=== PATIENT | female | born 2000 | race Caucasian/White ===

== ENCOUNTER → 2022-08-30 | Outpatient (CLI) | payer OTHER, SELFPAY ==
[2022-08-30 16:55] LABS: Amphetamine Urine VISTA NEGATIVE (<1000 ng/mL); Barbiturate Urine VISTA NEGATIVE (< 200 ng/mL); Benzodiazepine Urine VISTA NEGATIVE (< 200 ng/mL); Cocaine Urine VISTA NEGATIVE (< 300 ng/mL); Ecstacy Urine VISTA NEGATIVE (< 500 ng/mL); Methadone Urine VISTA NEGATIVE (< 300 ng/mL); PCP Urine VISTA NEGATIVE (< 25 ng/mL); THC Urine VISTA NEGATIVE (< 50 ng/mL); Vista UDS pH Range 5
[2022-09-02 09:08] LABS: Chlamydia By Nucleic Acid AMP Negative (Negative)
[2022-09-02 15:29] LABS: Gonococcus By Nucleic Acid AMP Negative (Negative)
[2022-09-06 15:06] LABS: HPV Reflexed? NOT INDICATED
== END | disposition home or self-care (01) ==
LOC: LABSPEC 15:45
PROVIDERS: PCP Family Medicine; Referring Provider Obstetrics & Gynecology; Visit Provider Obstetrics & Gynecology
DX: Z34.00 Encounter for supervision of normal first pregnancy, unspecified trimester (principal); Z12.4 Encounter for screening for malignant neoplasm of cervix
CPT/HCPCS: 80307; 87086; 87491; 87591; 88175; G0145

== ENCOUNTER → 2022-09-28 | Outpatient (CLI) | payer OTHER, SELFPAY ==
[2022-09-28 14:12] LABS: Absolute Lymphocyte Count 2.51 X10^3/uL (0.83-4.51); Absolute Neutrophil Count 9.6 X10^3/uL (2.0-7.7); Basophil# 0.04 X10^3/uL; Basophil% 0.3 % (0-1); Eosinophil# 0.14 X10^3/uL; Eosinophils% 1.1 % (0-5); Hematocrit 41.4 % (37-47); Hemoglobin 13.7 g/dL (12.0-15.0); Lymphocyte # 2.51 X10^3/ul (0.83-4.51); Mean Corp Hgb Conc 33.1 g/dL (32-36); Mean Corpuscular Hgb 29.5 pg (27.0-32.0); Mean Platelet Vol. 9.4 fl (6.2-12.0); Monocyte% 6.8 % (0-10); NRBC Flagged by Analyzer 0 % (0-5); Neutrophil # 9.59 X10^3/uL (2.7-7.7); Neutrophil % 72.4 % (47-70); Platelet Count 265 K/mm3 (150-450); RBC Distribution Width CV 12.4 % (11.6-14.6); RBC Distribution Width SD 40.1 fl (35.1-43.9); Red Blood Count 4.65 M/mm3 (4.2-5.4); White Blood Count 13.2 K/mm3 (4.4-11.0)
[2022-09-28 15:20] LABS: HIV - WCH Non-Reactive (Nonreactive); Hepatitis B Surface Antigen Non-Reactive (Nonreactive); Hepatitis C Antibody Non-Reactive (Nonreactive); Rubella IgG Reactive (Nonreactive); Syphilis Antibodies Non-reactive
== END | disposition home or self-care (01) ==
LOC: PAVLAB 13:52
PROVIDERS: PCP Family Medicine; Referring Provider Obstetrics & Gynecology; Visit Provider Obstetrics & Gynecology
DX: Z34.00 Encounter for supervision of normal first pregnancy, unspecified trimester (principal)
CPT/HCPCS: 36415; 85025; 86703; 86762; 86780; 86803; 86850; 86900; 86901; 87340

== ENCOUNTER → 2023-01-12 | Outpatient (CLI) | payer OTHER, SELFPAY ==
[2023-01-12 10:59] LABS: Absolute Lymphocyte Count 1.58 X10^3/uL (0.83-4.51); Absolute Neutrophil Count 6.8 X10^3/uL (2.0-7.7); Basophil# 0.03 X10^3/uL; Basophil% 0.3 % (0-1); Eosinophil# 0.07 X10^3/uL; Eosinophils% 0.8 % (0-5); Hematocrit 38.6 % (37-47); Hemoglobin 12.8 g/dL (12.0-15.0); Lymphocyte # 1.58 X10^3/ul (0.83-4.51); Lymphocyte % 17.3 % (19-41); Mean Corp Hgb Conc 33.2 g/dL (32-36); Mean Corpuscular Hgb 30.4 pg (27.0-32.0); Mean Corpuscular Volume 91.7 fL (81-99); Mean Platelet Vol. 9.3 fl (6.2-12.0); Monocyte# 0.56 X10^3/uL; Monocyte% 6.1 % (0-10); NRBC Flagged by Analyzer 0 % (0-5); Neutrophil # 6.79 X10^3/uL (2.7-7.7); Neutrophil % 74.6 % (47-70); Platelet Count 217 K/mm3 (150-450); RBC Distribution Width CV 12.8 % (11.6-14.6); RBC Distribution Width SD 42.4 fl (35.1-43.9); Red Blood Count 4.21 M/mm3 (4.2-5.4); White Blood Count 9.1 K/mm3 (4.4-11.0)
[2023-01-12 11:11] LABS: Glucose Challenge Gest 1H 50g 163 mg/dL (70-140)
[2023-01-12 11:50] LABS: HIV - WCH Non-Reactive (Nonreactive); Syphilis Antibodies Non-reactive
== END | disposition home or self-care (01) ==
LOC: PAVLAB 10:24
PROVIDERS: PCP Family Medicine; Referring Provider Obstetrics & Gynecology; Visit Provider Obstetrics & Gynecology
DX: Z34.02 Encounter for supervision of normal first pregnancy, second trimester (principal)
CPT/HCPCS: 36415; 82950; 85025; 86703; 86780

== ENCOUNTER → 2023-01-17 | Outpatient (CLI) | payer OTHER, SELFPAY ==
[2023-01-17 07:52] LABS: Glucose GTT-Gestation. Fasting 77 mg/dL (<105)
[2023-01-17 08:35] LABS: Glucose GTT-Gestational 1 Hr 201 mg/dL (<190)
[2023-01-17 09:08] LABS: Glucose GTT-Gestational 2 Hr 189 mg/dL (<165)
[2023-01-17 11:45] LABS: Glucose GTT-Gestational 3 Hr 82 L (<145)
== END | disposition home or self-care (01) ==
LOC: LAB 06:49
PROVIDERS: PCP Family Medicine; Referring Provider Obstetrics & Gynecology; Visit Provider Obstetrics & Gynecology
DX: O99.810 Abnormal glucose complicating pregnancy (principal); Z3A.00 Weeks of gestation of pregnancy not specified
CPT/HCPCS: 36415; 82951; 82952

== ENCOUNTER 2023-01-19 08:19 | Outpatient (RCR) | payer OTHER, SELFPAY | END 2023-01-20 23:59 | LOC: DC 08:19 | PROVIDERS: PCP Family Medicine; Referring Provider Advanced Practice Midwife; Visit Provider Advanced Practice Midwife | DX: O24.419 Gestational diabetes mellitus in pregnancy, unspecified control (principal); Z3A.00 Weeks of gestation of pregnancy not specified | CPT/HCPCS: 97802 ==

== ENCOUNTER 2023-02-02 09:30 | Outpatient (RCR) | payer OTHER, SELFPAY | END 2023-02-19 23:59 | LOC: DC 09:30 | PROVIDERS: PCP Family Medicine; Referring Provider Advanced Practice Midwife; Visit Provider Advanced Practice Midwife | DX: O24.419 Gestational diabetes mellitus in pregnancy, unspecified control (principal); Z3A.00 Weeks of gestation of pregnancy not specified | CPT/HCPCS: 97803 ==

== ENCOUNTER → 2023-03-15 | Outpatient (CLI) | payer OTHER, SELFPAY ==
--- NOTE | 2023-03-15 08:48 | US_ITS ---
HISTORY: gestational diabetes. LMP 07/03/2022. TECHNIQUE: Transabdominal pelvic ultrasound was performed. 69 images. COMPARISON: None. FINDINGS: INTRAUTERINE GESTATION(s): Single. PRESENTATION: Cephalic. HEART MOTION: 144 bpm. PLACENTA: Anterior, grade 2. No placenta previa. CERVIX: 3.9 cm in length and closed. AMNIOTIC FLUID INDEX (RENATA): 15.3 cm. Largest fluid pocket 4.9 cm. BIOPHYSICAL PROFILE (BPP): Not assessed. biometry- BIPARIETAL DIAMETER: 9 cm, corresponding to 36 weeks 4 days. HEAD CIRCUMFERENCE: 33.1 cm, corresponding to 37 weeks 5 days. ABDOMINAL CIRCUMFERENCE: 37.1 cm, corresponding to 41 weeks 0 days. FEMUR LENGTH: 6.9 cm, corresponding to 35 weeks 3 days. ESTIMATED GESTATIONAL AGE: 37 weeks 3 days. ESTIMATED DUE DATE (LAISHA): 04/02/2023. ESTIMATED WEIGHT: 3680 g, corresponding to 97th percentile ANATOMY: Not assessed. US/OB Limited With Biometrics IMPRESSION: Single living intrauterine with an estimated gestational age of 37 weeks 3 days. Electronically Signed: Demi Siu MD at 10:31 EDT ,
== END | disposition home or self-care (01) ==
PROVIDERS: PCP Family Medicine; Referring Provider Obstetrics & Gynecology; Visit Provider Obstetrics & Gynecology
DX: Z34.00 Encounter for supervision of normal first pregnancy, unspecified trimester (principal)
CPT/HCPCS: 76816; 87081

== ENCOUNTER → 2023-03-28 | Outpatient (CLI) | payer OTHER, SELFPAY ==
--- NOTE | 2023-03-28 10:35 | US_ITS ---
STUDY: SECOND AND THIRD TRIMESTER OBSTETRICAL ULTRASOUND REASON FOR EXAM: Female, 23 years old growth -- gestational dm -- patient just scanned 03/15 - per office repeat today, Did not wait for correct timing interval of 4 weeks LMP: July 03, 2022. TECHNIQUE: Transabdominal TECHNICAL QUALITY: Adequate. PRIOR ULTRASOUND: Comparison is made with prior study dated March 15, 2023. FINDINGS: There is a single intrauterine fetus. The fetus is in a cephalic presentation. There is demonstrated cardiac activity with a heart rate of 153 bpm. There is a normal amniotic fluid volume. The largest amniotic fluid pocket measures 5.6 cm. The amniotic fluid index (RENATA) is 15.4 cm. The placenta is anterior in location and is not low lying. There are Grade 2 placental changes. The cervix measures 3.7 sign in length. The adnexal regions are not visualized. BIOMETRY: BPD: 9.43 cm: 38 weeks, 3 days HC: 33.42 cm: 38 weeks, 1 days AC: 39.59 cm: Measurement is off the chart FL: 7.08 cm: 36 weeks, 2 days CI: 84% FL/BPD: 75% FL/HC: FL/AC: 18% HC/AC: 0.84 age by current US: 38 weeks, 1 days. LAISHA by current US: April 10, 2023. Estimated weight: 4348 grams, +/- 652 grams, 99 %. age by prior US: 39 weeks, 2 days. LAISHA by prior US: April 02, 2023. Age by LMP: 38 weeks, 2 days. LAISHA by LMP: April 09, 2023. US/OB Limited With Biometrics IMPRESSION: Single live intrauterine gestation with a mean gestational age of 39 weeks and 2 days. The measurements obtained today fall within normal expected range. Electronically Signed: Raul Sauceda MD at 13:37 EDT ,
== END | disposition home or self-care (01) ==
LOC: US 10:35
PROVIDERS: PCP Family Medicine; Referring Provider Obstetrics & Gynecology; Visit Provider Obstetrics & Gynecology
DX: Z34.90 Encounter for supervision of normal pregnancy, unspecified, unspecified trimester (principal)
CPT/HCPCS: 76816

== ENCOUNTER 2023-03-31 10:45 | Outpatient (CLI) | payer OTHER, SELFPAY ==
[2023-03-31 11:06] VITALS: TEMP 37.1
[2023-03-31 11:08] VITALS: BMI 33.3
[2023-03-31 11:16] VITALS: PULSE 101; PULSE 143; O2SAT 83; O2SAT 97
[2023-03-31 11:23] VITALS: BP 122/78; PULSE 94
[2023-03-31 11:37] VITALS: BP 115/72; PULSE 92
[2023-03-31 11:39] LABS: Hematocrit 41.6 % (37-47); Hemoglobin 14.1 g/dL (12.0-15.0); Mean Corp Hgb Conc 33.9 g/dL (32-36); Mean Corpuscular Hgb 30.5 pg (27.0-32.0); Mean Platelet Vol. 9.9 fl (6.2-12.0); Platelet Count 201 K/mm3 (150-450); RBC Distribution Width CV 12.5 % (11.6-14.6); RBC Distribution Width SD 40.7 fl (35.1-43.9); Red Blood Count 4.62 M/mm3 (4.2-5.4); White Blood Count 8.5 K/mm3 (4.4-11.0)
[2023-03-31 11:53] VITALS: BP 113/65; PULSE 86
[2023-03-31 12:02] LABS: AST(SGOT) 22 U/L (15-37); Alanine Aminotransfer ALT/SGPT 27 U/L (13-56); Creatinine, Serum 0.62 mg/dL (0.55-1.02); EST Glomerular Filtration Rate 125 mL/min (>60); Est Glom Filt Rate - Afr Amer 151 mL/min (>60); Estimated Creatinine Clearance 124.82 ml/min; Uric Acid 4.6 mg/dL (2.6-6.0)
[2023-03-31 12:07] VITALS: BP 107/62; PULSE 82
[2023-03-31 12:07] LABS: Protein, Urine (Random) 16.5 mg/dL (<11.9); Protein:Creat Ratio 279 mg/g CRE (0-200)
[2023-03-31 12:09] LABS: ALB/GLOB Ratio 0.7 RATIO (0.9-2.4); AST(SGOT) 23 U/L (15-37); Alanine Aminotransfer ALT/SGPT 25 U/L (13-56); Albumin, Serum 2.7 g/dL (3.2-5.0); Alkaline Phosphatase 198 U/L (45-117); Anion Gap 7 (5-15); BUN 9 mg/dL (7-18); BUN/Creat Ratio 14.6 RATIO (10-20); Calcium,Total 9.5 mg/dL (8.5-10.1); Chloride 107 mmol/L (98-107); Creatinine, Serum 0.62 mg/dL (0.55-1.02); EST Glomerular Filtration Rate 126 mL/min (>60); Est Glom Filt Rate - Afr Amer 152 mL/min (>60); Estimated Creatinine Clearance 124.82 ml/min; Glucose 89 mg/dL (74-106); Protein, Total 6.7 g/dL (6.4-8.2); Sodium Level 137 mmol/L (136-145)
--- NOTE | 2023-03-31 12:10 | OB.TRI.NOTE ---
HPI - General HPI Narrative CHRIS WALLACE, is a 23 F who presents with elevated BPs in the office. no lof, vaginal bleeding, or dec fm. no headaches. 99th% baby, planning a primary section.? sending to L&D now prot/cr sent stat Maternal Data Information LAISHA Calculator Estimated Delivery Date Method Current WG Current Estimate 04/09/23 LMP (Certain) 38w 5d PFSH PFSH Medical History Influenza A Home Medications vitamin#30 30 mg iron-10 mg iron-folic acid 1 mg-omg3 capsule 1 cap PO DAILY 08/30/22 [History Last Taken 03/30/23 22:00] blood sugar diagnostic (Blood Glucose Test strips) #50 ea 01/17/23 [Rx Last Taken Unknown] blood-glucose meter #1 ea 01/17/23 [Rx Last Taken Unknown] lancets #100 ea 01/17/23 [Rx Last Taken Unknown] Allergy/AdvReac Type Severity Reaction Status Date / Time No Known Allergies Allergy Verified 03/31/23 10:07 Social History adopted: No household members: spouse housing: house current occupational status: employed 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 current occupational exposures/hazards: No pets and animals: Yes pets and animals: dog(s) history of recent travel: Yes (Cruise 08/19/22 [facility]) out of state: Yes out of country: Yes sexually active: Yes Smoking Status: Never smoker alcohol intake: former details: ocassional prior to substance use type: does not use well-balanced diet: daily or most days caffeine: Yes Type: coffee Number of servings: 1 eating out: rarely or never during the past year weight has: remained stable what type of physical activity do you participate in: none david/alevism: Catholic seatbelt use: always do you feel safe at home: Yes 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 History 1 Elective abortions Hx Para 0 Spontaneous abortions Hx # Term Pregnancies Ectopic pregnancies Hx # Pregnancies Multiple births # of living children Visit Details Expected Delivery Route/Plan Labor Preferences- CB/BF classes: Discussed labor support person: Andreas labor intervention preferences: epidural if needed pain management options preferred: Discussed cut cord/dad catch: cord : yes PP control planned: discussed discussed possible routes of delivery and associated risks: [] special requests: [] Plans Covid status: declined Flu vaccine: discussed Tdap vaccine: Given Rhogam: na LARC form signed: yes Problem list reviewed and updated with the most current plan of care details and appropriate orders placed. Relevant counseling for the gestational age provided. Continue routine care and follow up unless otherwise noted in visit notes/problem list details OB Flowsheet Initial Weight: Not Recorded Date <del>?</del> EGA Weight BP Urine Prot <del>?</del> Glucose FHR FuHt Pres Dilation <del>?</del> Effaced St Visit Note 08/30/22 <del>?</del> 8w 2d 175 lb 112/82 <del>?</del> 168 <del>?</del> JV- CRL consistent with LMP. declines genetic testing. 09/28/22 <del>?</del> 12w 3d 179 lb 4 oz 131/82 Negative <del>?</del> Negative 157 <del>?</del> JV- no complaints today. CRL consistent with GS still and pt doing overall well. she will go for labs today. 10/25/22 <del>?</del> 16w 2d 180 lb 127/80 Negative <del>?</del> Negative 150 <del>?</del> SM- no vb cramping. 11/21/22 <del>?</del> 20w 1d 182 lb 127/84 Negative <del>?</del> Negative 165 <del>?</del> SM- its a BOY! no vb cramping 12/19/22 <del>?</del> 24w 1d 188 lb 8 oz 116/76 Negative <del>?</del> Negative 150 24 <del>?</del> SM- no vb lof good fm no regular ctx 01/12/23 <del>?</del> 27w 4d 194 lb 6 oz 136/87 Negative <del>?</del> Negative 155 28 <del>?</del> KW no vb/lof/ctx. good FM. failed 1 hour GTT, 3 hour info given. 01/24/23 <del>?</del> 29w 2d 193 lb 8 oz 128/78 Negative <del>?</del> Negative 155 29 <del>?</del> KW-+FM. No LOF/VB/Ctx. BS reviewed-stable. Tdap given. 02/08/23 <del>?</del> 31w 3d 193 lb 124/79 Negative <del>?</del> Negative 141 32 <del>?</del> JV- larc signed today. no lof, vaginal bleeding, or dec fm. JV- larc signed today. no lof, vaginal bleeding, or dec fm. Fasting levels 70's- 80's, 2 hr pp under 120 02/23/23 <del>?</del> 33w 4d 194 lb 2 oz 125/76 Negative <del>?</del> Negative 143 33 <del>?</del> JV-no lof, vaginal bleeding or dec fm. normal glucose levels 03/09/23 <del>?</del> 35w 4d 195 lb 6 oz 128/78 Negative <del>?</del> Negative 145 37 Cephalic <del>?</del> SM- no vb lof good fm no regular ctx SM- no vb lof good fm no regular ctx ordered growth us BS controlled 03/15/23 <del>?</del> 36w 3d 197 lb 2 oz 122/83 Negative <del>?</del> Negative 150 37.5 Cephalic 1 <del>?</del> 0 -4 JV- growth scan shows baby is over 8 pounds already and 97th%. plan for 39 week delivery. and consider repeat scan prior to induction if baby still high. if over 4500 grams at 39 weeks consider primary section. (today is at 3700 and estimated to be 4400 grams by 39 weeks) 03/21/23 <del>?</del> 37w 2d 196 lb 4 oz 124/82 Negative <del>?</del> Negative 157 38 Cephalic 1 <del>?</del> -4 MH-No VB, LOF or reg CTX. Good FM. Growth US ordered. 03/31/23 <del>?</del> 38w 5d 200 lb 134/85 Trace <del>?</del> Negative 150 43 <del>?</del> JV-rpt bp is 146/93. no lof, vaginal bleeding, or dec fm. no headaches. 99th% baby, planning a primary section. JV-rpt bp is 146/93. no lof, vaginal bleeding, or dec fm. no headaches. 99th% baby, planning a primary section. sending to L&D now prot/cr sent stat 03/31/23 <del>?</del> 38w 5d 200 lb 9.93 oz 122/78 115/72 113/65 107/62 <del>?</del> <del>?</del> NST FHR Rate Baby A Baseline: 155 Variability:: Moderate Accelerations:: 15 x 15 Decelerations:: None NST Reactive:: Yes FHR Category:: Category I Uterine Activity:: irregular ctx Assessment & Plan (1) LGA (large for gestational age) fetus: COMMENT: rpt growth US at 38 wk, del at 39 wk, primary csection scheduled for 04/05 @ 7:10 (2) Gestational diabetes: COMMENT: 99% on 03/28. 4500grams by 39weeks. P C/S scheduled for 04/05 at 7am. BS well controlled with diet 36 week growth us ordered - LGA on growth scan at 36 weeks (97th%) - 8lbs at 36 weeks. deliver 39 weeks - consider growth scan repeat at 39 weeks. estimated to be 4400 grams at 39 weeks and may be candidate for primary section. (3) Supervision of normal first : COMMENT: PRR , LAISHA 04/09/23 boy [facility] (4) : QUALIFIERS: Weeks of gestation: 38 weeks Qualified Code(s): Z3A.38 - 38 weeks gestation of COMMENT: Neg GBS. discussed genetic, ntd, and carrier testing and declines. nl anatomy (5) Elevated BP without diagnosis of hypertension: COMMENT: P:C 279. repeat BP in WP 107-122/62-78. PLAN: Plan Patient presents for triage evaluation secondary to elevated BP in office. P:C 279 with stabilized BP during triage. FHT: Moderate variability reactive no decelerations category I tracing [place]: irregular Contractions Assessment and plan: Reactive NST, reassuring maternal and status patient discharged to home to follow-up in office. See problem list details for additional plan information. Charges/Coding Procedures Urinary/Genital [id number]: [id number] non-stress test Interp
== END 2023-03-31 12:28 | disposition home or self-care (01) ==
LOC: WPOUT 11:03 → LABSPEC 11:03 → WPOUT 11:03 → WP 11:04
PROVIDERS: Obstetrics & Gynecology; PCP Family Medicine; Referring Provider Registered Nurse; Visit Provider Registered Nurse
DX: O36.63X0 Maternal care for excessive fetal growth, third trimester, not applicable or unspecified (principal); O24.410 Gestational diabetes mellitus in pregnancy, diet controlled; O99.891 Other specified diseases and conditions complicating pregnancy; R03.0 Elevated blood-pressure reading, without diagnosis of hypertension; Z3A.38 38 weeks gestation of pregnancy
CPT/HCPCS: 36415; 59025; 59050; 80053; 82565; 82570; 84156; 84450; 84460; 84550; 85027

== ENCOUNTER 2023-04-05 04:55 | Inpatient (IN) | payer OTHER, SELFPAY ==
[2023-04-05] VITALS (17 sets, daily range): BP systolic 105–142; BP diastolic 53–82; PULSE 75–103; RESP 15–18; TEMP 35.6–37.2; O2SAT 96–99; BMI 33.3
[2023-04-05] MEDS: Lactated Ringers 1,000 ML 999 ML IV (05:35)
[2023-04-05 05:47] LABS: Absolute Lymphocyte Count 1.89 X10^3/uL (0.83-4.51); Absolute Neutrophil Count 5.9 X10^3/uL (2.0-7.7); Basophil# 0.04 X10^3/uL; Basophil% 0.4 % (0-1); Eosinophil# 0.14 X10^3/uL; Eosinophils% 1.6 % (0-5); Hematocrit 40.7 % (37-47); Hemoglobin 13.7 g/dL (12.0-15.0); Lymphocyte # 1.89 X10^3/ul (0.83-4.51); Lymphocyte % 21.1 % (19-41); Mean Corp Hgb Conc 33.7 g/dL (32-36); Mean Corpuscular Hgb 30.6 pg (27.0-32.0); Mean Corpuscular Volume 90.8 fL (81-99); Monocyte# 0.96 X10^3/uL; Monocyte% 10.7 % (0-10); NRBC Flagged by Analyzer 0 % (0-5); Neutrophil # 5.87 X10^3/uL (2.7-7.7); Neutrophil % 65.5 % (47-70); Platelet Count 209 K/mm3 (150-450); RBC Distribution Width CV 12.1 % (11.6-14.6); RBC Distribution Width SD 39.9 fl (35.1-43.9); Red Blood Count 4.48 M/mm3 (4.2-5.4)
[2023-04-05] MEDS: Acetaminophen 500 MG Tablet 1000 MG PO ×4 (06:03→23:14)
[2023-04-05 06:23] LABS: Bedside Glucose 88 mg/dL (74-106)
[2023-04-05] MEDS: Lactated Ringers 1,000 ML 150 ML IV (06:36)
[2023-04-05] MEDS: Sodium Citrate/Citric Acid 30 ML UDC PO (07:06)
[2023-04-05] MEDS: Cefazolin 2 GM in 0.9% Normal Saline 100 ML IV (07:10)
--- NOTE | 2023-04-05 07:24 | HP.PCM.OB_ITS ---
HPI - General General Date of Admission: 04/05/23 HPI Narrative CHRIS WALLACE, is a 23 y/o @ 39 weeks 3 days with LGA (>4500 grams) and gestation diabetes who presents to L&D for a primary cesarea section Maternal Data Information LAISHA Calculator Estimated Delivery Date Method Current WG Current Estimate 04/09/23 LMP (Certain) 39w 3d PFSH PFS Medical History (Updated 04/05/23 @ 05:43 by Aggie Parada) Gestational diabetes Influenza A macrosomia Home Medications vitamin#30 30 mg iron-10 mg iron-folic acid 1 mg-omg3 capsule 1 cap PO DAILY 08/30/22 [History Last Taken 03/30/23 22:00] blood sugar diagnostic (Blood Glucose Test strips) #50 ea 01/17/23 [Rx Last Taken Unknown] blood-glucose meter #1 ea 01/17/23 [Rx Last Taken Unknown] lancets #100 ea 01/17/23 [Rx Last Taken Unknown] Allergy/AdvReac Type Severity Reaction Status Date / Time No Known Allergies Allergy Verified 04/05/23 05:54 Surgical History (Updated 04/05/23 @ 05:43 by Aggie Parada) S/P foot surgery, left [place] teeth removed Social History adopted: No household members: spouse housing: house current occupational status: employed 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 current occupational exposures/hazards: No pets and animals: Yes pets and animals: dog(s) history of recent travel: Yes (Cruise 08/19/22 [facility]) out of state: Yes out of country: Yes sexually active: Yes Smoking Status: Never smoker alcohol intake: former details: ocassional prior to substance use type: does not use well-balanced diet: daily or most days caffeine: Yes Type: coffee Number of servings: 1 eating out: rarely or never during the past year weight has: remained stable what type of physical activity do you participate in: none david/hindu: Latter Day seatbelt use: always do you feel safe at home: Yes 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 1 Elective abortions Hx Para 0 Spontaneous abortions Hx # Term Pregnancies Ectopic pregnancies Hx # Pregnancies Multiple births # of living children Visit Details Expected Delivery Route/Plan Labor Preferences- CB/BF classes: Discussed labor support person: Andreas labor intervention preferences: epidural if needed pain management options preferred: Discussed cut cord/dad catch: cord : yes PP control planned: discussed discussed possible routes of delivery and associated risks: [] special requests: [] Plans Covid status: declined Flu vaccine: discussed Tdap vaccine: Given Rhogam: na LARC form signed: yes Problem list reviewed and updated with the most current plan of care details and appropriate orders placed. Relevant counseling for the gestational age provided. Continue routine care and follow up unless otherwise noted in visit notes/problem list details OB Flowsheet Initial Weight: Not Recorded Date -?-?-?-?-?-?-?-?-?-?-?-?- EGA Weight BP Urine Prot -?-?-?-?-?-?-?-?-?-?-?-?- Glucose FHR FuHt Pres Dilation -?-?-?-?-?-?-?-?-?-?-?-?- Effaced St Visit Note 08/30/22 -?-?-?-?-?-?-?-?-?-?-?-?- 8w 2d 175 lb 112/82 -?-?-?-?-?-?-?-?-?-?-?-?- 168 -?-?-?-?-?-?-?-?-?-?-?-?- JV- CRL consiste nt with LMP. declines genetic testing. 09/28/22 -?-?-?-?-?-?-?-?-?-?-?-?- 12w 3d 179 lb 4 oz 131/82 Nega tive -?-?-?-?-?-?-?-?-?-?-?-?- Negative 157 -?-?-?-?-?-?-?-?-?-?-?-?- JV- no complaint s today. CRL consistent with GS still and pt doing overall well. she will go for labs today. 10/25/22 -?-?-?-?-?-?-?-?-?-?-?-?- 16w 2d 180 lb 127/80 Negative -?-?-?-?-?-?-?-?-?-?-?-?- Negative 150 -?-?-?-?-?-?-?-?-?-?-?-?- SM- no vb crampi ng. 11/21/22 -?-?-?-?-?-?-?-?-?-?-?-?- 20w 1d 182 lb 127/84 Negative -?-?-?-?-?-?-?-?-?-?-?-?- Negative 165 -?-?-?-?-?-?-?-?-?-?-?-?- SM- its a BOY! n o vb cramping 12/19/22 -?-?-?-?-?-?-?-?-?-?-?-?- 24w 1d 188 lb 8 oz 116/76 Nega tive -?-?-?-?-?-?-?-?-?-?-?-?- Negative 150 24 -?-?-?-?-?-?-?-?-?-?-?-?- SM- no vb lof go od fm no regular ctx 01/12/23 -?-?-?-?-?-?-?-?-?-?-?-?- 27w 4d 194 lb 6 oz 136/87 Nega tive -?-?-?-?-?-?-?-?-?-?-?-?- Negative 155 28 -?-?-?-?-?-?-?-?-?-?-?-?- KW no vb/lof/ctx . good FM. failed 1 hour GTT, 3 hour info given. 01/24/23 -?-?-?-?-?-?-?-?-?-?-?-?- 29w 2d 193 lb 8 oz 128/78 Nega tive -?-?-?-?-?-?-?-?-?-?-?-?- Negative 155 29 -?-?-?-?-?-?-?-?-?-?-?-?- KW-+FM. No LOF/V B/Ctx. BS reviewed-stable. Tdap given. 02/08/23 -?-?-?-?-?-?-?-?-?-?-?-?- 31w 3d 193 lb 124/79 Negative -?-?-?-?-?-?-?-?-?-?-?-?- Negative 141 32 -?-?-?-?-?-?-?-?-?-?-?-?- JV- larc signed today. no lof, vaginal bleeding, or dec fm. JV- larc signed today. no lo f, vaginal bleeding, or dec fm. Fasting levels 70's- 80's, 2 hr pp under 120 02/23/23 -?-?-?-?-?-?-?-?-?-?-?-?- 33w 4d 194 lb 2 oz 125/76 Nega tive -?-?-?-?-?-?-?-?-?-?-?-?- Negative 143 33 -?-?-?-?-?-?-?-?-?-?-?-?- JV-no lof, vagin al bleeding or dec fm. normal glucose levels 03/09/23 -?-?-?-?-?-?-?-?-?-?-?-?- 35w 4d 195 lb 6 oz 128/78 Nega tive -?-?-?-?-?-?-?-?-?-?-?-?- Negative 145 37 Cephalic -?-?-?-?-?-?-?-?-?-?-?-?- SM- no vb lof go od fm no regular ctx SM- no vb lof good fm no reg ular ctx ordered growth us BS controlled 03/15/23 -?-?-?-?-?-?-?-?-?-?-?-?- 36w 3d 197 lb 2 oz 122/83 Nega tive -?-?-?-?-?-?-?-?-?-?-?-?- Negative 150 37.5 Cephalic 1 -?-?-?-?-?-?-?-?-?-?-?-?- 0 -4 JV- growth scan shows baby is over 8 pounds already and 97th%. plan for 39 week delivery. and consider repeat scan prior to induction if baby still high. if over 4500 grams at 39 weeks consider primary section. (today is at 3700 and estimated to be 4400 grams by 39 weeks) 03/21/23 -?-?-?-?-?-?-?-?-?-?-?-?- 37w 2d 196 lb 4 oz 124/82 Nega tive -?-?-?-?-?-?-?-?-?-?-?-?- Negative 157 38 Cephalic 1 -?-?-?-?-?-?-?-?-?-?-?-?- -4 MH-No VB , LOF or reg CTX. Good FM. Growth US ordered. 03/31/23 -?-?-?-?-?-?-?-?-?-?-?-?- 38w 5d 200 lb 134/85 Trace -?-?-?-?-?-?-?-?-?-?-?-?- Negative 150 43 -?-?-?-?-?-?-?-?-?-?-?-?- JV-rpt bp is 146 /93. no lof, vaginal bleeding, or dec fm. no headaches. 99th% baby, planning a primary section. JV-rpt bp is 146/93. no lof, vaginal bleeding, or dec fm. no headaches. 99th% baby, planning a primary section. sending to L&D now prot/cr sent stat ROS Constitutional Constitutional: Denies change in weight, fatigue, fever(s), headache(s), poor appetite or weakness Eyes Eyes: Denies blurry vision, change in vision, seeing flashes or spots in vision ENT HEENT: Denies dizziness, headache(s), loss taste/smell or sore throat Cardiovascular Cardiovascular: Denies chest pain, dizziness, dyspnea, irregular heart rhythm, leg edema, palpitations, rapid heart rate or vomiting Respiratory/Chest Respiratory/Chest: Denies chest tightness, cough, dyspnea or breast pain Gastrointestinal Gastrointestinal: Denies abdominal pain, anorexia, constipation, cramping, diarrhea, hemorrhoids, vomiting or weight changes Genitourinary Genitourinary: Denies dysuria, flank pain, genital lesions, genital pain, urinary frequency or urinary urgency Musculoskeletal Musculoskeletal: Denies back pain, difficulty walking, joint pain, limited range of motion, muscle cramps or numbness Integumentary Integumentary: Denies lesions or unusual bruising Neurologic Neurologic: Denies abnormal movements, abnormal speech, dizziness, numbness, seizure-like activity or syncope Psychiatric Psychiatric: Denies anxiety, behavioral changes, change in appetite, change in libido, cognitive impairment, confusion, depression, difficulty concentrating, hallucinations or suicidal thoughts Endocrine Endocrinology: Denies excessive sweating, polydipsia or polyuria Hematologic/Lymphatic Hematologic/Lymphatic: Denies easy bleeding, easy bruising or lymphadenopathy Allergic/Immunologic Allergic/Immunologic: Denies itchy eyes, lip swelling, seasonal rhinorrhea, rhinitis, throat swelling, tongue swelling, eczemia, wheezing or asthma Vital Signs Vital Signs Vital Signs: 04/05/23 05:29 04/05/23 05:29 04/05/23 05:29 Temperature Temperature Source Pulse Rate 93 Respiratory Rate Blood Pressure 129/82 H Blood Pressure Mean BP Systolic 129 BP Diastolic 82 Blood Pressure Source Blood Pressure Position Blood Pressure Location Pulse Ox 96 Oxygen Delivery Method 04/05/23 05:30 04/05/23 05:30 04/05/23 05:30 Temperature 99.0 F 99.0 F Temperature Source Temporal Temporal Pulse Rate 93 Respiratory Rate 18 Blood Pressure 129/82 H Blood Pressure Mean 97 BP Systolic BP Diastolic Blood Pressure Source Monitor Blood Pressure Position Sitting Blood Pressure Location Left Arm Pulse Ox 96 Oxygen Delivery Method Room Air Weight Weight: 200 lb 9.6 oz Body Mass Index (BMI) 33.3 Physical Exam Const alert, oriented x3, no apparent distress and healthy appearing General Appearance: cooperative; Negative for anxious HEENT normocephalic Face and Sinus: normal facial exam Eyes EOMs intact bilaterally and no scleral icterus General Eye: normal appearance of both eyes Neck full ROM and supple Lymph Lymphatic: no lymphadenopathy noted Chest Chest: abnormal inspection of the chest Resp normal respiratory effort Effort and Inspection: able to speak in complete sentences Cardio regular rate GI soft to palpation and non-tender Inspection: gravid Palpation: soft; Negative for tender Back/Spine no CVA tenderness Extremity normal to inspection, full ROM and no clubbing, cyanosis or edema General Extremity: Negative for calf tenderness or edema Skin Lesions: no lesions Rashes: no rashes Psych mental status grossly normal Labs Labs Labs: Blood Type O POSITIVE Antibody Screen NEGATIVE Hct 40.7 % (37-47) Hgb 13.7 g/dL (12.0-15.0) Pap Smear Negative Obstetrics US Syphilis Total Ab Non-reactive Rubella IgG Antibody Reactive (Nonreactive) Hep Bs Antigen Non-Reactive (Nonreactive) Chlamydia DNA (ERICK) Negative (Negative) Neisseria gonorrhoeae DNA (ERICK) Negative (Negative) HIV 1&2 Antibody Non-Reactive (Nonreactive) Glucose 1 Hr 50 gm 163 mg/dL (70-140) H Assessment & Plan (1) : QUALIFIERS: Weeks of gestation: 38 weeks Qualified Code(s): Z3A.38 - 38 weeks gestation of COMMENT: Neg GBS. discussed genetic, ntd, and carrier testing and declines. nl anatomy (2) Supervision of normal first : COMMENT: PRR , LAISHA 04/09/23 boy [facility] (3) Gestational diabetes: COMMENT: 99% on 03/28. 4500grams by 39weeks. P C/S scheduled for 04/05 at 7am. BS well controlled with diet 36 week growth us ordered - LGA on growth scan at 36 weeks (97th%) - 8lbs at 36 weeks. deliver 39 weeks - consider growth scan repeat at 39 weeks. estimated to be 4400 grams at 39 weeks and may be candidate for primary section. (4) LGA (large for gestational age) fetus: COMMENT: rpt growth US at 38 wk, del at 39 wk, primary csection scheduled for 04/05 @ 7:10 (5) Elevated BP without diagnosis of hypertension: COMMENT: P:C 279. repeat BP in WP 107-122/62-78. PLAN: Plan After discussing the patient's diagnosis and treatment plan options, patient wishes to proceed with surgical management. I have discussed with the patient the risks, benefits, and alternatives of the procedure which include but are not limited to risks of anesthesia, bleeding, infection, possible damage to bowel, bladder, or surrounding vasculature which could lead to additional surgery to evaluate any complications. Patient agrees to procedure and wishes to proceed. ACOG/uptodate references given for additional information regarding procedure. plan for primary ERAS section
--- NOTE | 2023-04-05 07:45 | NURSING ---
late entry charting in connect system due pt care and unit acuity
--- NOTE | 2023-04-05 08:16 | OP.PCM_ITS ---
Assessment & Plan (1) : QUALIFIERS: Weeks of gestation: 38 weeks Qualified Code(s): Z3A.38 - 38 weeks gestation of COMMENT: Neg GBS. discussed genetic, ntd, and carrier testing and declines. nl anatomy (2) Supervision of normal first : COMMENT: PRR , LAISHA 04/09/23 boy [facility] (3) Gestational diabetes: COMMENT: 99% on 03/28. 4500grams by 39weeks. P C/S scheduled for 04/05 at 7am. BS well controlled with diet 36 week growth us ordered - LGA on growth scan at 36 weeks (97th%) - 8lbs at 36 weeks. deliver 39 weeks - consider growth scan repeat at 39 weeks. estimated to be 4400 grams at 39 weeks and may be candidate for primary section. (4) LGA (large for gestational age) fetus: COMMENT: rpt growth US at 38 wk, del at 39 wk, primary csection scheduled for 04/05 @ 7:10 (5) Elevated BP without diagnosis of hypertension: COMMENT: P:C 279. repeat BP in WP 107-122/62-78. Maternal Data Information LAISHA Calculator Estimated Delivery Date Method Current WG Current Estimate 04/09/23 LMP (Certain) 39w 3d Final LAISHA: 04/09/23 Final LAISHA Source: LMP Gestational age: 39 weeks 3 days Details Operative Information Date of Procedure: 04/05/23 Pre-Operative Diagnosis: 23 y/o @ 39 weeks 3 days Post-Operative Diagnosis: 23 y/o @ 39 weeks 3 days Classification: Scheduled Procedure Type: low transverse material lister #1: Dalton Abrams Type of Anesthesia: Spinal Antibiotic Given: Ancef 2 grams IV x1 Drain: Sheppard to straight drain Estimated Blood Loss: 700cc Findings Description of Procedure: Spinal anesthesia was placed without difficulty. Sheppard catheter was placed. The patient was placed in the dorsal supine position with leftward tilt. Patient was prepped and draped in the normal sterile fashion. Pfannenstiel skin incision was made with the scalpel and carried through to the underlying layer of fascia with the scalpel. Fascia was nicked in the midline and the incision extended laterally. The rectus bellies were dissected off superiorly and inferiorly with out complication both sharply and bluntly. The peritoneum was entered digitally. The incision was stretched and a low transverse uterine incision was made with the scalpel. The infant's head was delivered atraumatically followed by the anterior and posterior shoulders without complication the rest of the infant delivered. The cord was clamped and cut and the was handed off to awaiting nurse. The placenta was delivered spontaneously immediately following and was noted to be intact and have a three- vessel cord. The uterus was exteriorized cleared of all clots and debris, and the incision was closed in a double layer closure using #1 Vicryl #1 Monocryl. The ovaries and fallopian tubes were noted to be within normal limits. The uterus was returned to the maternal abdomen and gutters were cleared of all clots and debris. The peritoneum was closed with 3-0 Monocryl in a running fashion. Fascia was closed with 0 PDS in a running fashion. Subcutaneous tissue was copiously irrigated and the skin was closed with 3-0 Monocryl in a subcuticular fashion. Mepilex dressing was applied without complication. Patient was taken to recovery in stable condition. It was discussed with the patient that based on the clinical information obtained during this encounter, combined with her history, at this time I would recommend for future deliveries if further pregnancies are desired. Presentation: Positive for Vertex Amniotic Fluid Description: Clear Cord Vessel Description: 3 Vessels Cord Entanglement: Around neck x 1, loose Nuchal Cord Compression: Without compression Infant A Gender: Male (1 minute): 8 (5 minute): 9 Delayed Cord Clamping: Yes Complications Risks of Surgery Discussed w/Patient: Bleeding, Anesthesia Risks, Infection and Injury to surrounding structure(s) including bowel and bladder Multi Select Codes Urinary/Genital Urinary/Genital CPT Codes: [address] [facility]
[2023-04-05 08:19] LABS: Syphilis Antibodies Non-reactive
[2023-04-05] MEDS: Oxytocin 15 Units/NS 250ml 15 UNITS/250 ML IV.SOLN 83 UNITS IV (08:25)
[2023-04-05] MEDS: Ketorolac 30 MG/ML Syringe IV ×3 (09:21→20:59)
[2023-04-05] MEDS: 0.9% Saline Lock 10 ML Syringe IV ×3 (09:21→20:59)
[2023-04-05 10:12] LABS: Bedside Glucose 70 mg/dL (74-106)
[2023-04-05] MEDS: Lactated Ringers 1,000 ML 100 ML IV (11:30)
[2023-04-05] MEDS: Prenatal Vits Tablet 1 TABLET PO (12:06)
[2023-04-06] MEDS: Ketorolac 30 MG/ML Syringe IV (03:00)
[2023-04-06] MEDS: 0.9% Saline Lock 10 ML Syringe IV (03:01)
[2023-04-06 03:10] VITALS: BP 123/66; PULSE 88; RESP 18; TEMP 36.1; O2SAT 97
[2023-04-06] MEDS: Acetaminophen 500 MG Tablet 1000 MG PO ×3 (05:50→18:17)
[2023-04-06 06:19] LABS: Hematocrit 33.3 % (37-47); Mean Corpuscular Hgb 30.6 pg (27.0-32.0); Mean Corpuscular Volume 92.8 fL (81-99); Mean Platelet Vol. 9.8 fl (6.2-12.0); Platelet Count 151 K/mm3 (150-450); RBC Distribution Width CV 12.4 % (11.6-14.6); RBC Distribution Width SD 42.1 fl (35.1-43.9); Red Blood Count 3.59 M/mm3 (4.2-5.4); White Blood Count 8.9 K/mm3 (4.4-11.0)
[2023-04-06 06:29] LABS: Bedside Glucose 73 mg/dL (74-106)
--- NOTE | 2023-04-06 08:24 | PCM.PN.OB ---
Subjective Subjective Patient is laying in bed comfortably without complaints. She states that she slept on an off during the night. Lochia is mild and pain is minimal. She does not feel comfortable being discharged today Objective Data Objective Data Vital Signs: Vital Signs Temp Pulse Resp BP Pulse Ox O2 Del Method 97.0 F L 88 18 123/66 H 97 Room Air 04/06/23 03:10 04/06/23 03:10 04/06/23 03:10 04/06/23 03:10 04/06/23 03:10 04/06/23 03:10 Oxygen Delivery Method Room Air Weight: 200 lb 9.6 oz Body Mass Index (BMI) 33.3 Intake & Output: Intake and Output for Last 24 Hours 04/04/23 04/05/23 04/06/23 23:59 23:59 23:59 Intake Total 2845 / 2845 Output Total 1690 / 1690 Balance 1155 / 1155 Lab / Micro Data Result Diagrams: 04/06/23 06:07 Labs: Laboratory Results - last 24 hr 04/05/23 09:41: POC Glucose 70 L 04/06/23 05:54: POC Glucose 73 L 04/06/23 06:07: WBC 8.9, RBC 3.59 L, Hgb 11.0 L, Hct 33.3 L, MCV 92.8, MCH 30.6, MCHC 33.0, RDW Std Deviation 42.1, RDW Coeff of [place] 12.4, Plt Count 151, MPV 9.8 ROS Constitutional Constitutional: Reports systems reviewed and no addt'l complaints, except as documented Cardiovascular Cardiovascular: Denies chest pain, dizziness, dyspnea or irregular heart rhythm Respiratory/Chest Respiratory/Chest: Denies cough, pain on inspiration or shortness of breath at rest Gastrointestinal Gastrointestinal: Denies abdominal pain, nausea or vomiting Genitourinary Genitourinary: Denies burning urination Musculoskeletal Musculoskeletal: Denies muscle cramps, muscle spasms or muscle weakness Neurologic Neurologic: Denies confusion, dizziness, headache(s) or lack of coordination Psychiatric Psychiatric: Denies anxiety, behavioral changes or depression Physical Exam HEENT normocephalic Resp normal respiratory effort and normal air movement GI soft to palpation, non-tender and non-distended Rectal Exam: other Other Details: Incision is clean, dry, and intact no CVA tenderness Extremity normal to inspection General Extremity: edema bilateral (trace ) Assessment & Plan (1) Status post section: PLAN: s/p LTCS PPD # 1 1. routine post care 2. breast feeding- support given 3. rh positive 4. rubella immune 5. plan for dc to home tomorrow
[2023-04-06] MEDS: Ibuprofen 600 MG Tablet PO ×3 (08:53→20:52)
[2023-04-06 09:24] VITALS: BP 132/72; PULSE 87; RESP 16; TEMP 36.4; O2SAT 98
[2023-04-06] MEDS: Prenatal Vits Tablet 1 TABLET PO (12:06)
[2023-04-06 14:09] VITALS: BP 118/61; PULSE 97; RESP 16; TEMP 36.7; O2SAT 99
--- NOTE | 2023-04-06 15:10 | NURSING ---
silver mepilex dressing removed after pt showered due to water getting under dressing.
[2023-04-06] MEDS: Senna/Docusate Sodium 1 Tablet PO (15:28)
[2023-04-06 21:43] VITALS: BP 123/64; PULSE 88; RESP 16; TEMP 36.4
[2023-04-07] MEDS: Acetaminophen 500 MG Tablet 1000 MG PO ×3 (00:16→12:19)
[2023-04-07 02:14] VITALS: BP 128/72; PULSE 105; RESP 16; TEMP 36.1; O2SAT 98
[2023-04-07] MEDS: Ibuprofen 600 MG Tablet PO ×2 (03:36→09:48)
[2023-04-07 07:31] VITALS: BP 120/76; PULSE 84; RESP 18; TEMP 36.7; O2SAT 98
--- NOTE | 2023-04-07 07:40 | PCM.DC.SUM ---
Providers Date of Admission: 04/05/23 Primary Care Physician: Dr. Lidia Espinal MD Reason For Visit: C SECTION Diagnosis Discharge Diagnosis (1) Status post section: Status: Acute Code(s): Z98.891 - History of uterine scar from previous surgery Plan: s/p LTCS PPD # 1 1. routine post care 2. breast feeding- support given 3. rh positive 4. rubella immune 5. plan for dc to home tomorrow Medications at Discharge Home Medications vitamin#30 30 mg iron-10 mg iron-folic acid 1 mg-omg3 capsule 1 cap PO DAILY 08/30/22 blood sugar diagnostic (Blood Glucose Test strips) #50 ea 01/17/23 blood-glucose meter #1 ea 01/17/23 lancets #100 ea 01/17/23 Hospital Course Operations None and section Summary of Care Provided Minutes Spent on Discharge: 30 Hospital Course: The patient was admitted for a primary scheduled section on 04/05/23 for suspected weight of 9-10 pounds. There were no complications. On day #1 she was tolerating pain well and ambulating, on day #2 she was ready for discharge. Physical Exam HEENT normocephalic Resp normal respiratory effort and normal air movement GI soft to palpation, non-tender and non-distended Rectal Exam: other Other Details: Incision is clean, dry, and intact no CVA tenderness Extremity normal to inspection General Extremity: edema bilateral (trace ) Weight / BMI Weight Weight: 200 lb 9.6 oz Body Mass Index (BMI) 33.3 ABG / Lab / Microbiology Data Result Diagrams: 04/06/23 06:07 D/C Instructions Discharge Diet: No restrictions May resume sexual activity in: 4-6 weeks Weight Bearing Status: Full weight bearing Call your doctor if your incision/area has: Continuous Slow Oozing, Sudden Increased Bleeding, Increased Pain/ Swelling, Increased Redness and Foul Smelling Discharge Call your doctor if you observe: Fever of 101 or Higher and Using more than 1 pad per hour Suture Line Care: Avoid Pulling/Pushing and Avoid Pinching/Bending Cleanse incision/area with: Soap & Water and Keep Dressing Clean & Dry Please Follow Up With: Emma Booth, When: Call [phone] to make an appointment for an incision check in 1-2 weeks. Meaningful Use Info Meaningful Use Diagnoses (Choose all that apply): None applicable Discharge Plan Admission Admit Date/Time: 04/05/23 04:55 Attending Provider: Emma Booth Primary Care Provider: Lidia Espinal Discharge Orders/Prescriptions Prescriptions: No Action PNV #[id number] acid-omega3 30 mg iron-10 mg iron-1 mg capsule 1 cap PO DAILY (DME) blood-glucose meter Misc See Rx Instructions .MEDSUPPLY Qty: 1 0RF Rx Instructions: As directed- Test fasting and 2 hours after meals (DME) lancets Misc See Rx Instructions .MEDSUPPLY Qty: 100 12RF Rx Instructions: As directed Fasting and 2 HR after meals (DME) Blood Glucose Test Strip See Rx Instructions .Route Qty: 50 12RF Rx Instructions: As directed Fasting & 2 HR after meals Referrals / Follow Up: Lidia Espinal MD [Primary Care Provider] - Disposition Disposition (needs filled in before D/C Order can be placed): Home, Self Care
--- NOTE | 2023-04-07 07:42 | DCINST_ITS ---
Discharge Instructions Diet Discharge Diet: No restrictions Activity Discharge Activity: May Not Drive (for 2 weeks or while taking narcotic pain medications.), May Shower and May Take a Tub Bath (in 7 days.) May resume sexual activity in: 4-6 weeks Weight Bearing Status: Full weight bearing Lifting Restrictions: 20 pounds Dressing / Incision Call your doctor if your incision/area has: Continuous Slow Oozing, Sudden Increased Bleeding, Increased Pain/ Swelling, Increased Redness and Foul Smelling Discharge Call your doctor if you observe: Fever of 101 or Higher and Using more than 1 pad per hour Suture Line Care: Avoid Pulling/Pushing and Avoid Pinching/Bending Cleanse incision/area with: Soap & Water and Keep Dressing Clean & Dry Follow Up Care Please Follow Up With: Emma Booth DO When: Call [phone] to make an appointment for an incision check in 1-2 weeks. Test Results: Test results from this visit will be discussed in further detail at your follow- up appointment, if applicable. Discharge Plan Admission Admit Date/Time: 04/05/23 04:55 Primary Reason for Your Visit: Attending Provider: Emma Booth Primary Care Provider: Lidia Espinal Discharge Orders/Prescriptions Prescriptions: New ibuprofen 800 mg tablet 800 mg PO Q8H PRN (Reason: pain) Qty: 30 0RF Continued PNV #[id number] acid-omega3 30 mg iron-10 mg iron-1 mg capsule 1 cap PO DAILY No Action (DME) blood-glucose meter Misc See Rx Instructions .MEDSUPPLY Qty: 1 0RF Rx Instructions: As directed- Test fasting and 2 hours after meals (DME) lancets Misc See Rx Instructions .MEDSUPPLY Qty: 100 12RF Rx Instructions: As directed Fasting and 2 HR after meals (DME) Blood Glucose Test Strip See Rx Instructions .Route Qty: 50 12RF Rx Instructions: As directed Fasting & 2 HR after meals Referrals / Follow Up: Lidia Espinal MD [Primary Care Provider] - Disposition Disposition (needs filled in before D/C Order can be placed): Home, Self Care
[2023-04-07] MEDS: Senna/Docusate Sodium 1 Tablet PO (09:49)
[2023-04-07 11:00] VITALS: BP 115/75; PULSE 91; RESP 18; TEMP 36.6; O2SAT 97
[2023-04-07] MEDS: Prenatal Vits Tablet 1 TABLET PO (12:18)
[2023-04-07 12:22] VITALS: BP 115/75; PULSE 100; RESP 18; TEMP 36.6; O2SAT 97
== END 2023-04-07 12:40 | disposition home or self-care (01) | DRG 788 ==
PROVIDERS: Admitting Provider Obstetrics & Gynecology; PCP Family Medicine; Visit Provider Obstetrics & Gynecology
PROC: 10D00Z1 Extraction of Products of Conception, Low, Open Approach (ICD-10-PCS; CPT 59514; principal; 2023-04-05 06:55)
DX: O24.420 Gestational diabetes mellitus in childbirth, diet controlled (principal); O26.893 Other specified pregnancy related conditions, third trimester; R03.0 Elevated blood-pressure reading, without diagnosis of hypertension; O36.63X0 Maternal care for excessive fetal growth, third trimester, not applicable or unspecified; O69.81X0 Labor and delivery complicated by cord around neck, without compression, not applicable or unspecified; Z3A.39 39 weeks gestation of pregnancy; Z37.0 Single live birth; Z28.310 Unvaccinated for COVID-19; Z28.21 Immunization not carried out because of patient refusal
CPT/HCPCS: 59050; 82962; 85025; 85027; 86780; 86850; 86900; 86901; 99221; J7120; A4216; G0378; J2405

== ENCOUNTER → 2024-07-15 | Outpatient (CLI) | payer OTHER, SELFPAY ==
[2024-07-15 09:48] LABS: Absolute Lymphocyte Count 2.13 X10^3/uL (0.83-4.51); Absolute Neutrophil Count 6.7 X10^3/uL (2.0-7.7); Basophil# 0.08 X10^3/uL; Basophil% 0.8 % (0-1); Eosinophil# 0.14 X10^3/uL; Eosinophils% 1.4 % (0-5); Hematocrit 40.7 % (37-47); Hemoglobin 13.7 g/dL (12.0-15.0); Lymphocyte # 2.13 X10^3/ul (0.83-4.51); Lymphocyte % 21.9 % (19-41); Mean Corp Hgb Conc 33.7 g/dL (32-36); Mean Corpuscular Hgb 29.5 pg (27.0-32.0); Mean Corpuscular Volume 87.5 fL (81-99); Mean Platelet Vol. 9.5 fl (6.2-12.0); Monocyte# 0.62 X10^3/uL; Monocyte% 6.4 % (0-10); NRBC Flagged by Analyzer 0 % (0-5); Neutrophil # 6.72 X10^3/uL (2.7-7.7); Platelet Count 310 K/mm3 (150-450); RBC Distribution Width CV 12.7 % (11.6-14.6); Red Blood Count 4.65 M/mm3 (4.2-5.4); White Blood Count 9.7 K/mm3 (4.4-11.0)
[2024-07-15 10:50] LABS: HIV - WCH Non-Reactive (Nonreactive); Hepatitis B Surface Antigen Non-Reactive (Nonreactive); Hepatitis C Antibody Non-Reactive (Nonreactive); Rubella IgG Equiv (Nonreactive); Syphilis Antibodies Non-reactive
[2024-07-15 13:07] LABS: Protein, Urine (Random) 9.8 mg/dL (<11.9); Protein:Creat Ratio 73 mg/g CRE (0-200)
[2024-07-17 06:09] LABS: Chlamydia By Nucleic Acid AMP Negative (Negative); Gonococcus By Nucleic Acid AMP Negative (Negative)
== END | disposition home or self-care (01) ==
PROVIDERS: PCP Family Medicine; Referring Provider Obstetrics & Gynecology; Visit Provider Obstetrics & Gynecology
DX: O09.90 Supervision of high risk pregnancy, unspecified, unspecified trimester (principal); O99.210 Obesity complicating pregnancy, unspecified trimester; O09.299 Supervision of pregnancy with other poor reproductive or obstetric history, unspecified trimester; Z86.32 Personal history of gestational diabetes; Z3A.00 Weeks of gestation of pregnancy not specified
CPT/HCPCS: 36415; 82570; 83036; 84156; 85025; 86703; 86762; 86780; 86803; 86850; 86900; 86901; 87086; 87088; 87340; 87491; 87591

== ENCOUNTER → 2024-12-05 | Outpatient (CLI) | payer OTHER, MEDICAID, SELFPAY ==
[2024-12-05 10:29] LABS: Absolute Lymphocyte Count 1.29 X10^3/uL (0.83-4.51); Absolute Neutrophil Count 7.9 X10^3/uL (2.0-7.7); Basophil# 0.04 X10^3/uL; Basophil% 0.4 % (0-1); Eosinophil# 0.14 X10^3/uL; Eosinophils% 1.4 % (0-5); Hematocrit 39.5 % (37-47); Hemoglobin 13.2 g/dL (12.0-15.0); Lymphocyte # 1.29 X10^3/ul (0.83-4.51); Lymphocyte % 12.6 % (19-41); Mean Corp Hgb Conc 33.4 g/dL (32-36); Mean Corpuscular Hgb 30.4 pg (27.0-32.0); Mean Platelet Vol. 9.9 fl (6.2-12.0); Monocyte# 0.73 X10^3/uL; Monocyte% 7.2 % (0-10); NRBC Flagged by Analyzer 0 % (0-5); Neutrophil % 77.4 % (47-70); Platelet Count 207 K/mm3 (150-450); RBC Distribution Width CV 12.9 % (11.6-14.6); RBC Distribution Width SD 42.3 fl (35.1-43.9); Red Blood Count 4.34 M/mm3 (4.2-5.4); White Blood Count 10.2 K/mm3 (4.4-11.0)
[2024-12-05 11:41] LABS: Glucose Challenge Gest 1H 50g 122 mg/dL (70-140)
[2024-12-05 14:01] LABS: Syphilis Antibodies Non-reactive
[2024-12-10 14:41] LABS: HIV - WCH Non-Reactive (Nonreactive)
== END | disposition home or self-care (01) ==
PROVIDERS: PCP Family Medicine; Referring Provider Obstetrics & Gynecology; Visit Provider Obstetrics & Gynecology
DX: O09.90 Supervision of high risk pregnancy, unspecified, unspecified trimester (principal); Z13.1 Encounter for screening for diabetes mellitus; Z3A.00 Weeks of gestation of pregnancy not specified
CPT/HCPCS: 36415; 82950; 85025; 86703; 86780

== ENCOUNTER 2024-12-26 20:10 | Outpatient (CLI) | payer OTHER, MEDICAID, SELFPAY ==
[2024-12-26 20:23] VITALS: BMI 35.3
[2024-12-26 20:44] VITALS: PULSE 110; O2SAT 96
[2024-12-26 20:45] VITALS: BP 130/79; PULSE 109
[2024-12-26 21:00] LABS: Color, Urine Yellow (Yellow); Glucose, Dipstick Normal (Normal); Ketone-Dipstick Negative (Negative); Leukocyte Esterase-Dipstick Negative /ul (Negative); Nitrite-Dipstick Negative (Negative); Occult Blood-Urine 25 /ul (Negative); Protein-Dipstick 15 mg/dl (Negative); Urine Bilirubin Dipstick Negative (Negative); Urine Clarity Clear (Clear); Urine Urobilinogen Normal (Normal)
--- NOTE | 2024-12-26 21:12 | OB.TRI.PN_ITS ---
Progress Notes Date of Service: 12/26/24 Progress Note: Patient presents for triage evaluation secondary to uti symptoms, some cramping FHT: 140 - 145 Moderate variability reactive no decelerations category I tracing [place]: no Contractions Assessment and plan: uti 31 weeks Reactive NST, reassuring maternal and status patient discharged to home to follow-up as scheduled. See problem list details for additional plan information. Laboratory Studies: Laboratory Tests 12/26/24 Range/Units 20:45 Urine Color Yellow (Yellow) Urine Clarity Clear (Clear) Urine pH 6.0 (5.0 - 8.0) Ur Specific [place] 1.010 (1.002-1.030) Urine Protein 15 H (Negative) mg/dl Urine Glucose (UA) Normal (Normal) mg/dl Urine Ketones Negative (Negative) mg/dl Urine Occult Blood 25 H (Negative) /ul Urine Nitrite Negative (Negative) Urine Bilirubin Negative (Negative) mg/dL Urine Urobilinogen Normal (Normal) mg/dl Ur Leukocyte Esterase Negative (Negative) /ul Charges/Coding Procedures Urinary/Genital [id number]: [id number] non-stress test Interp
[2024-12-26] MEDS: FOSFOMYCIN TROMETHAMINE 3 GM PACKET PO (21:35)
== END 2024-12-26 21:50 | disposition home or self-care (01) ==
LOC: WPOUT 20:19 → WP 20:20
PROVIDERS: PCP Family Medicine; Referring Provider Obstetrics & Gynecology; Visit Provider Obstetrics & Gynecology
DX: O23.43 Unspecified infection of urinary tract in pregnancy, third trimester (principal); Z3A.31 31 weeks gestation of pregnancy; O99.891 Other specified diseases and conditions complicating pregnancy; R25.2 Cramp and spasm
CPT/HCPCS: 59025; 59050; 81002; 87086; 99221; G0378

== ENCOUNTER → 2025-01-27 | Outpatient (CLI) | payer OTHER, MEDICAID, SELFPAY ==
--- NOTE | 2025-01-27 12:13 | US_ITS ---
PROCEDURE: OB LIMITED WITH BIOMETRICS 01/27/2025 REASON FOR EXAM: OBESITY IN , LARGE FOR GESTATIONAL AGE. Reportedly at 35 weeks and 6 days by previously established dates. TECHNIQUE: High resolution transabdominal obstetric ultrasound performed using a 2D transducer. Standard views obtained, including biometry and Doppler studies. COMPARISON: None FINDINGS: A single intrauterine gestational sac is identified. Cardiac activity: Present, regular, 139-144 beats per minute. position: Cephalic. Amniotic Fluid Index: 11.7 (normal 5-25), deepest vertical pocket 3.6 (normal 2-8). Placenta: Anterior. biometry: Biparietal diameter: 8.8 cm, corresponding to 35 weeks and 3 days. Head circumference: 31.9 cm, corresponding to 36 weeks and 0 days. Occipitofrontal diameter: 11.1 cm, corresponding to 36 weeks and 1 day. Abdominal circumference: 33.9 cm, corresponding to 37 weeks and 6 days. Femur length: 6.3 cm, corresponding to 34 weeks and 4 days. Composite gestational age: 37 weeks 0 days Estimated Weight (EFW): 3,016 grams +/- 452 grams, 74th percentile. Estimated delivery date (LAISHA): 02/17/2025 based on today's measurements. Maternal anatomy: Cervix: Nonvisualized due to the gravid uterus. . Right ovary: Nonvisualized due to the gravid uterus. Left ovary: Nonvisualized due to the gravid uterus. Other: No significant visualized pelvic free fluid. US/OB Limited With Biometrics IMPRESSION: 1. Single live intrauterine fetus at 37 weeks and 0 days by today's measurement s. Correlate with clinical factors including previously established dates. 2. Estimated weight 3,016 grams +/- 452 grams, 74th percentile based on p rovided previously established dates of 35 weeks and 6 days. biometry as above. 3. Note that detailed anatomic survey was not performed. 4. Additional description as above. Reading Location: [id number]
== END | disposition home or self-care (01) ==
LOC: OPUS 12:08
PROVIDERS: PCP Family Medicine; Referring Provider Obstetrics & Gynecology; Visit Provider Obstetrics & Gynecology
DX: O99.211 Obesity complicating pregnancy, first trimester (principal); O36.60X0 Maternal care for excessive fetal growth, unspecified trimester, not applicable or unspecified; Z3A.00 Weeks of gestation of pregnancy not specified
CPT/HCPCS: 76816

== ENCOUNTER → 2025-01-28 | Outpatient (CLI) | payer OTHER, MEDICAID, SELFPAY | END | disposition home or self-care (01) | LOC: LABSPEC 11:18 | PROVIDERS: PCP Family Medicine; Referring Provider Obstetrics & Gynecology; Visit Provider Obstetrics & Gynecology | DX: O09.90 Supervision of high risk pregnancy, unspecified, unspecified trimester (principal); Z3A.00 Weeks of gestation of pregnancy not specified | CPT/HCPCS: 87077; 87081 ==

== ENCOUNTER → 2025-01-30 | Outpatient (CLI) | payer OTHER, MEDICAID, SELFPAY ==
[2025-01-30 13:02] LABS: Glucose Challenge Gest 1H 50g 113 mg/dL (70-140)
== END | disposition home or self-care (01) ==
LOC: LAB 09:54 → BWCLAB 10:06
PROVIDERS: Nurse Practitioner Women's Health; PCP Family Medicine; Referring Provider Obstetrics & Gynecology; Visit Provider Obstetrics & Gynecology
DX: Z13.1 Encounter for screening for diabetes mellitus (principal)
CPT/HCPCS: 36415; 82950

== ENCOUNTER 2025-02-25 04:27 | Inpatient (IN) | payer OTHER, MEDICAID, SELFPAY ==
[2025-02-25] VITALS (22 sets, daily range): BP systolic 103–134; BP diastolic 30–76; PULSE 81–128; RESP 16–18; TEMP 35.3–36.7; O2SAT 93–100; BMI 40.4
[2025-02-25] MEDS: Lactated Ringers 1,000 ML 999 ML IV (05:10)
[2025-02-25 05:24] LABS: Absolute Lymphocyte Count 1.79 X10^3/uL (0.83-4.51); Absolute Neutrophil Count 6.6 X10^3/uL (2.0-7.7); Basophil# 0.05 X10^3/uL; Basophil% 0.5 % (0-1); Hematocrit 39.9 % (37-47); Hemoglobin 13.7 g/dL (12.0-15.0); Lymphocyte # 1.79 X10^3/ul (0.83-4.51); Lymphocyte % 18.7 % (19-41); Mean Corp Hgb Conc 34.3 g/dL (32-36); Mean Corpuscular Hgb 30.4 pg (27.0-32.0); Mean Corpuscular Volume 88.5 fL (81-99); Mean Platelet Vol. 9.9 fl (6.2-12.0); Monocyte# 0.92 X10^3/uL; Monocyte% 9.6 % (0-10); NRBC Flagged by Analyzer 0 % (0-5); Neutrophil # 6.63 X10^3/uL (2.7-7.7); Neutrophil % 69.6 % (47-70); Platelet Count 170 K/mm3 (150-450); RBC Distribution Width CV 12.7 % (11.6-14.6); RBC Distribution Width SD 40.8 fl (35.1-43.9); Red Blood Count 4.51 M/mm3 (4.2-5.4); White Blood Count 9.6 K/mm3 (4.4-11.0)
[2025-02-25 05:50] LABS: Syphilis Antibodies Nonreactive (Nonreactive)
[2025-02-25] MEDS: Lactated Ringers 1,000 ML 150 ML IV (06:10)
[2025-02-25] MEDS: Acetaminophen 500 MG Tablet 1000 MG PO ×3 (06:41→18:20)
[2025-02-25] MEDS: Sodium Citrate/Citric Acid 30 ML UDC PO (06:56)
--- NOTE | 2025-02-25 07:10 | HP.PCM.OB_ITS ---
HPI - General General Date of Admission: 02/25/25 HPI Narrative CHRIS WALLACE, is a 24 y/o @ 40 weeks 0 days who presents to L&D for a repeat section. Maternal Data Information LAISHA Calculator Estimated Delivery Date Method Current WG Current Estimate 02/25/25 LMP (Certain) 40w 0d Other Estimates 02/27/25 Ultrasound #1 39w 5d PFSH PFSH Medical History macrosomia Gestational diabetes LGA (large for gestational age) fetus Influenza A Home Medications ?Medication ?Instructions ?Recorded ?Last Taken ?Type multivit-min no.71-iron fum 28 1 cap PO DAILY pregnanc y 07/11/24 02/24/25 21:00 History mg-folate no.1 1 mg-dha 300 mg capsule ([facility]-[place]) Allergy/AdvReac Type Severity Reaction Status Date / Time No Known Allergies Allergy Verified 02/25/25 04:48 Family History Grandfather Cancer, Onset Age: 55 Paternal pancreatic Grandfather Cancer, Onset Age: 60 Maternal lung Surgical History Previous section S/P foot surgery, left [place] teeth removed Social History adopted: No household members: spouse and children housing: house number of children: 1 current occupational status: employed 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 current occupational exposures/hazards: No pets and animals: Yes (3) pets and animals: dog(s) history of recent travel: Yes ([place]) out of state: Yes out of country: Yes sexually active: Yes Smoking Status: Never smoker alcohol intake: current alcohol intake frequency: holidays/special occasions only details: not while substance use type: does not use well-balanced diet: daily or most days caffeine: Yes Type: coffee Number of servings: 1 eating out: rarely or never during the past year weight has: increased > 10 lbs what type of physical activity do you participate in: none david/uatsdin: Tenriism seatbelt use: always do you feel safe at home: Yes 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 Date Name GA/Weeks Outcome Route Bth Weight Infant Gen Labor Lgth Anesthesia Del Locatn Provider FOB 04/05/23 Cristian 39 live - full term 8lbs 2oz Male spinal [facility] Dr. Booth Atkins Delivery Date: 04/05/23 Last Updated by: Vera Boles MD Gestational diabetes, LGA, elevated BP without diagnosis of hypertension. 3 cm schedule csection for suspected LGA Visit Details Expected Delivery Route/Plan TOLAC patient counseled regarding risks/benefits of trial of labor versus repeat . ACOG/uptodate education given to patient. [] % likelihood of success per calculator TOLAC consent form signed: [] Labor Preferences- CB/BF classes: no labor support person: Andreas labor intervention preferences: [] pain management options preferred: [] cut cord/dad catch: [] : yes PP control planned: [] discussed possible routes of delivery and associated risks: [] special requests: [] Plans Covid status: [] Flu vaccine: given Tdap vaccine: given Rhogam:na LARC form signed: yes movement and labor precautions reviewed. Problem list reviewed and updated with the most current plan of care details and appropriate orders placed. Relevant counseling for the gestational age provided. Continue routine care and follow up unless otherwise noted in visit notes/problem list details OB Flowsheet Initial Weight: Not Recorded Date -?-?-?-?-?-?-?-?-?-?-?-?- EGA Weight BP Urine Prot -?-?-?-?-?-?-?-?-?-?-?-?- Glucose FHR FuHt Pres Dilation -?-?-?-?-?-?-?-?-?-?-?-?- Effaced St Visit Note 07/15/24 -?-?-?-?-?-?-?-?-?-?-?-?- 7w 6d 198 lb 135/75 -?-?-?-?-?-?-?-?-?-?-?-?- 155 -?-?-?-?-?-?-?-?-?-?-?-?- SM- CRL 1.3cm co ns with LMP 08/15/24 -?-?-?-?-?-?-?-?-?-?-?-?- 12w 2d 198 lb 2 oz 132/84 Nega tive -?-?-?-?-?-?-?-?-?-?-?-?- Negative 157 -?-?-?-?-?-?-?-?-?-?-?-?- MH-Br US confirm s FHT. No nausea, no VB. Reviewed PN labs 09/12/24 -?-?-?-?-?-?-?-?-?-?-?-?- 16w 2d 199 lb 123/82 Negative -?-?-?-?-?-?-?-?-?-?-?-?- Negative 155 -?-?-?-?-?-?-?-?-?-?-?-?- KW- no vb/crampi ng. declines AFP. has anatomy scan 10/0310/09/24 -?-?-?-?-?-?-?-?-?-?-?-?- 20w 1d 202 lb 114/66 Trace -?-?-?-?-?-?-?-?-?-?-?-?- Negative 155 -?-?-?-?-?-?-?-?-?-?-?-?- SM- no vb lof go od fm no reulgar ctx 11/08/24 -?-?-?-?-?-?-?-?-?-?-?-?- 24w 3d 208 lb 131/81 Negative -?-?-?--?-?-?-?-?-?-?-?-?- Negative 157 -?-?-?-?-?-?-?-?-?-?-?-?- JV- patient has carpal tunnel syndrome again. wrist braces and ice recommended. plan tdap and 28 week labs next visit. 12/05/24 -?-?-?-?-?-?-?-?-?-?-?-?- 28w 2d 208 lb 4 oz 114/82 Nega tive -?-?-?-?-?-?-?-?-?-?-?-?- Negative 161 -?-?-?-?-?-?-?--?-?-?-?-?- MH-No VB, LOF. G ood FM. 28 wk labs pending. Larc. Tdap 12/19/24 -?-?-?-?-?-?-?-?-?-?-?-?- 30w 2d 213 lb 6 oz 136/82 Nega tive -?-?-?-?-?-?-?--?-?-?-?-?- Negative 160 33 -?-?-?-?-?-?-?-?-?-?-?-?- JV- no lof, vagi nal bleeding or dec fm. overall feeling well. 01/03/25 -?-?-?-?-?-?-?-?-?-?-?-?- 32w 3d 215 lb 6 oz 133/85 Nega tive -?-?-?-?-?-?-?-?-?-?-?-?- Negative 145 33 -?-?-?-?-?-?-?-?-?-?-?-?- Sm- no vb lof go od fm no reuglar ctx 01/17/25 -?-?-?-?-?-?-?-?-?-?-?-?- 34w 3d 215 lb 8 oz 120/80 Nega tive -?-?-?-?-?-?-?-?-?-?-?-?- Negative 136 38.5 -?-?-?-?-?-?-?-?-?-?--?-?- JV- consent given today. growth scan ordered. no complaints 01/28/25 -?-?-?-?-?-?-?-?-?-?-?-?- 36w 0d 219 lb 8 oz 132/84 Nega tive -?-?-?-?-?-?-?-?-?-?-?-?- Negative 140 38 -?-?-?-?-?-?-?-?-?-?-?-?- Sm-no vb lof goo d fm n oreuglar ctx 02/06/25 -?-?-?-?-?-?-?-?-?-?-?-?- 37w 2d 221 lb 2 oz 132/84 Nega tive -?-?-?-?-?-?-?-?-?-?-?-?- Negative 145 42 Cephalic 0 -?-?-?-?-?-?-?-?-?-?-?-?- -4 JV- no l of, vaginal bleeding, or dec fm. cx closed. will schedule cs for 40 weeks if no labor. 02/11/25 -?-?-?-?-?-?-?-?-?-?-?-?- 38w 0d 220 lb 4 oz 116/85 Nega tive -?-?-?-?-?-?-?-?-?-?-?-?- Negative 140 40 0.5 -?-?-?-?-?-?-?-?-?-?-?-?- SM- no vb lof go od fm no reuglar ctx having occasional spots in viison but no headaches normal blood pressures, reviewed precuations. patients states she has had intemrittently in the past when she wasnt 02/20/25 -?-?-?-?-?-?-?-?-?-?-?-?- 39w 2d 221 lb 118/86 Trace -?-?-?-?-?--?-?-?-?-?-?-?- Negative 140 -?-?-?-?-?-?-?-?-?-?-?-?- SM- no vb lof go od fm no reuglr ctx ROS Constitutional Constitutional: Denies change in weight, fatigue, fever(s), headache(s), poor appetite or weakness Eyes Eyes: Denies blurry vision, change in vision, seeing flashes or spots in vision ENT HEENT: Denies dizziness, headache(s), loss taste/smell or sore throat Cardiovascular Cardiovascular: Denies chest pain, dizziness, dyspnea, irregular heart rhythm, leg edema, palpitations, rapid heart rate or vomiting Respiratory/Chest Respiratory/Chest: Denies chest tightness, cough, dyspnea or breast pain Gastrointestinal Gastrointestinal: Denies abdominal pain, anorexia, constipation, cramping, diarrhea, hemorrhoids, vomiting or weight changes Genitourinary Genitourinary: Denies dysuria, flank pain, genital lesions, genital pain, urinary frequency or urinary urgency Musculoskeletal Musculoskeletal: Denies back pain, difficulty walking, joint pain, limited range of motion, muscle cramps or numbness Integumentary Integumentary: Denies lesions or unusual bruising Neurologic Neurologic: Denies abnormal movements, abnormal speech, dizziness, numbness, seizure-like activity or syncope Psychiatric Psychiatric: Denies anxiety, behavioral changes, change in appetite, change in libido, cognitive impairment, confusion, depression, difficulty concentrating, hallucinations or suicidal thoughts Endocrine Endocrinology: Denies excessive sweating, polydipsia or polyuria Hematologic/Lymphatic Hematologic/Lymphatic: Denies easy bleeding, easy bruising or lymphadenopathy Allergic/Immunologic Allergic/Immunologic: Denies itchy eyes, lip swelling, seasonal rhinorrhea, rhinitis, throat swelling, tongue swelling, eczemia, wheezing or asthma Vital Signs Vital Signs Vital Signs: 02/25/25 04:56 02/25/25 04:56 02/25/25 04:56 Temperature Temperature Source Oral Pulse Rate 88 Respiratory Rate Blood Pressure 128/74 H Blood Pressure Mean BP Systolic 128 BP Diastolic 74 Blood Pressure Source Blood Pressure Position Blood Pressure Location Pulse Ox Oxygen Delivery Method 02/25/25 04:56 02/25/25 04:56 02/25/25 04:56 Temperature 98.1 F Temperature Source Pulse Rate Respiratory Rate 16 Blood Pressure Blood Pressure Mean BP Systolic BP Diastolic Blood Pressure Source Blood Pressure Position Blood Pressure Location Pulse Ox 98 Oxygen Delivery Method 02/25/25 05:00 Temperature 98.1 F Temperature Source Oral Pulse Rate 97 Respiratory Rate 16 Blood Pressure 128/74 H Blood Pressure Mean 92 BP Systolic BP Diastolic Blood Pressure Source Monitor Blood Pressure Position Semi-Fowlers Blood Pressure Location Right Arm Pulse Ox 98 Oxygen Delivery Method Room Air Weight Weight: 221 lb 2 oz Body Mass Index (BMI) 40.4 Physical Exam Const alert, oriented x3, no apparent distress and healthy appearing General Appearance: cooperative; Negative for anxious HEENT normocephalic Face and Sinus: normal facial exam Eyes EOMs intact bilaterally and no scleral icterus General Eye: normal appearance of both eyes Neck full ROM and supple Lymph Lymphatic: no lymphadenopathy noted Chest Chest: abnormal inspection of the chest Resp normal respiratory effort Effort and Inspection: able to speak in complete sentences Cardio regular rate GI soft to palpation and non-tender Inspection: gravid Palpation: soft; Negative for tender external exam normal Back/Spine no CVA tenderness Extremity normal to inspection, full ROM and no clubbing, cyanosis or edema General Extremity: Negative for calf tenderness or edema Skin Lesions: no lesions Rashes: no rashes Psych mental status grossly normal Labs Labs Labs: Blood Type O POSITIVE Antibody Screen NEGATIVE Hct 39.9 % (37-47) Hgb 13.7 g/dL (12.0-15.0) Pap Smear Negative Obstetrics Ultrasound Syphilis Total Ab Nonreactive (Nonreactive) Rubella IgG Antibody Equiv (Nonreactive) Hep Bs Antigen Non-Reactive (Nonreactive) Hepatitis C Antibody Non-Reactive (Nonreactive) Chlamydia DNA (ERICK) Negative (Negative) N.gonorrhoeae DNA (ERICK) Negative (Negative) HIV 1&2 Antibody Non-Reactive (Nonreactive) Glucose 1 Hr 50 gm 113 mg/dL (70-140) Gest Glucose Tolerance MG/DL Assessment & Plan (1) GBS (group B Streptococcus carrier), +RV culture, currently : COMMENT: PVN in labor (2) Large for gestational age fetus affecting management of mother: COMMENT: AC 96%ile, will repeat GCT now/normal (3) Desires (vaginal after ) trial: COMMENT: primary csection for suspected LGA, didn't labor. (4) Obesity affecting : QUALIFIERS: Trimester: first trimester Obesity type affecting : unspecified obesity Qualified Code(s): O99.211 - Obesity complicating , first trimester COMMENT: HgbA1c, BMI 32. encouraged healthy weight gain. (5) Supervision of high risk , antepartum: COMMENT: PRR , LAISHA 02/25/25, boy BROOKE Foster, [facility] (6) : QUALIFIERS: Weeks of gestation: 39 weeks Qualified Code(s): Z3A.39 - 39 weeks gestation of COMMENT: normal anatomy, declined NIPT & carrier testing (7) History of gestational diabetes mellitus (GDM) in prior , currently : (8) Previous section: COMMENT: desires . RLTCS scheduled for 02/25 with JV @ 7:15 PLAN: Plan After discussing the patient's diagnosis and treatment plan options, patient wishes to proceed with surgical management. I have discussed with the patient the risks, benefits, and alternatives of the procedure which include but are not limited to risks of anesthesia, bleeding, infection, possible damage to bowel, bladder, or surrounding vasculature which could lead to additional surgery to evaluate any complications. Patient agrees to procedure and wishes to proceed. plan for repeat section today.
--- NOTE | 2025-02-25 07:15 | DCINST_ITS ---
Discharge Instructions Diet Discharge Diet: No restrictions DC O2, CPAP, BIPAP needs Home O2 Discharge instructions: No Dressing / Incision Discharge Activity: May Not Drive (for 2 weeks or while taking narcotic pain medications.), May Shower and May Take a Tub Bath (in 7 days.) May resume sexual activity in: 4-6 weeks Weight Bearing Status: Full weight bearing Lifting Restrictions: 20 pounds Dressing / Incision Call your doctor if your incision/area has: Continuous Slow Oozing, Sudden Increased Bleeding, Increased Pain/ Swelling, Increased Redness and Foul Smelling Discharge Call your doctor if you observe: Fever of 101 or Higher and Using more than 1 pad per hour Suture Line Care: Avoid Pulling/Pushing and Avoid Pinching/Bending Cleanse incision/area with: Soap & Water and Keep Dressing Clean & Dry Follow Up Care Please Follow Up With: Emma Booth DO When: Call [phone] to make an appointment for an incision check in 1-2 weeks. Test Results: Test results from this visit will be discussed in further detail at your follow- up appointment, if applicable. Discharge Plan Admission Admit Date/Time: 02/25/25 04:27 Primary Reason for Your Visit: section Attending Provider: Emma Booth Primary Care Provider: Lidia Espinal Discharge Orders/Prescriptions Prescriptions: New ibuprofen 800 mg tablet 800 mg PO Q8H PRN (Reason: pain) Qty: 30 0RF oxycodone-acetaminophen [Percocet] 5-325 mg tablet 1 tab PO Q4H PRN (Reason: pain) 7 Days Qty: 20 0RF No Action P[facility]-[place] 28-1-300 mg capsule 1 cap PO DAILY Referrals / Follow Up: Lidia Espinal MD [Primary Care Provider] - Disposition Disposition (needs filled in before D/C Order can be placed): Home, Self Care
--- NOTE | 2025-02-25 08:32 | EX.PCM.OBRPT ---
Assessment & Plan (1) GBS (group B Streptococcus carrier), +RV culture, currently : COMMENT: PVN in labor (2) Large for gestational age fetus affecting management of mother: COMMENT: AC 96%ile, will repeat GCT now/normal (3) Desires (vaginal after ) trial: COMMENT: primary csection for suspected LGA, didn't labor. (4) Obesity affecting : QUALIFIERS: Obesity type affecting : unspecified obesity Trimester: first trimester Qualified Code(s): O99.211 - Obesity complicating , first trimester COMMENT: HgbA1c, BMI 32. encouraged healthy weight gain. (5) Supervision of high risk , antepartum: COMMENT: PRR , LAISHA 02/25/25, boy PC Cristian, [facility] (6) : QUALIFIERS: Weeks of gestation: 39 weeks Qualified Code(s): Z3A.39 - 39 weeks gestation of COMMENT: normal anatomy, declined NIPT & carrier testing (7) History of gestational diabetes mellitus (GDM) in prior , currently : (8) Previous section: COMMENT: desires . RLTCS scheduled for 02/25 with JV @ 7:15 Maternal Data Information LAISHA Calculator Estimated Delivery Date Method Current WG Current Estimate 02/25/25 LMP (Certain) 40w 2d Other Estimates 02/27/25 Ultrasound #1 40w 0d Final LAISHA: 02/25/25 Final LAISHA Source: LMP Gestational age: 40 weeks Operative Report (OB) Details Procedure Type: low transverse Date of Procedure: 02/25/25 Procedure Start Time: 07:37 Procedure Stop Time: 08:20 Time of Delivery: 07:44 Pre-Operative Diagnosis: Repeat Elective Post-Operative Diagnosis: Same as Pre-operative diagnosis Classification: Scheduled Type of Anesthesia: Spinal Antibiotic Given: Ancef 2 grams IV x1 Drain: Sheppard to straight drain Estimated Blood Loss: 500cc Findings Description of surgery: The patient is a 24 y/o @ 40 weeks presented for repeat . Spinal anesthesia was placed without difficulty. Sheppard catheter was placed. The patient was placed in the dorsal supine position with leftward tilt. Patient was prepped and draped in the normal sterile fashion. Pfannenstiel skin incision was made with the scalpel and carried through to the underlying layer of fascia with the scalpel. Fascia was nicked in the midline and the incision extended laterally. The rectus bellies were dissected off superiorly and inferiorly with out complication both sharply and bluntly. The peritoneum was entered digitally. The incision was stretched and a low transverse uterine incision was made with the scalpel. The infant's head was delivered atraumatically followed by the anterior and posterior shoulders without complication the rest of the delivered. The cord was clamped and cut and the infant was handed off to awaiting nurse. The placenta was delivered spontaneously immediately following and was noted to be intact and have a three-vessel cord. The uterus was exteriorized cleared of all clots and debris, and the incision was closed in a double layer closure using #1Vicryl and #1 Monocryl. The ovaries and fallopian tubes were noted to be within normal limits. The uterus was returned to the maternal abdomen and gutters were cleared of all clots and debris. The peritoneum was closed with 3-0 Monocryl in a running fashion. Fascia was closed with 0 PDS in a running fashion. Subcutaneous tissue was copiously irrigated and the skin was closed with 3-0 Monocryl in a subcuticular fashion. Mepilex dressing was applied without complication. Patient was taken to recovery in stable condition. It was discussed with the patient that based on the clinical information obtained during this encounter, combined with her history, at this time I would recommend repeat sections for future deliveries if further pregnancies are desired. Surgical findings: viable male radha Presentation: Vertex Amniotic Membrane Rupture Type: Artificial Amniotic Fluid Description: Clear Placental Delivery Description: Manual Removal Placenta Disposition: [facility] Specimen collected: No Cord Vessel Description: 3 Vessels Cord Entanglement: None Infant A gender: Male (1 minute): 9 (5 minute): 9 Delayed Cord Clamping: Yes Client Services Director flooring machine feeder: Yes Salesperson [employer]: Dalton Abrams Tasks completed by first responder: Closing and Retracting Additional electrical assistant?: No Complications Complications: No Admit VTE Documentation VTE Present on Admission: No VTE Mechan Device Prophylaxis: SCD's VTE Pharm Prophylaxis Ordered: Yes Multi Select Codes Urinary/Genital Urinary/Genital CPT Codes: 04839 Delivery [facility]
[2025-02-25] MEDS: Cefazolin 2 GM in 0.9% Normal Saline (100mL Bag) 100 ML IV (08:35)
[2025-02-25] MEDS: Oxytocin 15 Units/NS 250ml 15 UNITS/250 ML IV.SOLN 83 UNITS IV (08:35)
[2025-02-25] MEDS: Ketorolac 30 MG/ML Syringe IV ×3 (09:21→20:42)
--- NOTE | 2025-02-25 11:41 | NURSING ---
1140- pt hot from room being warmed for baby and has cooled off has fan on her. declines feeling at all cold.
--- NOTE | 2025-02-25 11:47 | NURSING ---
1030-abd dressing changed to 10 inch silver d/t first one pulling up at groin areas.
[2025-02-25] MEDS: 0.9% Saline Lock 10 ML Syringe IV ×3 (11:55→20:42)
[2025-02-25] MEDS: Enoxaparin 40 MG/0.4 ML Syringe SC (20:42)
[2025-02-26] VITALS (7 sets, daily range): BP systolic 114–129; BP diastolic 65–76; PULSE 89–107; RESP 16; TEMP 36.4–36.6; O2SAT 96–99
[2025-02-26] MEDS: Acetaminophen 500 MG Tablet 1000 MG PO ×3 (00:51→13:12)
[2025-02-26] MEDS: Ketorolac 30 MG/ML Syringe IV (03:40)
[2025-02-26 06:06] LABS: Hemoglobin 10.9 g/dL (12.0-15.0); Mean Corp Hgb Conc 34.1 g/dL (32-36); Mean Corpuscular Hgb 30.9 pg (27.0-32.0); Mean Corpuscular Volume 90.7 fL (81-99); Mean Platelet Vol. 9.4 fl (6.2-12.0); Platelet Count 145 K/mm3 (150-450); RBC Distribution Width SD 42.7 fl (35.1-43.9); Red Blood Count 3.53 M/mm3 (4.2-5.4); White Blood Count 11.5 K/mm3 (4.4-11.0)
--- NOTE | 2025-02-26 08:16 | PCM.PN.OB ---
Subjective Subjective Patient doing well without complaints. Tolerating PO. Ambulating and voiding without difficulty. feeding well. Denies chest pain, shortness of breath, calf pain/swelling, fevers, chills, lightheadedness. Objective Data Objective Data Vital Signs: Vital Signs Temp Pulse Resp BP Pulse Ox O2 Del Method 98 F 92 16 129/76 H 99 Room Air 02/26/25 01:00 02/26/25 01:00 02/26/25 05:55 02/26/25 01:00 02/26/25 05:55 02/26/25 05:55 Oxygen Delivery Method Room Air Weight: 221 lb 2 oz Body Mass Index (BMI) 40.4 Intake & Output: Intake and Output for Last 24 Hours 02/24/25 02/25/25 02/26/25 23:59 23:59 23:59 Intake Total 1993 Output Total 1190 / 1190 Balance 804 / 804 Lab / Micro Data 02/26/25 06:00 Labs: Laboratory Results - last 24 hr 02/26/25 06:00: WBC 11.5 H, RBC 3.53 L, Hgb 10.9 L, Hct 32.0 L, MCV 90.7, MCH 30.9, MCHC 34.1, RDW Std Deviation 42.7, RDW Coeff of [place] 13.0, Plt Count 145 L, MPV 9.4 ROS Constitutional Constitutional: Reports systems reviewed and no addt'l complaints, except as documented Cardiovascular Cardiovascular: Reports systems reviewed and no addt'l complaints, except as documented Respiratory/Chest Respiratory/Chest: Reports systems reviewed and no addt'l complaints, except as documented Gastrointestinal Gastrointestinal: Reports systems reviewed and no addt'l complaints, except as documented Physical Exam Const alert, oriented x3 and no apparent distress HEENT Head and Scalp: atraumatic Resp normal respiratory effort GI soft to palpation and non-tender Inspection: incision intact, healing well and drainage (none) Bimanual Exam - Vag & Uterus: uterus non-tender Uterus Palpation: uterus fundus firm (below Umbilicus) Assessment & Plan (1) Status post section: PLAN: Plan s/p LTCS PPD # 1 1. routine post care 2. breast feeding- support given 3. rh positive 4. rubella immune
[2025-02-26] MEDS: Ibuprofen 600 MG Tablet PO (10:01)
[2025-02-26] MEDS: Senna/Docusate Sodium 1 Tablet PO (10:01)
[2025-02-26] MEDS: MEASLES,MUMPS,RUBELLA VACC/PF 0.5 ML SC (10:11)
== END 2025-02-26 14:20 | disposition home or self-care (01) | DRG 788 ==
PROVIDERS: Admitting Provider Obstetrics & Gynecology; PCP Family Medicine; Referring Provider Obstetrics & Gynecology; Visit Provider Obstetrics & Gynecology
PROC: 10D00Z1 Extraction of Products of Conception, Low, Open Approach (ICD-10-PCS; CPT 59514; principal; 2025-02-25 07:00)
DX: O98.82 Other maternal infectious and parasitic diseases complicating childbirth (principal); O99.214 Obesity complicating childbirth; B95.1 Streptococcus, group B, as the cause of diseases classified elsewhere; O34.211 Maternal care for low transverse scar from previous cesarean delivery; Z37.0 Single live birth; Z3A.40 40 weeks gestation of pregnancy; Z86.32 Personal history of gestational diabetes
CPT/HCPCS: 59025; 59050; 85025; 85027; 86780; 86850; 86900; 86901; 99221; A4216; G0378; J2405

== ENCOUNTER → 2025-04-10 | Outpatient (CLI) | payer OTHER, MEDICAID, SELFPAY ==
--- OUTSIDE RECORDS SUMMARY | 2025-04-10 18:03 | XMS RPT_ITS | CCD ---
Author Organization [facility] Care Team Providers Care Dental Specialist Name Role Phone France Canales Unavailable Unavailable Estelle Canalesanda Kaylin Unavailable Unavailable France Canales Unavailable Unavailable Lidia Gonzalez Unavailable Unavailable Unavailable Dr. Lidia Gonzalez Primary Care Provider Dr. Lidia Gonzalez Referring Provider [phone] Dr. Emma Booth Attending Provider [phone] Dr. iLdia Gonzalez Primary Care Provider Dr. Lidia Gonzalez Referring Provider Dr. Emma Booth Attending Provider [phone] Dr. Vera Boles Attending Provider [phone] JEFFREY Moulton Attending Provider [phone] Dr. Lidia Gonzalez Primary Care Provider Dr. Lidia Gonzalez Referring Provider Dr. Vera Boles Attending Provider [phone] Dr. Emma Booth Attending Provider [phone] Ryder ESCAMILLA, FRANCINE-Niles Luu Attending Provider [phone] Dr. Emma Booth Other Provider JEFFREY Terrell Attending Provider JEFFREY Terrell Referring Provider JEFFREY Terrell Other Provider Dr. Emma Booth Admit Provider LIDIA GONZALEZ Primary Care Unavailable RYDER, RADHA S Referring Unavailable ASHLEY HENDERSON Attending Unavailable Teddy EDWARDS, Dr. Lidia Graham Primary Care Provider Teddy EDWARDS, Dr. Lidia Graham Referring Provider Susanna Moulton CNM Attending Provider Ramana EDWARDS, Dr. Gamez Attending Provider [phone] Shruthi Torres DO, Dr. Carter Attending Provider Shruthi Torres DO, Dr. Carter Referring Provider Ryder HEMATOLOGY SPECIALIST-CRadha Attending Provider Ramana EDWARDS, Dr. Gamez Other Provider [phone] Teddy EDWARDS, Dr. Lidia Graham Primary Care Provider Teddy EDWARDS, Dr. Lidia Graham Referring Provider Dr. Vera Boles MD Attending Provider Shruthi Torres DO, Dr. Carter Attending Provider Shruthi Torres DO, Dr. Carter Referring Provider Ryder ESCAMILLA-CRadha Attending Provider Ramana EDWARDS, Dr. Gamez Referring Provider [phone] Dr. Vera Boles MD Other Provider [phone] Teddy EDWARDS, Dr. Lidia Graham Primary Care Provider Teddy EDWARDS, Dr. Lidia Graham Referring Provider [phone] Vera Boles MD Attending Provider Dr. Emma Booth DO Admit Provider [phone] Dr. Emma Booth DO Other Provider [phone] Dr. Lidia Gonzalez MD Primary Care Provider Dr. Emma Booth DO Attending Provider Teddy EDWARDS, Dr. Lidia Graham Referring Provider [phone] Susanna Moulton CNM Attending Provider Lidia Gonzalez Referring Unavailable Lidia Gonzalez Primary Care Unavailable Susanna Moulton Attending Unavailable Lidia Gonzalez Referring Unavailable Lidia Gonzalez Primary Care Unavailable Vera Boles Attending Unavailable Lidia Gonzalez Primary Care Unavailable Lidia Gonzalez Referring Unavailable Shruthi Torres, Emma Attending Unavailabl e Lidia Gonzalez Referring Unavailable Vande Melissa, Emma Attending Unavailabl e Lidia Gonzalez Primary Care Unavailable Shruthi Torres, Emma Attending Unavailabl e Vande Vellala, Emma Referring Unavailabl e Lidia Gonzalez Primary Care Unavailable Lidia Gonzalez Primary Care Unavailable Vera Boles Referring Unavailable Vera Boles Attending Unavailable Vandelysia Torres, Emma Attending Unavailabl e Vande Vellala, Emma Referring Unavailabl e Lidia Gonzalez Primary Care Unavailable Ldiia Gonzalez Primary Care Unavailable Shruthi Torres, Emma Admitting Unavailabl e Vande Velde, Emma Referring Unavailabl e Vande Vellala, Emma Attending Unavailabl e Lidia Gonzalez Primary Care Unavailable Vera Boles Attending Unavailable Vera Boles Referring Unavailable Lidia Gonzalez Referring Unavailable Ryder HEMATOLOGY SPECIALIST, Radha Attending Unavailable Lidia Gonzalez Primary Care Unavailable Lidia Gonzalez Referring Unavailable Lue Melissa, Emma Attending Unavailabl e Lidia Gonzalez Primary Care Unavailable Vera Boles Attending Unavailable Vera Boles Consulting Unavailable Lidia Gonzalez Primary Care Unavailable Lidia Gonzalez Primary Care Unavailable Emma Booth Attending Unavailabl e Vande VeldeEmma Consulting Unavailabl e Vande Velde, Emma Admitting Unavailabl e Vande Vellala, Emma Referring Unavailabl e Vera Boles Attending Unavailable Lidia Gonzalez Referring Unavailable Emma Booth Attending Unavailabl e Lidia Gonzalez Primary Care Unavailable Lidia Gonzalez Primary Care Unavailable Lidia Gonzalez Referring Unavailable Vera Boles Attending Unavailable Lidia Gonzalez Primary Care Unavailable Lidia Gonzalez Referring Unavailable Mignon Costello Attending Unavailable Lidia Gonzalez Referring Unavailable Lidia Gonzalez Primary Care Unavailable Vera Boles Attending Unavailable Lidia Gonzalez Referring Unavailable Lidia Gonzalez Primary Care Unavailable Ryder HEMATOLOGY SPECIALIST, Radha Attending Unavailable Lidia Gonzalez Primary Care Unavailable Lidia Gonzalez Referring Unavailable Vera Boles Attending Unavailable Lidia Gonzalez Primary Care Unavailable Ramana, Vera Attending Unavailable Vera Boles Referring Unavailable Lidia Gonzalez Primary Care Unavailable Marcanthony, Vera Referring Unavailable LeliaonyVera Attending Unavailable Lidia Gonzalez Primary Care Unavailable Lidia Gonzalez Referring Unavailable LeliaonyVera Attending Unavailable Lidia Gonzalez Referring Unavailable Lidia Gonzalez Primary Care Unavailable Vera Boles Attending Unavailable Lidia Gonzalez Primary Care Unavailable Lidia Gonzalez Referring Unavailable Susanna Moulton Attending Unavailable Teddy EDWARDS, Dr. Lidia Graham Primary Care Provider Dr. Lidia Gonzalez MD Referring Provider Dr. Emma Booth DO Attending Provider Dr. Emma Booth DO Referring Provider Allergies Allergy Classification Reported Allergen(s) Allergy Type Date of Onset Reaction(s) Facility Unclassified (6 sources) Dairy Allergy to substance (finding) [facility] and Work Phone: Medications Current Medications Medication Drug Class(es) Dates Sig (Normalized) Sig (Original) Blood-Glucose Meter (5 sources) Start: 01-17-2023 Blood-Glucose Meter Active 0 .MEDSUPPLY 1 January 17, 2023 12:00am As directed- Test fasting and 2 hours after meals cholecalciferol 0.05 mg oral capsule (1 source) Vitamin D Start: 04-10-2025 take 1 capsule by mouth once daily Cholecalciferol (Vitamin D3) 50 mcg (2,000 unit) capsule Active 50 ug PO daily April 10, 2025 12:00am Mv-Mins 55-Whpj-Cucyt No.1-Dha (Pnv-[place]) 28-1-300 mg capsule (7 sources) Start: 07-11-2024 Mv-Mins 27-Uqim-Uaxun No.1-Dha (Pnv-[place]) 28-1-300 mg capsule Active 1 NMA PO DAILY July 11, 2024 12:00am Start: 07-11-2024 Mv-Mins 71-Iro n-Folic No.1-Dha (Pnv-[place]) 28-1-300 mg capsule Active 1 NMA PO DAILY July 10, 2024 11:00pm ondansetron 4 mg disintegrating oral tablet (6 sources) Serotonin-3 Receptor Antagonist Start: 08-30-2022 take 4 mg by mouth every eight hours Ondansetron Active 4 MG PO Q8H August 30, 2022 1:00am Pnv #00-Fvhc-Jdqhv Acid-Omega3 (7 sources) Start: 08-30-2022 take 1 capsule by mouth once daily Pnv #46-Urbw-Bufxf Acid-Omega3 Active 1 CAP PO DAILY August 30, 2022 1:00am Start: 08-30-2022 Pnv #30-Iron-F olic Acid-Omega3 Active CAP PO August 30, 2022 1:00am Start: 08-30-2022 Pnv #30-Iron-F olic Acid-Omega3 Active CAP PO August 30, 2022 12:00am Completed/Discontinued Medications Medication Drug Class(es) Dates Sig (Normalized) Sig (Original) acetaminophen 325 mg / oxyCODONE hydrochloride 5 mg oral tablet (3 sources) Opioid Agonist Start: 02-25-2025 End: 04-10-2025 Oxycodone-Acetamino phen (Percocet) 5-325 mg tablet Discontinued 1 {tbl} PO Q4H as needed for pain 11 05February 25, 2025 April 10, 2025 3:28pm Blood-Glucose Meter misc (7 sources) Start: 01-17-2023 End: 04-18-2023 Blood-Glucose Meter misc Discontinued 0 .MEDSUPPLY January 17, 2023 12:00am April 18, 2023 3:20pm As directed- Test fasting and 2 hours after meals Start: 01-17-2023 End: 04-18-2023 Blood-Glucose Meter misc Dis continued 0 .MEDSUPPLY January 16, 2023 11:00pm April 18, 2023 2:20pm As directed- Test fasting and 2 hours after meals etonogestrel 68 mg drug implant (1 source) Progestin Nexplanon 68 MG Subcutaneous Implant Quantity: 0 Refills: 0 Ordered: 24-Feb-2021 DO Active famotidine 40 mg oral tablet (4 sources) Histamine-2 Receptor Antagonist Start: 03-16-20 take 1 tablet by mouth at bedtime Famotidine 40 MG Oral Tablet TAKE 1 TABLET AT BEDTIME. Quantity: 90 Refills: 3 Ordered: 15-Apr-2021 Lidia Gonzalez MD Start : 16-Mar-2021 Active ibuprofen 800 mg oral tablet (11 sources) Nonsteroidal Anti-inflammatory Drug Start: 02-26-20 End: 04-10-20 take 1 tablet by mouth every eight hours as needed for pain Ibuprofen 800 mg tablet Discontinued 800 mg PO Q8H as needed for pain February 25, 2025 12:00am April 10, 2025 3:28pm Start: 04-07-2023 End: 05-18-2023 take 1 tablet by mouth every eight hours as needed for pain Ibuprofen 800 mg tablet Discontinued 800 mg PO Q8H as needed for pain April 07, 2023 12:00am May 18, 2023 9:57am 1 ml medroxyPROGESTERone acetate 150 mg/ml injection (3 sources) Progestin Start: 09-24-2021 Depo-Provera 1 50 MG/ML Intramuscular Suspension 0 SUSP IM Quantity: 0 Refills: 0 Ordered: 24-Sep-2021 DO Start : 24-Sep-2021 Complete Start: 07-02-2021 Depo-Provera 1 50 MG/ML Intramuscular Suspension 0 SUSP IM Quantity: 0 Refills: 0 Ordered: 02-Jul-2021 DO Start : 02-Jul-2021 Complete Start: 04-07-2021 Depo-Provera 1 50 MG/ML Intramuscular Suspension Prefilled Syringe 0 SUMANTH IM Quantity: 0 Refills: 0 Ordered: 07-Apr-2021 DO Start : 07-Apr-2021 Complete methocarbamol 500 mg oral tablet (2 sources) Muscle Relaxant Start: 02-14-2022 take 1 tablet by mouth three times daily as needed for pain Methocarbamol 500 MG Oral Tablet TAKE 1 TABLET 3 TIMES DAILY as needed for pain, May cause sedation, do not drive or operate machinery. Quantity: 12 Refills: 0 Ordered: 14-Feb-2022 Lidia Gonzalez MD Start : 14-Feb-2022 Active methylPREDNISolone 4 MG Oral Tablet Therapy Pack (2 sources) Start: 02-14-2022 methylPREDNISolone 4 MG Oral Tablet Therapy Pack Take as directed per package. Quantity: 1 Refills: 0 Ordered: 14-Feb-2022 Lidia Gonzalez MD Start : 14-Feb-2022 Active Nystatin 100,000 unit/gram powder (2 sources) Start: 03-12-2025 End: 04-10-2025 Nystatin 100,000 unit/gram powder Discontinued 1 NMA TOPICAL daily March 12, 2025 12:00am April 10, 2025 3:28pm Start: 03-12-2025 Nystatin 100,0 00 unit/gram powder Active 1 NMA TOPICAL daily March 12, 2025 12:00am Pnv #33-Yknt-Dbxqs Acid-Omeg a3 30 mg iron-10 mg iron-1 mg capsule (7 sources) Start: 08-30-2022 End: 05-22-2024 Pnv #25-Kmou-Eoooy Acid-Omeg a3 30 mg iron-10 mg iron-1 mg capsule Discontinued 1 NMA PO DAILY August 30, 2022 1:00am May 22, 2024 8:52am Start: 08-30-2022 End: 05-22-2024 Pnv #63-Ruoy-Qtsdu Acid-Omeg a3 30 mg iron-10 mg iron-1 mg capsule Discontinued 1 NMA PO DAILY August 30, 2022 12:00am May 22, 2024 7:52am Problems Active Problems Problem Classification Problem Date Documented Date Episodic/Chronic Contraceptive and procreative management (5 sources) Subcutaneous contraceptive implant present; Translations: [Surveillance of implantable subdermal contraceptive] Episodic Diabetes or abnormal glucose tolerance complicating ; childbirth; or the puerperium (20 sources) Abnormal glucose level; Translations: [Abnormal glucose complicating ] Onset: 02-06-2025 01-17-2023 Episodic Comment on above: failed 3hr GTT 99% on 03/28. 4500gram s by 39weeks. P C/S scheduled for 04/05 at 7am. BS well controlled with diet 36 week growth us ordered- LGA on growth scan at 36 weeks (97th%) - 8lbs at 36 weeks. deliver 39 weeks - consider growth scan repeat at 39 weeks. estimated to be 4400 grams at 39 weeks and may be candidate for primary section. Esophageal disorders (6 sources) Gastroesophageal reflux disease; Translations: [Esophageal reflux] Chronic Headache; including migraine (2 sources) Frequent headache; Translations: [Headache] Episodic Immunizations and screening for infectious disease (15 sources) Patient encounter status; Translations: [Screening examination for venereal disease] Onset: 10-09-2024 04-10-2025 Episodic Influenza (13 sources) Influenza due to Influenza A virus; Translations: [Influenza due to other identified influenza virus with other respiratory manifestations] 10-25-2022 Episodic Comment on above: 10/06 positive going to start Tamiflu Mycoses (5 sources) Candidiasis of skin; Translations: [Candidiasis of skin and nail] Onset: 03-12-2025 03-12-2025 Episodic Nausea and vomiting (2 sources) Nausea; Translations: [Nausea alone] Episodic Other circulatory disease (16 sources) Elevated blood-pressure reading without diagnosis of hypertension; Translations: [Elevated blood-pressure reading, without diagnosis of hypertension] 03-31-2023 Episodic Comment on above: P:C 279. repeat BP i n WP 107-122/62-78. end of last pregnanc y. 81 mg ASA at 14 weeks. baseline labs ordered. Other complications of ; puerperium affecting management of mother (7 sources) Large for gestation age fetus 04-11-2023 Episodic Comment on above: rpt growth US at 38 wk, del at 39 wk, primary csection scheduled for 04/05 @ 7:10 Other complications of (20 sources) Maternal obesity complicating , childbirth and the puerperium, antepartum; Translations: [Obesity complicating , unspecified trimester] 08-15-2024 Chronic Comment on above: HgbA1c, BMI 32. enco uraged healthy weight gain. Other complications of (2 sources) Obesity complicating , first trimester; Translations: [Obesity complicating , first trimester] Onset: 02-06-2025 Chronic Other complications of (1 source) Obesity complicating , unspecified trimester; Translations: [Obesity complicating , unspecified trimester] Onset: 07-15-2024 Chronic Other complications of (20 sources) High risk ; Translations: [Supervision of high risk , unspecified, unspecified trimester] 10-09-2024 Episodic Comment on above: PRR , LAISHA 02/25/25 , boy PC Cristian, [place] Other complications of (20 sources) History of gestational diabetes mellitus; Translations: [Supervision of with other poor reproductive or obstetric history, unspecified trimester] 07-11-2024 Episodic Other complications of (20 sources) Excessive growth affecting management of mother; Translations: [Maternal care for excessive growth, unspecified trimester, not applicable or unspecified] 01-30-2025 Episodic Comment on above: AC 96%ile, will repe at GCT now/normal Other complications of (17 sources) Group B Streptococcus carrier; Translations: [Streptococcus B carrier state complicating ] 01-31-2025 Episodic Comment on above: PVN in labor Other complications of (2 sources) Streptococcus B carrier state complicating ; Translations: [Streptococcus B carrier state complicating ] Onset: 02-06-2025 Episodic Other complications of (2 sources) Maternal care for excessive growth, unspecified trimester, not applicable or unspecified; Translations: [Maternal care for excessive growth, unspecified trimester, not applicable or unspecified] Onset: 02-06-2025 Episodic Other complications of (2 sources) Supervision of high risk , unspecified, unspecified trimester; Translations: [Supervision of high risk , unspecified, unspecified trimester] Onset: 02-06-2025 Episodic Other complications of (2 sources) Supervision of with other poor reproductive or obstetric history, unspecified trimester; Translations: [Supervision of with other poor reproductive or obstetric history, unspecified trimester] Onset: 02-06-2025 Episodic Other lower respiratory disease (2 sources) Rib pain; Translations: [Chest pain, unspecified] Episodic Other nervous system disorders (6 sources) H/O: migraine; Translations: [Personal history of other disorders of nervous system and sense organs] Episodic Other nutritional; endocrine; and metabolic disorders (4 sources) Cholesterol level - finding; Translations: [Lipoprotein deficiencies] Chronic Other and delivery including normal (20 sources) Normal ; Translations: [Encounter for supervision of normal first , unspecified trimester] Onset: 03-20-2025 Episodic Comment on above: normal anatomy, decl ined NIPT & carrier testing Other screening for suspected conditions (not mental disorders or infectious disease) (4 sources) Cancer cervix screening status; Translations: [Screening for malignant neoplasms of cervix] Onset: 02-03-2025 Episodic Previous (20 sources) Maternal request for obstetric intervention; Translations: [Maternal care for unspecified type scar from previous delivery] Onset: 02-06-2025 07-15-2024 Episodic Comment on above: primary csection for suspected LGA, didn't labor. Residual codes; unclassified (6 sources) Past history of procedure; Translations: [Other postprocedural status] Episodic Comment on above: 02/24/2021-[facility] -2018 per patient; Residual codes; unclassified (3 sources) History of uterine scar from previous surgery; Translations: [Other postprocedural status] Onset: 02-06-2025 04-07-2023 Episodic Residual codes; unclassified (1 source) 39 weeks gestation of ; Translations: [39 weeks gestation of ] Onset: 03-20-2025 Episodic Residual codes; unclassified (1 source) 37 weeks gestation of ; Translations: [37 weeks gestation of ] Onset: 02-06-2025 Episodic Residual codes; unclassified (1 source) 36 weeks gestation of ; Translations: [36 weeks gestation of ] Onset: 01-28-2025 Episodic Residual codes; unclassified (1 source) 32 weeks gestation of ; Translations: [32 weeks gestation of ] Onset: 01-03-2025 Episodic Unclassified (7 sources) Large for gestation age fetus; Translations: [Large for gestational age fetus] 03-21-2023 Unclassified (1 source) Other specified diseases and conditions complicating ; Translations: [Other specified diseases and conditions complicating ] Onset: 01-08-2025 Past or Other Problems Problem Classification Problem Date Documented Da te Episodic/Chronic Other circulatory disease (3 sources) Elevated blood-pressure reading, without diagnosis of hypertension; Translations: [Elevated blood pressure reading without diagnosis of hypertension] Onset: 09-12-2024 03-31-2023 Episodic Residual codes; unclassified (1 source) 30 weeks gestation of ; Translations: [30 weeks gestation of ] Onset: 12-19-2024 Episodic Residual codes; unclassified (1 source) 24 weeks gestation of ; Translations: [24 weeks gestation of ] Onset: 11-08-2024 Episodic Residual codes; unclassified (1 source) 16 weeks gestation of ; Translations: [16 weeks gestation of ] Onset: 09-12-2024 Episodic Unclassified (6 sources) Finding of menstrual bleeding; Translations: [Menstruation] Comment on above: 12; Results Test Name Value Interpretation Reference Range Facility Sales Promotion Manager Office Visit Reporton 03-12-2025 Sales Promotion Manager Office Visit Report [facility] [address], [address] [place] [address] OFFICE VISIT Date of Service: 03/12/25 MR#: [id number] Acct: [id number] Name: ESTEPHANIA WALLACE Rep #: [id number] : 2000 Provider: JEFFREY Cat ams Age/Sex: 24/F Location[place] [facility] [place]: Signed Intake Vital Signs 02/06/25 09:51 02/25/25 04:25 03/12/25 15:33 Height 5 ft 5 in 5 ft 2 in 5 ft 2 in Weight: 204 lb 6 oz BMI 37.3 BP 118/77 Intake Visit Reasons: 2 wk RLTCS Chief Complaint: 2wk RLTCS Commanding [employer] Required: No Is patient in pain?: No Allergies No Known Allergies Allergy (Verified 03/12/25 15:31) Medications ???Medication ???Instructions ???Recorded ???Confirmed ???Type multivit-min no.71-iron fum 28 1 cap PO DAILY 07/11/24 03/12/25 History mg-folate no.1 1 mg-dha 300 mg capsule ([facility]V-[place]) ibuprofen 800 mg tablet 800 mg PO Q8H PRN pain #30 tabs 03/12/25 Rx oxycodone-acetaminophen 5 mg-325 1 tab PO Q4H PRN pain 7 days #20 0 02/25/25 03/12/25 Rx mg tablet (Percocet) tabs nystatin 100,000 unit/gram topical 1 applic topical QDAY #30 grams 03/12/25 03/12/25 Rx powder : Yes PFSH Medical History macrosomia Gestational diabetes LGA (large for gestational age) fetus Influenza A Surgical History Previous section S/P foot surgery, left [place] teeth removed Family History Grandfather Cancer, Onset Age: 55 Paternal pancreatic Grandfather Cancer, Onset Age: 60 Maternal lung Social History adopted: No household members: spouse and children housing: house number of children: 1 current occupational status: employed 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 current occupational exposures/hazards: No pets and animals: Yes (3) pets and animals: dog(s) history of recent travel: Yes (u[place] June) out of state: Yes out of country: Yes sexually active: Yes Smoking Status: Never smoker alcohol intake: current alcohol intake frequency: holidays/special occasions only details: not while substance use type: does not use well-balanced diet: daily or most days caffeine: Yes Type: coffee Number of servings: 1 eating out: rarely or never during the past year weight has: increased > 10 lbs what type of physical activity do you participate in: none david/confucianist: Yazidi seatbelt use: always do you feel safe at home: Yes additional social history: Andreas 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 Date Name GA/Weeks Outcome Route Bth Weight Gen Labor Lgth Anesthesia Del Locatn Provider FOB 04/05/23 Cristian 39 live - full term 8lbs 2oz Male spinal [facility] Dr. Booth Andreas 02/25/25 Radha 40 live - full term 9lb Male spinal [facility] EMILY [place] Delivery Date: 04/05/23 Last Updated by: Vera Boles MD Gestational diabetes, LGA, elevated BP without diagnosis of hypertension. 3 cm schedule csection for suspected LGA Delivery Date: 02/25/25 Last Updated by: Rosita Romero RN repeat cs Depression Screen PHQ-2/9 PHQ-2 Over the last 2 weeks, how often have you been bothered by any of the following problems? 1. Little interest or pleasure in doing things: not at all 2. Feeling down, depressed, or hopeless: not at all Total score: 0 Post HPI 2 wk RLTCS: Details: ESTEPHANIA WALLACE is a 24 year old who presents for her 2 week incision post visit. red area on left area of c/s incision-likely yeast. Infant Feeding: Both ROS Const All systems reviewed are unremarkable except as noted in H Reports system reviewed and no additional complaints, except as documented Card Reports system reviewed and no additional complaints, except as documented GI Reports system reviewed and no additional complaints, except as documented Neuro Yes system reviewed and no additional complaints, except as documented Psych Reports system reviewed and no additional complaints, except as documented, Denies anhedonia, Denies depression, Denies homicidal ideation and Denies suicidal ideation Exam Const General: cooperative, healthy appearing and comfortable Nutritional Appearance: average body habitus Orientation: alert, awake and oriented x3 Neck Neck: normal visual inspection and full ROM Resp Effort Inspection: normal respiratory effort, able to speak in c (more content not included)... Normal [facility] Automated blood erythrocyte countOrdered By: Emma Torres on 02-26-2025 RBC (Bld) [#/Vol] 3.53 10*6/uL Low 4.2-5.4 [facility] Comment on above: Order Comment: Comme nts: Day #1Reason for Laboratory Test Performed By: #### M 100.3400 #### [facility] [address] [place], [address] Automated blood hematocrit ( percentage)Ordered By: Emma Torres on 02-26-2025 Hematocrit (Bld) [Volume fraction] 32.0 % Low 37-47 [facility] Comment on above: Order Comment: Comme nts: Day #1Reason for Laboratory Test Performed By: #### M 100.3400 #### [facility] [address] [place], [address] CBC-Complete Blood Cnt No Di ffon 02-26-2025 RDW SD 42.7 fl Normal 35.1-43.9 [facility] Comment on above: Order Comment: Comme nts: Day #1Reason for Laboratory Test Performed By: #### M [id number] #### [facility] [address] [place], [place], [id number] Erythrocyte distribution wid th ratioOrdered By: Emma Torres on 02-26-2025 Erythrocyte distribution width (RBC) [Ratio] 13.0 % 11.6-14.6 [facility] Comment on above: Order Comment: Comme nts: Day #1Reason for Laboratory Test Performed By: #### M 100.3400 #### [facility] [address] [place], [place], [id number] Erythrocyte distribution wid th standard deviationOrdered By: Emma Torres on 02-26-2025 Erythrocyte distribution width (RBC) [Ratio] 42.7 fl 35.1-43.9 [facility] Hemoglobin measurementOrdere d By: Emma Torres on 02-26-2025 Hemoglobin (Bld) [Mass/Vol] 10.9 g/dL Low 12.0-15.0 [facility] Comment on above: Order Comment: Comme nts: Day #1Reason for Laboratory Test Performed By: #### M 100.3400 #### [facility] [address] [place], [place], [id number] MCV (mean corpuscular volume ) determinationOrdered By: Emma Torres on 02-26-2025 MCV (RBC) [Entitic vol] 90.7 fL 81-99 [facility] Comment on above: Order Comment: Comme nts: Day #1Reason for Laboratory Test Performed By: #### M 100.3400 #### [facility] [address] [place], [place], [id number] Mean corpuscular hemoglobin (MCH) determinationOrdered By: Emma Torres on 02-26-2025 MCH (RBC) [Entitic mass] 30.9 pg 27.0-32.0 [facility] Comment on above: Order Comment: Comme nts: Day #1Reason for Laboratory Test Performed By: #### M 100.3400 #### [facility] [address] [place], [address] Mean corpuscular hemoglobin concentration (MCHC) determinationOrdered By: Emma Torres on 02-26-2025 MCHC (RBC) [Mass/Vol] 34.1 g/dL 32-36 [facility] Comment on above: Order Comment: Comme nts: Day #1Reason for Laboratory Test Performed By: #### M 100.3400 #### [facility] [address] [place], [address] Mean platelet volume determi nationOrdered By: Emma Torres on 02-26-2025 Platelet mean volume (Bld) [Entitic vol] 9.4 fL 6.2-12.0 [facility] Comment on above: Order Comment: Comme nts: Day #1Reason for Laboratory Test Performed By: #### M 100.3400 #### [facility] [address] [place], [address] Platelet countOrdered By: Livan Torres on 02-26-2025 Platelets (Bld) [#/Vol] 145 10*3/uL Low 150-450 [facility] Comment on above: Order Comment: Comme nts: Day #1Reason for Laboratory Test Performed By: #### M 100.3400 #### [facility] [address] [place], [address] White blood cell (WBC) count Ordered By: Emma Torres on 02-26-2025 WBC (Bld) [#/Vol] 11.5 10*3/uL High 4.4-11.0 [facility] Comment on above: Order Comment: Comme nts: Day #1Reason for Laboratory Test Performed By: #### M 100.3400 #### [facility] [address] [place], [address] Absolute lymphocyte countOrd ered By: Emma Torres on 02-25-2025 Lymphocytes Auto (Unsp spec) [#/Vol] 1.79 10*3/uL 0.83-4.51 [facility] Absolute neutrophil countOrd ered By: Emma Torres on 02-25-2025 Neutrophils (Bld) [#/Vol] 6.6 10*3/uL 2.0-7.7 [facility] Automated lymphocyte count a s percentage of total leukocytesOrdered By: Emma Torres on 02-25-2025 Lymphocytes/100 WBC Auto (Unsp spec) 18.7 % Low 19-41 [facility] Basophil percentageOrdered B y: Emma Torres on 02-25-2025 Basophils/100 WBC (Bld) 0.5 % 0-1 [facility] CBC W/Diff, Automatedon Absolute Lymph 1.79 X10 3/uL Normal 0.83-4.51 [facility] Comment on above: Performed By: #### M 100.3400 #### [facility] [address] [facility] [address] [facility] [address] [place], [address] Absolute Neut 6.6 X10 3/uL Normal 2.0-7.7 [facility] Comment on above: Performed By: #### M 100.3400 #### [facility] [address] [facility] [place], [address] Basophils/100 WBC (Bld) 0.5 % Normal 0-1 [facility] Comment on above: Performed By: #### M 100.3400 #### [facility] [address] [place], [address] Eosinophils/100 WBC (Bld) 1.0 % Normal 0-5 [facility] Comment on above: Performed By: #### M 100.3400 #### [facility] [address] [place], [address] Erythrocyte distribution width (RBC) [Ratio] 12.7 % Normal 11.6-14.6 [facility] Comment on above: Performed By: #### M 100.3400 #### [facility] [address] [place], [address] Hematocrit (Bld) [Volume fraction] 39.9 % Normal 37-47 [facility] Comment on above: Performed By: #### M 100.3400 #### [facility] [address] [place], [address] Hemoglobin (Bld) [Mass/Vol] 13.7 g/dL Normal 12.0-15.0 [facility] Comment on above: Performed By: #### M 100.3400 #### [facility] [address] [place], [address] IG% 0.600 Normal 0.0-0.9 [facility] Comment on above: Result Comment: IG% - Immature Granulocytes (promyelocytes, myelocytes and metamyelocytes) > 1% indicates that a LEFT SHIFT is Present. Performed By: #### M 100.3400 #### [facility] [address] [place], [address] Lymphocytes/100 WBC (Bld) 18.7 % Low 19-41 [facility] Comment on above: Performed By: #### M 100.3400 #### [facility] [address] [place], [address] MCH (RBC) [Entitic mass] 30.4 pg Normal 27.0-32.0 [facility] Comment on above: Performed By: #### M 100.3400 #### [facility] [address] [place], [address] MCHC (RBC) [Mass/Vol] 34.3 g/dL Normal 32-36 [facility] Comment on above: Performed By: #### M 100.3400 #### [facility] [address] [place], [address] MCV (RBC) [Entitic vol] 88.5 fL Normal 81-99 [facility] Comment on above: Performed By: #### M 100.3400 #### [facility] [address] [place], [address] Monocytes/100 WBC (Bld) 9.6 % Normal 0-10 [facility] Comment on above: Performed By: #### M 100.3400 #### [facility] [address] [place], [address] Neutrophils/100 WBC (Bld) 69.6 % Normal 47-70 [facility] Comment on above: Performed By: #### M 100.3400 #### [facility] [address] [place], [address] Nucleated RBC (Bld) [#/Vol] 0 10*3/uL Normal 0-5 [facility] Comment on above: Performed By: #### M 100.3400 #### [facility] [address] [place], [address] Platelet mean volume (Bld) [Entitic vol] 9.9 fL Normal 6.2-12.0 [facility] Comment on above: Performed By: #### M 100.3400 #### [facility] [address] [place], [address] Platelets (Bld) [#/Vol] 170 10*3/uL Normal 150-450 [facility] Comment on above: Performed By: #### M 100.3400 #### [facility] [address] [place], [address] RBC (Bld) [#/Vol] 4.51 10*6/uL Normal 4.2-5.4 [facility] Comment on above: Performed By: #### M 100.3400 #### [facility] [address] [place], [address] RDW SD 40.8 fl Normal 35.1-43.9 [facility] Comment on above: Performed By: #### M 100.3400 #### [facility] [address] [place], [place], [address] WBC (Bld) [#/Vol] 9.6 10*3/uL Normal 4.4-11.0 [place] [facility] Comment on above: Performed By: #### M 100.3400 #### [facility] [address] [place], [address] Discharge Instructionon Discharge Instruction [facility] Medical Records Department [address] [place] [address] Instructions for Home/Discharge Instructions 02/25/25 0715 MR#: [id number] Acct: [id number] Name: ESTEPHANIA WALLACE Rep #: [id number] : 2000 24 From: Emma Booth DO PCP: Dr. Lidia Gonzalez MD Status:ADM IN Discharge Instructions Diet Discharge Diet: No restrictions DC O2, CPAP, BIPAP needs Home O2 Discharge instructions: No Dressing / Incision Discharge Activity: May Not Drive (for 2 weeks or while taking narcotic pain medications.), May Shower and May Take a Tub Bath (in 7 days.) May resume sexual activity in: 4-6 weeks Weight Bearing Status: Full weight bearing Lifting Restrictions: 20 pounds Dressing / Incision Call your doctor if your incision/area has: Continuous Slow Oozing, Sudden Increased Bleeding, Increased Pain/ Swelling, Increased Redness and Foul Smelling Discharge Call your doctor if you observe: Fever of 101 or Higher and Using more than 1 pad per hour Suture Line Care: Avoid Pulling/Pushing and Avoid Pinching/Bending Cleanse incision/area with: Soap Water and Keep Dressing Clean Dry Follow Up Care Please Follow Up With: Emma Booth DO When: Call [phone] to make an appointment for an incision check in 1-2 weeks. Test Results: Test results from this visit will be discussed in further detail at your follow-up appointment, if applicable. Discharge Plan Admission Admit Date/Time: 02/25/25 04:27 Primary Reason for Your Visit: section Attending Provider: Emma Booth Primary Care Provider: Lidia Gonzalez Discharge Orders/Prescriptions Prescriptions: New ibuprofen 800 mg tablet 800 mg PO Q8H PRN (Reason: pain) Qty: 30 0RF oxycodone-acetaminophen [Percocet] 5-325 mg tablet 1 tab PO Q4H PRN (Reason: pain) 7 Days Qty: 20 0RF No Action PNV-[place] 28-1-300 mg capsule 1 cap PO DAILY Referrals / Follow Up: Lidia Gonzalez MD [Primary Care Provider] - Disposition Disposition (needs filled in before D/C Order can be placed): Home, Self Care 02/25/25 0722 Emma Booth DO CC: Dr. Lidia Gonzalez MD Signed Normal [facility] Eosinophil percentageOrdered By: Emma Torres on 02-25-2025 Eosinophils/100 WBC (Bld) 1.0 % 0-5 [facility] H AND P Exam - OB/GYNon 05- H&P Exam - GLOVE EXAMINER [facility] Medical Records Department [address] [place] [address] H P Exam - GLOVE EXAMINER 02/25/25 0710 MR#: [id number] Acct: [id number] Name: ESTEPHANIA WALLACE OLAYINKA Rep #: [id number] : 2000 24 From: Emma Booth DO PCP: Dr. Lidia Gonzalez MD Status:ADM IN Location: [id number] HPI - General General Date of Admission: 02/25/25 HPI Narrative ESTEPHANIA WALLACE, is a 24 y/o @ 40 weeks 0 days who presents to [facility] for a repeat section. Maternal Data Information LAISHA Calculator Estimated Delivery Date Method Current WG Current Estimate 02/25/25 LMP (Certain) 40w 0d Other Estimates 02/27/25 Ultrasound #1 39w 5d PFSH PFSH Medical History macrosomia Gestational diabetes LGA (large for gestational age) fetus Influenza A Home Medications ???Medication ???Instructions ???Recorded ???Last Taken ???Type multivit-min no.71-iron fum 28 1 cap PO DAILY 07/11/24 02/24/25 21:00 History mg-folate no.1 1 mg-dha 300 mg capsule (PNV-[place]) Allergy/AdvReac Type Severity Reaction Status Date / Time No Known Allergies Allergy Verified 02/25/25 04:48 Family History Grandfather Cancer, Onset Age: 55 Paternal pancreatic Grandfather Cancer, Onset Age: 60 Maternal lung Surgical History Previous section S/P foot surgery, left Lashmeet teeth removed Social History adopted: No household members: spouse and children housing: house number of children: 1 current occupational status: employed 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 current occupational exposures/hazards: No pets and animals: Yes (3) pets and animals: dog(s) history of recent travel: Yes ([place]) out of state: Yes out of country: Yes sexually active: Yes Smoking Status: Never smoker alcohol intake: current alcohol intake frequency: holidays/special occasions only details: not while substance use type: does not use well-balanced diet: daily or most days caffeine: Yes Type: coffee Number of servings: 1 eating out: rarely or never during the past year weight has: increased > 10 lbs what type of physical activity do you participate in: none david/confucianist: Yazidi seatbelt use: always do you feel safe at home: Yes additional social history: Andreas 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 Date Name GA/Weeks Outcome Route Bth Weight Gen Labor Lgth Anesthesia Del Locatn Provider FOB 04/05/23 Cristian 39 live - full term 8lbs 2oz Male spinal [facility] Dr. Booth Andreas Delivery Date: 04/05/23 Last Updated by: Vera Boles MD Gestational diabetes, LGA, elevated BP without diagnosis of hypertension. 3 cm schedule csection for suspected LGA Visit Details Expected Delivery Route/Plan TOLAC patient counseled regarding risks/benefits of trial of labor versus repeat . ACOG/uptodate education given to patient. [] % likelihood of success per calculator TOLAC consent form signed: [] Labor Preferences- CB/BF classes: no labor support person: Andreas labor intervention preferences: [] pain management options preferred: [] cut cord/dad catch: [] : yes PP control planned: [] discussed possible routes of delivery and associated risks: [] special requests: [] Plans Covid status: [] Flu vaccine: given Tdap vaccine: given Rhogam:na LARC form signed: yes movement and labor precautions reviewed. Problem list reviewed and updated with the most current plan of care details and appropriate orders placed. Relevant counseling for the gestational age provided. Continue routine care and follow up unless otherwise noted in visit notes/problem list details OB Flowsheet Initial Weight: Not Recorded Date -???-???-???-???-???-???- ???-???-???-???-???-???- EGA Weight BP Urine Prot -???-???-???-???-???-???- ???-???-???-???-???-???- Glucose FHR FuHt Pres Dilation -???-???-???-???-???-???- ???-???-???-???-???-???- Effaced St Visit Note 07/15/24 -???-???-???-???-???-???- ???-???-???-???-???-???- 7w 6d 198 lb 135/75 -???-???-???-???-???-???- ???-???-???-???-???-???- 155 -???-???-???-???-???-???- ???-???-???-???-???-???- SM- CRL 1.3c m cons with LMP 08/15/24 -???-???-???-???-???-???- ???-???-???-???-???-???- 12w 2d 198 lb 2 oz 132/84 Negative -???-???-???-???- (more content not included)... Normal [facility] Immature granulocytes/100 WB C Auto (Bld)Ordered By: Emma Torres on 02-25-2025 Immature granulocytes/100 WBC (Bld) 0.600 % 0.0-0.9 [facility] Comment on above: IG% - Immature Granu locytes (promyelocytes, myelocytes and metamyelocytes) > 1% indicates that a LEFT SHIFT is Present. Monocyte percentageOrdered B y: Emma Torres on 02-25-2025 Monocytes/100 WBC (Bld) 9.6 % 0-10 [facility] Neutrophil percentageOrdered By: Emma Torres on 02-25-2025 Neutrophils/100 WBC (Bld) 69.6 % 47-70 [facility] Nucleated red blood cell per centageOrdered By: Emma Torres on 02-25-2025 Nucleated RBC/100 WBC (Bld) [Ratio] 0 % 0-5 [facility] Operative Reporton 5 Operative Report [facility] Medical Records Department [address] [place] [address] Operative Report 02/25/25 0832 MR#: [id number] Acct: [id number] Name: ESTEPHANIA WALLACE OLAYINKA Rep #: [id number] : 2000 24 From: Emma Booth DO PCP: Dr. Lidia Gonzalez MD Status:DIS IN Location: WP [id number] Assessment Plan (1) GBS (group B Streptococcus carrier), +RV culture, currently : COMMENT: PVN in labor (2) Large for gestational age fetus affecting management of mother: COMMENT: AC 96%ile, will repeat GCT now/normal (3) Desires (vaginal after ) trial: COMMENT: primary csection for suspected LGA, didn't labor. (4) Obesity affecting : QUALIFIERS: Obesity type affecting : unspecified obesity Trimester: first trimester Qualified Code(s): O99.211 - Obesity complicating , first trimester COMMENT: HgbA1c, BMI 32. encouraged healthy weight gain. (5) Supervision of high risk , antepartum: COMMENT: PRR , LAISHA 02/25/25, boy PC Cristian, [facility] (6) : QUALIFIERS: Weeks of gestation: 39 weeks Qualified Code(s): Z3A.39 - 39 weeks gestation of COMMENT: normal anatomy, declined NIPT carrier testing (7) History of gestational diabetes mellitus (GDM) in prior , currently : (8) Previous section: COMMENT: desires . RLTCS scheduled for 02/25 with JV @ 7:15 Maternal Data Information LAISHA Calculator Estimated Delivery Date Method Current WG Current Estimate 02/25/25 LMP (Certain) 40w 2d Other Estimates 02/27/25 Ultrasound #1 40w 0d Final LAISHA: 02/25/25 Final LAISHA Source: LMP Gestational age: 40 weeks Operative Report (OB) Details Procedure Type: low transverse Date of Procedure: 02/25/25 Procedure Start Time: 07:37 Procedure Stop Time: 08:20 Time of Delivery: 07:44 Pre-Operative Diagnosis: Repeat Elective Post-Operative Diagnosis: Same as Pre-operative diagnosis Classification: Scheduled Type of Anesthesia: Spinal Antibiotic Given: Ancef 2 grams IV x1 Drain: Sheppard to straight drain Estimated Blood Loss: 500cc Findings Description of surgery: The patient is a 24 y/o @ 40 weeks presented for repeat . Spinal anesthesia was placed without difficulty. Sheppard catheter was placed. The patient was placed in the dorsal supine position with leftward tilt. Patient was prepped and draped in the normal sterile fashion. Pfannenstiel skin incision was made with the scalpel and carried through to the underlying layer of fascia with the scalpel. Fascia was nicked in the midline and the incision extended laterally. The rectus bellies were dissected off superiorly and inferiorly with out complication both sharply and bluntly. The peritoneum was entered digitally. The incision was stretched and a low transverse uterine incision was made with the scalpel. The 's head was delivered atraumatically followed by the anterior and posterior shoulders without complication the rest of the delivered. The cord was clamped and cut and the was handed off to awaiting nurse. The placenta was delivered spontaneously immediately following and was noted to be intact and have a three-vessel cord. The uterus was exteriorized cleared of all clots and debris, and the incision was closed in a double layer closure using #1Vicryl and #1 Monocryl. The ovaries and fallopian tubes were noted to be within normal limits. The uterus was returned to the maternal abdomen and gutters were cleared of all clots and debris. The peritoneum was closed with 3-0 Monocryl in a running fashion. Fascia was closed with 0 PDS in a running fashion. Subcutaneous tissue was copiously irrigated and the skin was closed with 3-0 Monocryl in a subcuticular fashion. Mepilex dressing was applied without complication. Patient was taken to recovery in stable condition. It was discussed with the patient that based on the clinical information obtained during this encounter, combined with her history, at this time I would recommend repeat sections for future deliveries if further pregnancies are desired. Surgical findings: viable male infant radha Presentation: Vertex Amniotic Membrane Rupture Type: Artificial Amniotic Fluid Description: Clear Placental Delivery Description: Manual Removal Placenta Disposition: [facility] Specimen collected: No Cord Vessel Description: 3 Vessels Cord Entanglement: None A gender: Male (1 minute): 9 (5 minute): 9 Delayed Cord Clamping: Yes Relay Record Clerk drafter civil (cad): Yes Fiber Technician: Dalton Abrams Tasks completed by sampler first: Closing and Retracting Additional speech language assistant?: No Complications Complications: No Admit VTE Documentation VTE Present on Admission: No VTE Mechan Device Prophylaxis: SC (more content not included)... Normal [facility] Syphilis Antibodieson 2024 Syphilis Abs Non-Reactive Normal Nonreactive [facility] Comment on above: Performed By: #### L 509.8002 #### [facility] [place], [address] Type AND Screenon 02-25-2025 ABO and Rh group Nom (Bld) Blood group O Rh(D) positive Normal [facility] Comment on above: Order Comment: SC-SE CTION Performed By: #### M 100.3407 #### [facility] [address] [place], [address] Laboratory - Chemistry and C hemistry - challengeOrdered By: Vera Boles on 02-20-2025 Glucose Ql (U) Negative [facility] - UrinalysisOrder ed By: Vera Boles on 02-20-2025 Protein Ql (U) Trace [facility] Sales Promotion Manager Office Visit Reporton 02-20-2025 Sales Promotion Manager Office Visit Report [facility] [address], [address] [place] [address] OFFICE VISIT Date of Service: 02/20/25 MR#: [id number] Acct: [id number] Name: ESTEPHANIA WALLACE Rep #: [id number] : 2000 Provider: Dr. Vera neely MD Age/Sex: 24/F Location[place] [facility] [place] Status: Signed Intake Vital Signs 10/09/24 08:33 02/11/25 09:16 02/20/25 13:12 02/20/25 13:14 Height 5 ft 5 in 5 ft 5 in 5 ft 5 in 5 ft 5 in Weight: 221 lb BMI 36.8 BP 118/86 H Intake Visit Reasons: 39 wk ob Commanding [employer] Required: No Is patient in pain?: No Allergies No Known Allergies Allergy (Verified 02/20/25 13:13) Medications ???Medication ???Instructions ???Recorded ???Confirmed ???Type multivit-min no.71-iron fum 28 1 cap PO DAILY 07/11/24 02/20/25 H istory mg-folate no.1 1 mg-dha 300 mg capsule (PNV-[place]) Last Menstrual Period: 05/21/24 Zika: Zika virus screening: Negative : No PFSH PFSH Medical History macrosomia Gestational diabetes LGA (large for gestational age) fetus Influenza A Surgical History Previous section S/P foot surgery, left Lashmeet teeth removed Family History Grandfather Cancer, Onset Age: 55 Paternal pancreatic Grandfather Cancer, Onset Age: 60 Maternal lung Social History adopted: No household members: spouse and children housing: house number of children: 1 current occupational status: employed 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 current occupational exposures/hazards: No pets and animals: Yes (3) pets and animals: dog(s) history of recent travel: Yes ([place]) out of state: Yes out of country: Yes sexually active: Yes Smoking Status: Never smoker alcohol intake: current alcohol intake frequency: holidays/special occasions only details: not while substance use type: does not use well-balanced diet: daily or most days caffeine: Yes Type: coffee Number of servings: 1 eating out: rarely or never during the past year weight has: increased > 10 lbs what type of physical activity do you participate in: none david/confucianist: Yazidi seatbelt use: always do you feel safe at home: Yes 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 Date Name GA/Weeks Outcome Route Bth Weight Gen Labor Lgth Anesthesia Del Locatn Provider FOB 04/05/23 Cristian 39 live - full term 8lbs 2oz Male spinal [facility] Dr. Booth Andreas Delivery Date: 04/05/23 Last Updated by: Vera Boles MD Gestational diabetes, LGA, elevated BP without diagnosis of hypertension. 3 cm schedule csection for suspected LGA HPI 39 wk ob Details: ESTEPHANIA WALLACE is a 24 year old who presents for routine OB visit. OB Visit LAISHA Calculator Estimated Delivery Date Method Current WG Current Estimate 02/25/25 LMP (Certain) 39w 2d Other Estimates 02/27/25 Ultrasound #1 39w 0d Expected Delivery Route/Plan TOLAC patient counseled regarding risks/benefits of trial of labor versus repeat . ACOG/uptodate education given to patient. [] % likelihood of success per calculator TOLAC consent form signed: [] Labor Preferences- CB/BF classes: no labor support person: Andreas labor intervention preferences: [] pain management options preferred: [] cut cord/dad catch: [] : yes PP control planned: [] discussed possible routes of delivery and associated risks: [] special requests: [] Specific Issue/Plans Covid status: [] Flu vaccine: given Tdap vaccine: given Rhogam:na LARC form signed: yes movement and labor precautions reviewed. Problem list reviewed and updated with the most current plan of care details and appropriate orders placed. Relevant counseling for the gestational age provided. Continue routine care and follow up unless otherwise noted in visit notes/problem list details Initial Weight: Not Recorded Date -???-???-???-???-???-???- ???-???-???-???-???-???- EGA Weight BP Urine Prot -???-???-???-???-???-???- ???-???-???-???-???-???- Glucose FHR FuHt Pres Dilation -???-???-???-???-???-???- ???-???-???-???-???-???- Effaced St Visit Note 07/15/24 -???-???-???-???-???-???- ???-???-???-???-???-???- 7w 6d 198 lb 135/75 -???-???-???-???-???-???- ???-???-???-???-???-???- 15 (more content not included)... Normal [facility] - Chemistry and C hemistry - challengeOrdered By: Vera Boles on 02-11-2025 Glucose Ql (U) Negative [facility] - UrinalysisOrder ed By: Vera Boles on 02-11-2025 Protein Ql (U) Negative [facility] Sales Promotion Manager Office Visit Reporton 02-11-2025 Sales Promotion Manager Office Visit Report [facility]'s [address], [address] [place] [address] OFFICE VISIT Date of Service: 02/11/25 MR#: [id number] Acct: [id number] Name: ESTEPHANIA WALLACE Rep #: [id number] : 2000 Provider: Dr. Vera neely MD Age/Sex: 24/F [place] [facility] [place]: Signed Intake Vital Signs 10/09/24 08:33 02/06/25 09:51 02/11/25 09:15 02/11/25 09:16 Height 5 ft 5 in 5 ft 5 in 5 ft 5 in 5 ft 5 in Weight: 221 lb 2 oz 220 lb 4 oz BMI 36.8 36.6 BP 132/84 H 116/85 H Intake Visit Reasons: 38 wk ob [employer] Required: No Is patient in pain?: No Feel stressed/tense/nervous/an xious/difficulty sleeping: not at all Allergies No Known Allergies Allergy (Verified 02/11/25 09:15) Medications ???Medication ???Instructions ???Recorded ???Confirmed ???Type multivit-min no.71-iron fum 28 1 cap PO DAILY 07/11/24 02/11/25 H istory mg-folate no.1 1 mg-dha 300 mg capsule (PNV-[place]) Last Menstrual Period: 05/21/24 Zika: Zika virus screening: Negative : No PFSH PFSH Medical History macrosomia Gestational diabetes LGA (large for gestational age) fetus Influenza A Surgical History Previous section S/P foot surgery, left Lashmeet teeth removed Family History Grandfather Cancer, Onset Age: 55 Paternal pancreatic Grandfather Cancer, Onset Age: 60 Maternal lung Social History adopted: No household members: spouse and children housing: house number of children: 1 current occupational status: employed 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 current occupational exposures/hazards: No pets and animals: Yes (3) pets and animals: dog(s) history of recent travel: Yes ([place]) out of state: Yes out of country: Yes sexually active: Yes Smoking Status: Never smoker alcohol intake: current alcohol intake frequency: holidays/special occasions only details: not while substance use type: does not use well-balanced diet: daily or most days caffeine: Yes Type: coffee Number of servings: 1 eating out: rarely or never during the past year weight has: increased > 10 lbs what type of physical activity do you participate in: none david/confucianist: Yazidi seatbelt use: always do you feel safe at home: Yes additional social history: Andreas 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 Date Name GA/Weeks Outcome Route Bth Weight Infant Gen Labor Lgth Anesthesia Del Locatn Provider FOB 04/05/23 [place] 39 live - full term 8lbs 2oz Male spinal [facility] Dr. Booth [place] Delivery Date: 04/05/23 Last Updated by: Vera Boles MD Gestational diabetes, LGA, elevated BP without diagnosis of hypertension. 3 cm schedule csection for suspected LGA HPI 38 wk ob Details: ESTEPHANIA WALLACE is a 24 year old who presents for routine OB visit. OB Visit LAISHA Calculator Estimated Delivery Date Method Current WG Current Estimate 02/25/25 LMP (Certain) 38w 0d Other Estimates 02/27/25 Ultrasound #1 37w 5d Expected Delivery Route/Plan TOLAC patient counseled regarding risks/benefits of trial of labor versus repeat . ACOG/uptodate education given to patient. [] % likelihood of success per calculator TOLAC consent form signed: [] Labor Preferences- CB/BF classes: no labor support person: Andreas labor intervention preferences: [] pain management options preferred: [] cut cord/dad catch: [] : yes PP control planned: [] discussed possible routes of delivery and associated risks: [] special requests: [] Specific Issue/Plans Covid status: [] Flu vaccine: given Tdap vaccine: given Rhogam:na LARC form signed: yes movement and labor precautions reviewed. Problem list reviewed and updated with the most current plan of care details and appropriate orders placed. Relevant counseling for the gestational age provided. Continue routine care and follow up unless otherwise noted in visit notes/problem list details Initial Weight: Not Recorded Date -???-???-???-???-???-???- ???-???-???-???-???-???- EGA Weight BP Urine Prot -???-???-???-???-???-???- ???-???-???-???-???-???- Glucose FHR FuHt Pres Dilation -???-???-???-???-???-???- ???-???-???-???-???-???- Effaced St Visit Note 07/15/24 -???-???-???-???-???-???- ?? (more content not included)... Normal [facility] - Chemistry and C hemistry - challengeOrdered By: Emma Torres on 02-06-2025 Glucose Ql (U) Negative [facility] - UrinalysisOrder ed By: Emma Torres on 02-06-2025 Protein Ql (U) Negative [facility] Sales Promotion Manager Office Visit Reporton 02-06-2025 Sales Promotion Manager Office Visit Report [facility] [address] [place] [address], [address] [place] [address] OFFICE VISIT Date of Service: 02/06/25 MR#: [id number] Acct: [id number] Name: ESTEPHANIA WALLACE OLAYINKA Rep #: [id number] : 2000 Provider: Dr. Emma Vaughan DO Age/Sex: 24/F Location[place] [facility] [place] Status: Signed Intake Vital Signs 10/09/24 08:33 01/28/25 09:06 02/06/25 09:51 Height 5 ft 5 in 5 ft 5 in 5 ft 5 in Weight: 221 lb 2 oz BMI 36.8 BP 132/84 H Intake Visit Reasons: 37 wk ob Chief Complaint: 37 Week OB [employer] Required: No Is patient in pain?: No Allergies No Known Allergies Allergy (Verified 02/06/25 09:52) Medications ???Medication ???Instructions ???Recorded ???Confirmed ???Type multivit-min no.71-iron fum 28 1 cap PO DAILY 07/11/24 02/06/25 H istory mg-folate no.1 1 mg-dha 300 mg capsule (PNV-[place]) Last Menstrual Period: 05/21/24 Zika: Zika virus screening: Negative : No PFSH PFSH Medical History macrosomia Gestational diabetes LGA (large for gestational age) fetus Influenza A Surgical History Previous section S/P foot surgery, left Lashmeet teeth removed Family History Grandfather Cancer, Onset Age: 55 Paternal pancreatic Grandfather Cancer, Onset Age: 60 Maternal lung Social History adopted: No household members: spouse and children housing: house number of children: 1 current occupational status: employed 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 current occupational exposures/hazards: No pets and animals: Yes (3) pets and animals: dog(s) history of recent travel: Yes ([place] June) out of state: Yes out of country: Yes sexually active: Yes Smoking Status: Never smoker alcohol intake: current alcohol intake frequency: holidays/special occasions only details: not while substance use type: does not use well-balanced diet: daily or most days caffeine: Yes Type: coffee Number of servings: 1 eating out: rarely or never during the past year weight has: increased > 10 lbs what type of physical activity do you participate in: none david/confucianist: Yazidi seatbelt use: always do you feel safe at home: Yes additional social history: Andreas 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 Date Name GA/Weeks Outcome Route Bth Weight Infant Gen Labor Lgth Anesthesia Del Locatn Provider FOB 04/05/23 Cristian 39 live - full term 8lbs 2oz Male spinal [facility] Dr. Booth [place] Delivery Date: 04/05/23 Last Updated by: Vera Boles MD Gestational diabetes, LGA, elevated BP without diagnosis of hypertension. 3 cm schedule csection for suspected LGA HPI 37 wk ob Details: ESTEPHANIA WALLACE is a 24 year old who presents for routine OB visit. OB Visit LAISHA Calculator Estimated Delivery Date Method Current WG Current Estimate 02/25/25 LMP (Certain) 37w 2d Other Estimates 02/27/25 Ultrasound #1 37w 0d Expected Delivery Route/Plan TOLAC patient counseled regarding risks/benefits of trial of labor versus repeat . ACOG/uptodate education given to patient. [] % likelihood of success per calculator TOLAC consent form signed: [] Labor Preferences- CB/BF classes: no labor support person: Andreas labor intervention preferences: [] pain management options preferred: [] cut cord/dad catch: [] : yes PP control planned: [] discussed possible routes of delivery and associated risks: [] special requests: [] Specific Issue/Plans Covid status: [] Flu vaccine: given Tdap vaccine: given Rhogam:na LARC form signed: yes movement and labor precautions reviewed. Problem list reviewed and updated with the most current plan of care details and appropriate orders placed. Relevant counseling for the gestational age provided. Continue routine care and follow up unless otherwise noted in visit notes/problem list details Initial Weight: Not Recorded Date -???-???-???-???-???-???- ???-???-???-???-???-???- EGA Weight BP Urine Prot -???-???-???-???-???-???- ???-???-???-???-???-???- Glucose FHR FuHt Pres Dilation -???-???-???-???-???-???- ???-???-???-???-???-???- Effaced St Visit Note 07/15/24 -???-???-???-???-???-???- ???-???-???-???-???-???- 7w 6d 198 lb 135/75 -???-???-???-???-???-???- ???-??? (more content not included)... Normal [facility] Rule out Beta Strep (Grp. B) on 02-01-2025 YULIANA Streptococcus agalac tiae (B) Amount Growth Growth Streptococcus agalactiae (B): REACTION Ampicillin Islt STEVE <=0.25 cefTRIAXone Islt STEVE <=0.12 S Clindamycin Islt STEVE <=0.25 S Clindamycin.induced Susc Islt NEG Linezolid Islt STEVE <=2 S Vancomycin Islt STEVE 0.5 S Normal [facility] Comment on above: Performed By: #### M [id number] #### [facility] [address] [facility] [place], [place], [id number] Glucose Challenge Gest 1H 50 gilberto 01-30-2025 GLU GEST 50g 1H 113 mg/dL Normal 70-140 [facility] Comment on above: Performed By: #### L [id number] #### [facility] [address] [place], [place], [id number] Glucose measurement at 2 andrés rs post-dose gestational glucose tolerance testOrdered By: Radha Soler on 01-30-2025 Glucose [Mass/Vol] 113 mg/dL 70-140 [facility] [place] [facility] - Chemistry and C hemistry - challengeOrdered By: Vera Boles on 01-28-2025 Glucose Ql (U) Negative [facility] - UrinalysisOrder ed By: Vera Boles on 01-28-2025 Protein Ql (U) Negative [facility] Sales Promotion Manager Office Visit Reporton 01-28-2025 Sales Promotion Manager Office Visit Report [facility]'s [address], [address] [place] [address] OFFICE VISIT Date of Service: 01/28/25 MR#: [id number] Acct: [id number] Name: ESTEPHANIA WALLACE Rep #: [id number] : 2000 Provider: Dr. Vera neely MD Age/Sex: 24/F Location[place] [facility] [place] Status: Signed Intake Vital Signs 10/09/24 08:33 01/17/25 10:12 01/28/25 09:06 Height 5 ft 5 in 5 ft 5 in 5 ft 5 in Weight: 219 lb 8 oz BMI 36.5 BP 132/84 H Intake Visit Reasons: 36 wk ob [employer] Required: No Is patient in pain?: No Allergies No Known Allergies Allergy (Verified 01/28/25 09:07) Medications ???Medication ???Instructions ???Recorded ???Confirmed ???Type multivit-min no.71-iron fum 28 1 cap PO DAILY 07/11/24 01/28/25 H istory mg-folate no.1 1 mg-dha 300 mg capsule (PNV-[place]) Last Menstrual Period: 05/21/24 Zika: Zika virus screening: Negative : No PFSH PFSH Medical History macrosomia Gestational diabetes LGA (large for gestational age) fetus Influenza A Surgical History Previous section S/P foot surgery, left Lashmeet teeth removed Family History Grandfather Cancer, Onset Age: 55 Paternal pancreatic Grandfather Cancer, Onset Age: 60 Maternal lung Social History adopted: No household members: spouse and children housing: house number of children: 1 current occupational status: employed 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 current occupational exposures/hazards: No pets and animals: Yes (3) pets and animals: dog(s) history of recent travel: Yes ([place]) out of state: Yes out of country: Yes sexually active: Yes Smoking Status: Never smoker alcohol intake: current alcohol intake frequency: holidays/special occasions only details: not while substance use type: does not use well-balanced diet: daily or most days caffeine: Yes Type: coffee Number of servings: 1 eating out: rarely or never during the past year weight has: increased > 10 lbs what type of physical activity do you participate in: none david/confucianist: Yazidi seatbelt use: always do you feel safe at home: Yes additional social history: Andreas Aponte History 2 Elective abortions Hx Para 1 Spontaneous abortions Hx # Term Pregnancies Ectopic pregnancies Hx # Pregnancies Multiple births # of living children 1 Past Pregnancies Del. Date Name GA/Weeks Outcome Route Bth Weight Gen Labor Lgth Anesthesia Del Locatn Provider FOB 04/05/23 Cristian 39 live - full term 8lbs 2oz Male spinal [facility] Dr. Booth [place] Delivery Date: 04/05/23 Last Updated by: Vera Boles MD Gestational diabetes, LGA, elevated BP without diagnosis of hypertension. 3 cm schedule csection for suspected LGA HPI 36 wk ob Details: ESTEPHANIA WALLACE is a 24 year old who presents for routine OB visit. OB Visit LAISHA Calculator Estimated Delivery Date Method Current WG Current Estimate 02/25/25 LMP (Certain) 36w 0d Other Estimates 02/27/25 Ultrasound #1 35w 5d Expected Delivery Route/Plan TOLAC patient counseled regarding risks/benefits of trial of labor versus repeat . ACOG/uptodate education given to patient. [] % likelihood of success per calculator TOLAC consent form signed: [] Labor Preferences- CB/BF classes: no labor support person: Andreas labor intervention preferences: [] pain management options preferred: [] cut cord/dad catch: [] : yes PP control planned: [] discussed possible routes of delivery and associated risks: [] special requests: [] Specific Issue/Plans Covid status: [] Flu vaccine: given Tdap vaccine: given Rhogam:na LARC form signed: yes movement and labor precautions reviewed. Problem list reviewed and updated with the most current plan of care details and appropriate orders placed. Relevant counseling for the gestational age provided. Continue routine care and follow up unless otherwise noted in visit notes/problem list details Initial Weight: Not Recorded Date -???-???-???-???-???-???- ???-???-???-???-???-???- EGA Weight BP Urine Prot -???-???-???-???-???-???- ???-???-???-???-???-???- Glucose FHR FuHt Pres Dilation -???-???-???-???-???-???- ???-???-???-???-???-???- Effaced St Visit Note 07/15/24 -???-???-???-???-???-???- ???-???-???-???-???-???- 7w 6d 198 lb 135/75 -???-???-???-???-???-???- ???-???-???-???-???-???- 155 -???-???-???-???-? (more content not included)... Normal [facility] Screening beta-hemolytic Str eptococcus cultureOrdered By: eVra Boles on 01-28-2025 Beta-hemolytic Streptococcus culture Streptococcus agalactiae (B) Abnormal [facility] B Streptococcus Culture Streptococcus agalactiae (B) Abnormal [facility] OB Limited With Biometricson 01-27-2025 OB Limited With Biometrics [facility] Imaging Services [address] [place] [address] OB Limited With Biometrics MR#: [id number] Acct: [id number] Name: ESTEPHANIA WALLACE OLAYINKA Rep #: [id number] : 2000 F 24 From: Leo Cazares MD PCP: Dr. Lidia Gonzalez MD Status: REG CLI Study: OB Limited With Biometrics Date of Exam: 01/27 Exam# [id number] Ordering Dr: Emma Booth DO PROCEDURE: OB LIMITED WITH BIOMETRICS 01/27/2025 REASON FOR EXAM: OBESITY IN , LARGE FOR GESTATIONAL AGE. Reportedly at 35 weeks and 6 days by previously established dates. TECHNIQUE: High resolution transabdominal obstetric ultrasound performed using a 2D transducer. Standard views obtained, including biometry and Doppler studies. COMPARISON: None FINDINGS: A single intrauterine gestational sac is identified. Cardiac activity: Present, regular, 139-144 beats per minute. position: Cephalic. Amniotic Fluid Index: 11.7 (normal 5-25), deepest vertical pocket 3.6 (normal 2-8). Placenta: Anterior. biometry: Biparietal diameter: 8.8 cm, corresponding to 35 weeks and 3 days. Head circumference: 31.9 cm, corresponding to 36 weeks and 0 days. Occipitofrontal diameter: 11.1 cm, corresponding to 36 weeks and 1 day. Abdominal circumference: 33.9 cm, corresponding to 37 weeks and 6 days. Femur length: 6.3 cm, corresponding to 34 weeks and 4 days. Composite gestational age: 37 weeks 0 days Estimated Weight (EFW): 3,016 grams +/- 452 grams, 74th percentile. Estimated delivery date (LAISHA): 02/17/2025 based on today's measurements. Maternal anatomy: Cervix: Nonvisualized due to the gravid uterus. . Right ovary: Nonvisualized due to the gravid uterus. Left ovary: Nonvisualized due to the gravid uterus. Other: No significant visualized pelvic free fluid. US/OB Limited With Biometrics IMPRESSION: 1. Single live intrauterine fetus at 37 weeks and 0 days by today's measurements. Correlate with clinical factors including previously established dates. 2. Estimated weight 3,016 grams +/- 452 grams, 74th percentile based on provided previously established dates of 35 weeks and 6 days. biometry as above. 3. Note that detailed anatomic survey was not performed. 4. Additional description as above. Reading Location: [facility] CC: Dr. Emma Booth DO; Dr. Lidia Gonzalez MD Senior It Auditor: Signed Normal [facility] - Chemistry and C hemistry - challengeOrdered By: Emma Torres on 01-17-2025 Glucose Ql (U) Negative [facility] - UrinalysisOrder ed By: Emma Torres on 01-17-2025 Protein Ql (U) Negative [facility] Sales Promotion Manager Office Visit Reporton 01-17-2025 Sales Promotion Manager Office Visit Report [facility]'s [address], [address] [place] [address] OFFICE VISIT Date of Service: 01/17/25 MR#: [id number] Acct: [id number] Name: ESTEPHANIA WALLACE Rep #: [id number] : 2000 Provider: Dr. Emma Vaughan DO Age/Sex: 24/F Location[place] [facility] [place] Status: Signed Intake Vital Signs 10/09/24 08:33 12/05/24 09:29 01/03/25 09:44 01/17/25 10:12 01/17/25 10:12 Height 5 ft 5 in 5 ft 5 in 5 ft 5 in 5 ft 5 in 5 ft 5 in Weight: 215 lb 8 oz BMI 35.9 BP 120/80 Intake Visit Reasons: 34 wk ob [employer] Required: No Is patient in pain?: No Allergies No Known Allergies Allergy (Verified 01/17/25 10:12) Medications ???Medication ???Instructions ???Recorded ???Confirmed ???Type multivit-min no.71-iron fum 28 1 cap PO DAILY 07/11/24 01/17/25 H istory mg-folate no.1 1 mg-dha 300 mg capsule (PNV-[place]) Last Menstrual Period: 05/21/24 Zika: Zika virus screening: Negative : No PFSH PFSH Medical History macrosomia Gestational diabetes LGA (large for gestational age) fetus Influenza A Surgical History Previous section S/P foot surgery, left Lashmeet teeth removed Family History Grandfather Cancer, Onset Age: 55 Paternal pancreatic Grandfather Cancer, Onset Age: 60 Maternal lung Social History adopted: No household members: spouse and children housing: house number of children: 1 current occupational status: employed 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 current occupational exposures/hazards: No pets and animals: Yes (3) pets and animals: dog(s) history of recent travel: Yes ([place] June) out of state: Yes out of country: Yes sexually active: Yes Smoking Status: Never smoker alcohol intake: current alcohol intake frequency: holidays/special occasions only details: not while substance use type: does not use well-balanced diet: daily or most days caffeine: Yes Type: coffee Number of servings: 1 eating out: rarely or never during the past year weight has: increased > 10 lbs what type of physical activity do you participate in: none david/confucianist: Yazidi seatbelt use: always do you feel safe at home: Yes additional social history: Andreas 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 Date Name GA/Weeks Outcome Route Bth Weight Gen Labor Lgth Anesthesia Del Locatn Provider FOB 04/05/23 Cristian 39 live - full term 8lbs 2oz Male spinal [facility] Dr. Booth [place] Delivery Date: 04/05/23 Last Updated by: Vera Boles MD Gestational diabetes, LGA, elevated BP without diagnosis of hypertension. 3 cm schedule csection for suspected LGA HPI 34 wk ob Details: ESTEPHANIA WALLACE is a 24 year old who presents for routine OB visit. OB Visit LAISHA Calculator Estimated Delivery Date Method Current WG Current Estimate 02/25/25 LMP (Certain) 34w 3d Other Estimates 02/27/25 Ultrasound #1 34w 1d Expected Delivery Route/Plan TOLAC patient counseled regarding risks/benefits of trial of labor versus repeat . ACOG/uptodate education given to patient. [] % likelihood of success per calculator TOLAC consent form signed: [] Labor Preferences- CB/BF classes: no labor support person: Andreas labor intervention preferences: [] pain management options preferred: [] cut cord/dad catch: [] : yes PP control planned: [] discussed possible routes of delivery and associated risks: [] special requests: [] Specific Issue/Plans Covid status: [] Flu vaccine: given Tdap vaccine: given Rhogam:na LARC form signed: yes Problem list reviewed and updated with the most current plan of care details and appropriate orders placed. Relevant counseling for the gestational age provided. Continue routine care and follow up unless otherwise noted in visit notes/problem list details Initial Weight: Not Recorded Date -???-???-???-???-???-???- ???-???-???-???-???-???- EGA Weight BP Urine Prot -???-???-???-???-???-???- ???-???-???-???-???-???- Glucose FHR FuHt Pres Dilation -???-???-???-???-???-???- ???-???-???-???-???-???- Effaced St Visit Note 07/15/24 -???-???-???-???-???-???- ???-???-???-???-???-???- 7w 6d 198 lb 135/75 -???-???-???-???-???-???- ???-???-???-???-???-???- 155 -???- (more content not included)... Normal [facility] - Chemistry and C hemistry - challengeOrdered By: Vera Boles on 01-03-2025 Glucose Ql (U) Negative [facility] - UrinalysisOrder ed By: Vera Boles on 01-03-2025 Protein Ql (U) Negative [facility] Sales Promotion Manager Office Visit Reporton 01-03-2025 Sales Promotion Manager Office Visit Report [facility] [address], [address] [place] [address] OFFICE VISIT Date of Service: 01/03/25 MR#: [id number] Acct: [id number] Name: ESTEPHANIA WALLACE Rep #: [id number] : 2000 Provider: Dr. Vera neely MD Age/Sex: 24/F Location[place] [facility] [place] Status: Signed Intake Vital Signs 10/09/24 08:33 12/26/24 20:23 01/03/25 09:39 01/03/25 09:44 Height 5 ft 5 in 5 ft 5 in 5 ft 5 in 5 ft 5 in Weight: 215 lb 6 oz BMI 35.8 BP 133/85 H Intake Visit Reasons: 32 wk ob (RS 5/6 APT) [employer] Required: No Is patient in pain?: No Feel stressed/tense/nervous/an xious/difficulty sleeping: not at all Allergies No Known Allergies Allergy (Verified 01/03/25 09:40) Medications ???Medication ???Instructions ???Recorded ???Confirmed ???Type multivit-min no.71-iron fum 28 1 cap PO DAILY 07/11/24 01/03/25 H istory mg-folate no.1 1 mg-dha 300 mg capsule (PNV-[place]) Last Menstrual Period: 05/21/24 Zika: Zika virus screening: Negative : No PFSH PFSH Medical History macrosomia Gestational diabetes LGA (large for gestational age) fetus Influenza A Surgical History Previous section S/P foot surgery, left Lashmeet teeth removed Family History Grandfather Cancer, Onset Age: 55 Paternal pancreatic Grandfather Cancer, Onset Age: 60 Maternal lung Social History adopted: No household members: spouse and children housing: house number of children: 1 current occupational status: employed 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 current occupational exposures/hazards: No pets and animals: Yes (3) pets and animals: dog(s) history of recent travel: Yes ([place]) out of state: Yes out of country: Yes sexually active: Yes Smoking Status: Never smoker alcohol intake: current alcohol intake frequency: holidays/special occasions only details: not while substance use type: does not use well-balanced diet: daily or most days caffeine: Yes Type: coffee Number of servings: 1 eating out: rarely or never during the past year weight has: increased > 10 lbs what type of physical activity do you participate in: none david/confucianist: Yazidi seatbelt use: always do you feel safe at home: Yes additional social history: Andreas 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 Date Name GA/Weeks Outcome Route Bth Weight Infant Gen Labor Lgth Anesthesia Del Locatn Provider FOB 04/05/23 Cristian 39 live - full term 8lbs 2oz Male spinal [facility] Sin Delivery Date: 04/05/23 Last Updated by: Vera Boles MD Gestational diabetes, LGA, elevated BP without diagnosis of hypertension. 3 cm schedule csection for suspected LGA HPI 32 wk ob (RS 5/6 APT) Details: ESTEPHANIA WALLACE is a 24 year old who presents for routine OB visit. OB Visit LAISHA Calculator Estimated Delivery Date Method Current WG Current Estimate 02/25/25 LMP (Certain) 32w 3d Other Estimates 02/27/25 Ultrasound #1 32w 1d Expected Delivery Route/Plan TOLAC patient counseled regarding risks/benefits of trial of labor versus repeat . ACOG/uptodate education given to patient. [] % likelihood of success per calculator TOLAC consent form signed: [] Labor Preferences- CB/BF classes: no labor support person: Andreas labor intervention preferences: [] pain management options preferred: [] cut cord/dad catch: [] : yes PP control planned: [] discussed possible routes of delivery and associated risks: [] special requests: [] Specific Issue/Plans Covid status: [] Flu vaccine: given Tdap vaccine: given Rhogam:na LARC form signed: yes Problem list reviewed and updated with the most current plan of care details and appropriate orders placed. Relevant counseling for the gestational age provided. Continue routine care and follow up unless otherwise noted in visit notes/problem list details Initial Weight: Not Recorded Date -???-???-???-???-???-???- ???-???-???-???-???-???- EGA Weight BP Urine Prot -???-???-???-???-???-???- ???-???-???-???-???-???- Glucose FHR FuHt Pres Dilation -???-???-???-???-???-???- ???-???-???-???-???-???- Effaced St Visit Note 07/15/24 -???-???-???-???-???-???- ???-???-???-???-???-???- 7w 6d 198 lb 135/75 -? (more content not included)... Normal [facility] Urine Cultureon 12-27-2024 URC Culture exhibits no growth. Normal [facility] Comment on above: Performed By: #### M [id number] #### [facility] [address] [place], [place], [id number] Bilirubin Test strip Ql (U)O rdered By: eVra Boles on 12-26-2024 Bilirubin Ql (U) Negative Negative [facility] Glucose Ql (U)Ordered By: Kamaljit Boles on 12-26-2024 Urine Glucose (UA) Normal mg/dl Normal [facility] Ketones Test strip Ql (U)Ord ered By: Vera Boles on 12-26-2024 Ketones Ql (U) Negative Negative [facility] OB Triage Progress Noteon OB Triage Progress Note [facility] Medical Records Department [address] [place] [address] OB Triage Progress Note 12/26/242111 MR#: [id number] Acct: [id number] Name: ESTEPHANIA WALLACE Rep #: [id number] : 2000 From: Vera Boles MD PCP: Dr. Lidia Gonzalez MD Status:REG CLI Y DOS: Location: [place] [address]-1 Progress Notes Date of Service: 12/26/24 Progress Note: Patient presents for triage evaluation secondary to uti symptoms, some cramping FHT: 140 - 145 Moderate variability reactive no decelerations category I tracing [place]: no Contractions Assessment and plan: uti 31 weeks Reactive NST, reassuring maternal and status patient discharged to home to follow-up as scheduled. See problem list details for additional plan information. Laboratory Studies: Laboratory Tests 12/26/24 Range/Units 20:45 Urine Color Yellow (Yellow) Urine Clarity Clear (Clear) Urine pH 6.0 (5.0 - 8.0) Ur Specific [place] 1.010 (1.002-1.030) Urine Protein 15 H (Negative) mg/dl Urine Glucose (UA) Normal (Normal) mg/dl Urine Ketones Negative (Negative) mg/dl Urine Occult Blood 25 H (Negative) /ul Urine Nitrite Negative (Negative) Urine Bilirubin Negative (Negative) mg/dL Urine Urobilinogen Normal (Normal) mg/dl Ur Leukocyte Esterase Negative (Negative) /ul Charges/Coding Procedures Urinary/Genital 52xxx-59xxx: 40329-96 non-stress test Interp 12/26/242113 Date Vera Boles MD Cosigner Signature (if applicable): Date CC: Dr. Lidia Gonzalez MD; Dr. Vera Boles MD Signed Normal [facility] Protein Test strip Ql (U)Ord ered By: Vera Boles on 12-26-2024 Protein Ql (U) 15 mg/dl High Negative [facility] Urinalysis, Routine (Dipstic k)on 12-26-2024 BILIRUBIN URINE Negative Normal Negative [facility] Comment on above: Order Comment: JABARI CTOR TO SPECIFY Performed By: #### M 100.3400 #### [facility] [address] [place], [address] GLUCOSE, UR Normal Normal Normal [facility] Comment on above: Order Comment: JABARI CTOR TO SPECIFY Performed By: #### M 100.3400 #### [facility] [address] [place], [address] KETONE UR Negative Normal Negative [facility] Comment on above: Order Comment: JABARI CTOR TO SPECIFY Performed By: #### M 100.3400 #### [facility] [address] [place], [address] LEUK ESTERASE Negative Normal Negative [facility] Comment on above: Order Comment: JABARI CTOR TO SPECIFY Performed By: #### M 100.3400 #### [facility] [address] [place], [address] OCCULT BLOOD-UR 25 /ul Abnormal Negative [facility] Comment on above: Order Comment: JABARI CTOR TO SPECIFY Performed By: #### M 100.3400 #### [facility] [address] [place], [address] pH UR 6.0 Normal 5.0 - 8.0 [facility] Comment on above: Order Comment: JABARI CTOR TO SPECIFY Performed By: #### M 100.3400 #### [facility] [address] [place], [address] PROT DIPSTX 15 mg/dl Abnormal Negative [facility] Comment on above: Order Comment: JABARI CTOR TO SPECIFY Performed By: #### M 100.3400 #### [facility] [address] [place], [address] SP.GR. DIPSTX 1.010 Normal 1.002-1.030 [facility] Comment on above: Order Comment: JABARI CTOR TO SPECIFY Performed By: #### M 100.3400 #### [facility] [address] [place], [address] UROBILI Normal Normal Normal [facility] Comment on above: Order Comment: JABARI CTOR TO SPECIFY Performed By: #### M 100.3400 #### [facility] [address] [place], [address] Urine blood detectionOrdered By: Vera Boles on 12-26-2024 Urine Occult Blood 25 /ul High Negative [place] [facility] Urine clarityOrdered By: Mateo Boles on 12-26-2024 Clarity (U) Clear Clear [facility] Comment on above: Order Comment: JABARI CTOR TO SPECIFY Performed By: #### M 100.3400 #### [facility] [address] [place], [address] Urine color determinationOrd ered By: Vera Boles on 12-26-2024 Color (U) Yellow Yellow [facility] Comment on above: Order Comment: JABARI CTOR TO SPECIFY Performed By: #### M 100.3400 #### [facility] [address] [facility] [place], [address] Urine cultureOrdered By: Mateo Boles on 12-26-2024 Bacteria identified Cx Nom (U) Culture exhibits no growth. [facility] Urine glucose detectionOrder ed By: Vera Boles on 12-26-2024 Glucose Ql (U) Normal mg/dl Normal [facility] Urine leukocyte esterase det ection by dipstickOrdered By: Vera Boles on 12-26-2024 Leukocyte esterase Test strip Ql (U) Negative Negative [facility] Urine nitrite test by dipsti ckOrdered By: Vera Boles on 12-26-2024 Nitrite Ql (U) Negative Negative [facility] Comment on above: Order Comment: COLLE CTOR TO SPECIFY Performed By: #### M 100.1772 #### [facility] [address] [place], [address] Urine pHOrdered By: Vera barrett on 12-26-2024 pH (U) 6.0 [pH] 5.0 - 8.0 [facility] Urine specific gravity measu rementOrdered By: Vera Boles on 12-26-2024 Specific gravity (U) [Rel density] 1.010 1.002-1.030 [facility] Urine urobilinogen measureme ntOrdered By: Vera Boles on 12-26-2024 Urobilinogen Ql (U) Normal mg/dl Normal [facility] Urobilinogen Ql (U)Ordered B y: Vera Boles on 12-26-2024 Urine Urobilinogen Normal mg/dl Normal [facility] Laboratory - Chemistry and C hemistry - challengeOrdered By: Emma Torres on 12-19-2024 Glucose Ql (U) Negative [facility] - UrinalysisOrder ed By: Emma Torres on 12-19-2024 Protein Ql (U) Negative [facility] Sales Promotion Manager Office Visit Reporton 12-19-2024 Sales Promotion Manager Office Visit Report [facility] [address], [address] [place] [address] OFFICE VISIT Date of Service: 12/19/24 MR#: [id number] Acct: [id number] Name: ESTEPHANIA WALLACE Rep #: [id number] : 2000 Provider: Dr. Emma Vaughan DO Age/Sex: 24/F Location: [facility] Status: Signed Intake Vital Signs 10/09/24 08:33 12/05/24 09:29 12/19/24 09:03 12/19/24 09:04 Height 5 ft 5 in 5 ft 5 in 5 ft 5 in 5 ft 5 in Weight: 208 lb 4 oz 213 lb 6 oz BMI 34.6 35.5 BP 114/82 H 136/82 H Intake Visit Reasons: 30 wk ob [employer]ing [employer] Required: No Is patient in pain?: No Allergies No Known Allergies Allergy (Verified 12/19/24 09:03) Medications ???Medication ???Instructions ???Recorded ???Confirmed ???Type multivit-min no.71-iron fum 28 cap PO 07/11/24 12/19/24 History mg-folate no.1 1 mg-dha 300 mg capsule (PNV-[place]) Last Menstrual Period: 05/21/24 Zika: Zika virus screening: Negative : No PFSH PFSH Medical History macrosomia Gestational diabetes LGA (large for gestational age) fetus Influenza A Surgical History Previous section S/P foot surgery, left [place] teeth removed Family History Grandfather Cancer, Onset Age: 55 Paternal pancreatic Grandfather Cancer, Onset Age: 60 Maternal lung Social History adopted: No household members: spouse and children housing: house number of children: 1 current occupational status: employed 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 current occupational exposures/hazards: No pets and animals: Yes (3) pets and animals: dog(s) history of recent travel: Yes ([place]) out of state: Yes out of country: Yes sexually active: Yes Smoking Status: Never smoker alcohol intake: current alcohol intake frequency: holidays/special occasions only details: not while substance use type: does not use well-balanced diet: daily or most days caffeine: Yes Type: coffee Number of servings: 1 eating out: rarely or never during the past year weight has: increased > 10 lbs what type of physical activity do you participate in: none david/confucianist: Yazidi seatbelt use: always do you feel safe at home: Yes additional social history: Andreas 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 Date Name GA/Weeks Outcome Route Bth Weight Gen Labor Lgth Anesthesia Del Locatn Provider FOB 04/05/23 Cristian 39 live - full term 8lbs 2oz Male spinal [facility] Dr. [place] Delivery Date: 04/05/23 Last Updated by: Vera Boles MD Gestational diabetes, LGA, elevated BP without diagnosis of hypertension. 3 cm schedule csection for suspected LGA HPI 30 wk ob Details: ESTEPHANIA WALLACE is a 24 year old who presents for routine OB visit. OB Visit LAISHA Calculator Estimated Delivery Date Method Current WG Current Estimate 02/25/25 LMP (Certain) 30w 2d Other Estimates 02/27/25 Ultrasound #1 30w 0d Expected Delivery Route/Plan TOLAC patient counseled regarding risks/benefits of trial of labor versus repeat . ACOG/uptodate education given to patient. [] % likelihood of success per calculator TOLAC consent form signed: [] Labor Preferences- CB/BF classes: no labor support person: Andreas labor intervention preferences: [] pain management options preferred: [] cut cord/dad catch: [] : yes PP control planned: [] discussed possible routes of delivery and associated risks: [] special requests: [] Specific Issue/Plans Covid status: [] Flu vaccine: given Tdap vaccine: given Rhogam:na LARC form signed: yes Problem list reviewed and updated with the most current plan of care details and appropriate orders placed. Relevant counseling for the gestational age provided. Continue routine care and follow up unless otherwise noted in visit notes/problem list details Initial Weight: Not Recorded Date -???-???-???-???-???-???- ???-???-???-???-???-???- EGA Weight BP Urine Prot -???-???-???-???-???-???- ???-???-???-???-???-???- Glucose FHR FuHt Pres Dilation -???-???-???-???-???-???- ???-???-???-???-???-???- Effaced St Visit Note 07/15/24 -???-???-???-???-???-???- ???-???-???-???-???-???- 7w 6d 198 lb 135/75 -???-???-???-???-???-???- ???-???-???-???-???-???- 155 -???-???-???-?? (more content not included)... Normal [facility] HIV - WCHon 12-10-2024 HIV Non-Reactive Normal Nonreactive [facility] Comment on above: Performed By: #### L 501.0250, L3890.6005, L100.0100, L509.8000 #### [facility] [place], [address] Absolute lymphocyte countOrd ered By: Emma Torres on 12-05-2024 Lymphocytes Auto (Unsp spec) [#/Vol] 1.29 10*3/uL 0.83-4.51 [facility] Absolute neutrophil countOrd ered By: Emma Torres on 12-05-2024 Neutrophils (Bld) [#/Vol] 7.9 10*3/uL High 2.0-7.7 [facility] Automated lymphocyte count a s percentage of total leukocytesOrdered By: Emma Torres on 12-05-2024 Lymphocytes/100 WBC Auto (Unsp spec) 12.6 % Low 19-41 [facility] Basophil percentageOrdered B y: Emma Melissa on 12-05-2024 Basophils/100 WBC (Bld) 0.4 % 0-1 [facility] CBC W/Diff, Automatedon 11-23 Absolute Lymph 1.29 X10 3/uL Normal 0.83-4.51 [facility] Comment on above: Performed By: #### L 501.0250, L3890.6005, L100.0100, L509.8000 #### [facility] [address] [place], [address] Absolute Neut 7.9 X10 3/uL High 2.0-7.7 [facility] Comment on above: Performed By: #### L 501.0250, L3890.6005, L100.0100, L509.8000 #### [facility] [address] [place], [address] Basophils/100 WBC (Bld) 0.4 % Normal 0-1 [facility] Comment on above: Performed By: #### L 501.0250, L3890.6005, L100.0100, L509.8000 #### [facility] [address] [place], [address] Eosinophils/100 WBC (Bld) 1.4 % Normal 0-5 [facility] Comment on above: Performed By: #### L 501.0250, L3890.6005, L100.0100, L509.8000 #### [facility] [address] [place], [address] Erythrocyte distribution width (RBC) [Ratio] 12.9 % Normal 11.6-14.6 [facility] Comment on above: Performed By: #### L 501.0250, L3890.6005, L100.0100, L509.8000 #### [facility] [address] [place], [address] Hematocrit (Bld) [Volume fraction] 39.5 % Normal 37-47 [facility] Comment on above: Performed By: #### L 501.0250, L3890.6005, L100.0100, L509.8000 #### [facility] [address] [place], [address] Hemoglobin (Bld) [Mass/Vol] 13.2 g/dL Normal 12.0-15.0 [facility] Comment on above: Performed By: #### L 501.0250, L3890.6005, L100.0100, L509.8000 #### [facility] [address] [place], [address] IG% 1.000 High 0.0-0.9 [facility] Comment on above: Result Comment: IG% - Immature Granulocytes (promyelocytes, myelocytes and metamyelocytes) > 1% indicates that a LEFT SHIFT is Present. Performed By: #### L 501.0250, L3890.6005, L100.0100, L509.8000 #### [facility] [address] [place], [address] Lymphocytes/100 WBC (Bld) 12.6 % Low 19-41 [facility] Comment on above: Performed By: #### L 501.0250, L3890.6005, L100.0100, L509.8000 #### [facility] [address] [place], [address] MCH (RBC) [Entitic mass] 30.4 pg Normal 27.0-32.0 [facility] Comment on above: Performed By: #### L 501.0250, L3890.6005, L100.0100, L509.8000 #### [facility] [address] [place], [address] MCHC (RBC) [Mass/Vol] 33.4 g/dL Normal 32-36 [facility] Comment on above: Performed By: #### L 501.0250, L3890.6005, L100.0100, L509.8000 #### [facility] [address] [place], [address] MCV (RBC) [Entitic vol] 91.0 fL Normal 81-99 [facility] Comment on above: Performed By: #### L 501.0250, L3890.6005, L100.0100, L509.8000 #### [facility] [address] [place], [address] Monocytes/100 WBC (Bld) 7.2 % Normal 0-10 [facility] Comment on above: Performed By: #### L 501.0250, L3890.6005, L100.0100, L509.8000 #### [facility] [address] [place], [address] Neutrophils/100 WBC (Bld) 77.4 % High 47-70 [facility] Comment on above: Performed By: #### L 501.0250, L3890.6005, L100.0100, L509.8000 #### [facility] [address] [place], [address] Nucleated RBC (Bld) [#/Vol] 0 10*3/uL Normal 0-5 [facility] Comment on above: Performed By: #### L 501.0250, L3890.6005, L100.0100, L509.8000 #### [facility] [address] [place], [address] Platelet mean volume (Bld) [Entitic vol] 9.9 fL Normal 6.2-12.0 [facility] Comment on above: Performed By: #### L 501.0250, L3890.6005, L100.0100, L509.8000 #### [facility] [address] [place], [address] Platelets (Bld) [#/Vol] 207 10*3/uL Normal 150-450 [facility] Comment on above: Performed By: #### L 501.0250, L3890.6005, L100.0100, L509.8000 #### [facility] [address] [place], [address] RBC (Bld) [#/Vol] 4.34 10*6/uL Normal 4.2-5.4 [facility] Comment on above: Performed By: #### L 501.0250, L3890.6005, L100.0100, L509.8000 #### [facility] [address] [place], [address] RDW SD 42.3 fl Normal 35.1-43.9 [facility] Comment on above: Performed By: #### L 501.0250, L3890.6005, L100.0100, L509.8000 #### [facility] [address] [place], [address] WBC (Bld) [#/Vol] 10.2 10*3/uL Normal 4.4-11.0 [facility] Comment on above: Performed By: #### L 501.0250, L3890.6005, L100.0100, L509.8000 #### [facility] [address] [place], [address] Eosinophil percentageOrdered By: Emma Torres on 12-05-2024 Eosinophils/100 WBC (Bld) 1.4 % 0-5 [facility] Erythrocyte distribution wid th ratioOrdered By: Emma Torres on 12-05-2024 Erythrocyte distribution width (RBC) [Ratio] 12.9 % 11.6-14.6 [facility] Erythrocyte distribution wid th standard deviationOrdered By: Emma Torres on 12-05-2024 Erythrocyte distribution width (RBC) [Entitic vol] 42.3 fL 35.1-43.9 [facility] Erythrocyte distribution width (RBC) [Ratio] 42.3 fl 35.1-43.9 [facility] Gestational diabetes screen 1-hour screen with 50g oral glucose loadOrdered By: Emma Torres on 12-05-2024 Glucose 1 Hr post 50 g glucose PO [Mass/Vol] 122 mg/dL 70-140 [facility] Glucose 1 Hr post 50 g gluco se PO [Mass/Vol]Ordered By: Emma Torres on 12-05-2024 Glucose [Mass/Vol] 122 mg/dL 70-140 [place] [facility] Glucose Challenge Gest 1H 50 gilberto 12-05-2024 GLU GEST 50g 1H 122 mg/dL Normal 70-140 [facility] Comment on above: Performed By: #### L 501.0250, L3890.6005, L100.0100, L509.8000 #### [facility] [address] [place], [place], [address] HIV 1 and HIV-2 antibody ass ay with HIV-1 p24 antigen detectionOrdered By: Emma Torres on 12-05-2024 HIV 1+2 Ab+HIV1 p24 Ag IA Ql Non-Reactive Nonreactive [facility] HIV 1+2 Ab+HIV1 p24 Ag IA Ql Ordered By: Emma Torres on 12-05-2024 HIV (1&2) Antibody Non-Reactive Nonreactive [facility] Hematocrit Auto (Bld) [Volum e fraction]Ordered By: Emma Torres on 12-05-2024 Hematocrit (Bld) [Volume fraction] 39.5 % 37-47 [facility] Hemoglobin measurementOrdere d By: Emma Torres on 12-05-2024 Hemoglobin (Bld) [Mass/Vol] 13.2 g/dL 12.0-15.0 [facility] Immature granulocytes/100 WB C Auto (Bld)Ordered By: Emma Torres on 12-05-2024 Immature granulocytes/100 WBC (Bld) 1.000 % High 0.0-0.9 [facility] Comment on above: IG% - Immature Granu locytes (promyelocytes, myelocytes and metamyelocytes) > 1% indicates that a LEFT SHIFT is Present. L509.8000on 12-05-2024 Syphilis Abs Non-Reactive Normal [facility] Comment on above: Performed By: #### L 501.0250, L3890.6005, L100.0100, L509.8000 #### [facility] [address] [place], [place], [address] Laboratory - Chemistry and C hemistry - challengeOrdered By: Radha Soler on 12-05-2024 Glucose Ql (U) Negative [facility] - UrinalysisOrder ed By: Radha Soler on 12-05-2024 Protein Ql (U) Negative [facility] Lymphocytes Auto (Unsp spec) [#/Vol]Ordered By: Emma Torres on 12-05-2024 Lymphocytes (Bld) [#/Vol] 1.29 10*3/uL 0.83-4.51 [facility] Lymphocytes/100 WBC Auto (Un sp spec)Ordered By: Emma Torres on 12-05-2024 Lymphocytes/100 WBC (Bld) 12.6 % Low 19-41 [facility] MCV (mean corpuscular volume ) determinationOrdered By: Emma Torres on 12-05-2024 MCV (RBC) [Entitic vol] 91.0 fL 81-99 [facility] Mean corpuscular hemoglobin (MCH) determinationOrdered By: Emma Torres on 12-05-2024 MCH (RBC) [Entitic mass] 30.4 pg 27.0-32.0 [facility] Mean corpuscular hemoglobin concentration (MCHC) determinationOrdered By: Emma Torres on 12-05-2024 MCHC (RBC) [Mass/Vol] 33.4 g/dL 32-36 [facility] Mean platelet volume determi nationOrdered By: Emma Torres on 12-05-2024 Platelet mean volume (Bld) [Entitic vol] 9.9 fL 6.2-12.0 [facility] Monocyte percentageOrdered B y: Emma Torres on 12-05-2024 Monocytes/100 WBC (Bld) 7.2 % 0-10 [facility] Neutrophil percentageOrdered By: Emma Torres on 12-05-2024 Neutrophils/100 WBC (Bld) 77.4 % High 47-70 [facility] Nucleated red blood cell per centageOrdered By: Emma Torres on 12-05-2024 Nucleated RBC/100 WBC (Bld) [Ratio] 0 % 0-5 [facility] Sales Promotion Manager Office Visit Reporton 12-05-2024 Sales Promotion Manager Office Visit Report [facility] [address], [address] [place] [address] OFFICE VISIT Date of Service: 12/05/24 MR#: [id number] Acct: [id number] Name: ESTEPHANIA WALLACE Rep #: [id number] : 2000 Provider: YARIEL matos Age/Sex: 24/F Location: [facility] [place] Status: Signed with Addenda ADDENDUM by Kiki Plata on 12/05/24 at 0954 Office Procedure Documentation entered by Kiki Plata 12/05/24 09:54: Immunizations Adacel(Tdap Adolesn/Adult)(PF) 2 Lf-(2.5-5-3-5)-5 Lf/0.5 mL IM syringe Performing Provider: YARIEL Carver NP Performing Location: [facility] Administered by: Kiki Plata on 12/05/24 09:54 Dose Route Admin Location Dispensed Lot Number Expiration Date NDC Man ufacturer 0.5 mL IM Left Deltoid 0.5 mL [id number] 10/22/26 08538-270-85 [employer] VIS Given Date VIS Provided VIS Publication Date 12/05/24 Single Vaccine 21 Eligibility Eligibility Date Funding Source Not Applicable Date cc: * Signed Intake Vital Signs 08/15/24 13:02 11/08/24 08:48 12/05/24 09:29 Height 5 ft 5 in 5 ft 5 in 5 ft 5 in Weight: 208 lb 4 oz BMI 34.6 BP 114/82 H Intake Visit Reasons: 28 WK OB/GLUCOSE Chief Complaint: 28 Week OB/Glucose [employer] Required: No Is patient in pain?: No Allergies No Known Allergies Allergy (Verified 12/05/24 09:33) Medications ???Medication ???Instructions ???Recorded ???Confirmed ???Type multivit-min no.71-iron fum 28 cap PO 07/11/24 12/05/24 History mg-folate no.1 1 mg-dha 300 mg capsule (PNV-[place]) Last Menstrual Period: 05/21/24 Zika: Zika virus screening: Negative : Yes PFSH PFSH Medical History macrosomia Gestational diabetes LGA (large for gestational age) fetus Influenza A Surgical History Previous section S/P foot surgery, left Lashmeet teeth removed Family History Grandfather Cancer, Onset Age: 55 Paternal pancreatic Grandfather Cancer, Onset Age: 60 Maternal lung Social History adopted: No household members: spouse and children housing: house number of children: 1 current occupational status: employed 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 current occupational exposures/hazards: No pets and animals: Yes (3) pets and animals: dog(s) history of recent travel: Yes ([place]) out of state: Yes out of country: Yes sexually active: Yes Smoking Status: Never smoker alcohol intake: current alcohol intake frequency: holidays/special occasions only details: not while substance use type: does not use well-balanced diet: daily or most days caffeine: Yes Type: coffee Number of servings: 1 eating out: rarely or never during the past year weight has: increased > 10 lbs what type of physical activity do you participate in: none david/confucianist: Yazidi seatbelt use: always do you feel safe at home: Yes additional social history: Andreas 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 Date Name GA/Weeks Outcome Route Bth Weight Gen Labor Lgth Anesthesia Del Locatn Provider FOB 04/05/23 Cristian 39 live - full term 8lbs 2oz Male spinal [facility] Dr. Sin Delivery Date: 04/05/23 Last Updated by: Vera Boles MD Gestational diabetes, LGA, elevated BP without diagnosis of hypertension. 3 cm schedule csection for suspected LGA HPI 28 WK OB/GLUCOSE Details: ESTEPHANIA WALLACE is a 24 year old who presents for routine OB visit. OB Visit LAISHA Calculator Estimated Delivery Date Method Current WG Current Estimate 02/25/25 LMP (Certain) 28w 2d Other Estimates 02/27/25 Ultrasound #1 28w 0d Expected Delivery Route/Plan TOLAC patient counseled regarding risks/benefits of trial of labor versus repeat . ACOG/uptodate education given to patient. [] % likelihood of success per calculator TOLAC consent form signed: [] Labor Preferences- CB/BF classes: no labor support person: Andreas labor intervention preferences: [] pain management options preferred: [] cut cord/dad catch: [] : yes PP control planned: [] discussed possible routes of delivery and associated risks: [] special requests: [] Specific Issue/Plans Covid status: [] Fl (more content not included)... Normal [facility] Platelet countOrdered By: Livan Torres on 12-05-2024 Platelets (Bld) [#/Vol] 207 10*3/uL 150-450 [facility] RBC Auto (Bld) [#/Vol]Ordere d By: Emma Torres on 12-05-2024 RBC (Bld) [#/Vol] 4.34 10*6/uL 4.2-5.4 [facility] Serum Treponema species anti body detectionOrdered By: Emma Torres on 12-05-2024 Treponema sp Ab Ql (S) Non-Reactive [facility] Treponema sp Ab Ql (S)Ordere d By: Emma Torres on 12-05-2024 Syphilis Total Antibody Non-Reactive [facility] White blood cell (WBC) count Ordered By: Emma Torres on 12-05-2024 WBC (Bld) [#/Vol] 10.2 10*3/uL 4.4-11.0 [facility] Laboratory - Chemistry and C hemistry - challengeon 11-08-2024 Glucose Ql (U) Negative [facility] Laboratory - Urinalysison Protein Ql (U) Negative [facility] Sales Promotion Manager Office Visit Reporton 11-08-2024 Sales Promotion Manager Office Visit Report [facility]'[address], [address] [place] [address] OFFICE VISIT Date of Service: 11/08/24 MR#: [id number] Acct: [id number] Name: ESTEPHANIA WALLACE Rep #: [id number] : 2000 Provider: Dr. Emma Vaughan DO Age/Sex: 24/F [place] [facility] [place]: Signed Intake Vital Signs 08/15/24 13:02 10/09/24 08:33 11/08/24 08:47 11/08/24 08:48 Height 5 ft 5 in 5 ft 5 in 5 ft 5 in 5 ft 5 in Weight: 208 lb BMI 34.6 BP 131/81 H Intake Visit Reasons: 24 WK OB [employer] Required: No Is patient in pain?: No Allergies No Known Allergies Allergy (Verified 11/08/24 08:46) Medications ???Medication ???Instructions ???Recorded ???Confirmed ???Type multivit-min no.71-iron fum 28 cap PO 07/11/24 11/08/24 History mg-folate no.1 1 mg-dha 300 mg capsule (PNV-[place]) Last Menstrual Period: 05/21/24 Zika: Zika virus screening: Negative : No PFSH PFSH Medical History macrosomia Gestational diabetes LGA (large for gestational age) fetus Influenza A Surgical History Previous section S/P foot surgery, left Lashmeet teeth removed Family History Grandfather Cancer, Onset Age: 55 Paternal pancreatic Grandfather Cancer, Onset Age: 60 Maternal lung Social History adopted: No household members: spouse and children housing: house number of children: 1 current occupational status: employed 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 current occupational exposures/hazards: No pets and animals: Yes (3) pets and animals: dog(s) history of recent travel: Yes ([place]) out of state: Yes out of country: Yes sexually active: Yes Smoking Status: Never smoker alcohol intake: current alcohol intake frequency: holidays/special occasions only details: not while substance use type: does not use well-balanced diet: daily or most days caffeine: Yes Type: coffee Number of servings: 1 eating out: rarely or never during the past year weight has: increased > 10 lbs what type of physical activity do you participate in: none david/confucianist: Yazidi seatbelt use: always do you feel safe at home: Yes 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 Date Name GA/Weeks Outcome Route Bth Weight Gen Labor Lgth Anesthesia Del Locatn Provider FOB 04/05/23 Cristian 39 live - full term 8lbs 2oz Male spinal [facility] Booth [place] Delivery Date: 04/05/23 Last Updated by: Vera Boles MD Gestational diabetes, LGA, elevated BP without diagnosis of hypertension. 3 cm schedule csection for suspected LGA HPI 24 WK OB Details: ESTEPHANIA WALLACE is a 24 year old who presents for routine OB visit. OB Visit LAISHA Calculator Estimated Delivery Date Method Current WG Current Estimate 02/25/25 LMP (Certain) 24w 3d Other Estimates 02/27/25 Ultrasound #1 24w 1d Expected Delivery Route/Plan TOLAC patient counseled regarding risks/benefits of trial of labor versus repeat . ACOG/uptodate education given to patient. [] % likelihood of success per calculator TOLAC consent form signed: [] Labor Preferences- CB/BF classes: [] labor support person: [] labor intervention preferences: [] pain management options preferred: [] cut cord/dad catch: [] : [] PP control planned: [] discussed possible routes of delivery and associated risks: [] special requests: [] Specific Issue/Plans Covid status: [] Flu vaccine: given Tdap vaccine: [] Rhogam: [] LARC form signed: [] Problem list reviewed and updated with the most current plan of care details and appropriate orders placed. Relevant counseling for the gestational age provided. Continue routine care and follow up unless otherwise noted in visit notes/problem list details Initial Weight: Not Recorded Date -???-???-???-???-???-???- ???-???-???-???-???-???- EGA Weight BP Urine Prot -???-???-???-???-???-???- ???-???-???-???-???-???- Glucose FHR FuHt Pres Dilation -???-???-???-???-???-???- ???-???-???-???-???-???- Effaced St Visit Note 07/15/24 -???-???-???-???-???-???- ???-???-???-???-???-???- 7w 6d 198 lb 135/75 -???-???-???-???-???-???- ???-???-???-???-???-???- 155 -???-???-???-???-???-???- ???-???-???-???-???-???- SM (more content not included)... Normal [facility] - Chemistry and C hemistry - challengeon 10-09-2024 Glucose Ql (U) Negative [facility] Laboratory - Urinalysison Protein Ql (U) Trace [facility] Sales Promotion Manager Office Visit Reporton 10-09-2024 Sales Promotion Manager Office Visit Report [facility]'s [address], [address] [place] [address] OFFICE VISIT Date of Service: 10/09/24 MR#: [id number] Acct: [id number] Name: ESTEPHANIA WALLACE OLAYINKA Rep #: [id number] : 2000 Provider: Dr. Vera neely MD Age/Sex: 24/F Location[place] [facility] [place] Status: Signed Intake Vital Signs 07/15/24 08:12 11/21/24 10:29 10/09/24 08:30 10/09/24 08:33 Height 5 ft 5 in 5 ft 5 in 5 ft 5 in 5 ft 5 in Weight: 202 lb BMI 33.6 BP 114/66 Blood Pressure Location Lt brachial Position Sitting Intake Visit Reasons: 20 WK OB Chief Complaint: 20 wk ob Allergies No Known Allergies Allergy (Verified 10/09/24 08:35) Medications ???Medication ???Instructions ???Recorded ???Confirmed ???Type multivit-min no.71-iron fum 28 cap PO 07/11/24 10/09/24 History mg-folate no.1 1 mg-dha 300 mg capsule (PNV-[place]) Last Menstrual Period: 05/21/24 : No Nurse's Note: 20 wk ob PFSH PFSH Medical History macrosomia Gestational diabetes LGA (large for gestational age) fetus Influenza A Surgical History Previous section S/P foot surgery, left Lashmeet teeth removed Family History Grandfather Cancer, Onset Age: 55 Paternal pancreatic Grandfather Cancer, Onset Age: 60 Maternal lung Social History adopted: No household members: spouse and children housing: house number of children: 1 current occupational status: employed 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 current occupational exposures/hazards: No pets and animals: Yes (3) pets and animals: dog(s) history of recent travel: Yes ([place]) out of state: Yes out of country: Yes sexually active: Yes Smoking Status: Never smoker alcohol intake: current alcohol intake frequency: holidays/special occasions only details: not while substance use type: does not use well-balanced diet: daily or most days caffeine: Yes Type: coffee Number of servings: 1 eating out: rarely or never during the past year weight has: increased > 10 lbs what type of physical activity do you participate in: none david/confucianist: Yazidi seatbelt use: always do you feel safe at home: Yes additional social history: [place] 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 Date Name GA/Weeks Outcome Route Bth Weight Gen Labor Lgth Anesthesia Del Locatn Provider FOB 04/05/23 Critsian 39 live - full term 8lbs 2oz Male spinal [facility] Dr. Booth [place] Delivery Date: 04/05/23 Last Updated by: Vera Boles MD Gestational diabetes, LGA, elevated BP without diagnosis of hypertension. 3 cm schedule csection for suspected LGA HPI 20 WK OB Details: ESTEPHANIA WALLACE is a 24 year old who presents for routine OB visit. OB Visit LAISHA Calculator Estimated Delivery Date Method Current WG Current Estimate 02/25/25 LMP (Certain) 20w 3d Other Estimates 02/27/25 Ultrasound #1 20w 1d Expected Delivery Route/Plan TOLAC patient counseled regarding risks/benefits of trial of labor versus repeat . ACOG/uptodate education given to patient. [] % likelihood of success per calculator TOLAC consent form signed: [] Labor Preferences- CB/BF classes: [] labor support person: [] labor intervention preferences: [] pain management options preferred: [] cut cord/dad catch: [] : [] PP control planned: [] discussed possible routes of delivery and associated risks: [] special requests: [] Specific Issue/Plans Covid status: [] Flu vaccine: given Tdap vaccine: [] Rhogam: [] LARC form signed: [] Problem list reviewed and updated with the most current plan of care details and appropriate orders placed. Relevant counseling for the gestational age provided. Continue routine care and follow up unless otherwise noted in visit notes/problem list details Initial Weight: Not Recorded Date -???-???-???-???-???-???- ???-???-???-???-???-???- EGA Weight BP Urine Prot -???-???-???-???-???-???- ???-???-???-???-???-???- Glucose FHR FuHt Pres Dilation -???-???-???-???-???-???- ???-???-???-???-???-???- Effaced St Visit Note 07/15/24 -???-???-???-???-???-???- ???-???-???-???-???-???- 7w 6d 198 lb 135/75 -???-???-???-???-???-???- ???-???-???-???-???-???- 155 -???-???-???-???-???-???- ???-???-???-???-???-???- (more content not included)... Normal [facility] - Chemistry and C hemistry - challengeon 09-12-2024 Glucose Ql (U) Negative [facility] - Urinalysison Protein Ql (U) Negative [facility] Sales Promotion Manager Office Visit Reporton 09-12-2024 Sales Promotion Manager Office Visit Report [facility]'[address], [facility] [address] [place] [address] OFFICE VISIT Date of Service: 09/12/24 MR#: [id number] Acct: [id number] Name: ESTEPHANIA WALLACE OLAYINKA Rep #: [id number] : 2000 Provider: JEFFREY Cat ams Age/Sex: 24/F Location[place] [facility] [place] Status: Signed Intake Vital Signs 07/15/24 08:12 08/15/24 13:02 09/12/24 10:26 09/12/24 10:29 Height 5 ft 5 in 5 ft 5 in 5 ft 5 in 5 ft 5 in Weight: 198 lb 2 oz 199 lb BMI 32.9 33.1 BP 132/84 H 123/82 H Intake Visit Reasons: 16 WK OB [employer] Required: No Is patient in pain?: No Allergies No Known Allergies Allergy (Verified 09/12/24 10:27) Medications ???Medication ???Instructions ???Recorded ???Confirmed ???Type multivit-min no.71-iron fum 28 cap PO 07/11/24 09/12/24 History mg-folate no.1 1 mg-dha 300 mg capsule (PNV-[place]) Last Menstrual Period: 05/21/24 Zika: Zika virus screening: Negative : No Have you fallen in the past year?: No PFSH PFSH Medical History macrosomia Gestational diabetes LGA (large for gestational age) fetus Influenza A Surgical History Previous section S/P foot surgery, left Lashmeet teeth removed Family History Grandfather Cancer, Onset Age: 55 Paternal pancreatic Grandfather Cancer, Onset Age: 60 Maternal lung Social History adopted: No household members: spouse and children housing: house number of children: 1 current occupational status: employed 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 current occupational exposures/hazards: No pets and animals: Yes (3) pets and animals: dog(s) history of recent travel: Yes ([place]) out of state: Yes out of country: Yes sexually active: Yes Smoking Status: Never smoker alcohol intake: current alcohol intake frequency: holidays/special occasions only details: not while substance use type: does not use well-balanced diet: daily or most days caffeine: Yes Type: coffee Number of servings: 1 eating out: rarely or never during the past year weight has: increased > 10 lbs what type of physical activity do you participate in: none david/confucianist: Yazidi seatbelt use: always do you feel safe at home: Yes additional social history: Andreas 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 Date Name GA/Weeks Outcome Route Bth Weight Gen Labor Lgth Anesthesia Del Locatn Provider FOB 06/14/23 Cristian 39 live - full term 8lbs 2oz Male spinal [facility] Dr. Sin Delivery Date: 04/05/23 Last Updated by: Vera Boles MD Gestational diabetes, LGA, elevated BP without diagnosis of hypertension. 3 cm schedule csection for suspected LGA HPI 16 WK OB Details: ESTEPHANIA WALLACE is a 24 year old who presents for routine OB visit. OB Visit LAISHA Calculator Estimated Delivery Date Method Current WG Current Estimate 02/25/25 LMP (Certain) 16w 2d Other Estimates 02/27/25 Ultrasound #1 16w 0d Expected Delivery Route/Plan TOLAC patient counseled regarding risks/benefits of trial of labor versus repeat . ACOG/uptodate education given to patient. [] % likelihood of success per calculator TOLAC consent form signed: [] Labor Preferences- CB/BF classes: [] labor support person: [] labor intervention preferences: [] pain management options preferred: [] cut cord/dad catch: [] : [] PP control planned: [] discussed possible routes of delivery and associated risks: [] special requests: [] Specific Issue/Plans Covid status: [] Flu vaccine: [] Tdap vaccine: [] Rhogam: [] LARC form signed: [] Problem list reviewed and updated with the most current plan of care details and appropriate orders placed. Relevant counseling for the gestational age provided. Continue routine care and follow up unless otherwise noted in visit notes/problem list details Initial Weight: Not Recorded Date -???-???-???-???-???-???- ???-???-???-???-???-???- EGA Weight BP Urine Prot -???-???-???-???-???-???- ???-???-???-???-???-???- Glucose FHR FuHt Pres Dilation -???-???-???-???-???-???- ???-???-???-???-???-???- Effaced St Visit Note 07/15/24 -???-???-???-???-???-???- ???-???-???-???-???-???- 7w 6d 198 lb 135/75 -???-???-???-???-???-???- ???-???-???-???-???-???- 155 -???-???-???-???- (more content not included)... Normal [facility] Sales Promotion Manager Office Visit Reporton 08-15-2024 Sales Promotion Manager Office Visit Report [facility]'s [address], [address] [place] [address] OFFICE VISIT Date of Service: 08/15/24 MR#: [id number] Acct: [id number] Name: ESTEPHANIA WALLACE OLAYINKA Rep #: [id number] : 2000 Provider: YARIEL matos Age/Sex: 24/F Location[place] [facility] [place]: Signed Intake Vital Signs 05/22/24 08:48 07/15/24 08:12 08/15/24 13:02 Height 5 ft 5 in 5 ft 5 in 5 ft 5 in Weight: 198 lb 2 oz BMI 32.9 BP 132/84 H Intake Visit Reasons: 12wk OB Chief Complaint: 12 Week OB [employer] Required: No Is patient in pain?: No Allergies No Known Allergies Allergy (Verified 08/15/24 13:01) Medications ???Medication ???Instructions ???Recorded ???Confirmed ???Type multivit-min no.71-iron fum 28 cap PO 07/11/24 08/15/24 History mg-folate no.1 1 mg-dha 300 mg capsule (PNV-[place]) Last Menstrual Period: 05/21/24 Zika: Zika virus screening: Negative : No PFSH PFSH Medical History macrosomia Gestational diabetes LGA (large for gestational age) fetus Influenza A Surgical History Previous section S/P foot surgery, left Lashmeet teeth removed Family History Grandfather Cancer, Onset Age: 55 Paternal pancreatic Grandfather Cancer, Onset Age: 60 Maternal lung Social History adopted: No household members: spouse and children housing: house number of children: 1 current occupational status: employed 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 current occupational exposures/hazards: No pets and animals: Yes (3) pets and animals: dog(s) history of recent travel: Yes ([place]) out of state: Yes out of country: Yes sexually active: Yes Smoking Status: Never smoker alcohol intake: current alcohol intake frequency: holidays/special occasions only details: not while substance use type: does not use well-balanced diet: daily or most days caffeine: Yes Type: coffee Number of servings: 1 eating out: rarely or never during the past year weight has: increased > 10 lbs what type of physical activity do you participate in: none david/confucianist: Yazidi seatbelt use: always do you feel safe at home: Yes additional social history: Andreas 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 Date Name GA/Weeks Outcome Route Bth Weight Gen Labor Lgth Anesthesia Del Locatn Provider FOB 04/05/23 Cristian 39 live - full term 8lbs 2oz Male spinal [facility] Booth [place] Delivery Date: 04/05/23 Last Updated by: Vera Boles MD Gestational diabetes, LGA, elevated BP without diagnosis of hypertension. 3 cm schedule csection for suspected LGA HPI 12wk OB Details: ESTEPHANIA WALLACE is a 24 year old who presents for routine OB visit. OB Visit LAISHA Calculator Estimated Delivery Date Method Current WG Current Estimate 02/25/25 LMP (Certain) 12w 2d Other Estimates 02/27/25 Ultrasound #1 12w 0d Expected Delivery Route/Plan TOLAC patient counseled regarding risks/benefits of trial of labor versus repeat . ACOG/uptodate education given to patient. [] % likelihood of success per calculator TOLAC consent form signed: [] Labor Preferences- CB/BF classes: [] labor support person: [] labor intervention preferences: [] pain management options preferred: [] cut cord/dad catch: [] : [] PP control planned: [] discussed possible routes of delivery and associated risks: [] special requests: [] Specific Issue/Plans Covid status: [] Flu vaccine: [] Tdap vaccine: [] Rhogam: [] LARC form signed: [] Problem list reviewed and updated with the most current plan of care details and appropriate orders placed. Relevant counseling for the gestational age provided. Continue routine care and follow up unless otherwise noted in visit notes/problem list details Initial Weight: Not Recorded Date -???-???-???-???-???-???- ???-???-???-???-???-???- EGA Weight BP Urine Prot -???-???-???-???-???-???- ???-???-???-???-???-???- Glucose FHR FuHt Pres Dilation -???-???-???-???-???-???- ???-???-???-???-???-???- Effaced St Visit Note 07/15/24 -???-???-???-???-???-???- ???-???-???-???-???-???- 7w 6d 198 lb 135/75 -???-???-???-???-???-???- ???-???-???-???-???-???- 155 -???-???-???-???-???-???- ???-???-???-???-???-???- SM- (more content not included)... Normal [facility] Chlamydia/GC ERICK aptimaon CHLAMY,NUC ACID Negative Normal Negative [facility] Comment on above: Performed By: #### L 501.0900, M100.2200, L7000.1800 ####[facility] [address] [place], [address] GC BY NUC ACID Negative Normal Negative [facility] Comment on above: Result Comment: Perf ormed at: =G - [facility] [address] [id number] [facility] Specialist: Lesli Chase MD, Phone: [phone] Performed By: #### L 501.0900, M100.2200, L7000.1800 ####[facility] [address] [place], [address] Urine Cultureon 07-16-2024 [facility] Mixed Gram Pos Gram Neg Org Mckean Count 11,000-25,000 MIXC Mixed contaminants. Submit a new specimen if indicated. Normal [facility] Comment on above: Performed By: #### L 501.0900, M100.2200, L7000.1800 ####[facility] [address] [place], [address] CBC W/Diff, Automatedon 06-24 Absolute Lymph 2.13 X10 3/uL Normal 0.83-4.51 [facility] Comment on above: Performed By: #### B TS, L509.4005, L100.0100, L3890.6005, L3890.6100, L501.9985, L3890.6300, L509.8000 ####[facility] [address] [place], [address] Absolute Neut 6.7 X10 3/uL Normal 2.0-7.7 [facility] Comment on above: Performed By: #### B TS, L509.4005, L100.0100, L3890.6005, L3890.6100, L501.9985, L3890.6300, L509.8000 ####[facility] [address] [place], [address] Basophils/100 WBC (Bld) 0.8 % Normal 0-1 [facility] Comment on above: Performed By: #### B TS, L509.4005, L100.0100, L3890.6005, L3890.6100, L501.9985, L3890.6300, L509.8000 ####[facility] [address] [place], [address] Eosinophils/100 WBC (Bld) 1.4 % Normal 0-5 [facility] Comment on above: Performed By: #### B TS, L509.4005, L100.0100, L3890.6005, L3890.6100, L501.9985, L3890.6300, L509.8000 ####[facility] [address] [place], [address] Erythrocyte distribution width (RBC) [Ratio] 12.7 % Normal 11.6-14.6 [facility] Comment on above: Performed By: #### B TS, L509.4005, L100.0100, L3890.6005, L3890.6100, L501.9985, L3890.6300, L509.8000 ####[facility] [address] [place], [address] Hematocrit (Bld) [Volume fraction] 40.7 % Normal 37-47 [facility] Comment on above: Performed By: #### B TS, L509.4005, L100.0100, L3890.6005, L3890.6100, L501.9985, L3890.6300, L509.8000 ####[facility] [address] [place], [address] Hemoglobin (Bld) [Mass/Vol] 13.7 g/dL Normal 12.0-15.0 [facility] Comment on above: Performed By: #### B TS, L509.4005, L100.0100, L3890.6005, L3890.6100, L501.9985, L3890.6300, L509.8000 ####[facility] [address] [place], [address] IG% 0.500 Normal 0.0-0.9 [facility] Comment on above: Result Comment: IG% - Immature Granulocytes (promyelocytes, myelocytes and metamyelocytes) > 1% indicates that a LEFT SHIFT is Present. Performed By: #### B TS, L509.4005, L100.0100, L3890.6005, L3890.6100, L501.9985, L3890.6300, L509.8000 ####[facility] [address] [place], [address] Lymphocytes/100 WBC (Bld) 21.9 % Normal 19-41 [facility] Comment on above: Performed By: #### B TS, L509.4005, L100.0100, L3890.6005, L3890.6100, L501.9985, L3890.6300, L509.8000 ####[facility] [address] [place], [address] MCH (RBC) [Entitic mass] 29.5 pg Normal 27.0-32.0 [facility] Comment on above: Performed By: #### B TS, L509.4005, L100.0100, L3890.6005, L3890.6100, L501.9985, L3890.6300, L509.8000 ####[facility] [address] [place], [address] MCHC (RBC) [Mass/Vol] 33.7 g/dL Normal 32-36 [facility] Comment on above: Performed By: #### B TS, L509.4005, L100.0100, L3890.6005, L3890.6100, L501.9985, L3890.6300, L509.8000 ####[facility] [address] [place], [address] MCV (RBC) [Entitic vol] 87.5 fL Normal 81-99 [facility] Comment on above: Performed By: #### B TS, L509.4005, L100.0100, L3890.6005, L3890.6100, L501.9985, L3890.6300, L509.8000 ####[facility] [address] [place], [address] Monocytes/100 WBC (Bld) 6.4 % Normal 0-10 [facility] Comment on above: Performed By: #### B TS, L509.4005, L100.0100, L3890.6005, L3890.6100, L501.9985, L3890.6300, L509.8000 ####[facility] [address] [place], [address] Neutrophils/100 WBC (Bld) 69.0 % Normal 47-70 [facility] Comment on above: Performed By: #### B TS, L509.4005, L100.0100, L3890.6005, L3890.6100, L501.9985, L3890.6300, L509.8000 ####[facility] [address] [place], [address] Nucleated RBC (Bld) [#/Vol] 0 10*3/uL Normal 0-5 [facility] Comment on above: Performed By: #### B TS, L509.4005, L100.0100, L3890.6005, L3890.6100, L501.9985, L3890.6300, L509.8000 ####[facility] [address] [place], [address] Platelet mean volume (Bld) [Entitic vol] 9.5 fL Normal 6.2-12.0 [facility] Comment on above: Performed By: #### B TS, L509.4005, L100.0100, L3890.6005, L3890.6100, L501.9985, L3890.6300, L509.8000 ####[facility] [address] [place], [address] Platelets (Bld) [#/Vol] 310 10*3/uL Normal 150-450 [facility] Comment on above: Performed By: #### B TS, L509.4005, L100.0100, L3890.6005, L3890.6100, L501.9985, L3890.6300, L509.8000 ####[facility] [address] [place], [address] RBC (Bld) [#/Vol] 4.65 10*6/uL Normal 4.2-5.4 [facility] Comment on above: Performed By: #### B TS, L509.4005, L100.0100, L3890.6005, L3890.6100, L501.9985, L3890.6300, L509.8000 ####[facility] [address] [place], [address] RDW SD 40.0 fl Normal 35.1-43.9 [facility] Comment on above: Performed By: #### B TS, L509.4005, L100.0100, L3890.6005, L3890.6100, L501.9985, L3890.6300, L509.8000 ####[facility] [address] [place], [address] WBC (Bld) [#/Vol] 9.7 10*3/uL Normal 4.4-11.0 [place] [facility] Comment on above: Performed By: #### B TS, L509.4005, L100.0100, L3890.6005, L3890.6100, L501.9985, L3890.6300, L509.8000 ####[facility] [address] [place], [address] HIV - WCHon 07-15-2024 HIV Non-Reactive Normal Nonreactive [facility] Comment on above: Order Comment: Reaso n for Exam: Performed By: #### B TS, L509.4005, L100.0100, L3890.6005, L3890.6100, L501.9985, L3890.6300, L509.8000 ####[facility] [address] [place], [place], [id number] Hemoglobin A1con 07-15-2024 HbA1c (Bld) [Mass fraction] 5.0 % Normal 3.8-5.6 [facility] Comment on above: Result Comment: Norm al < 5.7 % Prediabetic 5.7 - 6.4 % Diabetic >or= 6.5 % Please note range changes. Performed By: #### B TS, L509.4005, L100.0100, L3890.6005, L3890.6100, L501.9985, L3890.6300, L509.8000 ####[facility] [address] [place], [place], [id number] Hepatitis B Surface Antigeno n 07-15-2024 HEP B Surf Ag Non-Reactive Normal Nonreactive [facility] Comment on above: Order Comment: Reaso n for Exam: Performed By: #### B TS, L509.4005, L100.0100, L3890.6005, L3890.6100, L501.9985, L3890.6300, L509.8000 ####[facility] [address] [place], [place], [id number] Hepatitis C Antibodyon 07-15 Hepatitis C AB Non-Reactive Normal Nonreactive [facility] Comment on above: Order Comment: Reaso n for Exam: Result Comment: Non Reactive: < 0.8 Equivocal: >/= 0.8 to < 1.0 Reactive: >/= 1.0 The CDC requires that a reactive/equivocal HCV antibody result be sent out for confirmation. HCV Quant by PCR testing. Performed By: #### B TS, L509.4005, L100.0100, L3890.6005, L3890.6100, L501.9985, L3890.6300, L509.8000 ####[facility] [address] [place], [address] L509.8000on 07-15-2024 Syphilis Abs Non-Reactive Normal [facility] Comment on above: Order Comment: Reaso n for Exam: Performed By: #### B TS, L509.4005, L100.0100, L3890.6005, L3890.6100, L501.9985, L3890.6300, L509.8000 ####[facility] [address] [facility] [place], [address] Sales Promotion Manager Office Visit Reporton 07-15-2024 Sales Promotion Manager Office Visit Report [facility]'s [address], [address] [place] [address] OFFICE VISIT Date of Service: 07/15/24 MR#: [id number] Acct: [id number] Name: ESTEPHANIA WALLACE Rep #: [id number] : 2000 Provider: Dr. Vera neely MD Age/Sex: 24/F [place] [facility] [place]: Signed Intake Vital Signs 05/22/24 08:48 07/15/24 08:05 07/15/24 08:12 Height 5 ft 5 in 5 ft 5 in 5 ft 5 in Weight: 198 lb BMI 32.9 BP 135/75 H Blood Pressure Location Rt brachial Position Sitting Intake Visit Reasons: New OB, LMP 05/21, LAISHA 02/25 [employer] Required: No Is patient in pain?: No Allergies No Known Allergies Allergy (Verified 07/15/24 08:11) Medications ???Medication ???Instructions ???Recorded ???Confirmed ???Type multivit-min no.71-iron fum 28 cap PO 07/11/24 History mg-folate no.1 1 mg-dha 300 mg capsule (PNV-[place]) Last Menstrual Period: 05/21/24 Zika: Zika virus screening: Negative Have you fallen in the past year?: No PFSH PFSH Medical History (Updated 07/15/24 @ 08:[address] Vera Boles MD) macrosomia Gestational diabetes LGA (large for gestational age) fetus Influenza A Surgical History (Updated 07/15/24 @ 08:[address] 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 current occupational exposures/hazards: No pets and animals: Yes (3) pets and animals: dog(s) history of recent travel: Yes (Cruise June) out of state: Yes out of country: Yes sexually active: Yes Smoking Status: Never smoker alcohol intake: current alcohol intake frequency: holidays/special occasions only details: not while substance use type: does not use well-balanced diet: daily or most days caffeine: Yes Type: coffee Number of servings: 1 eating out: rarely or never during the past year weight has: increased > 10 lbs what type of physical activity do you participate in: none david/confucianist: Yazidi seatbelt use: always do you feel safe at home: Yes additional social history: Andreas 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 Date Name GA/Weeks Outcome Route Bth Weight Gen Labor Lgth Anesthesia Del Locatn Provider FOB 04/05/23 Cristian 39 live - full term 8lbs 2oz Male spinal [facility] Dr. Booth [place] Delivery Date: 04/05/23 Last Updated by: Vera Boles MD Gestational diabetes, LGA, elevated BP without diagnosis of hypertension. 3 cm schedule csection for suspected LGA HPI New OB, LMP 05/21, LAISHA 02/25 Details: ESTEPHANIA WALLACE is a 24 year old who presents for New OB visit. OB Visit LAISHA Calculator Estimated Delivery Date Method Current WG Current Estimate 02/25/25 LMP (Certain) 7w 6d Other Estimates 02/27/25 Ultrasound #1 7w 4d Comments: HIV: Urine Culture: Sequential Screen: NIPT Screen: Estimated Due Date: 02/25/25 Expected Delivery Route/Plan TOLAC patient counseled regarding risks/benefits of trial of labor versus repeat . ACOG/uptodate education given to patient. [] % likelihood of success per calculator TOLAC consent form signed: [] Labor Preferences- CB/BF classes: [] labor support person: [] labor intervention preferences: [] pain management options preferred: [] cut cord/dad catch: [] : [] PP control planned: [] discussed possible routes of delivery and associated risks: [] special requests: [] Specific Issue/Plans Covid status: [] Flu vaccine: [] Tdap vaccine: [] Rhogam: [] LARC form signed: [] Problem list reviewed and updated with the most current plan of care details and appropriate orders placed. Relevant counseling for the gestational age provided. Continue routine care and follow up unless otherwise noted in visit notes/problem list details Initial Weight: Not Recorded Date -???-???-???-???-???-???- ???-???-???-???-???-???- EGA Weight BP Urine Prot -???-???-???-???-???-???- ???-???-???-???-???-???- Glucose FHR FuHt Pres Dilation -???-???-???-???-???-???- ???-???-???-???-???-???- Effaced St Visit Note 07/15/24 (more content not included)... Normal [facility] Protein+Creatinine Ratio,Uri neon 07-15-2024 PROT:CRE RATIO 73 mg/g CRE Normal 0-200 [facility] Comment on above: Performed By: #### L 501.0900, M100.2200, L7000.1800 #### [facility] [address] [place], [address] Protein (U) [Mass/Vol] 9.8 mg/dL Normal <11.9 [facility] Comment on above: Performed By: #### L 501.0900, M100.2200, L7000.1800 #### [facility] [address] [place], [address] UR CREAT 134.00 mg/dL Normal NO RANGE EST. [facility] Comment on above: Performed By: #### L 501.0900, M100.2200, L7000.1800 #### [facility] [address] [place], [address] Rubella IgGon 07-15-2024 Rubella IgG Equiv Normal Nonreactive [facility] Comment on above: Order Comment: Reaso n for Exam: Result Comment: Anti body Results Interpretation of Immune Status Non Reactive Presumed Non-Immune Equivocal Equivocal Reactive Presumed Immune Performed By: #### B TS, L509.4005, L100.0100, L3890.6005, L3890.6100, L501.9985, L3890.6300, L509.8000 ####[facility] [address] [place], [address] Type AND Screenon 07-15-2024 Ab SCREEN GEL PENDING Normal [facility] Comment on above: Order Comment: PN Performed By: #### B TS, L509.4005, L100.0100, L3890.6005, L3890.6100, L501.9985, L3890.6300, L509.8000 ####[facility] [address] [place], [address] ABO and Rh group Nom (Bld) Blood group O Rh(D) positive Normal [facility] Comment on above: Order Comment: PN Performed By: #### B TS, L509.4005, L100.0100, L3890.6005, L3890.6100, L501.9985, L3890.6300, L509.8000 ####[facility] [address] [place], [place], [address] Sales Promotion Manager Office Visit Reporton 05-22-2024 Sales Promotion Manager Office Visit Report [facility] 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) [employer]ing [employer] Required: No Is patient in pain?: No Allergies No Known Allergies Allergy (Verified 05/22/24 08:52) Medications ???Medication ???Instructions ???Recorded ???Confirmed ???Type NK 05/22/24 05/22/24 History Post menopausal: No Patient : No : No PFSH Medical History macrosomia Gestational diabetes LGA (large for gestational age) fetus Influenza A Surgical History S/P foot surgery, left [place]ash[place] teeth removed Social History adopted: No household members: spouse housing: house number of children: 1 current occupational status: employed 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 current occupational exposures/hazards: No pets and animals: Yes pets and animals: dog(s) history of recent travel: Yes ([place]ruise 08/19/22 [facility]) out of state: Yes out of country: Yes sexually active: Yes Smoking Status: Never smoker alcohol intake: former details: ocassional prior to substance use type: does not use well-balanced diet: daily or most days caffeine: Yes Type: coffee Number of servings: 1 eating out: rarely or never during the past year weight has: remained stable what type of physical activity do you participate in: none david/confucianist: Yazidi seatbelt use: always do you feel safe at home: Yes additional social history: Andreas 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 History 1 Elective abortions Hx Para 1 Spontaneous abortions Hx # Term Pregnancies Ectopic pregnancies Hx # Pregnancies Multiple births # of living children 1 Past Pregnancies Del. Date Name GA/Weeks Outcome Route Bth Weight Gen Labor Lgth Anesthesia Del Locatn Provider FOB 04/05/23 [place] 39 live - full term 8lbs 2oz Male spinal [facility] Dr. Booth [place] Delivery Date: 04/05/23 Last Updated by: Cristiane Lawton Gestational diabetes, LGA, elevated BP without diagnosis of hypertension HPI Encounter for routine gynecological examination Details: ESTEPHANIA WALLACE is a 24 year old who presents for annual exam. She reports no issues or concerns today. Last PAP: 08/2022- normal History of abnormal PAP: None Last mammogram: None History of abnormal mammogram: None Colon cancer screening: None Other preventative health care screenings: Primary Care Doctor: Lidia Gonzalez MD [place] [facility] Reproductive History Last Menstrual Period: 05/22/24 Cycle Length: 21-35 Bleeding Duration: 6 Questions: metorrhagia: No, sexually active: Yes, dyspareunia: No and PCB: No ROS Const Constitutional: Denies chills, fatigue, fever(s), headache(s) or weight loss Eyes Eyes: Denies change in vision ENT ENT: Denies dizziness Resp Resp: Denies cough GI GI: Denies abdominal pain, constipation or nausea : Denies difficulty voiding, dysuria, hematuria, pelvic pain, prolapse symptoms, urinary incontinence, vaginal discharge, vaginal dryness, vaginal odor or vaginal pruritus Skin Skin/Breast: Denies alopecia or rash Neuro Neuro: Denies dizziness Psych Psych: Denies anxiety or depression Endo Endo: Denies cold intolerance, excessive sweating or heat intolerance Exam Const General: cooperative, healthy appearing, comfortable, no acute distress, well groomed and well hydrated Nutritional Appearance: well nourished Orientation: alert, awake and oriented x3 HENMT Head: normal to inspection and normocephalic Ears: hearing grossly normal bilaterally and external ears normal Nose: external nose normal Face and sinus: normal facial exam Eyes General: appearance normal, both eyes and all related structures Neck Neck: normal visual inspection, full ROM and no lymphadenopathy Thyroid: thyroid normal Chest Chest palpation inspection: normal inspection of the chest Breast inspection: normal inspection of the breasts and normal inspection of the axillae Breast palpation: normal palpation of the breasts, normal palpation of the axillae and no axillary lymphadenopathy Resp Effort Inspection: normal respiratory effort, able to speak in complete sentences and symmetric chest movement GI Inspection: normal to inspection (more content not included)... Normal [facility] Basophil percentageOrdered B y: Dr. Torres on 04-06-2023 WBC (Bld) [#/Vol] 8.9 10*3/uL 4.4-11.0 [facility] Blood erythrocytes count (nu mber/volume)Ordered By: Dr. Torres on 04-06-2023 RBC (Bld) [#/Vol] 3.59 10*6/uL 4.2-5.4 [facility] Blood hemoglobin measurement (mass/volume)Ordered By: Dr. Torres on 04-06-2023 Hemoglobin (Bld) [Mass/Vol] 11.0 g/dL 12.0-15.0 [facility] Blood platelet mean volumeOr dered By: Dr. Torres on 04-06-2023 Platelet mean volume (Bld) [Entitic vol] 9.8 fL 6.2-12.0 [facility] Determination of erythrocyte mean corpuscular volume (MCV)Ordered By: Dr. Torres on 04-06-2023 MCV (RBC) [Entitic vol] 92.8 fL 81-99 [facility] Glucose Glucometer (BldC) [M ass/Vol]Ordered By: Dr. Torres on 04-06-2023 Glucose [Mass/Vol] 73 mg/dL 74-106 [facility] Comment on above: MANAGEMENT OF PATIEN T CARE PER NURSING PROTOCOL Hematocrit Auto (Bld) [Volum e fraction]Ordered By: Dr. Torres on 04-06-2023 Hematocrit (Bld) [Volume fraction] 33.3 % 37-47 [facility] - Hematology and Cell countsOrdered By: Dr. Torres on 04-06-2023 Erythrocyte distribution width (RBC) [Entitic vol] 42.1 fL 35.1-43.9 [facility] Erythrocyte distribution width (RBC) [Ratio] 12.4 % 11.6-14.6 [facility] MCH (RBC) [Entitic mass] 30.6 pg 27.0-32.0 [facility] MCHC Auto (RBC) [Mass/Vol]Or dered By: Dr. Torres on 04-06-2023 MCHC (RBC) [Mass/Vol] 33.0 g/dL 32-36 [facility] Platelets bldOrdered By: Dr. Torres on 04-06-2023 Platelets (Bld) [#/Vol] 151 10*3/uL 150-450 [facility] Absolute lymphocyte countOrd ered By: Dr. Torres on 04-05-2023 Lymphocytes Auto (Unsp spec) [#/Vol] 1.89 10*3/uL 0.83-4.51 [facility] Basophil percentageOrdered B y: Dr. Torres on 04-05-2023 Basophils/100 WBC (Bld) 0.4 % 0-1 [facility] Eosinophils/100 WBC (Bld) 1.6 % 0-5 [facility] Neutrophils (Bld) [#/Vol] 5.9 10*3/uL 2.0-7.7 [facility] Neutrophils/100 WBC (Bld) 65.5 % 47-70 [facility] Blood lymphocytes/100 leukoc ytesOrdered By: Dr. Torres on 04-05-2023 Lymphocytes/100 WBC (Bld) 21.1 % 19-41 [facility] Blood monocytes/100 leukocyt esOrdered By: Dr. Torres on 04-05-2023 Monocytes/100 WBC (Bld) 10.7 % 0-10 [facility] - Hematology and Cell countsOrdered By: Dr. Torres on 04-05-2023 Immature granulocytes/100 WBC (Bld) 0.700 % 0.0-0.9 [facility] Comment on above: IG% - Immature Granu locytes (promyelocytes, myelocytes and metamyelocytes) > 1% indicates that a LEFT SHIFT is Present. Nucleated RBC/100 WBC (Bld) [Ratio] 0 % 0-5 [facility] Serum Treponema species anti body detectionOrdered By: Dr. Torres on 04-05-2023 Treponema sp Ab Ql (S) Non-Reactive [facility] Basophil percentageOrdered B y: Dr. Torres on 03-31-2023 Bilirubin [Mass/Vol] 0.20 mg/dL 0.20-1.00 [facility] Comment on above: For patients on eltr ombopag therapy, use of Dimension [place] TBIL is not recommended. Chloride [Moles/Vol] 107 mmol/L 98-107 [facility] Glucose [Mass/Vol] 89 mg/dL 74-106 [facility] Potassium [Moles/Vol] 4.0 mmol/L 3.5-5.1 [facility] Protein [Mass/Vol] 6.7 g/dL 6.4-8.2 [facility] Sodium [Moles/Vol] 137 mmol/L 136-145 [facility] WBC (Bld) [#/Vol] 8.5 10*3/uL 4.4-11.0 [facility] Blood erythrocytes count (nu mber/volume)Ordered By: Dr. Torres on 03-31-2023 RBC (Bld) [#/Vol] 4.62 10*6/uL 4.2-5.4 [facility] Blood hemoglobin measurement (mass/volume)Ordered By: Dr. Torres on 03-31-2023 Hemoglobin (Bld) [Mass/Vol] 14.1 g/dL 12.0-15.0 [facility] Blood platelet mean volumeOr dered By: Dr. Torres on 03-31-2023 Platelet mean volume (Bld) [Entitic vol] 9.9 fL 6.2-12.0 [facility] Determination of erythrocyte mean corpuscular volume (MCV)Ordered By: Dr. Torres on 03-31-2023 MCV (RBC) [Entitic vol] 90.0 fL 81-99 [facility] Hematocrit Auto (Bld) [Volum e fraction]Ordered By: Dr. Torres on 03-31-2023 Hematocrit (Bld) [Volume fraction] 41.6 % 37-47 [facility] - Chemistry and C hemistry - challengeOrdered By: Dr. Torres on 03-31-2023 ALP [Catalytic activity/Vol] 198 U/L 45-117 [facility] ALT [Catalytic activity/Vol] 25 U/L 13-56 [facility] CO2 [Moles/Vol] 23.0 mmol/L 21.0-32.0 [facility] Globulin (S) [Mass/Vol] 4.0 g/dL 2.2-4.2 [facility] Urea nitrogen/Creatinine [Mass ratio] 14.6 mg/mg 10-20 [facility] - Chemistry and C hemistry - challengeon 03-31-2023 Glucose Ql (U) Negative [facility] - Hematology and Cell countsOrdered By: Dr. Torres on 03-31-2023 Erythrocyte distribution width (RBC) [Entitic vol] 40.7 fL 35.1-43.9 [facility] Erythrocyte distribution width (RBC) [Ratio] 12.5 % 11.6-14.6 [facility] MCH (RBC) [Entitic mass] 30.5 pg 27.0-32.0 [facility] - Urinalysison Protein Ql (U) Trace [facility] MCHC Auto (RBC) [Mass/Vol]Or dered By: Dr. Torres on 03-31-2023 MCHC (RBC) [Mass/Vol] 33.9 g/dL 32-36 [facility] No Panel InformationOrdered By: Dr. Torres on 03-31-2023 Estimated Creatinine Clearance Calc 124.82 ml/min [facility] Estimated GFR (MDRD) Amer 152 mL/min >60 [facility] Comment on above: GFR Calc Estimated GFR (MDRD) Non-Af Amer 126 mL/min >60 [facility] Comment on above: Non- GFR Calc Platelets bldOrdered By: Dr. Torres on 03-31-2023 Platelets (Bld) [#/Vol] 201 10*3/uL 150-450 [facility] Serum or plasma albumin mirna urement (mass/volume)Ordered By: Dr. Torres on 03-31-2023 Albumin [Mass/Vol] 2.7 g/dL 3.2-5.0 [facility] Serum or plasma albumin/glob ulin mass ratioOrdered By: Dr. Torres on 03-31-2023 Albumin/Globulin [Mass ratio] 0.7 {ratio} 0.9-2.4 [facility] Serum or plasma calcium mirna urement (mass/volume)Ordered By: Dr. Torres on 03-31-2023 Calcium [Mass/Vol] 9.5 mg/dL 8.5-10.1 [facility] Serum or plasma creatinine m easurement (mass/volume)Ordered By: Dr. Torres on 03-31-2023 Creatinine [Mass/Vol] 0.62 mg/dL 0.55-1.02 [facility] Comment on above: The validity of the calculated GFR & GFRAA in patients over 70 years has not been determined. Clinical correlation is essential. Serum or plasma urea nitroge n measurement (mass/volume)Ordered By: Dr. Torres on 03-31-2023 Urea nitrogen [Mass/Vol] 9 mg/dL 7-18 [facility] Serum or plasma uric acid me asurement (mass/volume)Ordered By: Dr. Torres on 03-31-2023 Urate [Mass/Vol] 4.6 mg/dL 2.6-6.0 [facility] Comment on above: The drugs N-Acetylcy steine and Metamizole may falsely depress this assay. Thin prep Papanicolaou smear with manual screeningOrdered By: Dr. Torres on 03-31-2023 Thin prep Papanicolaou smear with manual screening 23 U/L 15-37 [facility] Thin prep Papanicolaou smear with manual screening 7 5-15 [facility] Urine creatinine measurement (mass/volume)Ordered By: Dr. Torres on 03-31-2023 Creatinine (U) [Mass/Vol] 59.20 mg/dL NO RANGE EST. [facility] Urine protein measurement (m ass/volume)Ordered By: Dr. Torres on 03-31-2023 Protein (U) [Mass/Vol] 16.5 mg/dL 0.0-11.8 [facility] Urine protein/creatinine mas s ratioOrdered By: Dr. Torres on 03-31-2023 Protein/Creatinine (U) [Mass ratio] 279 mg/g CRE 0-200 [facility] - Chemistry and C hemistry - challengeon 03-21-2023 Glucose Ql (U) Negative [facility] - Urinalysison Protein Ql (U) Negative [facility] No Panel InformationOrdered By: Dr. Torres on 03-18-2023 Group B Streptococcus Culture Group B Beta Streptococcus is not isolated. [facility] - Chemistry and C hemistry - challengeon 03-15-2023 Glucose Ql (U) Negative [facility] - Urinalysison Protein Ql (U) Negative [facility] - Chemistry and C hemistry - challengeon 03-09-2023 Glucose Ql (U) Negative [facility] - Urinalysison Protein Ql (U) Negative [facility] - Chemistry and C hemistry - challengeon 02-23-2023 Glucose Ql (U) Negative [facility] [facility] - Urinalysison Protein Ql (U) Negative [facility] - Chemistry and C hemistry - challengeon 02-08-2023 Glucose Ql (U) Negative [facility] - Urinalysison Protein Ql (U) Negative [facility] - Chemistry and C hemistry - challengeon 01-24-2023 Glucose Ql (U) Negative [facility] - Urinalysison Protein Ql (U) Negative [facility] Quantitative serum or plasma 3 hour gestational glucose tolerance panelOrdered By: Dr. Torres on 01-17-2023 Glucose tolerance 3 hours gestational panel See comment [facility] Comment on above: FASTING 77 Col: 12/22 06/14 0652GLUCOSE TOLERANCE TEST FOR Reference Interval GESTATIONAL DIABETES Fasting <105 mg/dL 1 hour <190 mg/dl 2 hour <165 mg/dl 3 hour <145 mg/dl 1 HR GLU 201 H Col: 01/17/23 0758 2 HR GLU 189 H Col: 01/17/23 0854 3 HR GLU 82 Col: 01/17/23 0959 Absolute lymphocyte countOrd ered By: Dr. Boles on 01-12-2023 Lymphocytes Auto (Unsp spec) [#/Vol] 1.58 10*3/uL 0.83-4.51 [facility] Basophil percentageOrdered B y: Dr. Boles on 01-12-2023 Basophils/100 WBC (Bld) 0.3 % 0-1 [facility] Eosinophils/100 WBC (Bld) 0.8 % 0-5 [facility] Neutrophils (Bld) [#/Vol] 6.8 10*3/uL 2.0-7.7 [facility] Neutrophils/100 WBC (Bld) 74.6 % 47-70 [facility] WBC (Bld) [#/Vol] 9.1 10*3/uL 4.4-11.0 [facility] Blood erythrocytes count (nu mber/volume)Ordered By: Dr. Boles on 01-12-2023 RBC (Bld) [#/Vol] 4.21 10*6/uL 4.2-5.4 [facility] Blood hemoglobin measurement (mass/volume)Ordered By: Dr. Boles on 01-12-2023 Hemoglobin (Bld) [Mass/Vol] 12.8 g/dL 12.0-15.0 [facility] Blood lymphocytes/100 leukoc ytesOrdered By: Dr. Boles on 01-12-2023 Lymphocytes/100 WBC (Bld) 17.3 % 19-41 [facility] Blood monocytes/100 leukocyt esOrdered By: Dr. Boles on 01-12-2023 Monocytes/100 WBC (Bld) 6.1 % 0-10 [facility] Blood platelet mean volumeOr dered By: Dr. Boles on 01-12-2023 Platelet mean volume (Bld) [Entitic vol] 9.3 fL 6.2-12.0 [facility] Determination of erythrocyte mean corpuscular volume (MCV)Ordered By: Dr. Boles on 01-12-2023 MCV (RBC) [Entitic vol] 91.7 fL 81-99 [facility] Gestational diabetes screen 1-hour screen with 50g oral glucose loadOrdered By: Dr. Boles on 01-12-2023 Glucose 1 Hr post 50 g glucose PO [Mass/Vol] 163 mg/dL 70-140 [facility] HIV 1 and HIV-2 antibody ass ay with HIV-1 p24 antigen detectionOrdered By: Dr. Boles on 01-12-2023 HIV 1+2 Ab+HIV1 p24 Ag IA Ql Non-Reactive Nonreactive [facility] Hematocrit Auto (Bld) [Volum e fraction]Ordered By: Dr. Boles on 01-12-2023 Hematocrit (Bld) [Volume fraction] 38.6 % 37-47 [facility] - Chemistry and C hemistry - challengeon 01-12-2023 Glucose Ql (U) Negative [facility] - Hematology and Cell countsOrdered By: Dr. Boles on 01-12-2023 Erythrocyte distribution width (RBC) [Entitic vol] 42.4 fL 35.1-43.9 [facility] Erythrocyte distribution width (RBC) [Ratio] 12.8 % 11.6-14.6 [facility] Immature granulocytes/100 WBC (Bld) 0.900 % 0.0-0.9 [facility] Comment on above: IG% - Immature Granu locytes (promyelocytes, myelocytes and metamyelocytes) > 1% indicates that a LEFT SHIFT is Present. MCH (RBC) [Entitic mass] 30.4 pg 27.0-32.0 [facility] Nucleated RBC/100 WBC (Bld) [Ratio] 0 % 0-5 [facility] - Urinalysison Protein Ql (U) Negative [facility] MCHC Auto (RBC) [Mass/Vol]Or dered By: Dr. Boles on 01-12-2023 MCHC (RBC) [Mass/Vol] 33.2 g/dL 32-36 [facility] Platelets bldOrdered By: Dr. Boles on 01-12-2023 Platelets (Bld) [#/Vol] 217 10*3/uL 150-450 [facility] Serum Treponema species anti body detectionOrdered By: Dr. Boles on 01-12-2023 Treponema sp Ab Ql (S) Non-Reactive [facility] - Chemistry and C hemistry - challengeon 12-19-2022 Glucose Ql (U) Negative [facility] - Urinalysison Protein Ql (U) Negative [facility] - Chemistry and C hemistry - challengeon 11-21-2022 Glucose Ql (U) Negative [facility] - Urinalysison Protein Ql (U) Negative [facility] - Chemistry and C hemistry - challengeon 10-25-2022 Glucose Ql (U) Negative [facility] - Urinalysison Protein Ql (U) Negative [facility] Absolute lymphocyte countOrd ered By: Dr. Torres on 09-28-2022 Lymphocytes Auto (Unsp spec) [#/Vol] 2.51 10*3/uL 0.83-4.51 [facility] Basophil percentageOrdered B y: Dr. Torres on 09-28-2022 Basophils/100 WBC (Bld) 0.3 % 0-1 [facility] Eosinophils/100 WBC (Bld) 1.1 % 0-5 [facility] Neutrophils (Bld) [#/Vol] 9.6 10*3/uL 2.0-7.7 [facility] Neutrophils/100 WBC (Bld) 72.4 % 47-70 [facility] WBC (Bld) [#/Vol] 13.2 10*3/uL 4.4-11.0 [facility] Blood erythrocytes count (nu mber/volume)Ordered By: Dr. Torres on 09-28-2022 RBC (Bld) [#/Vol] 4.65 10*6/uL 4.2-5.4 [facility] Blood hemoglobin measurement (mass/volume)Ordered By: Dr. Torres on 09-28-2022 Hemoglobin (Bld) [Mass/Vol] 13.7 g/dL 12.0-15.0 [facility] Blood lymphocytes/100 leukoc ytesOrdered By: Dr. Torres on 09-28-2022 Lymphocytes/100 WBC (Bld) 19.0 % 19-41 [facility] Blood monocytes/100 leukocyt esOrdered By: Dr. Torres on 09-28-2022 Monocytes/100 WBC (Bld) 6.8 % 0-10 [facility] Blood platelet mean volumeOr dered By: Dr. Torres on 09-28-2022 Platelet mean volume (Bld) [Entitic vol] 9.4 fL 6.2-12.0 [facility] Determination of erythrocyte mean corpuscular volume (MCV)Ordered By: Dr. Torres on 09-28-2022 MCV (RBC) [Entitic vol] 89.0 fL 81-99 [facility] HIV 1 and HIV-2 antibody ass ay with HIV-1 p24 antigen detectionOrdered By: Dr. Torres on 09-28-2022 HIV 1+2 Ab+HIV1 p24 Ag IA Ql Non-Reactive Nonreactive [facility] Hematocrit Auto (Bld) [Volum e fraction]Ordered By: Dr. Torres on 09-28-2022 Hematocrit (Bld) [Volume fraction] 41.4 % 37-47 [facility] - Chemistry and C hemistry - challengeon 09-28-2022 Glucose Ql (U) Negative [facility] - Hematology and Cell countsOrdered By: Dr. Torres on 09-28-2022 Erythrocyte distribution width (RBC) [Entitic vol] 40.1 fL 35.1-43.9 [facility] Erythrocyte distribution width (RBC) [Ratio] 12.4 % 11.6-14.6 [facility] Immature granulocytes/100 WBC (Bld) 0.400 % 0.0-0.9 [facility] Comment on above: IG% - Immature Granu locytes (promyelocytes, myelocytes and metamyelocytes) > 1% indicates that a LEFT SHIFT is Present. MCH (RBC) [Entitic mass] 29.5 pg 27.0-32.0 [facility] Nucleated RBC/100 WBC (Bld) [Ratio] 0 % 0-5 [facility] - Urinalysison Protein Ql (U) Negative [facility] MCHC Auto (RBC) [Mass/Vol]Or dered By: Dr. Torres on 09-28-2022 MCHC (RBC) [Mass/Vol] 33.1 g/dL 32-36 [facility] No Panel InformationOrdered By: Dr. Torres on 09-28-2022 Hepatitis B Surface Antigen Non-Reactive Nonreactive [facility] Hepatitis C Antibody Non-Reactive Nonreactive [facility] Comment on above: Non Reactive: < 0.8 Equivocal: >/= 0.8 to < 1.0 Reactive: >/= 1.0The CDC recommends that a reactive/equivocal HCV antibody result be followed up by the HCV Nucleic Acid Amplificationtest (451865) Rubella IgG Antibody Reactive Nonreactive [facility] Comment on above: Antibody Results Int erpretation of Immune Status Non Reactive Presumed Non-Immune Equivocal Equivocal Reactive Presumed Immune Platelets bldOrdered By: Dr. Torres on 09-28-2022 Platelets (Bld) [#/Vol] 265 10*3/uL 150-450 [facility] Serum Treponema species anti body detectionOrdered By: Dr. Torres on 09-28-2022 Treponema sp Ab Ql (S) Non-Reactive [facility] Cervical or vagninal specime n microscopic examination by cytology stain (reported ason 08-30-2022 Cytology report Cyto stain Doc (Cvx/Vag) Comment . [facility] Work Phone: Comment on above: The Pap smear is a s creening test designed to aid in thedetection of premalignant and malignant conditions of theuterine cervix. It is not a diagnostic procedure andshould not be used as the sole means of detecting cervicalcancer. Both false-positive and false-negative reports dooccur. Chlamydia trachomatis rRNA d etection by probe and target amplification methodon 08-30-2022 C. trachomatis rRNA ERICK+probe Ql (Unsp spec) Negative Negative [facility] Work Phone: Laboratory - Cytologyon Project [employer] Manager Cyto stain Nom (Cvx/Vag) [ID] Comment . [facility] Work Phone: Comment on above: Bing Messer, Cytot echnologist (ASCP) Laboratory - Drug toxicology on 08-30-2022 Amphetamines Ql (U) Negative <1000 ng/mL [facility] Work Phone: Benzodiazepines Ql (U) Negative < 200 ng/mL [facility] Work Phone: Cannabinoids Screen Ql (U) Negative < 50 ng/mL [facility] Work Phone: Cocaine Ql (U) Negative < 300 ng/mL [facility] Work Phone: Opiates Ql (U) Negative < 300 ng/mL [facility] Work Phone: Laboratory - Microbiology an d Antimicrobial susceptibilityon 08-30-2022 N. gonorrhoeae DNA ERICK+probe Ql (Unsp spec) Negative Negative [facility] Work Phone: Comment on above: Performed at: =G - [facility] [address] [id number] Director: Lesli Chase MD, Phone: [phone] Laboratory - Miscellaneous t estson 08-30-2022 Service comment (Unsp spec) [Interp] Comment . [facility] Work Phone: Comment on above: This liquid based Th inPrep(R) pap test was screened withthe use of an image guided system. Service comment (Unsp spec) [Interp] . . [facility] Work Phone: No Panel Informationon 08-30 Human Papillomavirus Screen Comment . [facility] Work Phone: Comment on above: The HPV DNA reflex c itaeria were not met with this specimenresult therefore, no HPV testing was performed.Performed at: [facility] - [facility] [address] [id number] Director: Lesli Chase MD, Phone: [phone] MDMA (Ecstasy) Screen Negative < 500 ng/mL [facility] Work Phone: Pathology report final diagnosis Narrative Comment . [facility] Work Phone: Comment on above: NEGATIVE FOR INTRAEP ITHELIAL LESION OR MALIGNANCY. Urine Barbiturates Screen Negative < 200 ng/mL [facility] Work Phone: Urine Drug Screen Comment [facility] Work Phone: Comment on above: CONFIRMATORY TESTING FOR ALL POSITIVE URINE DRUG SCREENRESULTS WILL ONLY BE SENT OUT UPON PHYSICIAN ORDER. VISTA Urine Drug Screen methods provide only preliminaryanalytical test results. A more specific alternate chemicalmethod must be used in order to obtain a confirmedanalytical result. Gas chromatography/mass spectrometery(GC/MS) is the preferred confirmatory method. Clinicalconsideration and professional judgement should be appliedto any drug of abuse test result, particularly whenpreliminary positive results are used. URINE TCA TESTING MUST BE ORDERED SEPARATELY. USE TESTMNEMONIC: [facility] Urine Methadone Screen Negative < 300 ng/mL [facility] Work Phone: Urine phencyclidine (PCP) de tectionon 08-30-2022 Phencyclidine Ql (U) Negative < 25 ng/mL [facility] Work Phone: Office Visit (Family Medicin e)on 02-14-2022 Follow-up visit Diagnoses/Problems Rib pain on left side (786.50) (R07.81) Orders Rib pain on left side Start: Methocarbamol 500 MG Oral Tablet; TAKE 1 TABLET 3 TIMES DAILY as needed for pain, May cause sedation, do not drive or operate machinery Xray Ribs Unilateral with PA Cxr 3 View; Status:Resulted - Preliminary; Done: 14Feb2022 02:11PM Laterality : Left Radiologist to Determine Optimal Study : Y What are the patient's signs and symptoms? : left rib pain, pleuritic Start: methylPREDNISolone 4 MG Oral Tablet Therapy Pack (Medrol); Take as directed per package Chief Complaint Chief Complaint: ESTEPHANIA SELLERS is here with a chief complaint of C/O LT RIB PAIN X 1WK; STATES HURTS TO TAKE A DEEP BREATH OR LAUGH. History of Present Illness Estephania presents with left rib pain. States a week ago was sleeping on left side, and had sudden pain in left neck down arm, down left ribs. Has had this before, had to move off of left side and resposition. Had pain in left shoulder left upper chest with movement for a few days and now has localized to left ribs in axillary line. Worse with movement, worse with laughing, sneezing, moving. Denies cough, denies fevers/chills. Denies shortness of breath. Denies leg pain or swelling. Denies rash or blisters. No current medications, denies possibility of . Review of Systems Constitutional: as noted in HPI. Cardiovascular: as noted in HPI. Respiratory: as noted in HPI. Musculoskeletal: as noted in HPI. Integumentary: as noted in HPI. Active Problems Contraceptive management (V25.9) (Z30.9) Encounter for Nexplanon removal (V25.43) (Z30.46) GERD (gastroesophageal reflux disease) (530.81) (K21.9) Low HDL (under 40) (272.5) (E78.6) Screening for breast cancer (V76.10) (Z12.39) Past Medical History History of migraine (V12.49) (Z86.69) History of Papanicolaou smear (V45.89) (Z98.890) 02/24/2021-ASC-US HPV - 2019 per patient History of Menstruation 12 Surgical History History of Foot surgery Family History Family history of lung cancer (V16.1) (Z80.1) Family history of pancreatic cancer (V16.0) (Z80.0) Family history of malignant neoplasm (V16.9) (Z80.9) Social History Caffeine use (V49.89) (Z78.9) Never smoker No alcohol use No illicit drug use Sexually active Allergies Dairy Recorded By: Zeinab Paris; 03/16/2021 10:55:40 AM Vitals Vital Signs Recorded: 14Feb2022 01:25PM Heart Rate88 Obpzhmfp871, RUE, Sitting Unywffjwo43, RUE, Sitting Height5 ft 2 in Gwqcsg660 lb 7 oz BMI Flmjvotsan97.45 kg/m2 BSA Calculated1.82 Tobacco Useb) No Physical Exam Constitutional: Alert and in no acute distress. Well developed, well nourished. Head and Face: Head and face: Normal. Neck: No neck mass was observed. Supple. Cardiovascular: Heart rate and rhythm were normal, normal S1 and S2, no gallops, no murmurs and no pericardial rub. Pulmonary: No respiratory distress. Clear bilateral breath sounds. Abdomen: Soft nontender; no abdominal mass palpated. Musculoskeletal: no rash left side, FROM neck and left arm/shoulder. Psychiatric: Judgment and insight: Intact. Mood and affect: Normal. Results/Data Xray Ribs Unilateral with PA Cxr 3 [id number] 02:11PMLidia Gonzalez Test NameResultFlagReference Xray Ribs Unilateral with PA Cxr 3 View Please click on the link to view the study images 'Scores and Scales' Signatures Electronically signed by : Lidia Gonzalez MD; Feb 14 2022 3:22PM EST (Author) Normal [facility] RIBS, UNILATERAL, W PA CXR 3 VIEWSon 02-14-2022 RIBS, UNILATERAL, W PA CXR 3 VIEWS Patient Name: ESTEPHANIA SELLERS STUDY: RIBS, UNILATERAL, W PA CXR 3 VIEWS INDICATION: left rib pain, pleuritic R07.81: Rib pain on left side. COMPARISON: None ACCESSION NUMBER(S): [id number] ORDERING CLINICIAN: LIDIA GONZALEZ FINDINGS: Frontal chest with four views left ribs. No fracture seen. No osseous lesions. No consolidation or effusion. IMPRESSION: Normal radiographs of the chest and left ribs. Electronically signed by: ABEL PRIETO MD Normal [facility] Radiologyon 02-14-2022 XR Ribs - left 3 Views Please click on t he link to view the study images Normal [facility] Work Phone: XR Ribs - left 3 Views Normal [facility] Work Phone: Tobacco Screening.on 022 Tobacco use status [facility] b) No [facility] Work Phone: Office Visit (Family Medicin e)on 04-15-2021 Follow-up visit Diagnoses/Problems Low HDL (under 40) (272.5) (E78.6) Orders GERD (gastroesophageal reflux disease), Nausea in adult Renew: Famotidine 40 MG Oral Tablet (Pepcid); TAKE 1 TABLET AT BEDTIME Patient Discussion/Summary FOllowup annually, call concerns. Chief Complaint Chief Complaint: ESTEPHANIA SELLERS is here with a chief complaint of F/U FAMOTIDINE AND LABS. History of Present Illness Pt presents for followup starting pepcid , states her symptoms have completely resolved. WILl continue the medication. Denies problems or concerns otherwise, reviewed labs with her. Low hDL, risk still very low. Review of Systems Constitutional: as noted in HPI. Cardiovascular: as noted in HPI. Gastrointestinal: as noted in HPI. Active Problems Contraceptive management (V25.9) (Z30.9) Encounter for Nexplanon removal (V25.43) (Z30.46) GERD (gastroesophageal reflux disease) (530.81) (K21.9) Screening for breast cancer (V76.10) (Z12.39) Past Medical History History of migraine (V12.49) (Z86.69) History of Papanicolaou smear (V45.89) (Z98.890) 02/24/2021-ASC-US HPV - 2019 per patient History of Menstruation 12 Surgical History History of Foot surgery Family History Family history of lung cancer (V16.1) (Z80.1) Family history of pancreatic cancer (V16.0) (Z80.0) Family history of malignant neoplasm (V16.9) (Z80.9) Social History Caffeine use (V49.89) (Z78.9) Never smoker No alcohol use No illicit drug use Sexually active Allergies Dairy Recorded By: Zeinab Paris; 03/16/2021 10:55:40 AM Current Meds Medication NameInstructionReason Famotidine 40 MG Oral TabletTAKE 1 TABLET AT BEDTIME.GERD (gastroesophageal reflux disease), Nausea in adult Vitals Vital Signs Recorded: 15Apr2021 09:26AM Vlsxamnzkqq80.5 F Heart Rate76 Qlqvknbl196, LUE, Sitting Lmngyxatn88, LUE, Sitting Height5 ft 2 in Glpdag155 lb 2 oz BMI Ejfpnohhky31.48 kg/m2 BSA Calculated1.79 Tobacco Useb) No Physical Exam Constitutional: Alert and in no acute distress. Well developed, well nourished. Head and Face: Head and face: Normal. Ears, Nose, Mouth, and Throat: Hearing: Normal. Neck: No neck mass was observed. Supple. Pulmonary: No respiratory distress. Results/Data Complete Blood Count + [id number] 08:06AMLidia Gonzalez [Apr 12, 2021 2:43PM Lidia Gonzalez] apt 04/15 Test NameResultFlagReference White Blood Cell Count6.1 x10E9/L4.4 - 11.3 Red Blood Cell Count4.62 x10E12/LSee Below Reference Range: 4.00 - 5.20 Etssrkewhp67.9 g/dLSee Below Reference Range: 12.0 - 16.0 HCT41.9 %See Below Reference Range: 36.0 - 46.0 MCV91 fL80 - 100 MCHC33.3 g/dLSee Below Reference Range: 32.0 - 36.0 Platelet Xdrhu417 x10E9/L150 - 450 RDW-CV12.4 %See Below Reference Range: 11.5 - 14.5 Neutrophil %50.7 %See Below Reference Range: 40.0 - 80.0 Lymphocyte %38.7 %See Below Reference Range: 13.0 - 44.0 Monocyte %7.2 %2.0 - 10.0 Eosinophil %2.6 %0.0 - 6.0 Basophil %0.8 %0.0 - 2.0 Neutrophil Count3.10 x10E9/LSee Below Reference Range: 1.20 - 7.70 Percent differential counts (%) should be interpreted in the context of the absolute cell counts (cells/L). Lymphocyte Count2.30 x10E9/LSee Below Reference Range: 1.20 - 4.80 Monocyte Count0.40 x10E9/LSee Below Reference Range: 0.10 - 1.00 Eosinophil Count0.20 x10E9/LSee Below Reference Range: 0.00 - 0.70 Basophil Count0.10 x10E9/LSee Below Reference Range: 0.00 - 0.10 Comprehensive Metabolic [id number] 08:06AMLidia Gonzalez [Apr 12, 2021 2:43PM Lidia Gonzalez] apt 04/15 Test NameResultFlagReference Glucose, Serum94 mg/dL74 - 99 Sodium, Oevie118 mmol/L136 - 145 POTASSIUM3.9 mmol/L3.5 - 5.3 Chloride, Zxjxu678 mmol/L98 - 107 Bicarbonate, Serum25 mmol/L21 - 32 Anion Gap, Serum10 mmol/L10 - 20 Blood Urea Nitrogen, Serum12 mg/dL6 - 23 CREATININE0.94 mg/dLSee Below Reference Range: 0.50 - 1.05 Calcium, Serum9.4 mg/dL8.6 - 10.3 Albumin, Serum4.4 g/dL3.4 - 5.0 ALKALINE [id number] U/L33 - 110 Protein, Total Serum7.1 g/dL6.4 - 8.2 Bilirubin, Serum Total0.4 mg/dL0.0 - 1.2 ALT (SGPT), Serum17 U/L7 - 45 Patients treated with Sulfasalazine may generate falsely decreased results for ALT. GFR Non >60 mL/min/1.73m2>60 GFR >60 mL/min/1.73m2>60 CALCULATIONS OF ESTIMATED GFR ARE PERFORMED USING THE MDRD STUDY EQUATION FOR THE IDMS-TRACEABLE CREATININE METHODS. CLIN CHEM 2007;53:766-72 AST22 U/L9 - 39 TSH WITH REFLEX TO FREE T4 IF [id number] 08:06Lidia Pappas [Apr 12, 2021 2:43PM Lidia Gonzalez] apt 04/15 Test NameResultFlagReference Thyroid Stimulating Hormone, Serum1.92 mIU/LSee Below Reference Range: 0.44 - 3.98 TSH testing is performed using different testing methodology at [facility] than at other [facility]. Direct result comparisons should only be made within the same method. Lipid [id number] 08:06Lidia Pappas [Apr 12, 2021 2:43PM Lidia Gonzalez] (more content not included)... Normal [facility] CBC AND DIFFERENTIALon 04-12 Basophils (Bld) [#/Vol] 0.10 10*3/uL Normal 0.00 - 0.10 [facility] Comment on above: Performed By: #### C BCDF #### [address] [address] Basophils/100 WBC (Bld) 0.8 % Normal 0.0 - 2.0 [facility] Comment on above: Performed By: #### C BCDF #### [address] [address] Eosinophils (Bld) [#/Vol] 0.20 10*3/uL Normal 0.00 - 0.70 [facility] Comment on above: Performed By: #### C BCDF #### [address] [address] Eosinophils/100 WBC (Bld) 2.6 % Normal 0.0 - 6.0 [facility] Comment on above: Performed By: #### C BCDF #### [address] [address] Erythrocyte distribution width (RBC) [Ratio] 12.4 % Normal 11.5 - 14.5 [facility] Comment on above: Performed By: #### C BCDF #### [address] [address] Hematocrit (Bld) [Volume fraction] 41.9 % Normal 36.0 - 46.0 [facility] Comment on above: Performed By: #### C BCDF #### [address] [address] Hemoglobin (Bld) [Mass/Vol] 13.9 g/dL Normal 12.0 - 16.0 [facility] Comment on above: Performed By: #### C BCDF #### [address] [address] Lymphocytes (Bld) [#/Vol] 2.30 10*3/uL Normal 1.20 - 4.80 [facility] Comment on above: Performed By: #### C BCDF #### [address] [address] Lymphocytes/100 WBC (Bld) 38.7 % Normal 13.0 - 44.0 [facility] Comment on above: Performed By: #### C BCDF #### [address] [address] MCHC (RBC) [Mass/Vol] 33.3 g/dL Normal 32.0 - 36.0 [facility] Comment on above: Performed By: #### C BCDF #### [address] [address] MCV (RBC) [Entitic vol] 91 fL Normal 80 - 100 [facility] Comment on above: Performed By: #### C BCDF #### [address] [address] Monocytes (Bld) [#/Vol] 0.40 10*3/uL Normal 0.10 - 1.00 [facility] Comment on above: Performed By: #### C BCDF #### [address] [address] Monocytes/100 WBC (Bld) 7.2 % Normal 2.0 - 10.0 [facility] Comment on above: Performed By: #### C BCDF #### [address] [address] Neutrophils (Bld) [#/Vol] 3.10 10*3/uL Normal 1.20 - 7.70 [facility] Comment on above: Result Comment: Perc ent differential counts (%) should be interpreted in the context of the absolute cell counts (cells/L). Performed By: #### C BCDF #### [address] [address] Neutrophils/100 WBC (Bld) 50.7 % Normal 40.0 - 80.0 [facility] Comment on above: Performed By: #### C BCDF #### [address] [address] Platelets (Bld) [#/Vol] 271 10*3/uL Normal 150 - 450 [facility] Comment on above: Performed By: #### C BCDF #### [address] [address] RBC 4.62 x10E12/L Normal 4.00 - 5.20 [facility] Comment on above: Performed By: #### C BCDF #### [address] [address] WBC (Bld) [#/Vol] 6.1 10*3/uL Normal 4.4 - 11.3 [facility] Comment on above: Performed By: #### C BCDF #### [address] [address] COMPREHENSIVE PANELon 2020 Albumin [Mass/Vol] 4.4 g/dL Normal 3.4 - 5.0 [facility] Comment on above: Performed By: #### C MP #### [address] [address] ALP [Catalytic activity/Vol] 54 U/L Normal 33 - 110 [facility] Comment on above: Performed By: #### C MP #### [address] [address] ALT [Catalytic activity/Vol] 17 U/L Normal 7 - 45 [facility] Comment on above: Result Comment: Saranya ents treated with Sulfasalazine may generate falsely decreased results for ALT. Performed By: #### C MP #### [place] [id number] Anion gap [Moles/Vol] 10 mmol/L Normal 10 - 20 [facility] Comment on above: Performed By: #### C MP #### [place] [address] AST [Catalytic activity/Vol] 22 U/L Normal 9 - 39 [facility] Comment on above: Performed By: #### C MP #### [place] [id number] Bilirubin [Mass/Vol] 0.4 mg/dL Normal 0.0 - 1.2 [facility] Comment on above: Performed By: #### C MP #### [place] [id number] Calcium [Mass/Vol] 9.4 mg/dL Normal 8.6 - 10.3 [facility] Comment on above: Performed By: #### C MP #### [place] [id number] Chloride [Moles/Vol] 107 mmol/L Normal 98 - 107 [facility] Comment on above: Performed By: #### C MP #### [address] [address] Creatinine [Mass/Vol] 0.94 mg/dL Normal 0.50 - 1.05 [facility] Comment on above: Performed By: #### C MP #### [place] [id number] GFR- AM. >60 Normal >60 [facility] Comment on above: Result Comment: CALC ULATIONS OF ESTIMATED GFR ARE PERFORMED USING THE MDRD STUDY EQUATION FOR THE IDMS-TRACEABLE CREATININE METHODS. CLIN CHEM 2007;53:766-72 Performed By: #### C MP #### [address] [address] GFR-NON AM. >60 Normal >60 [facility] Comment on above: Performed By: #### C MP #### [address] [address] Glucose [Mass/Vol] 94 mg/dL Normal 74 - 99 [facility] Comment on above: Performed By: #### C MP #### [address] [address] HCO3 (Bld) [Moles/Vol] 25 mmol/L Normal 21 - 32 [facility] Comment on above: Performed By: #### C MP #### [address] [address] Potassium [Moles/Vol] 3.9 mmol/L Normal 3.5 - 5.3 [facility] Comment on above: Performed By: #### C MP #### [address] [address] Protein [Mass/Vol] 7.1 g/dL Normal 6.4 - 8.2 [facility] Comment on above: Performed By: #### C MP #### [address] [address] Sodium [Moles/Vol] 138 mmol/L Normal 136 - 145 [facility] Comment on above: Performed By: #### C MP #### [address] [address] Urea nitrogen [Mass/Vol] 12 mg/dL Normal 6 - 23 [facility] Comment on above: Performed By: #### C MP #### [address] [address] LIPID PANEL (CORONARY RISK 2 )on 04-12-2021 Cholesterol [Mass/Vol] 139 mg/dL Normal 0 - 199 [facility] Comment on above: Result Comment: . AGE DESIRABLE BORDERLINE HIGH HIGH 0-19 Y 0 - 169 170 - 199 >/= 200 20-24 Y 0 - 189 190 - 224 >/= 225 >24 Y 0 - 199 200 - 239 >/= 240 All ranges are based on fasting samples. Specific therapeutic targets will vary based on patient-specific cardiac risk. . Pediatric guidelines reference:Pediatrics 2011, 128(S5). Adult guidelines reference: NCEP ATPIII Guidelines, JOHANNA 2001, 258:2486-97 . Venipuncture immediately after or during the administration of Metamizole may lead to falsely low results. Testing should be performed immediately prior to Metamizole dosing. Performed By: #### L IPID #### [address] [address] Cholesterol in HDL [Mass/Vol] 32.0 mg/dL Abnormal [facility] Comment on above: Result Comment: . AGE VERY LOW LOW NORMAL HIGH 0-19 Y < 35 < 40 40-45 ---- 20-24 Y ---- < 40 >45 ---- >24 Y ---- < 40 40-60 >60 . Performed By: #### L IPID #### [address] [address] Cholesterol in LDL [Mass/Vol] 78 mg/dL Normal 0 - 119 [facility] Comment on above: Result Comment: . NEAR BORD AGE DESIRABLE OPTIMAL HIGH HIGH VERY HIGH 0-19 Y 0 - 109 --- 110-129 >/= 130 ---- 20-24 Y 0 - 119 --- 120-159 >/= 160 ---- >24 Y 0 - 99 100-129 130-159 160-189 >/=190 . Performed By: #### L IPID #### [address] [address] Cholesterol in VLDL [Mass/Vol] 29 mg/dL Normal 0 - 40 [facility] Comment on above: Performed By: #### L IPID #### [address] [address] Cholesterol.total/Chol esterol in HDL [Mass ratio] 4.3 {ratio} Normal [facility] Comment on above: Result Comment: REF VALUES DESIRABLE < 3.4 HIGH RISK > 5.0 Performed By: #### L IPID #### [address] [address] NON-HDL CHOLESTEROL 107 mg/dL Normal 0 - 149 [facility] Comment on above: Result Comment: AGE DESIRABLE BORDERLINE HIGH HIGH VERY HIGH 0-19 Y 0 - 119 120 - 144 >/= 145 >/= 160 20-24 Y 0 - 149 150 - 189 >/= 190 ---- >24 Y 30 MG/DL ABOVE LDL CHOLESTEROL GOAL . Performed By: #### L IPID #### [address] [address] Triglyceride [Mass/Vol] 144 mg/dL Normal 0 - 149 [facility] Comment on above: Result Comment: . AGE DESIRABLE BORDERLINE HIGH HIGH VERY HIGH 0 D-90 D 19 - 174 ---- ---- ---- 91 D- 9 Y 0 - 74 75 - 99 >/= 100 ---- 10-19 Y 0 - 89 90 - 129 >/= 130 ---- 20-24 Y 0 - 114 115 - 149 >/= 150 ---- >24 Y 0 - 149 150 - 199 200- 499 >/= 500 . Venipuncture immediately after or during the administration of Metamizole may lead to falsely low results. Testing should be performed immediately prior to Metamizole dosing. Performed By: #### L IPID #### [address] [address] TSH WITH REFLEX TO FREE T4 I F ABNORMALon 04-12-2021 TSH Qn 1.92 m[IU]/L Normal 0.44 - 3.98 [facility] Comment on above: Result Comment: TSH testing is performed using different testing methodology at [facility] than at other [facility]. Direct result comparisons should only be made within the same method. Performed By: #### T HYDS #### [address] [address] IO HCG, Urine Test on 04-07-2021 HCG ( test) Ql (U) Negative [facility] Work Phone: LMPon 04-07-2021 Last menstrual period start date 04Apr2021 [facility] Work Phone: GLOVE EXAMINER - Procedure Visiton 0 04-07-2021 GLOVE EXAMINER - Procedure Visit Diagnoses/Problems Contraceptive management (V25.9) (Z30.9) Encounter for Nexplanon removal (V25.43) (Z30.46) Orders Contraceptive management Administered: Depo-Provera 150 MG/ML Intramuscular Suspension Prefilled Syringe (MedroxyPROGESTERone Acetate) Encounter for Nexplanon removal Follow-up PRN Outpatient Follow-up Status: Active Requested for: 07Apr2021 Negative test IO HCG, Urine Test; Status:Resulted - Requires Verification; Done: 07Apr2021 11:06AM PMH: History of Papanicolaou smear Stop: Nexplanon 68 MG Subcutaneous Implant Provider Impressions 1) encounter for Nexplanon removal-Nexplanon removed as noted above. Patient tolerated procedure well. Precautions reviewed return 2) contraceptive management-patient desired Depo. Given today. No backup needed. All questions answered. Chief Complaint Patient presents today for nexplanon removal and states she would like to discuss the depo shot. Patient has no questions or concerns at this time. LMP 04/04/2021 History of Present Bgfmpgq62-pgob-rwy presents for Nexplanon removal related some irregular spotting. Patient notes she was on the Depo in the past and did really well with it but family-planning did not want to continue it. Patient like to be switched to Depo-Provera. Patient is no other acute concerns Review of Systems Constitutional: No fevers, chills Eye:no vision changes Respiratory: no SOB Cardiovascular: no chest pain Gastrointestinal: No nausea, vomiting, diarrhea, constipation, abdominal pain Genitourinary:no dysuria Gynecology: See HPI Active Problems Problems Frequent headaches (784.0) (R51.9) GERD (gastroesophageal reflux disease) (530.81) (K21.9) Nausea in adult (787.02) (R11.0) Screen for STD (sexually transmitted disease) (V74.5) (Z11.3) Screening for breast cancer (V76.10) (Z12.39) Screening for cervical cancer (V76.2) (Z12.4) Women's annual routine gynecological examination (V72.31) (Z01.419) Past Medical History Problems History of migraine (V12.49) (Z86.69) History of Papanicolaou smear (V45.89) (Z98.890) 02/24/2021-ASC-US HPV - 2019 per patient History of Menstruation 12 Surgical History Problems History of Foot surgery Family History Grandparent Family history of lung cancer (V16.1) (Z80.1) Family history of pancreatic cancer (V16.0) (Z80.0) Grandfather Family history of malignant neoplasm (V16.9) (Z80.9) Social History Problems Caffeine use (V49.89) (Z78.9) Never smoker No alcohol use No illicit drug use Sexually active Allergies NonMedication Dairy Recorded By: Zeinab Paris; 03/16/2021 10:55:40 AM Current Meds Medication NameInstruction Famotidine 40 MG Oral TabletTAKE 1 TABLET AT BEDTIME. Nexplanon 68 MG Subcutaneous Implant Vitals Vital Signs Recorded: 07Apr2021 10:35AM Qmteglsqsmc88 F Syrtkxlw022 Sgjhxhtco06 Height5 ft 2 in Nppeqo202 lb 6.13 oz BMI Cardmqfjow67.9 kg/m2 BSA Calculated1.8 [id number] Physical Exam General: None acute distress Eye: Intraocular movements are intact HEENT: Normocephalic Cardiovascular: Regular rate Respiratory: Respirations are nonlabored Gastrointestinal: Nondistended Musculoskeletal: Normal range of motion Neurologic: Alert and oriented x3 Psychiatric: Cooperative appropriate mood and affect. Results/Data IO HCG, Urine [id number] 11:06Lesvia Suh MEDLINE HCG LOT [id number] EXP 2022-08-22 Test NameResultFlagReference IO Urine hCGNegative Procedure Nexplanon Insertion and Removal Procedure: Nexplanon Removal. Risks, benefits and alternatives were discussed with the patient. We discussed possible complications and risks, including infection, bleeding, pain, tingling, failure, migration of implant, increased risk of ectopic should occur and inability to remove implant. Written consent was obtained prior to the procedure and is detailed in the patient's record. a test was performed . the test was confirmed negative. Procedure Note: 1 ml of 1% lidocaine was injected just under the skin. The skin was prepped with betadine. the implant was located by palpation and a 2-3 mm incision was made in the longitudinal direction of the arm at the tip of the implant closest to the elbow. The implant was then grasped and removed with forceps. Dressing applied. Patient Status: the patient tolerated the procedure well. Complications: there were no complications. Signatures Electronically signed by : Lesvia Mercer DO; Apr 07 2021 11:20AM EST (Author) Normal [facility] Office Visit (Family Alden macdonald)on 03-16-2021 Follow-up visit Diagnoses/Problems GERD (gastroesophageal reflux disease) (530.81) (K21.9) Nausea in adult (787.02) (R11.0) Frequent headaches (784.0) (R51.9) Orders Frequent headaches, GERD (gastroesophageal reflux disease), Nausea in adult Complete Blood Count + Differential; Status:Active; Requested for:[id number]; Comprehensive Metabolic Panel; Status:Active; Requested for:66Sxh0784; Lipid Panel; Status:Active; Requested for:75Syf1500; TSH WITH REFLEX TO FREE T4 IF ABNORMAL; Status:Active; Requested for:65Myq9022; GERD (gastroesophageal reflux disease), Nausea in adult Start: Famotidine 40 MG Oral Tablet (Pepcid); TAKE 1 TABLET AT BEDTIME Patient Discussion/Summary Trial of pepcid daily with fup one month, labs prior. Headaches most like eye strain/tension, wear glasses, take breaks, will review at fup as well. Chief Complaint Chief Complaint: ESTEPHANIA SELLERS is here with a chief complaint of HERE TO ESTABLISH CARE; C/O DAILY KLEIN'S OVER THE LAST YEAR; OTC MEDS DO HELP SOME; C/O NAUSEA X 1-2 YRS OFF AND ON; STATES SHE DOES HAVE SOME ACID REFLUX WELL. History of Present Illness New patient presents to establish care. MANAGER COPY care current, has nexplanon. Has a few issues she would like to discuss. Nausea, intermittent for two years, sometimes eating makes it better, sometimes not. No abdominal pain. No weight changes, no vomiting, no change in bowels . Occasional gerd depending on what and when she eats. Headaches, for two years intermittent, most notable when she is sitting at the computer prolonged. Has glasses, had eye exam in last 12 mos. Can rub upper neck and improve symptoms, putting on glasses at computer helps once headache has started. Not worst headache of life, does not BMs, states frequently goes when she sits down to urinate, didn't have urge until she sat down. Reviewed that can be a normal variant, sort of mental conditioning if you will, but can check some labs for thyroid, etc, and she is agreeable. Review of Systems Constitutional: as noted in HPI. ENT: as noted in HPI. Neck: as noted in HPI. Cardiovascular: no chest pain. Respiratory: no cough. Gastrointestinal: as noted in HPI and no abdominal pain. Musculoskeletal: as noted in HPI. Neurological: as noted in HPI. Endocrine: as noted in HPI. Active Problems Screen for STD (sexually transmitted disease) (V74.5) (Z11.3) Screening for breast cancer (V76.10) (Z12.39) Screening for cervical cancer (V76.2) (Z12.4) Women's annual routine gynecological examination (V72.31) (Z01.419) Past Medical History History of migraine (V12.49) (Z86.69) History of Papanicolaou smear (V45.89) (Z98.890) 02/24/2021-ASC-US HPV - 2019 per patient History of Menstruation 12 Surgical History History of Foot surgery Family History Family history of lung cancer (V16.1) (Z80.1) Family history of pancreatic cancer (V16.0) (Z80.0) Family history of malignant neoplasm (V16.9) (Z80.9) Social History Caffeine use (V49.89) (Z78.9) Never smoker No alcohol use No illicit drug use Sexually active Allergies Dairy Recorded By: Zeinab Paris; 03/16/2021 10:55:40 AM Current Meds Medication NameInstructionReason Nexplanon 68 MG Subcutaneous ImplantPMH: History of Papanicolaou smear Vitals Vital Signs Recorded: 16Mar2021 10:58AM Gaidfyzqulr69.4 F Heart Rate80 Dxnsixro557, LUE, Sitting Ghvowezls33, LUE, Sitting Height5 ft 2 in Yhzijn730 lb 6 oz BMI Wlkwkhywdw99.08 kg/m2 BSA Calculated1.81 Tobacco Useb) No Physical Exam Constitutional: Alert and in no acute distress. Well developed, well nourished. Head and Face: Head and face: Normal. Pulmonary: No respiratory distress. Abdomen: Soft nontender; no abdominal mass palpated. Musculoskeletal: Gait and station: Normal. Skin: Normal skin color and pigmentation, normal skin turgor, and no rash. 'Scores and Scales' Signatures Electronically signed by : Lidia Gonzalez MD; Mar 16 2021 12:27PM EST (Author) [facility] 021 Tobacco use status [facility] b) No [facility] [address] [place] Work Phone: Tobacco Screening. b) No [facility] Work Phone: GC + CHLAMYDIA BY AMPLIFIED DETECTIONon 02-25-2021 CHLAMYDIA TRACH.,AMPLIFIED Negative Normal Negative [facility] Comment on above: Performed By: #### [facility] #### [facility] [address] [place] [address] N.GONORRHEA,AMPLIFIED Negative Normal Negative [facility] Comment on above: Performed By: #### G [facility] #### [facility] [address] [place] [address] GC + CHLAMYDIA BY AMPLIFIED DETECTIONon 02-24-2021 Lab Specimen Source Urine Normal [facility] Comment on above: Performed By: #### G [facility] #### [facility] [address] [place] [address] GC + Chlamydia By Amplified Detectionon 02-24-2021 C. trachomatis rRNA ERICK+probe Ql (Unsp spec) Negative Negative [facility] Work Phone: N. gonorrhoeae rRNA ERICK+probe Ql (Unsp spec) Negative Negative [facility] Work Phone: Comment on above: SOURCE: Urine LMPon 02-24-2021 Last menstrual period start date 12Feb2021 [facility] Work Phone: Laboratory - Cytologyon Cytology report Cyto stain.thin prep Doc (Cvx/Vag) [facility] Work Phone: GLOVE EXAMINER - Office Visiton 05-0 GLOVE EXAMINER - Office Visit Diagnoses/Problems Assessed Women's annual routine gynecological examination (V72.31) (Z01.419) Screening for cervical cancer (V76.2) (Z12.4) Screening for breast cancer (V76.10) (Z12.39) Orders GC + Chlamydia By Amplified Detection; Status:In Progress - Specimen/Data Collected; Done: 24Feb2021 PAP MANAGER COPY, Cytology; Status:In Progress - Specimen/Data Collected; Done: 24Feb2021 Last Menstrual Period (LMP): : 02/12/2021 PAP - Site : CERVICAL Cytology Order : ThinPrep PAP, Screening, HPV Reflex - Include Genotyping Tobacco Use Screening; Status:Complete; Done: 24Feb2021 Follow-up visit in 12 months Outpatient Follow-up Status: Hold For - Scheduling Requested for: 24Feb2021 Provider Impressions 1) annual Exam-Cervical,colon and breast cancer screening guidelines reviewed. Colon cancer screening is up to date. Pap obtained today. Reviewed HPV vaccine and guidelines, pt already had. Discussed safe sex practices. Discussed diet and exercise. Reviewed fertility goals. switching to maybe iud in future,. Kids in 5years?. Reviewed hereditary cancer screening. Discussed that patient is not at increased risk. All questions answered. Chief Complaint Patient is here for her yearly exam and pap test as a new patient. LMP- 02/12/2021. Patient does do self breast exams and has concerns about migraines with her nexplanon. Patient stated that she would like nexplanon out and put on another contraceptive management. last pap was in 2018 per patient. History of Present Zzdhwuy17-ktya-rla G0 presents for annual exam discuss control. Patient is a long history of being on multiple controls including pills for a month the Depo shot for a few years and Nexplanon for multiple bars. Patient like to get off this and switch to something else. Patient has history of migraines with auras, namely facial weakness loss of vision on the left side. Patient working on physical activity. Patient safe at home. Patient sexually active with condoms. Patient would like STD screening. Patient got HPV vaccine. Patient does rare self breast exams Review of Systems Constitutional: No fevers, chills Eye:no vision changes Respiratory: no SOB Cardiovascular: no chest pain Breast: No lump/mass or discharge Gastrointestinal: No nausea, vomiting, diarrhea, constipation, abdominal pain Genitourinary:no dysuria Gynecology: See HPI Endocrine: No heat or cold intolerance Musculoskeletal: No decreased ROM Skin:No rash Neurologic: No numbness tingling Psychiatric: anxiety All other: all other systems reviewed and negative for complaint Active Problems Problems Screening for cervical cancer (V76.2) (Z12.4) Past Medical History Problems History of migraine (V12.49) (Z86.69) History of Papanicolaou smear (V45.89) (Z98.890) 2019 per patient History of Menstruation 12 Surgical History Problems History of Foot surgery Family History Grandfather Family history of malignant neoplasm (V16.9) (Z80.9) Social History Problems Never smoker No alcohol use No illicit drug use Sexually active Current Meds Medication NameInstruction Nexplanon 68 MG Subcutaneous Implant Vitals Vital Signs Recorded: 24Feb2021 11:17AM Mydbhtmgapv12.3 F Bngczfls321 Nwltcyvwa68 Height5 ft 2 in Oithbf075 lb 8.02 oz BMI Bktglcmggr30.73 BSA Calculated1.8 [id number] Physical Exam General: None acute distress Eye: Intraocular movements are intact HEENT: Normocephalic Cardiovascular: Regular rate rhythm Respiratory: Lungs are clear to auscultation, respirations are nonlabored Gastrointestinal: Soft nontender nondistended normal bowel sounds Gynecology: External genitalia within normal limits for age. Urethral meatus normal bladder nontender. Vagina without discharge. No vaginal bleeding. Small nulliparous cervix. No lesions. No CMT. Uterus mobile midline nontender. No levator ani tenderness. No adnexal tenderness. No adnexal masses Musculoskeletal: Normal range of motion Skin: Warm and dry Neurologic: Alert and oriented x3 Psychiatric: Cooperative appropriate mood and affect. Signatures Electronically signed by : Lesvia Mercer DO; Feb 24 2021 12:56PM EST (Author) Normal [facility] C Urineon 04-14-2018 C Urine Final Report: Rare N ormal skin aftab isolated Normal [facility] Comment on above: Performed By: #### 2 [id number] ####[facility] [address] [address] Culture, urine Bacteria identified Cx Nom (U) Culture exhibits no growth. [facility] Work Phone: Vital Signs Date Time Vital Sign Value Performing Clinician Jac donald 04-10-2025 15:23-0400 Body height 157.[address] Lidia Gonzalez MD Work Phone: 7(977)419-250610 [place] [address] 04-10-2025 15:23-0400 Body mass index (BMI) [Ratio] 37 kg/m2 Dr. Lidia Gonzalez MD Work Phone: 3(865)258-552695 [place] [address] 04-10-2025 15:23-0400 Body weight 91.[address] Lidia Gonzalez MD Work Phone: 0(414)250-175695 [place] [address] 04-10-2025 15:23-0400 Diastolic blood pressure 82 mm[Hg] Dr. Lidia Gonzalez MD Work Phone: 6(781)694-039195 [place] [address] 04-10-2025 15:23-0400 Systolic blood pressure 125 mm[Hg] Dr. Lidia Gonzalez MD Work Phone: 2(299)638-637495 [place] [address] 03-12-2025 15:33-0400 Body height 157.[address] Lidia Gonzalez MD Work Phone: 4(231)941-269895 [place] [address] 03-12-2025 15:33-0400 Body mass index (BMI) [Ratio] 37.3 kg/m2 Dr. Lidia Gonzalez MD Work Phone: 4(540)197-163395 [place] [address] 03-12-2025 15:33-0400 Body weight 92.[address] Lidia Gonzalez MD Work Phone: 7(291)633-619395 [place] [address] 03-12-2025 15:33-0400 Diastolic blood pressure 77 mm[Hg] Dr. Lidia Gonzalez MD Work Phone: 7(610)560-405095 [place] [address] 03-12-2025 15:33-0400 Systolic blood pressure 118 mm[Hg] Dr. Lidia Gonzalez MD Work Phone: 0(825)308-826195 [place] [address] 02-26-2025 13:15-0400 Body temperature 97.6 [degF] Dr. Lidia Gonzalez MD Work Phone: 0(376)686-360295 [place] [address] 02-26-2025 13:15-0400 Diastolic blood pressure 72 mm[Hg] Dr. Lidia Gonzalez MD Work Phone: 6(353)454-636410 [place] [address] 02-26-2025 13:15-0400 Heart rate 107 /min Dr. Lidia Gonzalez MD Work Phone: 3(425)551-384710 [place] [address] 02-26-2025 13:15-0400 Respiratory rate 16 /min Dr. Lidia Gonzalez MD Work Phone: 9(422)958-445995 [place] [address] 02-26-2025 13:15-0400 SaO2% (BldA) [Mass fraction] 96 % Dr. Lidia Gonzalez MD Work Phone: 0(070)560-226210 [place] [address] 02-26-2025 13:15-0400 Systolic blood pressure 119 mm[Hg] Dr. Lidia Gonzalez MD Work Phone: 3(306)283-328495 [place] [address] 02-25-2025 04:25-0400 Body height 157.[address] Lidia Gonzalez MD Work Phone: 4(798)881-155495 [place] [address] 02-25-2025 04:25-0400 Body mass index (BMI) [Ratio] 40.4 kg/m2 Dr. Lidia Gonzalez MD Work Phone: 3(803)981-934695 [place] [address] 02-25-2025 04:25-0400 Body weight 100.[address] Lidia Gonzalez MD Work Phone: 0(368)358-937495 [place] [address] 02-20-2025 13:12-0400 Body mass index (BMI) [Ratio] 36.8 kg/m2 Dr. Lidia Gonzalez MD Work Phone: 7(743)795-256110 [place] [address] 02-20-2025 13:12-0400 Body weight 100.[address] Lidia Gonzalez MD Work Phone: 5(352)685-925295 [place] [address] 02-20-2025 13:12-0400 Diastolic blood pressure 86 mm[Hg] Dr. Lidia Gonzalez MD Work Phone: 7(852)162-290510 [place] [address] 02-20-2025 13:12-0400 Systolic blood pressure 118 mm[Hg] Dr. Lidia Gonzalez MD Work Phone: 5(601)232-474695 [place] [address] 02-11-2025 09:15-0400 Body mass index (BMI) [Ratio] 36.6 kg/m2 Dr. Lidia Gonzalez MD Work Phone: 1(665)770-524495 [place] [address] 02-11-2025 09:15-0400 Body weight 99.[address] Lidia Gonzalez MD Work Phone: 8(722)789-007295 [place] [address] 02-11-2025 09:15-0400 Diastolic blood pressure 85 mm[Hg] Dr. Lidia Gonzalez MD Work Phone: 6(910)371-422795 [place] [address] 02-11-2025 09:15-0400 Systolic blood pressure 116 mm[Hg] Dr. Lidia Gonzalez MD Work Phone: 9(587)404-097295 [place] [address] 02-06-2025 09:51-0400 Body mass index (BMI) [Ratio] 36.8 kg/m2 Dr. Lidia Gonzalez MD Work Phone: 4(759)492-902095 [place] [address] 02-06-2025 09:51-0400 Body weight 100.[address] Lidia Gonzalez MD Work Phone: 6(160)142-502295 [place] [address] 02-06-2025 09:51-0400 Diastolic blood pressure 84 mm[Hg] Dr. Lidia Gonzalez MD Work Phone: 8(999)015-324295 [place] [address] 02-06-2025 09:51-0400 Systolic blood pressure 132 mm[Hg] Dr. Lidia Gonzalez MD Work Phone: 4(643)980-970495 [place] [address] 01-28-2025 09:06-0400 Body height 165.[address] Lidia Gonzalez MD Work Phone: 2(735)362-102895 [place] [address] 01-28-2025 09:06-0400 Body mass index (BMI) [Ratio] 36.5 kg/m2 Dr. Lidia Gonzalez MD Work Phone: 6(549)911-121495 [place] [address] 01-28-2025 09:06-0400 Body weight 99.[address] Lidia Gonzalez MD Work Phone: 9(864)596-084295 [place] [address] 01-28-2025 09:06-0400 Diastolic blood pressure 84 mm[Hg] Dr. Lidia Gonzalez MD Work Phone: 8(406)478-233395 [place] [address] 01-28-2025 09:06-0400 Systolic blood pressure 132 mm[Hg] Dr. Lidia Gonzalez MD Work Phone: 0(841)775-981610 [place] [address] 01-17-2025 10:12-0400 Body mass index (BMI) [Ratio] 35.9 kg/m2 Dr. Lidia Gonzalez MD Work Phone: 2(299)553-302195 [place] [address] 01-17-2025 10:12-0400 Body weight 97.[address] Lidia Gonzalez MD Work Phone: 6(796)572-783795 [place] [address] 01-17-2025 10:12-0400 Diastolic blood pressure 80 mm[Hg] Dr. Lidia Gonzalez MD Work Phone: 5(539)913-940795 [place] [address] 01-17-2025 10:12-0400 Systolic blood pressure 120 mm[Hg] Dr. Lidia Gonzalez MD Work Phone: 6(182)457-272195 [place] [address] 01-03-2025 09:39-0400 Body mass index (BMI) [Ratio] 35.8 kg/m2 Dr. Lidia Gonzalez MD Work Phone: 4(217)230-170395 [place] [address] 01-03-2025 09:39-0400 Body weight 97.[address] Lidia Gonzalez MD Work Phone: 3(863)054-000995 [place] [address] 01-03-2025 09:39-0400 Diastolic blood pressure 85 mm[Hg] Dr. Lidia Gonzalez MD Work Phone: 9(374)748-023495 [place] [address] 01-03-2025 09:39-0400 Systolic blood pressure 133 mm[Hg] Dr. Lidia Gonzalez MD Work Phone: 5(080)777-695895 [place] [address] 12-26-2024 20:45-0500 Diastolic blood pressure 79 mm[Hg] Dr. Lidia Gonzalez MD Work Phone: 7(323)549-899795 [place] [address] 12-26-2024 20:45-0500 Heart rate 109 /min Dr. Lidia Gonzalez MD Work Phone: 9(415)073-185695 [place] [address] 12-26-2024 20:45-0500 Systolic blood pressure 130 mm[Hg] Dr. Lidia Gonzalez MD Work Phone: 9(637)862-298195 [place] [address] 12-26-2024 20:44-0500 SaO2% (BldA) [Mass fraction] 96 % Dr. Lidia Gonzalez MD Work Phone: 2(798)545-028810 [place] [address] 12-26-2024 20:23-0500 Body height 165.[address] Lidia Gonzalez MD Work Phone: 8(124)981-054210 [place] [address] 12-26-2024 20:23-0500 Body mass index (BMI) [Ratio] 35.3 kg/m2 Dr. Lidia Gonzalez MD Work Phone: 1(874)153-774095 [place] [address] 12-26-2024 20:23-0500 Body weight 96.[address] Lidia Gonzalez MD Work Phone: 6(319)916-399795 [place] [address] 12-19-2024 09:03-0500 Body mass index (BMI) [Ratio] 35.5 kg/m2 Dr. Lidia Gonzalez MD Work Phone: 3(606)064-878295 [place] [address] 12-19-2024 09:03-0500 Body weight 96.[address] Lidia Gonzalez MD Work Phone: 4(647)746-796995 [place] [address] 12-19-2024 09:03-0500 Diastolic blood pressure 82 mm[Hg] Dr. Lidia Gonzalez MD Work Phone: 3(310)940-092495 [place] [address] 12-19-2024 09:03-0500 Systolic blood pressure 136 mm[Hg] Dr. Lidia Gonzalez MD Work Phone: 8(045)523-073895 [place] [address] 12-05-2024 09:29-0500 Body mass index (BMI) [Ratio] 34.6 kg/m2 Dr. Lidia Gonzalez MD Work Phone: 7(739)539-335795 [place] [address] 12-05-2024 09:29-0500 Body weight 94.[address] Lidia Gonzalez MD Work Phone: 5(949)673-261595 [place] [address] 12-05-2024 09:29-0500 Diastolic blood pressure 82 mm[Hg] Dr. Lidia Gonzalez MD Work Phone: 7(152)511-068995 [place] [address] 12-05-2024 09:29-0500 Systolic blood pressure 114 mm[Hg] Dr. Lidia Gonzalez MD Work Phone: 7(543)493-303295 [place] [address] 11-08-2024 08:47-0500 Body mass index (BMI) [Ratio] 34.6 kg/m2 Dr. Lidia Gonzalez MD Work Phone: 9(777)398-836910 [place] [address] 11-08-2024 08:47-0500 Body weight 94.[address] Lidia Gonzalez MD Work Phone: 8(687)950-513110 [place] [address] 11-08-2024 08:47-0500 Diastolic blood pressure 81 mm[Hg] Dr. Lidia Gonzalez MD Work Phone: 2(687)605-231595 [place] [address] 11-08-2024 08:47-0500 Systolic blood pressure 131 mm[Hg] Dr. Lidia Gonzalez MD Work Phone: 9(806)244-707895 [place] [address] 10-09-2024 08:30-0500 Body mass index (BMI) [Ratio] 33.6 kg/m2 Dr. Lidia Gonzalez MD Work Phone: 4(270)588-910695 [place] [address] 10-09-2024 08:30-0500 Body weight 91.[address] Lidia Gonzalez MD Work Phone: 2(916)647-039495 [place] [address] 10-09-2024 08:30-0500 Diastolic blood pressure 66 mm[Hg] Dr. Lidia Gonzalez MD Work Phone: 0(159)454-466795 [place] [address] 10-09-2024 08:30-0500 Systolic blood pressure 114 mm[Hg] Dr. Lidia Gonzalez MD Work Phone: 3(987)161-751095 [place] [address] 09-12-2024 10:26-0500 Body mass index (BMI) [Ratio] 33.1 kg/m2 Dr. Lidia Gonzalez MD Work Phone: 6(820)083-387410 [place] [address] 09-12-2024 10:26-0500 Body weight 90.[address] Lidia Gonzalez MD Work Phone: 7(434)436-230610 [place] [address] 09-12-2024 10:26-0500 Diastolic blood pressure 82 mm[Hg] Dr. Lidia Gonzalez MD Work Phone: 3(834)207-135010 [place] [address] 09-12-2024 10:26-0500 Systolic blood pressure 123 mm[Hg] Dr. Lidia Gonzalez MD Work Phone: 6(990)733-050510 [place] [address] 04-07-2023 12:22-0400 Body temperature 97.8 [degF] Dr. Lidia Gonzalez Work Phone: [facility] 04-07-2023 12:22-0400 Diastolic blood pressure 75 mm[Hg] Dr. Lidia Gonzalez Work Phone: [facility] 04-07-2023 12:22-0400 Heart rate 100 /min Dr. Lidia Gonzalez Work Phone: 5(532)959-629210 [place] [address] 04-07-2023 12:22-0400 Respiratory rate 18 /min Dr. Lidia Gonzalez Work Phone: 9(963)905-338510 [place] [address] 04-07-2023 12:22-0400 SaO2% (BldA) [Mass fraction] 97 % Dr. Lidia Gonzalez Work Phone: 0(613)861-554310 [place] [address] 04-07-2023 12:22-0400 Systolic blood pressure 115 mm[Hg] Dr. Lidia Gonzalez Work Phone: 3(731)475-815810 [place] [address] 04-05-2023 05:04-0400 Body height 165.[address] Lidia Gonzalez Work Phone: 3(507)448-108010 [place] [address] 04-05-2023 05:04-0400 Body mass index (BMI) [Ratio] 33.3 kg/m2 Dr. Lidia Gonzalez Work Phone: 8(472)075-087310 [place] [address] 04-05-2023 05:04-0400 Body weight 90.[address] Lidia Gonzalez Work Phone: 0(442)663-901410 [place] [address] 03-31-2023 12:07-0400 Diastolic blood pressure 62 mm[Hg] Dr. Lidia Gonzalez Work Phone: [facility] 03-31-2023 12:07-0400 Heart rate 82 /min Dr. Lidia Gonzalez Work Phone: 3(694)413-087610 [place] [address] 03-31-2023 12:07-0400 Systolic blood pressure 107 mm[Hg] Dr. Lidia Gonzalez Work Phone: 0(159)475-310610 [place] [address] 03-31-2023 11:16-0400 SaO2% (BldA) [Mass fraction] 97 % Dr. Lidia Gonzalez Work Phone: [facility] 03-31-2023 11:08-0400 Body mass index (BMI) [Ratio] 33.3 kg/m2 Dr. Lidia Gonzalez Work Phone: [facility] 03-31-2023 11:08-0400 Body weight [address] Lidia Gonzalez Work Phone: [facility] 03-31-2023 11:06-0400 Body temperature 98.7 [degF] Dr. Lidia Gonzalez Work Phone: [facility] 03-31-2023 10:11-0400 Body mass index (BMI) [Ratio] 33.3 kg/m2 Dr. Lidia Gonzalez Work Phone: [facility] 03-31-2023 10:11-0400 Body weight 90.[address] Lidia Gonzalez Work Phone: [facility] 03-31-2023 10:11-0400 Diastolic blood pressure 85 mm[Hg] Dr. Lidia Gonzalez Work Phone: [facility] 03-31-2023 10:11-0400 Systolic blood pressure 134 mm[Hg] Dr. Lidia Gonzalez Work Phone: [facility] 03-21-2023 08:06-0400 Body height 165.[address] Lidia Gonzalez Work Phone: [facility] 03-21-2023 08:06-0400 Body mass index (BMI) [Ratio] 32.6 kg/m2 Dr. Lidia Gonzalez Work Phone: [facility] 03-21-2023 08:06-0400 Body weight 89.[address] Lidia Gonzalez Work Phone: [facility] 03-21-2023 08:06-0400 Diastolic blood pressure 82 mm[Hg] Dr. Lidia Gonzalez Work Phone: [facility] 03-21-2023 08:06-0400 Systolic blood pressure 124 mm[Hg] Dr. Lidia Gonzalez Work Phone: [facility] 03-15-2023 11:37-0400 Body mass index (BMI) [Ratio] 32.8 kg/m2 Dr. Lidia Gonzalez Work Phone: [facility] 03-15-2023 11:37-0400 Body weight 89.[address] Lidia Gonzalez Work Phone: [facility] 03-15-2023 11:37-0400 Diastolic blood pressure 83 mm[Hg] Dr. Lidia Gonzalez Work Phone: [facility] 03-15-2023 11:37-0400 Systolic blood pressure 122 mm[Hg] Dr. Lidia Gonzalez Work Phone: 8(020)795-209310 [place] [address] 03-09-2023 10:52-0400 Body mass index (BMI) [Ratio] 32.5 kg/m2 Dr. Lidia Gonzalez Work Phone: 8(182)065-378610 [place] [address] 03-09-2023 10:52-0400 Body weight 88.[address] Lidia Gonzalez Work Phone: 6(395)546-724210 [place] [address] 03-09-2023 10:52-0400 Diastolic blood pressure 78 mm[Hg] Dr. Lidia Gonzalez Work Phone: 8(649)240-154010 [place] [address] 03-09-2023 10:52-0400 Systolic blood pressure 128 mm[Hg] Dr. Lidia Gonzalez Work Phone: 8(257)123-391410 [place] [address] 02-23-2023 11:45-0400 Body mass index (BMI) [Ratio] 32.3 kg/m2 Dr. Lidia Gonzalez Work Phone: [facility] 02-23-2023 11:45-0400 Body weight 88.[address] Lidia Gonzalez Work Phone: 0(459)168-388110 [place] [address] 02-23-2023 11:45-0400 Diastolic blood pressure 76 mm[Hg] Dr. Lidia Gonzalez Work Phone: [facility] 02-23-2023 11:45-0400 Systolic blood pressure 125 mm[Hg] Dr. Lidia Gonzalez Work Phone: 4(610)682-283110 [place] [address] 02-08-2023 11:06-0400 Body mass index (BMI) [Ratio] 32.1 kg/m2 Dr. Lidia Gonzalez Work Phone: 3(246)418-464710 [place] [address] 02-08-2023 11:06-0400 Body weight 87.[address] Lidia Gonzalez Work Phone: 1(497)534-446810 [place] [address] 02-08-2023 11:06-0400 Diastolic blood pressure 79 mm[Hg] Dr. Lidia Gonzalez Work Phone: 6(649)327-244895 [place] [address] 02-08-2023 11:06-0400 Systolic blood pressure 124 mm[Hg] Dr. Lidia Gonzalez Work Phone: 7(774)747-997695 [place] [address] 02-02-2023 09:57-0400 Body weight 87.[address] Lidia Gonzalez Work Phone: 2(001)675-155195 [place] [address] 01-24-2023 10:52-0400 Body mass index (BMI) [Ratio] 32.1 kg/m2 Dr. Lidia Gonzalez Work Phone: 5(750)388-125695 [place] [address] 01-24-2023 10:52-0400 Body weight 87.[address] Lidia Gonzalez Work Phone: 0(008)510-731995 [place] [address] 01-24-2023 10:52-0400 Diastolic blood pressure 78 mm[Hg] Dr. Lidia Gonzalez Work Phone: 9(081)985-095095 [place] [address] 01-24-2023 10:52-0400 Systolic blood pressure 128 mm[Hg] Dr. Lidia Gonzalez Work Phone: 6(413)524-867495 [place] [address] 01-19-2023 10:11-0400 Body weight 87.[address] Lidia Gonzalez Work Phone: 6(203)847-519295 [place] [address] 01-12-2023 11:29-0400 Body height 165.[address] Lidia Gonzalez Work Phone: 6(135)668-843495 [place] [address] 01-12-2023 11:29-0400 Body mass index (BMI) [Ratio] 32.3 kg/m2 Dr. Lidia Gonzalez Work Phone: 7(848)646-921810 [place] [address] 01-12-2023 11:29-0400 Body weight 88.[address] Lidia Gonzalez Work Phone: 5(955)726-992210 [place] [address] 01-12-2023 11:29-0400 Diastolic blood pressure 87 mm[Hg] Dr. Lidia Gonzalez Work Phone: 0(345)923-701410 [place] [address] 01-12-2023 11:29-0400 Systolic blood pressure 136 mm[Hg] Dr. Lidia Gonzalez Work Phone: 4(984)408-531610 [place] [address] 12-19-2022 11:38-0500 Body mass index (BMI) [Ratio] 31.4 kg/m2 Dr. Lidia Gonzalez Work Phone: 6(607)794-013795 [place] [address] 12-19-2022 11:38-0500 Body weight 85.[address] Lidia Gonzalez Work Phone: 5(126)165-356395 [place] [address] 12-19-2022 11:38-0500 Diastolic blood pressure 76 mm[Hg] Dr. Lidia Gonzalez Work Phone: 0(360)761-413995 [place] [address] 12-19-2022 11:38-0500 Systolic blood pressure 116 mm[Hg] Dr. Lidia Gonzalez Work Phone: 3(019)718-795395 [place] [address] 11-21-2022 11:34-0500 Body mass index (BMI) [Ratio] 30.2 kg/m2 Dr. Lidia Gonzalez Work Phone: 0(861)546-550795 [place] [address] 11-21-2022 11:34-0500 Body weight 82.[address] Lidia Gonzalez Work Phone: 6(250)324-787610 [place] [address] 11-21-2022 11:34-0500 Diastolic blood pressure 84 mm[Hg] Dr. Lidia Gonzalez Work Phone: 0(606)862-680310 [place] [address] 11-21-2022 11:34-0500 Systolic blood pressure 127 mm[Hg] Dr. Lidia Gonzalez Work Phone: 0(606)439-645395 [place] [address] 10-25-2022 10:56-0500 Body mass index (BMI) [Ratio] 29.9 kg/m2 Dr. Lidia Gonzalez Work Phone: 1(505)378-410310 [place] [address] 01-03-2023 10:56-0500 Body weight 81.[address] Lidia Gonzalez Work Phone: [facility] 10-25-2022 10:56-0500 Diastolic blood pressure 80 mm[Hg] Dr. Lidia Gonzalez Work Phone: [facility] 10-25-2022 10:56-0500 Systolic blood pressure 127 mm[Hg] Dr. Lidia Gonzalez Work Phone: [facility] 09-28-2022 13:09-0500 Body height 165.[address] Lidia Gonzalez Work Phone: [facility] Work Phone: 09-28-2022 13:09-0500 Body mass index (BMI) [Ratio] 29.8 kg/m2 Dr. Lidia Gonzalez Work Phone: [facility] 09-28-2022 13:09-0500 Body weight 81.[address] Lidia Gonzalez Work Phone: [facility] 09-28-2022 13:09-0500 Diastolic blood pressure 82 mm[Hg] Dr. Lidia Gonzalez Work Phone: [facility] 09-28-2022 13:09-0500 Systolic blood pressure 131 mm[Hg] Dr. Lidia Gonzalez Work Phone: [facility] 08-30-2022 13:15-0500 Body height 165.[address] Lidia Gonzalez Work Phone: [facility] Work Phone: 08-30-2022 13:15-0500 Body mass index (BMI) [Ratio] 29.1 kg/m2 Dr. Lidia Gonzalez Work Phone: [facility] Work Phone: 08-30-2022 13:15-0500 Body weight 79.[address] Lidia Gonzalez Work Phone: [facility] Work Phone: 08-30-2022 13:15-0500 Diastolic blood pressure 82 mm[Hg] Dr. Lidia Gonzalez Work Phone: [facility] Work Phone: 08-30-2022 13:15-0500 Systolic blood pressure 112 mm[Hg] Dr. Lidia Gonzalez Work Phone: [facility] Work Phone: 02-14-2022 13:25-0400 Body height 157.48 cm Lidia Gonzalez Work Phone: [facility] Work Phone: 02-14-2022 13:25-0400 Body mass index (BMI) [Ratio] 32.45 kg/m2 Lidia Gonzalez Work Phone: [facility] Work Phone: 02-14-2022 13:25-0400 Body surface area Derived from formula 1.82 m2 Lidia Gonzalez Work Phone: [facility] Work Phone: 02-14-2022 13:25-0400 Body weight 80.49 kg Lidia Gonzalez Work Phone: [facility] Work Phone: 02-14-2022 13:25-0400 Diastolic blood pressure 80 mm[Hg] Lidia Gonzalez Work Phone: [facility] Work Phone: 02-14-2022 13:25-0400 Heart rate 88 /min Lidia Gonzalez Work Phone: [facility] Work Phone: 02-14-2022 13:25-0400 Systolic blood pressure 124 mm[Hg] Lidia Gonzalez Work Phone: [facility] Work Phone: 04-07-2021 10:35-0400 Body height 157.48 cm Lidia Gonzalez Work Phone: [address] Work Phone: 04-07-2021 10:35-0400 Body mass index (BMI) [Ratio] 31.9 kg/m2 Lidia Gonzalez Work Phone: [address] Work Phone: 04-07-2021 10:35-0400 Body surface area Derived from formula 1.8 m2 Lidia Gonzalez Work Phone: [address] Work Phone: 04-07-2021 10:35-0400 Body temperature 98 [degF] Lidia Gonzalez Work Phone: [address] Work Phone: 04-07-2021 10:35-0400 Body weight 79.1 kg Lidia Gonzalez Work Phone: [address] Work Phone: 04-07-2021 10:35-0400 Diastolic blood pressure 84 mm[Hg] Lidia Gonzalez Work Phone: [address] Work Phone: 04-07-2021 10:35-0400 Systolic blood pressure 124 mm[Hg] Lidia Gonzalez Work Phone: [address] Work Phone: 03-16-2021 10:58-0400 Body height 157.48 cm Lidia Gonzalez Work Phone: [facility] Work Phone: 03-16-2021 10:58-0400 Body mass index (BMI) [Ratio] 32.08 kg/m2 Lidia Gonzalez Work Phone: [facility] Work Phone: 03-16-2021 10:58-0400 Body surface area Derived from formula 1.81 m2 Lidia Gonzalez Work Phone: [facility] Work Phone: 03-16-2021 10:58-0400 Body temperature 98.4 [degF] Lidia Gonzalez Work Phone: [facility] Work Phone: 03-16-2021 10:58-0400 Body weight 79.55 kg Lidia Gonzalez Work Phone: [facility] Work Phone: 03-16-2021 10:58-0400 Diastolic blood pressure 78 mm[Hg] Lidia Gonzalez Work Phone: [facility] Work Phone: 03-16-2021 10:58-0400 Heart rate 80 /min Lidia Gonzalez Work Phone: [facility] Work Phone: 03-16-2021 10:58-0400 Systolic blood pressure 120 mm[Hg] Lidia Gonzalez Work Phone: [facility] Work Phone: 02-24-2021 11:17-0400 Body height 157.48 cm Lidia Gonzalez Work Phone: [facility] Work Phone: 02-24-2021 11:17-0400 Body mass index (BMI) [Ratio] 31.73 kg/m2 Lidia Gonzalez Work Phone: [facility] Work Phone: 02-24-2021 11:17-0400 Body surface area Derived from formula 1.8 m2 Lidia Gonzalez Work Phone: [facility] Work Phone: 02-24-2021 11:17-0400 Body temperature 97.3 [degF] Lidia Gonzalez Work Phone: [facility] Work Phone: 02-24-2021 11:17-040 Body weight 78.7 kg Lidia Gonzalez Work Phone: [facility] Work Phone: 02-24-2021 11:17-040 Diastolic blood pressure 74 mm[Hg] Lidia Gonzalez Work Phone: [facility] Work Phone: 02-24-2021 11:040 Systolic blood pressure 122 mm[Hg] Lidia Gonzalez Work Phone: [facility] Work Phone: Encounters Encounter Date Encounter Type Care Provider Facility Start: 04-10-2025 End: 04-10-[address] Lidia Gonzalez MD Work Phone: [facility] Work Phone: Start: 04-10-2025 End: 04-10-[address] Emma Booth DO -[facility] Work Phone: Start: 03-12-2025 End: 03-12-2025 Patient encounter procedure Susanna Moulton CNM -[facility] Work Phone: Start: 03-12-2025 End: 03-12-[address] Lidia Gonzalez MD Work Phone: [facility] Work Phone: Start: 02-26-2025 Non-patient / Non-visit Dr. Vera Boles MD -[facility] Start: 02-25-2025 Non-patient / Non-visit Dr. Emma Booth DO -[facility] Start: 02-25-2025 ambulatory Lidia Gonzalez Facility: [facility] Start: 02-25-2025 End: 02-26-2025 Evaluation and management of inpatient Dr. Emma Booth DO -[facility] Work Phone: Start: 02-20-2025 End: 02-20-[address] Vera Boles MD -[facility] Work Phone: Start: 02-20-2025 End: 02-20-2025 ambulatory Lidia Gonzalez Facility:[facility] Start: 02-11-2025 End: 02-11-[address] Vera Boles MD -[facility] Work Phone: Start: 02-11-2025 End: 02-11-2025 ambulatory Lidia Gonzalez Facility:[facility] Start: 02-06-2025 End: 02-06-[address] Emma Booth DO -[facility] Work Phone: Start: 02-06-2025 End: 02-06-2025 ambulatory Lidia Gonzalez Facility:[facility] Start: 01-30-2025 End: 01-30-[address] Lidia Gonzalez MD Work Phone: [facility] Work Phone: Start: 01-30-2025 End: 01-30-[address] Vera Boles MD -Lab, [facility] Start: 01-30-2025 End: 01-30-2025 ambulatory Lidia Gonzalez Facility:[facility] Start: 01-28-2025 End: 01-28-[address] Lidia Gonzalez MD Work Phone: [facility] Work Phone: Start: 01-28-2025 End: 01-28-[address] Vera Boles MD -Laboratory, Specimen Work Phone: Start: 01-28-2025 End: 01-28-[address] Vera Boles MD -[facility] Work Phone: Start: 01-28-2025 End: 01-28-2025 ambulatory Lidia Gonzalez Facility:[facility] Start: 01-27-2025 End: 01-28-[address] Lidia Gonzalez MD Work Phone: [facility] Work Phone: Start: 01-27-2025 End: 01-27-[address] Emma Booth DO -[facility] Work Phone: Start: 01-27-2025 End: 01-27-2025 ambulatory Emma Booth Facility:[facility] Start: 01-17-2025 End: 01-17-[address] Emma Booth DO -[facility] Work Phone: Start: 01-17-2025 End: 01-17-2025 ambulatory Lidia Gonzalez Facility:[facility] Start: 01-03-2025 End: 01-03-[address] Vera Boles MD -[facility] Work Phone: Start: 01-03-2025 End: 01-03-2025 ambulatory Lidia Gonzalez Facility:[facility] Start: 12-26-2024 ambulatory Vera [facility] lity:[facility] Start: 12-26-2024 Non-patient / Non-visit Dr. Vera Boles MD -[facility] Start: 12-26-2024 End: 12-26-[address] Lidia Gonzalez MD Work Phone: [facility] Work Phone: Start: 12-26-2024 End: 12-26-[address] [facility] Work Phone: Start: 12-19-2024 End: 12-19-[address] Emma Booth DO -[facility] Work Phone: Start: 12-19-2024 End: 12-19-2024 ambulatory Lidia Gonzalez Facility:[facility] Start: 12-05-2024 End: 12-05-2024 ambulatory Lidia Gonzalez Facility:[facility] Start: 12-05-2024 End: 12-05-2024 Patient encounter procedure Radha SALDIVAR -[facility] Work Phone: Start: 12-05-2024 End: 12-05-2024 ambulatory Emma Booth Facility:[facility] Start: 11-08-2024 End: 11-08-[address] Emma Booth DO -[facility] Work Phone: Start: 11-08-2024 End: 11-08-2024 ambulatory Lidia Gonzalez Facility:[facility] Start: 10-09-2024 End: 10-09-[address] Vera Boles MD -[facility] Work Phone: Start: 10-09-2024 End: 10-09-2024 ambulatory Lidia Gonzalez Facility:[facility] Start: 10-03-2024 End: 10-03-2024 ambulatory LIDIA GONZALEZ [facility] Start: 09-12-2024 End: 09-12-2024 Patient encounter procedure Susanna Moulton CNM -[facility] Work Phone: Start: 09-12-2024 End: 09-12-2024 ambulatory Lidia Gonzalez Facility:[facility] Start: 08-15-2024 End: 08-15-2024 ambulatory Lidia Gonzalez Facility:[facility] Start: 07-15-2024 End: 07-15-2024 ambulatory Lidia Gonzalez Facility:[facility] Start: 07-15-2024 End: 07-15-2024 ambulatory Lidia Gonzalez Facility:[facility] Start: 05-22-2024 End: 05-22-2024 ambulatory Lidia Gonzalez Facility:[facility] Start: 04-07-2023 Non-patient / Non-visit Dr. Lidia Gonzalez Work Phone: [facility] Start: 04-06-2023 Non-patient / Non-visit Dr. Lidia Gonzalez Work Phone: [facility] Start: 04-05-2023 Non-patient / Non-visit Dr. Lidia Gonzalez Work Phone: [facility] Start: 04-05-2023 End: 04-07-2023 Evaluation and management of inpatient Dr. Lidia Gonzalez Work Phone: [facility] Start: 03-31-2023 Non-patient / Non-visit Dr. Lidia Gonzalez Work Phone: [facility] Start: 03-31-2023 End: 03-31-[address] [facility] Start: 03-28-2023 End: 03-28-[address] Lidia Gonzalez Work Phone: [facility] Start: 03-21-2023 End: 03-21-[address] Lidia Gonzalez Work Phone: [facility] Start: 03-15-2023 End: 03-15-[address] Lidia Gonzalez Work Phone: [facility] Start: 03-15-2023 End: 03-15-[address] Lidia Gonzalez Work Phone: [facility] Work Phone: Start: 03-15-2023 End: 03-15-[address] Lidia Gonzalez Work Phone: [facility] Start: 03-09-2023 End: 03-09-[address] Lidia Gonzalez Work Phone: [facility] Start: 02-23-2023 End: 02-23-[address] Lidia Gonzalez Work Phone: [facility] Start: 02-08-2023 End: 02-08-[address] Lidia Gonzalez Work Phone: [facility] Start: 02-02-2023 End: 02-19-[address] Lidia Gonzalez [facility] Start: 01-24-2023 End: 01-24-[address] Lidia Gonzalez Work Phone: [facility] Start: 01-19-2023 End: 01-20-[address] Lidia Gonzalez Work Phone: [facility] Work Phone: Start: 01-19-2023 End: 01-20-[address] [facility]: [facility] [facility] Start: 01-17-2023 End: 01-17-[address] Lidia Gonzalez Work Phone: [facility] Work Phone: Start: 01-17-2023 End: 01-17-[address] L[facility] Gonzalez [facility] Start: 01-12-2023 End: 01-12-[address] Lidia Gonzalez Work Phone: [facility] Start: 01-12-2023 End: 01-12-[address] Lidia Gonzalez Work Phone: [facility] Work Phone: Start: 01-12-2023 End: 01-12-[address] Lidia Gonzalez Work Phone: [facility] Start: 12-19-2022 End: 12-19-[address] Lidia Gonzalez Work Phone: [facility] Start: 11-21-2022 End: 11-21-[address] Lidia Gonzalez Work Phone: [facility] Start: 10-25-2022 End: 10-25-[address] Lidia Gonzalez Work Phone: [facility] Start: 09-28-2022 End: 09-28-[address] Lidia Gonzalez Work Phone: [facility] Work Phone: Start: 09-28-2022 End: 09-28-[address] Lidia Gonzalez Work Phone: [facility] Start: 08-30-2022 End: 08-30-[address] Lidia Gonzalez Work Phone: [facility] Work Phone: Start: 08-30-2022 End: 08-30-[address] Lidia Gonzalez Work Phone: [facility] Start: 08-30-2022 End: 08-30-[address] Lidia Gonzalez Work Phone: [facility] Start: 02-17-2022 Chart Update Lidia Gonzalez Work Phone: [facility] Work Phone: Start: 02-14-2022 Office outpatient visit 15 minutes Lidia Gonzalez Work Phone: [facility] Work Phone: Start: 09-24-2021 Patient encounter procedure Lidia Gonzalez Work Phone: [address] Work Phone: Start: 07-02-2021 Patient encounter procedure Lidia Gonzalez Work Phone: [place] [address] [employer] Work Phone: Start: 04-07-2021 Patient encounter procedure Lidia Gonzalez Work Phone: [place] [address] [employer] Work Phone: Start: 03-16-2021 Office outpatient ne w 45 minutes Lidia Gonzalez Work Phone: [facility] Work Phone: Start: 04-12-2018 End: 04-13-2018 Ambulatory [place] Canales Facility:[facility] Patient encounter procedure Lidia Gonzalez Work Phone: [facility] Work Phone: Procedures Date Procedure Procedure Detail Performing Clinician Start: 02-25-2025 Serologic test for syphilis Dr. Lidia Gonzalez MD Work Phone: Start: 01-28-2025 Beta-hemolytic Streptococcus culture Dr. Lidia Gonzalez MD Work Phone: Start: 01-27-2025 Ultrasound scan for growth Dr. Lidia Gonzalez MD Work Phone: Start: 12-26-2024 Urnls dip stick/tabl et reagent auto microscopy Dr. Lidia Gonzalez MD Work Phone: Start: 12-26-[address] Lidia Gonzalez MD Work Phone: Start: 03-28-2023 Ultrasound scan for growth Dr. Lidia Gonzalez Work Phone: Start: 03-15-2023 Ultrasound scan for growth Dr. Lidia Gonzalez Work Phone: Group B Streptococcu s Culture Dr. Lidia Gonzalez Work Phone: H/O: section Status pos t section Dr. Lidia Gonzalez Work Phone: H/O: section Previous c esarean section Dr. Lidia Gonzalez MD Work Phone: Comment on above: desires . desires . RLTCS scheduled for 5 with JV @ 7:15 H/O: section Previous c esarean section Susanna Moulton CNM H/O: section Previous c esarean section Dr. Vera Boles MD H/O: section Previous c esarean section Dr. Emma Booth DO H/O: section Previous c esarean section Radha SALDIVAR H/O: section Previous c esarean section Dr. Emma Booth DO H/O: section Previous c esarean section Dr. Vera Boles MD H/O: section Previous c esarean section Dr. Emma Booth DO H/O: section Previous c esarean section Dr. Vera Boles MD H/O: section Status pos t section Dr. Lidia Gonzalez MD Work Phone: H/O: section Previous c esarean section Dr. Emma Booth DO H/O: section Previous c esarean section Dr. Vera Boles MD H/O: section Previous c esarean section Dr. Vera Boles MD H/O: section Previous c esarean section Dr. Emma Booth DO H/O: section Status pos t section Susanna Moulton CNM Operative procedure on foot Lidia Gonzalez Work Phone: Urine culture Dr. Lidia coello Work Phone: Plan of Treatment Date Care Activity Detail Author Start: 02-26-2025 Application of abdominal corset [facility] Start: 02-26-2025 Patient discharge [facility] Start: 02-25-2025 End: 02-25-2025 [facility] Start: 02-25-2025 Oxygen therapy [facility] Start: 02-25-2025 End: 02-25-2025 Continuous pulse oximetry [facility] Start: 02-25-2025 Notification of physician [facility] Start: 02-25-2025 Vital signs measurements [facility] Start: 02-25-2025 Application of abdominal corset [facility] Start: 02-25-2025 Administration of medication [facility] Start: 02-25-2025 Ambulation therapy management [facility] Start: 02-25-2025 Application of device [facility] Start: 02-25-2025 End: 02-25-2025 Application of intermittent pneumatic compression device [facility] Start: 02-25-2025 Assessment of risk of venous thromboembolism [facility] Start: 02-25-2025 Catheterization of vein [facility] Start: 02-25-2025 Deep breathing and coughing exercises [facility] Start: 02-25-2025 Exercises [facility] Start: 02-25-2025 Measuring intake and output [facility] Start: 02-25-2025 Notification of physician [facility] Start: 02-25-2025 Procedure discontinued [facility] Start: 02-25-2025 Provision of activity privileges [facility] Start: 02-25-2025 Skin care [facility] Start: 02-25-2025 Vital signs measurements [facility] Start: 02-25-2025 Wound care [facility] Start: 02-25-2025 section Repeat (Not Applicable) [facility] Start: 02-25-2025 Admission procedure [facility] Start: 01-28-2025 Group B Streptococcus Culture Group B Streptococcus Culture [facility] Start: 01-28-2025 Streptococcus agalactiae [Presence] in Unspecified specimen by Organism specific culture [facility] Start: 12-26-2024 End: 12-26-2024 [facility] Start: 12-26-2024 Nonstress test [facility] Start: 12-26-2024 Obstetric monitoring [facility] Start: 12-26-2024 Vital signs measurements [facility] Start: 12-26-2024 Bacteria identified in Urine by Culture Urine Culture [facility] Start: 04-07-2023 Patient discharge [facility] Start: 04-06-2023 Application of abdominal corset [facility] Start: 04-05-2023 Administration of medication [facility] Start: 04-05-2023 Ambulation therapy management [facility] Start: 04-05-2023 Application of device [facility] Start: 04-05-2023 Application of intermittent pneumatic compression device [facility] Start: 04-05-2023 Assessment of risk of venous thromboembolism [facility] Start: 04-05-2023 Catheterization of vein [facility] Start: 04-05-2023 Deep breathing and coughing exercises [facility] Start: 04-05-2023 Exercises [facility] Start: 04-05-2023 Measuring intake and output [facility] Start: 04-05-2023 Notification of physician [facility] Start: 04-05-2023 Procedure discontinued [facility] Start: 04-05-2023 Provision of activity privileges [facility] Start: 04-05-2023 Vital signs measurements [facility] Start: 04-05-2023 Wound care [facility] Start: 04-05-2023 [facility] Start: 04-05-2023 Application of abdominal corset [facility] Start: 04-05-2023 section Primary C Section (Not Applicable) [facility] Start: 04-05-2023 Admission procedure [facility] Start: 03-31-2023 Patient discharge [facility] Start: 01-17-2023 [facility] Start: 04-21-2022 EPV, Provider: Lidia Gonzalez, Status: Pen, Time: 9:00 AM EPV, Provider: Lidia Gonzalez, Status: Pen, Time: 9:00 AM [employer] Work Phone: Start: 09-24-2021 RNVISIT, Provider: JALYN SLAUGHTER 1,[id number], Status: Pen, Time: 9:00 AM RNVISIT, Provider: JALYN SLAUGHTER 1,[id number], Status: Pen, Time: 9:00 AM [employer] Work Phone: Start: 06-30-2021 RNVISIT, Provider: JALYN SLAUGHTER 1,[id number], Status: Pen, Time: 10:30 AM RNVISIT, Provider: JALYN SLAUGHTER 1,[id number], Status: Pen, Time: 10:[address] Work Phone: Start: 04-15-2021 FUV, Provider: Lidia Gonzalez, Status: Pen, Time: 9:20 AM [facility] Work Phone: Start: 04-07-2021 NEXPLNRMVL, Provider: Lesvia Mercer, Status: Pen, Time: 10:30 AM NEXPLNRMVL, Provider: Lesvia Mercer, Status: Pen, Time: 10:30 AM [facility] Work Phone: Beta-hemolytic Streptococcus culture [facility] CBC W Auto Different ial panel - Blood [facility] Work Phone: Hepatitis B surface antigen measurement [facility] Work Phone: Hepatitis C antibody measurement [facility] Work Phone: HIV 1+2 Ab+HIV1 p24 Ag [Presence] in Serum or Plasma by Immunoassay [facility] Work Phone: Liquid based cervica l cytology screening [facility] Patient Education [facility] Work Phone: Patient referral [facility] Work Phone: Rubella IgG measurement [facility] Work Phone: Treponema sp Ab [Pre sence] in Serum [facility] Work Phone: Ultrasound scan for growth [facility] Urine culture [facility] Immunizations Immunization Date Immunization Notes Care Provider Fa cility 02-26-2025 measles, mumps and rubella virus vaccine Dr. Lidia Gonzalez MD Work Phone: [facility] 12-05-2024 tetanus toxoid, redu raul diphtheria toxoid, and acellular pertussis vaccine, adsorbed Dr. Lidia Gonzalez MD Work Phone: [facility] 10-09-2024 influenza, injectabl e, madin gris canine kidney, preservative free Dr. Lidia Gonzalez MD Work Phone: [facility] 01-24-2023 tetanus toxoid, redu raul diphtheria toxoid, and acellular pertussis vaccine, adsorbed Dr. Lidia Gonzalez Work Phone: [facility] Payers Date Payer Category Payer Unknown [id number] 2024 Self-pay [id number] 2023 Unknown [id number] 2018 Private Health Insurance 1998 Unknown [id number] 2.16. [id number] Unknown Unknown [id number] 2.16.8 40.1.524197.3.579.2.462 Unknown [id number] 2.16.8 40.1.003980.3.579.2.462 Unknown [id number] 2.16.8 40.1.232301.3.579.2.462 Unknown [id number] 2.16.8 40.1.286285.3.579.2.462 Unknown [id number] 2.16.8 40.1.905804.3.579.2.462 Unknown [id number] 2.16.8 40.1.445742.3.579.2.462 Unknown [id number] 2.16.8 40.1.524009.3.579.2.462 Unknown [id number] 2.16.8 40.1.859300.3.579.2.462 Unknown [id number] 2.16.8 40.1.433305.3.579.2.462 Unknown [id number] 2.16.8 40.1.863395.3.579.2.462 Unknown [id number] 2.16.8 40.1.814564.3.579.2.462 Unknown [id number] 2.16.8 40.1.258556.3.579.2.462 Unknown [id number] 2.16.8 40.1.416496.3.579.2.462 Unknown [id number] 2.16.8 40.1.643489.3.579.2.462 Unknown [id number] 2.16.8 40.1.850774.3.579.2.462 Unknown [id number] 2.16.8 40.1.703028.3.579.2.462 Unknown [id number] 2.16.8 40.1.277110.3.579.2.462 Unknown [id number] 2.16.8 40.1.006414.3.579.2.462 Unknown [id number] 2.16.8 40.1.795093.3.579.2.462 Unknown [id number] 2.16.8 40.1.780957.3.579.2.462 Unknown [id number] 2.16.8 40.1.154608.3.579.2.462 Unknown [id number] 2.16.8 40.1.970241.3.579.2.462 Unknown [id number] 2.16.8 40.1.517205.3.579.2.462 Unknown [id number] 2.16.8 40.1.441769.3.579.2.462 Unknown [id number] 2.16.8 40.1.936496.3.579.2.462 Social History Date Type Detail Facility No illicit drug use No illicit drug use [facility] Phone: Start: 08-30-2022 End: 04-05-2023 Tobacco smoking status NJIS Unknown if ever smoked [facility] Start: 2000 Sex Assigned At Female W [facility] Start: 07-11-2024 End: 04-10-2025 Tobacco smoking status NHIS Never smoked tobacco (finding) [facility] Start: 12-26-2024 End: 02-03-2025 Sex Female (finding) [facility] Patient currentl y [facility] Medical Equipment Procedure Code Equipment Code Equipment Origin al Text Equipment Identifier Dates Blood Sugar Diagnostic (Blood Glucose Test) strip Start: 01-17-2023 Lancets Start: 01-17-2023 Blood Sugar Diagnostic (Blood Glucose Test) strip Start: 01-17-2023 Lancets Start: 01-17-2023 Blood Sugar Diagnostic (Blood Glucose Test) strip Start: 01-17-2023 Lancets Start: 01-17-2023 Blood Sugar Diagnostic (Blood Glucose Test) strip Start: 01-17-2023 Lancets Start: 01-17-2023 Blood Sugar Diagnostic (Blood Glucose Test) strip Start: 01-17-2023 Lancets Start: 01-17-2023 Blood Sugar Diagnostic (Blood Glucose Test) strip Start: 01-17-2023 End: 04-18-2023 Lancets misc Start: 01-17-2023 End: 04-18-2023 Blood Sugar Diagnostic (Blood Glucose Test) strip Start: 01-17-2023 End: 04-18-2023 Lancets misc Start: 01-17-2023 End: 04-18-2023 Blood Sugar Diagnostic (Blood Glucose Test) strip Start: 01-17-2023 End: 04-18-2023 Lancets misc Start: 01-17-2023 End: 04-18-2023 Blood Sugar Diagnostic (Blood Glucose Test) strip Start: 01-17-2023 End: 04-18-2023 Lancets misc Start: 01-17-2023 End: 04-18-2023 Blood Sugar Diagnostic (Blood Glucose Test) strip Start: 01-17-2023 End: 04-18-2023 Lancets misc Start: 01-17-2023 End: 04-18-2023 Blood Sugar Diagnostic (Blood Glucose Test) strip Start: 01-17-2023 End: 04-18-2023 Lancets misc Start: 01-17-2023 End: 04-18-2023 Blood Sugar Diagnostic (Blood Glucose Test) strip Start: 01-17-2023 End: 04-18-2023 Lancets misc Start: 01-17-2023 End: 04-18-2023 Goals Date Patient Goal Desired Activity /State Functional Status Date Assessment Result Facility 02-26-2025 Functional status Activity Ability Indepe ndent [facility] Work Phone: Mental Status Date Assessment Result Facility 02-26-2025 Cognitive function Awake;Alert;A ppropriate;Follow s Commands [facility] Work Phone: 02-26-2025 Cognitive function Arousable To Voice/Nam e [facility] Work Phone: 04-05-2023 Cognitive function Level Of Cons ciousness Awake;Alert;Appropriate;Follow s Commands [facility] Work Phone: Clinical Notes 02-24-2021 to 04-10-2025 Note Date & Type Note Facility 04-10-2025 Progress note [facility] 04-10-2025 Progress note Note Date/Time April 10, 2025 3:56pm [facility] [address], [address] [place] [address] OFFICE VISIT Date of Service: 04/10/25 MR#: [id number] Acct: [id number] Name: ESTEPHANIA WALLACE OLAYINKA Rep #: [id number] : 2000 Provider: Dr. Ruth Booth DO Age/Sex: 25/F Location[place] [facility] [place] Status: Signed Intake Vital Signs 02/06/25 09:51 03/12/25 15:33 04/10/25 15:23 04/10/25 15:23 Height 5 ft 5 in 5 ft 2 in 5 ft 2 in 5 ft 2 in Weight: 204 lb 6 oz 202 lb 4 oz BMI 37.3 37.0 BP 118/77 125/82 H Intake Visit Reasons: visit (obstetrics) [employer] Required: No Is patient in pain?: No Allergies No Known Allergies Allergy (Verified 04/10/25 15:22) Medications ?Medication ?Instructions ?Recorded ?Confirmed ?Type multivit-min no.71-iron fum 28 1 cap PO DAILY pregnanc y 07/11/24 04/10/25 History mg-folate no.1 1 mg-dha 300 mg capsule (PNV-[place]) cholecalciferol (vitamin D3) 50 50 mcg PO QDAY 5 04/10/25 History mcg (2,000 unit) capsule : Yes PFSH Medical History macrosomia Gestational diabetes LGA (large for gestational age) fetus Influenza A Surgical History Previous section S/P foot surgery, left [place] teeth removed Family History Grandfather Cancer, Onset Age: 55 Paternal pancreatic Grandfather Cancer, Onset Age: 60 Maternal lung Social History (Updated 04/10/25 @ 15:29 by Cristiane Lawton) adopted: No household members: spouse and children housing: house number of children: 2 current occupational status: employed 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 current occupational exposures/hazards: No pets and animals: Yes (3) pets and animals: dog(s) history of recent travel: Yes (uise June) out of state: Yes outof country: Yes sexually active: Yes Smoking Status: Never smoker alcohol intake: current alcohol intake frequency: holidays/special occasions only details: not while substance use type: does not use well-balanced diet: daily or most days caffeine: Yes Type: coffee Number of servings: 1 eating out: rarely or never during the past year weight has: increased > 10 lbs what type of physical activity do you participate in: none david/confucianist: Yazidi seatbelt use: always do you feel safe at home: Yes additional social history: Andreas 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 Date Name GA/Weeks Outcome Route Bth Weight Gen Labor Lgth Anesthesia Del Locatn Provider FOB 04/05/23 Cristian 39 live - full term 8lbs 2oz Male spinal [facility] Dr. Booth Andreas 02/25/25 Radha 40 live - full term 9lb Male s gerardo [facility] Delivery Date: 04/05/23 Last Updated by: Vera Boles MD Gestational diabetes, LGA, elevated BP without diagnosis of hypertension. 3 cm schedule csection for suspected LGA Delivery Date: 02/25/25 Last Updated by: Rosita Romero RN repeat cs Depression Screen PHQ-2/9 PHQ-2 Over the last 2 weeks, how often have you been bothered by any of the following problems? 1. Little interest or pleasure in doing things: not at all 2. Feeling down, depressed, or hopeless: not at all Total score: 0 Post HPI Routine Follow-Up: Details: ESTEPHANIA WALLACE is a 25 year old who presents for her post visit. Infant Feeding: Both Menses resumed: No Blevins since delivery: No Emotional Support: Yes Last Pap:: 08/30/22 Control Method: condoms ROS Const Reports system reviewed and no additional complaints, except as documented GI Reports system reviewed and no additional complaints, except as documented, Denies bloating, Denies constipation, Denies nausea and Denies vomiting Reports system reviewed and no additional complaints, except as documented, Denies abnormal vaginal bleeding, Denies pelvic pain, Denies sexual dysfunction,Denies urinary incontinence, Denies urinary hesitancy, Denies urinary urgency and Denies vaginal discharge Skin/Breast Reports system reviewed and no additional complaints, except as documented and Reports as per HPI Psych Reports as per HPI Exam Const General: cooperative, healthy appearing, comfortable and no acute distress HENMT Head: normal to inspection Neck Neck: normal visual inspection and no lymphadenopathy Thyroid: thyroid normal Chest Breast inspection: normal inspection of the breasts and normal inspection of theaxillae Breast palpation: normal palpation of the breasts and normal palpation of the axillae Resp Effort & Inspection: normal respiratory effort GI Inspection: normal to inspection Palpation: soft, no hepatosplenomegaly and nontender General: bladder normal to palpation External Female Exam: normal external appearance and normal appearance of the urethra Urethra: normal appearance of the urethra Speculum Exam - Vagina: normal appearance of the vagina and normal vaginal discharge Speculum Exam - Cervix: normal appearance of the cervix Bimanual Exam- Vagina & Uterus: normal bimanual exam, uterine size normal, bladder normal to palpation, uterine shape normal and non-tender Bimanual Exam- Adnexa, other: normal adnexae and normal Pelvic Support: normal Skin General: no rashes or lesions noted Coding Level of Care Code No Charge Diagnoses Routine Follow-Up Z39.2 Assessment and Plan Assessment and Plan (1) Routine Follow-Up: Plan: Cervical cancer screening: pap done today Contraceptive plans: condoms Complications: none Follow up for annual exams or sooner if indicated. Orders: Orders PAP I-G w/rfx hrHPV-Aptima Today Z12.4 - Encounter for screening for malignant neoplasm of cervix 04/10/25 1556 <Electronically signed by Emma Olivas DO> Date _ [facility] Signature: Date (if applicable) CC: ~ [facility] Work Phone: 1(855) 699-439705-21-2025 Progress [facility] [address] [place] [address], [facility] [address] [place] [address] OFFICE VISIT Date of Service: 03/12/25 MR#: [id number] Acct: [id number] Name: ESTEPHANIA WALLACE OLAYINKA Rep #: [id number] : 2000 Provider: JEFFREY Moulton Age/Sex: 24/F Location[place] [facility] Status: Signed Intake Vital Signs 02/06/25 09:51 02/25/25 04:25 03/12/25 15:33 Height 5 ft 5 in 5 ft 2 in 5 ft 2 in Weight: 204 lb 6 oz BMI 37.3 BP 118/77 Intake Visit Reasons: 2 wk RLTCS Chief Complaint: 2wk RLTCS [employer] Required: No Is patient in pain?: No Allergies No Known Allergies Allergy (Verified 03/12/25 15:31) Medications ?Medication ?Instructions ?Recorded ?Confirmed ?Type multivit-min no.71-iron fum 28 1 cap PO DAILY pregnanc y 07/11/24 03/12/25 History mg-folate no.1 1 mg-dha 300 mg capsule (PNV-[place]) ibuprofen 800 mg tablet 800 mg PO Q8H PRN pain #30 t abs 02/25/25 03/12/25 Rx oxycodone-acetaminophen 5 mg-325 1 tab PO Q4H PRN pain 7 days #20 02/25/25 03/12/25 Rx mg tablet (Percocet) tabs nystatin 100,000 unit/gram topical 1 applic topical QD AY #30 grams 03/12/25 03/12/25 Rx powder : Yes PFSH Medical History macrosomia Gestational diabetes LGA (large for gestational age) fetus Influenza A Surgical History Previous section S/P foot surgery, left [place] teeth removed Family History Grandfather Cancer, Onset Age: 55 Paternal pancreatic Grandfather Cancer, Onset Age: 60 Maternal lung Social History adopted: No household members: spouse and children housing: house number of children: 1 current occupational status: employed 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 current occupational exposures/hazards: No pets and animals: Yes (3) pets and animals: dog(s) history of recent travel: Yes (uisjune) out of state: Yes outof country: Yes sexually active: Yes Smoking Status: Never smoker alcohol intake: current alcohol intake frequency: holidays/special occasions only details: not while substance use type: does not use well-balanced diet: daily or most days caffeine: Yes Type: coffee Number of servings: 1 eating out: rarely or never during the past year weight has: increased > 10 lbs what type of physical activity do you participate in: none david/confucianist: Yazidi seatbelt use: always do you feel safe at home: Yes additional social history: Andreas 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 Date Name GA/Weeks Outcome Route Bth Weight Gen Labor Lgth Anesthesia Del Locatn Provider FOB 04/05/23 Cristian 39 live - full term 8lbs 2oz Male spinal [facility] Dr. Wingta 02/25/25 Radha 40 live - full term 9lb Male s gerardo [facility] [place] Delivery Date: 04/05/23 Last Updated by: Vera Boles MD Gestational diabetes, LGA, elevated BP without diagnosis of hypertension. 3 cm schedule csection for suspected LGA Delivery Date: 02/25/25 Last Updated by: Rosita Romero RN repeat cs Depression Screen PHQ-2/9 PHQ-2 Over the last 2 weeks, how often have you been bothered by any of the following problems? 1. Little interest or pleasure in doing things: not at all 2. Feeling down, depressed, or hopeless: not at all Total score: 0 Post HPI 2 wk RLTCS: Details: ESTEPHANIA WALLACE is a 24 year old who presents for her 2 week incision post visit. red area on left area of c/s incision-likely yeast. Feeding: Both ROS Const All systems reviewed & are unremarkable except as noted in H Reports system reviewed and no additional complaints, except as documented Card Reports system reviewed and no additional complaints, except as documented GI Reports system reviewed and no additional complaints, except as documented Neuro Yes system reviewed and no additional complaints, except as documented Psych Reports system reviewed and no additional complaints, except as documented, Denies anhedonia, Denies depression, Denies homicidal ideation and Denies suicidal ideation Exam Const General: cooperative, healthy appearing and comfortable Nutritional Appearance: average body habitus Orientation: alert, awake and oriented x3 Neck Neck: normal visual inspection and full ROM Resp Effort & Inspection: normal respiratory effort, able to speak in complete sentences and symmetric chest movement GI Inspection: normal to inspection and incision (well healed) Palpation: soft Neuro General: patient alert, patient awake, patient oriented x3 and moves all extremities Extrem General: normal to inspection and full ROM Psych Appearance: grossly normal and well kempt Mental Status: mental status grossly normal Affect: normal affect Speech and Movement: speech and movement normal Attitude: cooperative Thought Process: normal Thought Content: normal Judgment: judgment good Coding Level of Care Code No Charge Diagnoses Status post section Z98.891 Yeast dermatitis B37.2 Assessment and Plan Assessment and Plan (1) Status post section: Status: Acute Plan: RTO in 4 weeks for 6 week PP visit (2) Yeast dermatitis: Status: Acute Plan: nystatin powder if still red and irritated start of next week call office for return visit Medications: New nystatin 1 applic topical QDAY 30 grams 0RF B37.2 - Candidiasis of skin and nail 03/12/25 1547 s CNM> Date _ Susanna Kenney JEFFREY Cosigner Signature: Date (if applicable) CC: ~ [facility]05-21-2025 Progress note Author Susanna Moulton [facility] Note Date/Time March 12, 2025 3:46p [facility] [address], [address] [place] [address] OFFICE VISIT Date of Service: 03/12/25 MR#: [id number] Acct: [id number] Name: ESTEPHANIA WALLACE Rep #: [id number] : 2000 Provider: JEFFREY Moulton Age/Sex: 24/F Location[place] [facility] [place] Status: Signed Intake Vital Signs 02/06/25 09:51 02/25/25 04:25 03/12/25 15:33 Height 5 ft 5 in 5 ft 2 in 5 ft 2 in Weight: 204 lb 6 oz BMI 37.3 BP 118/77 Intake Visit Reasons: 2 wk RLTCS Chief Complaint: 2wk RLTCS [employer] Required: No Is patient in pain?: No Allergies No Known Allergies Allergy (Verified 03/12/25 15:31) Medications ?Medication ?Instructions ?Recorded ?Confirmed ?Type multivit-min no.71-iron fum 28 1 cap PO DAILY pregnanc y 07/11/24 03/12/25 History mg-folate no.1 1 mg-dha 300 mg capsule (PNV-[place]) ibuprofen 800 mg tablet 800 mg PO Q8H PRN pain #30 t abs 02/25/25 03/12/25 Rx oxycodone-acetaminophen 5 mg-325 1 tab PO Q4H PRN pain 7 days #20 02/25/25 03/12/25 Rx mg tablet (Percocet) tabs nystatin 100,000 unit/gram topical 1 applic topical QD AY #30 grams 03/12/25 03/12/25 Rx powder : Yes PFSH Medical History macrosomia Gestational diabetes LGA (large for gestational age) fetus Influenza A Surgical History Previous section S/P foot surgery, left [place] teeth removed Family History Grandfather Cancer, Onset Age: 55 Paternal pancreatic Grandfather Cancer, Onset Age: 60 Maternal lung Social History adopted: No household members: spouse and children housing: house number of children: 1 current occupational status: employed 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 current occupational exposures/hazards: No pets and animals: Yes (3) pets and animals: dog(s) history of recent travel: Yes ([place]) out of state: Yes outof country: Yes sexually active: Yes Smoking Status: Never smoker alcohol intake: current alcohol intake frequency: holidays/special occasions only details: not while substance use type: does not use well-balanced diet: daily or most days caffeine: Yes Type: coffee Number of servings: 1 eating out: rarely or never during the past year weight has: increased > 10 lbs what type of physical activity do you participate in: none david/confucianist: Yazidi seatbelt use: always do you feel safe at home: Yes additional social history: [place] 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 Date Name GA/Weeks Outcome Route Bth Weight Gen Labor Lgth Anesthesia Del Locatn Provider FOB 04/05/23 Cristian 39 live - full term 8lbs 2oz Male spinal [facility] Dr. Booth Andreas 02/25/25 Radha 40 live - full term 9lb Male s gerardo [facility] JV [place] Delivery Date: 04/05/23 Last Updated by: Vera Boles MD Gestational diabetes, LGA, elevated BP without diagnosis of hypertension. 3 cm schedule csection for suspected LGA Delivery Date: 02/25/25 Last Updated by: Rosita Romero RN repeat cs Depression Screen PHQ-2/9 PHQ-2 Over the last 2 weeks, how often have you been bothered by any of the following problems? 1. Little interest or pleasure in doing things: not at all 2. Feeling down, depressed, or hopeless: not at all Total score: 0 Post HPI 2 wk RLTCS: Details: ESTEPHANIA WALLACE is a 24 year old who presents for her 2 week incision post visit. red area on left area of c/s incision-likely yeast. Infant Feeding: Both ROS Const All systems reviewed & are unremarkable except as noted in H Reports system reviewed and no additional complaints, except as documented Card Reports system reviewed and no additional complaints, except as documented GI Reports system reviewed and no additional complaints, except as documented Neuro Yes system reviewed and no additional complaints, except as documented Psych Reports system reviewed and no additional complaints, except as documented, Denies anhedonia, Denies depression, Denies homicidal ideation and Denies suicidal ideation Exam Const General: cooperative, healthy appearing and comfortable Nutritional Appearance: average body habitus Orientation: alert, awake and oriented x3 Neck Neck: normal visual inspection and full ROM Resp Effort & Inspection: normal respiratory effort, able to speak in complete sentences and symmetric chest movement GI Inspection: normal to inspection and incision (well healed) Palpation: soft Neuro General: patient alert, patient awake, patient oriented x3 and moves all extremities Extrem General: normal to inspection and full ROM Psych Appearance: grossly normal and well kempt Mental Status: mental status grossly normal Affect: normal affect Speech and Movement: speech and movement normal Attitude: cooperative Thought Process: normal Thought Content: normal Judgment: judgment good Coding Level of Care Code No Charge Diagnoses Status post section Z98.891 Yeast dermatitis B37.2 Assessment and Plan Assessment and Plan (1) Status post section: Status: Acute Plan: RTO in 4 weeks for 6 week PP visit (2) Yeast dermatitis: Status: Acute Plan: nystatin powder if still red and irritated start of next week call office for return visit Medications: New nystatin 1 applic topical QDAY 30 grams 0RF B37.2 - Candidiasis of skin and nail 03/12/25 1547 <Electronically signed by Susanna coello CNM> Date _ Susanna Moulton CNM Cosigner Signature: Date (if applicable) CC: ~ [facility] Work Phone: 1(427) 240-454105-07-2025 Progress note [facility] Medical Records Department [address] [place] [address] Progress Note - OBGYN 02/26/25 0816 MR#: [id number] Acct: [id number] Name: RODRIOGESTEPHANIACHERELLE BHAGAT Rep #:[id number] : 2000 24 From: Vera barbour MD PCP: Dr. Lidia Gonzalez MD Status:ADM IN Location: WO414-5 Subjective Subjective Patient doing well without complaints. Tolerating PO. Ambulating and voiding without difficulty. infant feeding well. Denies chest pain, shortness of breath,calf pain/swelling, fevers, chills, lightheadedness. Objective Data Objective Data Vital Signs: Vital Signs Temp Pulse Resp BP Pulse Ox O2 Del Method 98 F 92 16 129/76 H 99 Room Air 02/26/25 01:00 02/26/25 01:00 02/26/25 05:55 02/26/25 01:00 02/26/25 05:55 02/26/25 05:55 Oxygen Delivery Method Room Air Weight: 221 lb 2 oz Body Mass Index (BMI) 40.4 Intake & Output: Intake and Output for Last 24 Hours 02/24/25 02/25/25 02/26/25 23:59 23:59 23:59 Intake Total 1993 Output Total 1190 / 1190 Balance 804 / 804 Lab / Micro Data 02/26/25 06:00 Labs: Laboratory Results - last 24 hr 02/26/25 06:00: WBC 11.5 H, RBC 3.53 L, Hgb 10.9 L, Hct 32.0 L, MCV 90.7, MCH 30.9, MCHC 34.1, RDW Std Deviation 42.7, RDW Coeff of [place] 13.0, Plt Count 145 L,MPV 9.4 ROS Constitutional Constitutional: Reports systems reviewed and no addt'l complaints, except as documented Cardiovascular Cardiovascular: Reports systems reviewed and no addt'l complaints, except as documented Respiratory/Chest Respiratory/Chest: Reports systems reviewed and no addt'l complaints, except as documented Gastrointestinal Gastrointestinal: Reports systems reviewed and no addt'l complaints, except as documented Physical Exam Const alert, oriented x3 and no apparent distress HEENT Head and Scalp: atraumatic Resp normal respiratory effort GI soft to palpation and non-tender Inspection: incision intact, healing well and drainage (none) Bimanual Exam - Vag & Uterus: uterus non-tender Uterus Palpation: uterus fundus firm (below Umbilicus) Assessment & Plan (1) Status post section: PLAN: Plan s/p LTCS PPD # 1 1. routine post care 2. breast feeding- support given 3. rh positive 4. rubella immune 02/26/25 0816 Cosigner Signature (if applicable): CC: ~ Signed [facility]05-07-2025 Progress note Author Vera Boles [facility] Note Date/Time February 26, 2025 2:20pm [facility] Medical Records Department [address] [place] [address] Progress Note - OBGYN 02/26/2516 MR#: [id number] Acct: [id number] Name: ESTEPHANIA WALLACE OLAYINKA Rep #:[id number] : 2000 24 From: Vera barbour MD PCP: Dr. Lidia Gonzalez MD Status:ADM IN Location: AH062-8 Subjective Subjective Patient doing well without complaints. Tolerating PO. Ambulating and voiding without difficulty. feeding well. Denies chest pain, shortness of breath,calf pain/swelling, fevers, chills, lightheadedness. Objective Data Objective Data Vital Signs: Vital Signs Temp Pulse Resp BP Pulse Ox O2 Del Method 98 F 92 16 129/76 H 99 Room Air 02/26/25 01:00 02/26/25 01:00 02/26/25 05:55 02/26/25 01:00 02/26/25 05:55 02/26/25 05:55 Oxygen Delivery Method Room Air Weight: 221 lb 2 oz Body Mass Index (BMI) 40.4 Intake & Output: Intake and Output for Last 24 Hours 02/24/25 02/25/25 02/26/25 23:59 23:59 23:59 Intake Total 1993 Output Total 1190 / 1190 Balance 804 / 804 Lab / Micro Data 02/26/25 06:00 Labs: Laboratory Results - last 24 hr 02/26/25 06:00: WBC 11.5 H, RBC 3.53 L, Hgb 10.9 L, Hct 32.0 L, MCV 90.7, MCH 30.9, MCHC 34.1, RDW Std Deviation 42.7, RDW Coeff of [place] 13.0, Plt Count 145 L,MPV 9.4 ROS Constitutional Constitutional: Reports systems reviewed and no addt'l complaints, except as documented Cardiovascular Cardiovascular: Reports systems reviewed and no addt'l complaints, except as documented Respiratory/Chest Respiratory/Chest: Reports systems reviewed and no addt'l complaints, except as documented Gastrointestinal Gastrointestinal: Reports systems reviewed and no addt'l complaints, except as documented Physical Exam Const alert, oriented x3 and no apparent distress HEENT Head and Scalp: atraumatic Resp normal respiratory effort GI soft to palpation and non-tender Inspection: incision intact, healing well and drainage (none) Bimanual Exam - Vag & Uterus: uterus non-tender Uterus Palpation: uterus fundus firm (below Umbilicus) Assessment & Plan (1) Status post section: PLAN: Plan s/p LTCS PPD # 1 1. routine post care 2. breast feeding- support given 3. rh positive 4. rubella immune 02/26/25 0816 <Electronically signed by Vera Boles MD> Cosigner Signature (if applicable): CC: ~ Signed [facility] Work Phone: 1(226) 485-138305-06-2025 Discharge summary Author Emma Torres [facility] Note Date/Time February 25, 2025 7:22am [facility] Medical Records Department [address] [place] [address] Instructions for Home/Discharge Instructions 02/25/25 0715 MR#: [id number] Acct: [id number] Name: ESTEPHANIA WALLACE Rep #:[id number] : 2000 24 From: Emma Booth DO PCP: Dr. Lidia Gonzalez MD Status:ADM IN Discharge Instructions Diet Discharge Diet: No restrictions DC O2, CPAP, BIPAP needs Home O2 Discharge instructions: No Dressing / Incision Discharge Activity: May Not Drive (for 2 weeks or while taking narcotic pain medications.), May Shower and May Take a Tub Bath (in 7 days.) May resume sexual activity in: 4-6 weeks Weight Bearing Status: Full weight bearing Lifting Restrictions: 20 pounds Dressing / Incision Call your doctor if your incision/area has: Continuous Slow Oozing, Sudden Increased Bleeding, Increased Pain/ Swelling, Increased Redness and Foul Smelling Discharge Call your doctor if you observe: Fever of 101 or Higher and Using more than 1 pad per hour Suture Line Care: Avoid Pulling/Pushing and Avoid Pinching/Bending Cleanse incision/area with: Soap & Water and Keep Dressing Clean & Dry Follow Up Care Please Follow Up With: Emma Booth DO When: Call [phone] to make an appointment for an incision check in 1-2 weeks. Test Results: Test results from this visit will be discussed in further detail at your follow- up appointment, if applicable. Discharge Plan Admission Admit Date/Time: 02/25/25 04:27 Primary Reason for Your Visit: section Attending Provider: Emma Booth Primary Care Provider: Lidia Gonzalez Discharge Orders/Prescriptions Prescriptions: New ibuprofen 800 mg tablet 800 mg PO Q8H PRN (Reason: pain) Qty: 30 0RF oxycodone-acetaminophen [Percocet] 5-325 mg tablet 1 tab PO Q4H PRN (Reason: pain) 7 Days Qty: 20 0RF No Action PNV-[place] 28-1-300 mg capsule 1 cap PO DAILY Referrals / Follow Up: Lidia Gonzalez MD [Primary Care Provider] - Disposition Disposition (needs filled in before D/C Order can be placed): Home, Self Care 02/25/25721<Electronically signed by Emma Booth DO>Emma Booth DO CC: Dr. Lidia Gonzalez MD ~ Signed [facility] Work Phone: 1(431) 974-779805-06-2025 History and physical note Author Emma Torres [facility] Note Date/Time February 25, 2025 7:15am [facility] Medical Records Department [address] [facility] [place] [address] H&P Exam - GLOVE EXAMINER 02/25/25 0710 MR#: [id number] Acct: [id number] Name: ESTEPHANIA WALLACE OLAYINKA Rep #:[id number] : 2000 24 From: Emma Booth DO PCP: Dr. Lidia Gonzalez MD Status:ADM IN Location: GF592-6 HPI - General General Date of Admission: 02/25/25 HPI Narrative ESTEPHANIA WALLACE, is a 24 y/o @ 40 weeks 0 days who presents to L&D for a repeat section. Maternal Data Information LAISHA Calculator Estimated Delivery Date Method Current WG Current Estimate 02/25/25 LMP (Certain) 40w 0d Other Estimates 02/27/25 Ultrasound #1 39w 5d PFSH PFSH Medical History macrosomia Gestational diabetes LGA (large for gestational age) fetus Influenza A Home Medications ?Medication ?Instructions ?Recorded ?Last Taken ?Type multivit-min no.71-iron fum 28 1 cap PO DAILY pregnanc y 07/11/24 02/24/25 21:00 History mg-folate no.1 1 mg-dha 300 mg capsule (PNV-[place]) Allergy/AdvReac Type Severity Reaction Status Date / Time No Known Allergies Allergy Verified 02/25/25 04:48 Family History Grandfather Cancer, Onset Age: 55 Paternal pancreatic Grandfather Cancer, Onset Age: 60 Maternal lung Surgical History Previous section S/P foot surgery, left [place] teeth removed Social History adopted: No household members: spouse and children housing: house number of children: 1 current occupational status: employed 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 current occupational exposures/hazards: No pets and animals: Yes (3) pets and animals: dog(s) history of recent travel: Yes ([place]) out of state: Yes outof country: Yes sexually active: Yes Smoking Status: Never smoker alcohol intake: current alcohol intake frequency: holidays/special occasions only details: not while substance use type: does not use well-balanced diet: daily or most days caffeine: Yes Type: coffee Number of servings: 1 eating out: rarely or never during the past year weight has: increased > 10 lbs what type of physical activity do you participate in: none david/confucianist: Yazidi seatbelt use: always do you feel safe at home: Yes 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 Date Name GA/Weeks Outcome Route Bth Weight Gen Labor Lgth Anesthesia Del Locatn Provider FOB 04/05/23 [place] 39 live - full term 8lbs 2oz Male spinal WC Dr. Booth [place] Delivery Date: 04/05/23 Last Updated by: Vera Boles MD Gestational diabetes, LGA, elevated BP without diagnosis of hypertension. 3 cm schedule csection for suspected LGA Visit Details Expected Delivery Route/Plan TOLAC patient counseled regarding risks/benefits of trial of labor versus repeat . ACOG/uptodate education given to patient. [] % likelihood of success per calculator TOLAC consent form signed: [] Labor Preferences- CB/BF classes: no labor support person: Andreas labor intervention preferences: [] pain management options preferred: [] cut cord/dad catch: [] : yes PP control planned: [] discussed possible routes of delivery and associated risks: [] special requests: [] Plans Covid status: [] Flu vaccine: given Tdap vaccine: given Rhogam:na LARC form signed: yes movement and labor precautions reviewed. Problem list reviewed and updated with the most current plan of care details and appropriate orders placed. Relevant counseling for the gestational age provided. Continue routine care and follow up unless otherwise noted in visit notes/problem list details OB Flowsheet Initial Weight: Not Recorded Date -?-?-?-?-?-?-?-?-?-?-?-?- EGA Weight BP Urine Prot -?-?-?-?-?-?-?-?-?-?-?-?- Glucose FHR FuHt Pres Dilation -?-?-?-?-?-?-?-?-?-?-?-?- Effaced St Visit Note 07/15/24 -?-?-?-?-?-?-?-?-?-?-?-?- 7w 6d 198 lb 135/75 -?-?-?-?-?-?-?-?-?-?-?-?- 155 -?-?-?-?-?-?-?-?-?-?-?-?- SM- CRL 1.3cm co ns with LMP 08/15/24 -?-?-?-?-?-?-?-?-?-?-?-?- 12w 2d 198 lb 2 oz 132/84 Nega tive -?-?-?-?-?-?-?-?-?-?-?-?- Negative 157 -?-?-?-?-?-?-?-?-?-?-?-?- MH-Br US confirm s FHT. No nausea, no VB. Reviewed PN labs 09/12/24 -?-?-?-?-?-?-?-?-?-?-?-?- 16w 2d 199 lb 123/82 Negative -?-?-?-?-?-?-?-?-?-?-?-?- Negative 155 -?-?-?-?-?-?-?-?-?-?-?-?- KW- no vb/crampi ng. declines AFP. has anatomy scan 10/0310/09/24 -?-?-?-?-?-?-?-?-?-?-?-?- 20w 1d 202 lb 114/66 Trace -?-?-?-?-?-?-?-?-?-?-?-?- Negative 155 -?-?-?-?-?-?-?-?-?-?-?-?- SM- no vb lof go od fm no reulgar ctx 11/08/24 -?-?-?-?-?-?-?-?-?-?-?-?- 24w 3d 208 lb 131/81 Negative -?-?-?-?-?--?-?-?-?-?-?-?- Negative 157 -?-?-?-?-?-?-?-?-?-?-?-?- JV- patient has carpal tunnel syndrome again. wrist braces and ice recommended. plan tdap and 28 week labs next visit. 12/05/24 -?-?-?-?-?-?-?-?-?-?-?-?- 28w 2d 208 lb 4 oz 114/82 Nega tive -?-?-?-?-?-?-?-?-?-?-?-?- Negative 161 -?-?-?-?-?-?-?-?-?--?-?-?- MH-No VB, LOF. G ood FM. 28 wk labs pending. [facility]. Tdap 12/19/24 -?-?-?-?-?-?-?-?-?-?-?-?- 30w 2d 213 lb 6 oz 136/82 Nega tive -?-?-?-?-?-?-?-?-?--?-?-?- Negative 160 33 -?-?-?-?-?-?-?-?-?-?-?-?- JV- no lof, vagi nal bleeding or dec fm. overall feeling well. 01/03/25 -?-?-?-?-?-?-?-?-?-?-?-?- 32w 3d 215 lb 6 oz 133/85 Nega tive -?-?-?-?-?-?-?-?-?-?-?-?- Negative 145 33 -?-?-?-?-?-?-?-?-?-?-?-?- Sm- no vb lof go od fm no reuglar ctx 01/17/25 -?-?-?-?-?-?-?-?-?-?-?-?- 34w 3d 215 lb 8 oz 120/80 Nega tive -?-?-?-?-?-?-?-?-?-?-?-?- Negative 136 38.5 -?-?-?-?-?-?-?-?-?-?-?-?- JV- consent given today. growth scan ordered. no complaints 01/28/25 -?-?-?-?-?-?-?-?-?-?-?-?- 36w 0d 219 lb 8 oz 132/84 Nega tive -?-?--?-?-?-?-?-?-?-?-?-?- Negative 140 38 -?-?-?-?-?-?-?-?-?-?-?-?- Sm-no vb lof goo d fm n oreuglar ctx 02/06/25 -?-?-?-?-?-?-?-?-?-?-?-?- 37w 2d 221 lb 2 oz 132/84 Nega tive -?-?-?-?-?-?-?-?-?-?-?-?- Negative 145 42 Cephalic 0 -?-?-?-?-?-?-?-?-?-?-?-?- -4 JV- no l of, vaginal bleeding, or dec fm. cx closed. will schedule cs for 40 weeks if no labor. 02/11/25 -?-?-?-?-?-?-?-?-?-?-?-?- 38w 0d 220 lb 4 oz 116/85 Nega tive -?-?-?-?-?-?-?-?-?-?-?-?- Negative 140 40 0.5 -?-?-?-?-?-?-?-?-?-?-?-?- SM- no vb lof go od fm no reuglar ctx having occasional spots in viison but no headaches normal blood pressures, reviewed precuations. patients states she has had intemrittently in the past when she wasnt 02/20/25 -?-?-?-?-?-?-?-?-?-?-?-?- 39w 2d 221 lb 118/86 Trace -?-?-?-?-?-?-?--?-?-?-?-?- Negative 140 -?-?-?-?-?-?-?-?-?-?-?-?- SM- no vb lof go od fm no reuglr ctx ROS Constitutional Constitutional: Denies change in weight, fatigue, fever(s), headache(s), poor appetite or weakness Eyes Eyes: Denies blurry vision, change in vision, seeing flashes or spots in vision ENT HEENT: Denies dizziness, headache(s), loss taste/smell or sore throat Cardiovascular Cardiovascular: Denies chest pain, dizziness, dyspnea, irregular heart rhythm, leg edema, palpitations, rapid heart rate or vomiting Respiratory/Chest Respiratory/Chest: Denies chest tightness, cough, dyspnea or breast pain Gastrointestinal Gastrointestinal: Denies abdominal pain, anorexia, constipation, cramping, diarrhea, hemorrhoids, vomiting or weight changes Genitourinary Genitourinary: Denies dysuria, flank pain, genital lesions, genital pain, urinary frequency or urinary urgency Musculoskeletal Musculoskeletal: Denies back pain, difficulty walking, joint pain, limited range of motion, muscle cramps or numbness Integumentary Integumentary: Denies lesions or unusual bruising Neurologic Neurologic: Denies abnormal movements, abnormal speech, dizziness, numbness, seizure-like activity or syncope Psychiatric Psychiatric: Denies anxiety, behavioral changes, change in appetite, change in libido, cognitive impairment, confusion, depression, difficulty concentrating, hallucinations or suicidal thoughts Endocrine Endocrinology: Denies excessive sweating, polydipsia or polyuria Hematologic/Lymphatic Hematologic/Lymphatic: Denies easy bleeding, easy bruising or lymphadenopathy Allergic/Immunologic Allergic/Immunologic: Denies itchy eyes, lip swelling, seasonal rhinorrhea, rhinitis, throat swelling, tongue swelling, eczemia, wheezing or asthma Vital Signs Vital Signs Vital Signs: 02/25/25 04:56 02/25/25 04:56 02/25/25 04:56 Temperature Temperature Source Oral Pulse Rate 88 Respiratory Rate Blood Pressure 128/74 H Blood Pressure Mean BP Systolic 128 BP Diastolic 74 Blood Pressure Source Blood Pressure Position Blood Pressure Location Pulse Ox Oxygen Delivery Method 02/25/25 04:56 02/25/25 04:56 02/25/25 04:56 Temperature 98.1 F Temperature Source Pulse Rate Respiratory Rate 16 Blood Pressure Blood Pressure Mean BP Systolic BP Diastolic Blood Pressure Source Blood Pressure Position Blood Pressure Location Pulse Ox 98 Oxygen Delivery Method 02/25/25 05:00 Temperature 98.1 F Temperature Source Oral Pulse Rate 97 Respiratory Rate 16 Blood Pressure 128/74 H Blood Pressure Mean 92 BP Systolic BP Diastolic Blood Pressure Source Monitor Blood Pressure Position Semi-Fowlers Blood Pressure Location Right Arm Pulse Ox 98 Oxygen Delivery Method Room Air Weight Weight: 221 lb 2 oz Body Mass Index (BMI) 40.4 Physical Exam Const alert, oriented x3, no apparent distress and healthy appearing General Appearance: cooperative; Negative for anxious HEENT normocephalic Face and Sinus: normal facial exam Eyes EOMs intact bilaterally and no scleral icterus General Eye: normal appearance of both eyes Neck full ROM and supple Lymph Lymphatic: no lymphadenopathy noted Chest Chest: abnormal inspection of the chest Resp normal respiratory effort Effort and Inspection: able to speak in complete sentences Cardio regular rate GI soft to palpation and non-tender Inspection: gravid Palpation: soft; Negative for tender external exam normal Back/Spine no CVA tenderness Extremity normal to inspection, full ROM and no clubbing, cyanosis or edema General Extremity: Negative for calf tenderness or edema Skin Lesions: no lesions Rashes: no rashes Psych mental status grossly normal Labs Labs Labs: Blood Type O POSITIVE Antibody Screen NEGATIVE Hct 39.9 % (37-47) Hgb 13.7 g/dL (12.0-15.0) Pap Smear Negative Obstetrics Ultrasound Syphilis Total Ab Nonreactive (Nonreactive) Rubella IgG Antibody Equiv (Nonreactive) Hep Bs Antigen Non-Reactive (Nonreactive) Hepatitis C Antibody Non-Reactive (Nonreactive) Chlamydia DNA (ERICK) Negative (Negative) N.gonorrhoeae DNA (ERICK) Negative (Negative) HIV 1&2 Antibody Non-Reactive (Nonreactive) Glucose 1 Hr 50 gm 113 mg/dL (70-140) Gest Glucose Tolerance MG/DL Assessment & Plan (1) GBS (group B Streptococcus carrier), +RV culture, currently : COMMENT: PVN in labor (2) Large for gestational age fetus affecting management of mother: COMMENT: AC 96%ile, will repeat GCT now/normal (3) Desires (vaginal after ) trial: COMMENT: primary csection for suspected LGA, didn't labor. (4) Obesity affecting : QUALIFIERS: Trimester: first trimester Obesity type affecting : unspecified obesity Qualified Code(s): O99.211 - Obesity complicating , first trimester COMMENT: HgbA1c, BMI 32. encouraged healthy weight gain. (5) Supervision of high risk , antepartum: COMMENT: PRR , LAISHA 02/25/25, boy PC Cristian, [facility] (6) : QUALIFIERS: Weeks of gestation: 39 weeks Qualified Code(s): Z3A.39 - 39 weeks gestation of COMMENT: normal anatomy, declined NIPT & carrier testing (7) History of gestational diabetes mellitus (GDM) in prior , currently : (8) Previous section: COMMENT: desires . RLTCS scheduled for 02/25 with JV @ 7:15 PLAN: Plan After discussing the patient's diagnosis and treatment plan options, patient wishes to proceed with surgical management. I have discussed with the patient the risks, benefits, and alternatives of the procedure which include but are not limited to risks of anesthesia, bleeding, infection, possible damage to bowel, bladder, or surrounding vasculature which could lead to additional surgery to evaluate any complications. Patient agrees to procedure and wishes to proceed. plan for repeat section today. 02/25/25714 <Electronically signed by Emma Booth DO> Cosigner Signature (if applicable): CC: Dr. Emma Booth DO; Dr. Lidia Gonzalez MD~ Signed [facility] Work Phone: 1(103) 405-615205-06-2025 Discharge [address] [facility] Medical Records Department [address] [place] [address] Instructions for Home/Discharge Instructions 02/25/25714 MR#: [id number] Acct: [id number] Name: ESTEPHANIA WALLACE Rep #:[id number] : 2000 24 From: Emma Booth DO PCP: Dr. Lidia Gonzalez MD Status:ADM IN Discharge Instructions Diet Discharge Diet: No restrictions DC O2, CPAP, BIPAP needs Home O2 Discharge instructions: No Dressing / Incision Discharge Activity: May Not Drive (for 2 weeks or while taking narcotic pain medications.), May Shower and May Take a Tub Bath (in 7 days.) May resume sexual activity in: 4-6 weeks Weight Bearing Status: Full weight bearing Lifting Restrictions: 20 pounds Dressing / Incision Call your doctor if your incision/area has: Continuous Slow Oozing, Sudden Increased Bleeding, Increased Pain/ Swelling, Increased Redness and Foul Smelling Discharge Call your doctor if you observe: Fever of 101 or Higher and Using more than 1 pad per hour Suture Line Care: Avoid Pulling/Pushing and Avoid Pinching/Bending Cleanse incision/area with: Soap & Water and Keep Dressing Clean & Dry Follow Up Care Please Follow Up With: Emma Booth DO When: Call [phone] to make an appointment for an incision check in 1-2 weeks. Test Results: Test results from this visit will be discussed in further detail at your follow- up appointment, if applicable. Discharge Plan Admission Admit Date/Time: 02/25/25 04:27 Primary Reason for Your Visit: section Attending Provider: Emma Booth Primary Care Provider: Lidia Gonzalez Discharge Orders/Prescriptions Prescriptions: New ibuprofen 800 mg tablet 800 mg PO Q8H PRN (Reason: pain) Qty: 30 0RF oxycodone-acetaminophen [Percocet] 5-325 mg tablet 1 tab PO Q4H PRN (Reason: pain) 7 Days Qty: 20 0RF No Action PNV-[place] 28-1-300 mg capsule 1 cap PO DAILY Referrals / Follow Up: Lidia Gonzalez MD [Primary Care Provider] - Disposition Disposition (needs filled in before D/C Order can be placed): Home, Self Care 02/25/25 0722Jennifer Shruthi Torres DO CC: Dr. Lidia Gonzalez MD ~ Signed [facility]05-06-2025 History and physical note [facility] Medical Records Department [address] [place] [address] H&P Exam - GLOVE EXAMINER 02/25/25 0710 MR#: [id number] Acct: [id number] Name: ESTEPHANIA WALLACE OLAYINKA Rep #:[id number] : 2000 24 From: Emma Booth DO PCP: Dr. Lidia Gonzalez MD Status:ADM IN Location: [id number] HPI - General General Date of Admission: 02/25/25 HPI Narrative ESTEPHANIA WALLACE, is a 24 y/o @ 40 weeks 0 days who presents to L&D for a repeat section. Maternal Data Information LAISHA Calculator Estimated Delivery Date Method Current WG Current Estimate 02/25/25 LMP (Certain) 40w 0d Other Estimates 02/27/25 Ultrasound #1 39w 5d PFSH PFSH Medical History macrosomia Gestational diabetes LGA (large for gestational age) fetus Influenza A Home Medications ?Medication ?Instructions ?Recorded ?Last Taken ?Type multivit-min no.71-iron fum 28 1 cap PO DAILY pregnanc y 07/11/24 02/24/25 21:00 History mg-folate no.1 1 mg-dha 300 mg capsule (PNV-[place]) Allergy/AdvReac Type Severity Reaction Status Date / Time No Known Allergies Allergy Verified 02/25/25 04:48 Family History Grandfather Cancer, Onset Age: 55 Paternal pancreatic Grandfather Cancer, Onset Age: 60 Maternal lung Surgical History Previous section S/P foot surgery, left [place] teeth removed Social History adopted: No household members: spouse and children housing: house number of children: 1 current occupational status: employed 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 current occupational exposures/hazards: No pets and animals: Yes (3) pets and animals: dog(s) history of recent travel: Yes ([place]) out of state: Yes outof country: Yes sexually active: Yes Smoking Status: Never smoker alcohol intake: current alcohol intake frequency: holidays/special occasions only details: not while substance use type: does not use well-balanced diet: daily or most days caffeine: Yes Type: coffee Number of servings: 1 eating out: rarely or never during the past year weight has: increased > 10 lbs what type of physical activity do you participate in: none david/confucianist: Yazidi seatbelt use: always do you feel safe at home: Yes additional social history: Andreas Aponte History 2 Elective abortions Hx Para 1 Spontaneous abortions Hx # Term Pregnancies Ectopic pregnancies Hx # Pregnancies Multiple births # of living children 1 Past Pregnancies Del. Date Name GA/Weeks Outcome Route Bth Weight Gen Labor Lgth Anesthesia Del Locatn Provider FOB 04/05/23 Cristian 39 live - full term 8lbs 2oz Male spinal [facility] Dr. Wingta Delivery Date: 04/05/23 Last Updated by: Vera Boles MD Gestational diabetes, LGA, elevated BP without diagnosis of hypertension. 3 cm schedule csection for suspected LGA Visit Details Expected Delivery Route/Plan TOLAC patient counseled regarding risks/benefits of trial of labor versus repeat . ACOG/uptodate education given to patient. [] % likelihood of success per calculator TOLAC consent form signed: [] Labor Preferences- CB/BF classes: no labor support person: Andreas labor intervention preferences: [] pain management options preferred: [] cut cord/dad catch: [] : yes PP control planned: [] discussed possible routes of delivery and associated risks: [] special requests: [] Plans Covid status: [] Flu vaccine: given Tdap vaccine: given Rhogam:na LARC form signed: yes movement and labor precautions reviewed. Problem list reviewed and updated with the most current plan of care details and appropriate ordersplaced. Relevant counseling for the gestational age provided. Continue routine care and follow up unless otherwise noted in visit notes/problem list details OB Flowsheet Initial Weight: Not Recorded Date -?-?-?-?-?-?-?-?-?-?-?-?- EGA Weight BP Urine Prot -?-?-?-?-?-?-?-?-?-?-?-?- Glucose FHR FuHt Pres Dilation -?-?-?-?-?-?-?-?-?-?-?-?- Effaced St Visit Note 07/15/24 -?-?-?-?-?-?-?-?-?-?-?-?- 7w 6d 198 lb 135/75 -?-?-?-?-?-?-?-?-?-?-?-?- 155 -?-?-?-?-?-?-?-?-?-?-?-?- SM- CRL 1.3cm co ns with LMP 08/15/24 -?-?-?-?-?-?-?-?-?-?-?-?- 12w 2d 198 lb 2 oz 132/84 Nega tive -?-?-?-?-?-?-?-?-?-?-?-?- Negative 157 -?-?-?-?-?-?-?-?-?-?-?-?- MH-Br US confirm s FHT. No nausea, no VB. Reviewed PN labs 09/12/24 -?-?-?-?-?-?-?-?-?-?-?-?- 16w 2d 199 lb 123/82 Negative -?-?-?-?-?-?-?-?-?-?-?-?- Negative 155 -?-?-?-?-?-?-?-?-?-?-?-?- KW- no vb/crampi ng. declines AFP. has anatomy scan 10/0310/09/24 -?-?-?-?-?-?-?-?-?-?-?-?- 20w 1d 202 lb 114/66 Trace -?-?-?-?-?-?-?-?-?-?-?-?- Negative 155 -?-?-?-?-?-?-?-?-?-?-?-?- SM- no vb lof go od fm no reulgar ctx 11/08/24 -?-?-?-?-?-?-?-?-?-?-?-?- 24w 3d 208 lb 131/81 Negative -?-?-?-?-?--?-?-?-?-?-?-?- Negative 157 -?-?-?-?-?-?-?-?-?-?-?-?- JV- patient has carpal tunnel syndrome again. wrist braces and ice recommended. plan tdap and 28 week labs next visit. 12/05/24 -?-?-?-?-?-?-?-?-?-?-?-?- 28w 2d 208 lb 4 oz 114/82 Nega tive -?-?-?-?-?-?-?-?-?-?-?-?- Negative 161 -?-?-?-?-?-?-?-?-?--?-?-?- MH-No VB, LOF. G ood FM. 28 wk labs pending. Leelee. Tdap 12/19/24 -?-?-?-?-?-?-?-?-?-?-?-?- 30w 2d 213 lb 6 oz 136/82 Nega tive -?-?-?-?-?-?-?-?-?--?-?-?- Negative 160 33 -?-?-?-?-?-?-?-?-?-?-?-?- JV- no lof, vagi nal bleeding or dec fm. overall feeling well. 01/03/25 -?-?-?-?-?-?-?-?-?-?-?-?- 32w 3d 215 lb 6 oz 133/85 Nega tive -?-?-?-?-?-?-?-?-?-?-?-?- Negative 145 33 -?-?-?-?-?-?-?-?-?-?-?-?- Sm- no vb lof go od fm no reuglar ctx 01/17/25 -?-?-?-?-?-?-?-?-?-?-?-?- 34w 3d 215 lb 8 oz 120/80 Nega tive -?-?-?-?-?-?-?-?-?-?-?-?- Negative 136 38.5 -?-?-?-?-?-?-?-?-?-?-?-?- JV- consent given today. growth scan ordered. no complaints 01/28/25 -?-?-?-?-?-?-?-?-?-?-?-?- 36w 0d 219 lb 8 oz 132/84 Nega tive -?-?--?-?-?-?-?-?-?-?-?-?- Negative 140 38 -?-?-?-?-?-?-?-?-?-?-?-?- Sm-no vb lof goo d fm n oreuglar ctx 02/06/25 -?-?-?-?-?-?-?-?-?-?-?-?- 37w 2d 221 lb 2 oz 132/84 Nega tive -?-?-?-?-?-?-?-?-?-?-?-?- Negative 145 42 Cephalic 0 -?-?-?-?-?-?-?-?-?-?-?-?- -4 JV- no l of, vaginal bleeding, or dec fm. cx closed. will schedule cs for 40 weeks if no labor. 02/11/25 -?-?-?-?-?-?-?-?-?-?-?-?- 38w 0d 220 lb 4 oz 116/85 Nega tive -?-?-?-?-?-?-?-?-?-?-?-?- Negative 140 40 0.5 -?-?-?-?-?-?-?-?-?-?-?-?- SM- no vb lof go od fm no reuglar ctx having occasional spots in viison but no headaches normal blood pressures, reviewed precuations. patients states she has had intemrittently in the past when she wasnt 02/20/25 -?-?-?-?-?-?-?-?-?-?-?-?- 39w 2d 221 lb 118/86 Trace -?-?-?-?-?-?-?--?-?-?-?-?- Negative 140 -?-?-?-?-?-?-?-?-?-?-?-?- SM- no vb lof go od fm no reuglr ctx ROS Constitutional Constitutional: Denies change in weight, fatigue, fever(s), headache(s), poor appetite or weakness Eyes Eyes: Denies blurry vision, change in vision, seeing flashes or spots in vision ENT HEENT: Denies dizziness, headache(s), loss taste/smell or sore throat Cardiovascular Cardiovascular: Denies chest pain, dizziness, dyspnea, irregular heart rhythm, leg edema, palpitations, rapid heart rate or vomiting Respiratory/Chest Respiratory/Chest: Denies chest tightness, cough, dyspnea or breast pain Gastrointestinal Gastrointestinal: Denies abdominal pain, anorexia, constipation, cramping, diarrhea, hemorrhoids, vomiting or weight changes Genitourinary Genitourinary: Denies dysuria, flank pain, genital lesions, genital pain, urinary frequency or urinary urgency Musculoskeletal Musculoskeletal: Denies back pain, difficulty walking, joint pain, limited range of motion, muscle cramps or numbness Integumentary Integumentary: Denies lesions or unusual bruising Neurologic Neurologic: Denies abnormal movements, abnormal speech, dizziness, numbness, seizure-like activity or syncope Psychiatric Psychiatric: Denies anxiety, behavioral changes, change in appetite, change in libido, cognitive impairment, confusion, depression, difficulty concentrating, hallucinations or suicidal thoughts Endocrine Endocrinology: Denies excessive sweating, polydipsia or polyuria Hematologic/Lymphatic Hematologic/Lymphatic: Denies easy bleeding, easy bruising or lymphadenopathy Allergic/Immunologic Allergic/Immunologic: Denies itchy eyes, lip swelling, seasonal rhinorrhea, rhinitis, throat swelling, tongue swelling, eczemia, wheezing or asthma Vital Signs Vital Signs Vital Signs: 02/25/25 04:56 02/25/25 04:56 02/25/25 04:56 Temperature Temperature Source Oral Pulse Rate 88 Respiratory Rate Blood Pressure 128/74 H Blood Pressure Mean BP Systolic 128 BP Diastolic 74 Blood Pressure Source Blood Pressure Position Blood Pressure Location Pulse Ox Oxygen Delivery Method 02/25/25 04:56 02/25/25 04:56 02/25/25 04:56 Temperature 98.1 F Temperature Source Pulse Rate Respiratory Rate 16 Blood Pressure Blood Pressure Mean BP Systolic BP Diastolic Blood Pressure Source Blood Pressure Position Blood Pressure Location Pulse Ox 98 Oxygen Delivery Method 02/25/25 05:00 Temperature 98.1 F Temperature Source Oral Pulse Rate 97 Respiratory Rate 16 Blood Pressure 128/74 H Blood Pressure Mean 92 BP Systolic BP Diastolic Blood Pressure Source Monitor Blood Pressure Position Semi-Fowlers Blood Pressure Location Right Arm Pulse Ox 98 Oxygen Delivery Method Room Air Weight Weight: 221 lb 2 oz Body Mass Index (BMI) 40.4 Physical Exam Const alert, oriented x3, no apparent distress and healthy appearing General Appearance: cooperative; Negative for anxious HEENT normocephalic Face and Sinus: normal facial exam Eyes EOMs intact bilaterally and no scleral icterus General Eye: normal appearance of both eyes Neck full ROM and supple Lymph Lymphatic: no lymphadenopathy noted Chest Chest: abnormal inspection of the chest Resp normal respiratory effort Effort and Inspection: able to speak in complete sentences Cardio regular rate GI soft to palpation and non-tender Inspection: gravid Palpation: soft; Negative for tender external exam normal Back/Spine no CVA tenderness Extremity normal to inspection, full ROM and no clubbing, cyanosis or edema General Extremity: Negative for calf tenderness or edema Skin Lesions: no lesions Rashes: no rashes Psych mental status grossly normal Labs Labs Labs: Blood Type O POSITIVE Antibody Screen NEGATIVE Hct 39.9 % (37-47) Hgb 13.7 g/dL (12.0-15.0) Pap Smear Negative Obstetrics Ultrasound Syphilis Total Ab Nonreactive (Nonreactive) Rubella IgG Antibody Equiv (Nonreactive) Hep Bs Antigen Non-Reactive (Nonreactive) Hepatitis C Antibody Non-Reactive (Nonreactive) Chlamydia DNA (ERICK) Negative (Negative) N.gonorrhoeae DNA (ERICK) Negative (Negative) HIV 1&2 Antibody Non-Reactive (Nonreactive) Glucose 1 Hr 50 gm 113 mg/dL (70-140) Gest Glucose Tolerance MG/DL Assessment & Plan (1) GBS (group B Streptococcus carrier), +RV culture, currently : COMMENT: PVN in labor (2) Large for gestational age fetus affecting management of mother: COMMENT: AC 96%ile, will repeat GCT now/normal (3) Desires (vaginal after ) trial: COMMENT: primary csection for suspected LGA, didn't labor. (4) Obesity affecting : QUALIFIERS: Trimester: first trimester Obesity type affecting : unspecified obesity Qualified Code(s): O99.211 - Obesity complicating , first trimester COMMENT: HgbA1c, BMI 32. encouraged healthy weight gain. (5) Supervision of high risk , antepartum: COMMENT: PRR , LAISHA 02/25/25, boy PC Cristian, [facility] (6) : QUALIFIERS: Weeks of gestation: 39 weeks Qualified Code(s): Z3A.39 - 39 weeks gestation of COMMENT: normal anatomy, declined NIPT & carrier testing (7) History of gestational diabetes mellitus (GDM) in prior , currently : (8) Previous section: COMMENT: desires . RLTCS scheduled for 02/25 with JV @ 7:15 PLAN: Plan After discussing the patient's diagnosis and treatment plan options, patient wishes to proceed withsurgical management. I have discussed with the patient the risks, benefits, and alternatives of theprocedure which include but are not limited to risks of anesthesia, bleeding, infection, possible damage to bowel, bladder, or surrounding vasculature which could lead to additional surgery to evaluate any complications. Patient agrees to procedure and wishes to proceed. plan for repeat section today. 02/25/25 0715 Cosigner Signature (if applicable): CC: Dr. Emma Booth DO; Dr. Lidia Gonzalez MD~ Signed [facility]04-09-2025 Radiology Diagnostic study note [facility] Imaging Services [address] [place] [id number] OB Limited With Biometrics MR#: [id number] Acct: [id number] Name: ESTEPHANIA WALLACE Rep #: [id number] : 2000 F 24 From: Dee Cazares MD PCP: Dr. Lidia Gonzalez MD Status: REG CLI Study:OB Limited With Biometrics Date of Exam : 01/27/25 Exam# [id number] Ordering Dr: Emma Valdez DO PROCEDURE: OB LIMITED WITH BIOMETRICS 01/27/2025 REASON FOR EXAM: OBESITY IN , LARGE FOR GESTATIONAL AGE. Reportedly at 35 weeks and 6 days by previously established dates. TECHNIQUE: High resolution transabdominal obstetric ultrasound performed using a 2D transducer. Standard views obtained, including biometry and Doppler studies. COMPARISON: None FINDINGS: A single intrauterine gestational sac is identified. Cardiac activity: Present, regular, 139-144 beats per minute. position: Cephalic. Amniotic Fluid Index: 11.7 (normal 5-25), deepest vertical pocket 3.6 (normal 2-8). Placenta: Anterior. biometry: Biparietal diameter: 8.8 cm, corresponding to 35 weeks and 3 days. Head circumference: 31.9 cm, corresponding to 36 weeks and 0 days. Occipitofrontal diameter: 11.1 cm, corresponding to 36 weeks and 1 day. Abdominal circumference: 33.9 cm, corresponding to 37 weeks and 6 days. Femur length: 6.3 cm, corresponding to 34 weeks and 4 days. Composite gestational age: 37 weeks 0 days Estimated Weight (EFW): 3,016 grams +/- 452 grams, 74th percentile. Estimated delivery date (LAISHA): 02/17/2025 based on today's measurements. Maternal anatomy: Cervix: Nonvisualized due to the gravid uterus. . Right ovary: Nonvisualized due to the gravid uterus. Left ovary: Nonvisualized due to the gravid uterus. Other: No significant visualized pelvic free fluid. US/OB Limited With Biometrics IMPRESSION: 1. Single live intrauterine fetus at 37 weeks and 0 days by today's measurements. Correlate with clinical factors including previously established dates. 2. Estimated weight 3,016 grams +/- 452 grams, 74th percentile based on provided previously established dates of 35 weeks and 6 days. biometry as above. 3. Note that detailed anatomic survey was not performed. 4. Additional description as above. Reading Location: [id number] CC: Dr. Emma Booth DO; Dr. Lidia Gonzalez MD ~ Senior It Auditor: Signed [facility]03-06-2025 Progress note [facility] Medical Records Department [address] [place] [address] OB Triage Progress Note 12/26/242111 MR#: [id number] Acct: [id number] Name: ESTEPHANIA WALLACE Rep #:[id number] : 2000 24 From: Vera barbour MD PCP: Dr. Lidia Gonzalez MD Status:REG CLI Y DOS: Location: [id number] Progress Notes Date of Service: 12/26/24 Progress Note: Patient presents for triage evaluation secondary to uti symptoms, some cramping FHT: 140 - 145 Moderate variability reactive no decelerations category I tracing [place]: no Contractions Assessment and plan: uti 31 weeks Reactive NST, reassuring maternal and status patient discharged to home to follow-up as scheduled. See problem list details for additional plan information. Laboratory Studies: Laboratory Tests 12/26/24 Range/Units 20:45 Urine Color Yellow (Yellow) Urine Clarity Clear (Clear) Urine pH 6.0 (5.0 - 8.0) Ur Specific [place] 1.010 (1.002-1.030) Urine Protein 15 H (Negative) mg/dl Urine Glucose (UA) Normal (Normal) mg/dl Urine Ketones Negative (Negative) mg/dl Urine Occult Blood 25 H (Negative) /ul Urine Nitrite Negative (Negative) Urine Bilirubin Negative (Negative) mg/dL Urine Urobilinogen Normal (Normal) mg/dl Ur Leukocyte Esterase Negative (Negative) /ul Charges/Coding Procedures Urinary/Genital 52xxx-59xxx: [id number] non-stress test Interp 12/26/242113 brigida EDWARDS> Date _ Vera Boles MD Cosigner Signature (if applicable): Date CC: Dr. Lidia Gonzalez MD; Dr. Vera Boles MD ~ Signed [facility]02-27-2025 Evaluation note* Diagnosis Onset Date Resolution Status Admit Date History of gestational diabetes mellitus (GDM) in prior , currentl acute Februa 2024 9:01am Desires (vaginal after ) trial resolved November 242024 9:01am Obesity affecting resolved December 19, 2024 9:01am resolved December 19, 2024 9:01am Supervision of high risk , antepartum resolved November 242024 9:01am Previous section inactive December 19, 2024 9:01am History of gestational diabetes mellitus (GDM) in prior , currentl acute January 03, 2025 9:36am Desires (vaginal after ) trial resolved December 9:36am Obesity affecting resolved January 03, 2025 9:36am resolved January 03 9:36am Supervision of high risk , antepartum resolved December 9:36am Previous section inactive January 03, 2025 9:36am History of gestational diabetes mellitus (GDM) in prior , currentl acute January 17, 2025 10:10am Desires (vaginal after ) trial resolved December 10:10am Large for gestational age fetus affecting management of mother resolved January 17, 2025 10:10am Obesity affecting resolved January 17, 2025 10:10am resolved January 17 10:10am Supervision of high risk , antepartum resolved December 10:10am Previous section inactive January 17, 2025 10:10am History of gestational diabetes mellitus (GDM) in prior , currentl acute January 28, 2025 9:02am Desires (vaginal after ) trial resolved January 28, 2025 9:02am Large for gestational age fetus affecting management of mother resolved January 28, 2025 9:02am Obesity affecting resolved January 28, 2025 9:02am resolved January 28 9:02am Supervision of high risk , antepartum resolved January 28, 2025 9:02am Previous section inactive January 28, 2025 9:02am History of gestational diabetes mellitus (GDM) in prior , currentl acute February 06, 2025 9:44am Desires (vaginal after ) trial resolved January 9:44am GBS (group B Streptococcus carrier), +RV culture, currently resolved February 06, 2 025 9:44am Large for gestational age fetus affecting management of mother resolved February 06, 2025 9:44am Obesity affecting resolved February 06, 2025 9:44am resolved Annalise 17th, 20 25 9:44am Supervision of high risk , antepartum resolved January 9:44am Previous section inactive February 06, 2025 9:44am History of gestational diabetes mellitus (GDM) in prior , currentl acute February 11, 2025 9:04am Desires (vaginal after ) trial resolved January 9:04am GBS (group B Streptococcus carrier), +RV culture, currently resolved February 11, 025 9:04am Large for gestational age fetus affecting management of mother resolved February 11, 2025 9:04am Obesity affecting resolved February 11, 2025 9:04am resolved February 11 9:04am Supervision of high risk , antepartum resolved January 9:04am Previous section inactive February 11, 2025 9:04am History of gestational diabetes mellitus (GDM) in prior , currentl acute February 1:04pm Desires (vaginal after ) trial resolved February 20, 2 025 1:04pm GBS (group B Streptococcus carrier), +RV culture, currently resolved February 20, 2025 1:04pm Large for gestational age fetus affecting management of mother resolved February 20, 2025 1: 04pm Obesity affecting resolved February 20, 2025 1:04pm resolved February 20, 2025 1:04pm Supervision of high risk , antepartum resolved February 20, 2 025 1:04pm Previous section inactive February 20, 2025 1:04pm History of gestational diabetes mellitus (GDM) in prior , currentl acute February 4:27am Status post section acute February 25, 2025 4:27am Desires (vaginal after ) trial resolved February 25, 2 025 4:27am GBS (group B Streptococcus carrier), +RV culture, currently resolved February 25, 2025 4:27am Large for gestational age fetus affecting management of mother resolved February 25, 2025 4: 27am Obesity affecting resolved February 25, 2025 4:27am resolved February 25, 2025 4:27am Supervision of high risk , antepartum resolved February 25, 2 025 4:27am Previous section inactive February 25, 2025 4:27am Status post section acute March 12, 2025 3:30pm Yeast dermatitis acute February 3:30pm Routine Follow-Up noneact chang April 10, 2025 3:18pm [facility] Work Phone: [phone] 760-982702-13-2025 Evaluation note* Diagnosis Onset Date Resolution Status Admit Date History of gestational diabetes mellitus (GDM) in prior , currentl acute Februa 2024 9:25am Previous section acute December 05, 2024 9:25am Desires (vaginal after ) trial resolved November 232024 9:25am Obesity affecting resolved December 05, 2024 9:25am resolved December 05, 2024 9:25am Supervision of high risk , antepartum resolved November 232024 9:25am History of gestational diabetes mellitus (GDM) in prior , currentl acute Febr2024 9:01am Previous section acute December 19, 2024 9:01am Desires (vaginal after ) trial resolved November 242024 9:01am Obesity affecting resolved December 19, 2024 9:01am resolved December 19, 2024 9:01am Supervision of high risk , antepartum resolved November 242024 9:01am History of gestational diabetes mellitus (GDM) in prior , currentl acute January 03, 2025 9:36am Previous section acute January 03, 2025 9:36am Desires (vaginal after ) trial resolved December 9:36am Obesity affecting resolved January 03, 2025 9:36am resolved January 03 9:36am Supervision of high risk , antepartum resolved December 9:36am History of gestational diabetes mellitus (GDM) in prior , currentl acute January 17, 2025 10:10am Previous section acute January 17, 2025 10:10am Desires (vaginal after ) trial resolved December 10:10am Large for gestational age fetus affecting management of mother resolved January 17, 2025 10:10am Obesity affecting resolved January 17, 2025 10:10am resolved January 17 10:10am Supervision of high risk , antepartum resolved December 10:10am History of gestational diabetes mellitus (GDM) in prior , currentl acute January 28, 2025 9:02am Previous section acute January 28, 2025 9:02am Desires (vaginal after ) trial resolved January 28, 2025 9:02am Large for gestational age fetus affecting management of mother resolved January 28, 2025 9:02am Obesity affecting resolved January 28, 2025 9:02am resolved January 28 9:02am Supervision of high risk , antepartum resolved January 28, 2025 9:02am History of gestational diabetes mellitus (GDM) in prior , currentl acute February 06, 2025 9:44am Previous section acute February 06, 2025 9:44am Desires (vaginal after ) trial resolved January 9:44am GBS (group B Streptococcus carrier), +RV culture, currently resolved February 06, 025 9:44am Large for gestational age fetus affecting management of mother resolved February 06, 2025 9:44am Obesity affecting resolved February 06, 2025 9:44am resolved February 06 9:44am Supervision of high risk , antepartum resolved January 9:44am History of gestational diabetes mellitus (GDM) in prior , currentl acute February 11, 2025 9:04am Previous section acute February 11, 2025 9:04am Desires (vaginal after ) trial resolved January 9:04am GBS (group B Streptococcus carrier), +RV culture, currently resolved February 11, 2 025 9:04am Large for gestational age fetus affecting management of mother resolved February 11, 2025 9:04am Obesity affecting resolved February 11, 2025 9:04am resolved February 11 9:04am Supervision of high risk , antepartum resolved January 9:04am History of gestational diabetes mellitus (GDM) in prior , currentl acute February 1:04pm Previous section acute February 20, 2025 1:04pm Desires (vaginal after ) trial resolved February 20, 025 1:04pm GBS (group B Streptococcus carrier), +RV culture, currently resolved February 20, 2025 1:04pm Large for gestational age fetus affecting management of mother resolved February 20, 2025 1: 04pm Obesity affecting resolved February 20, 2025 1:04pm resolved February 20, 2025 1:04pm Supervision of high risk , antepartum resolved February 20, 025 1:04pm History of gestational diabetes mellitus (GDM) in prior , currentl acute February 4:27am Previous section acute February 25, 2025 4:27am Status post section acute February 25, 2025 4:27am Desires (vaginal after ) trial resolved February 25, 025 4:27am GBS (group B Streptococcus carrier), +RV culture, currently resolved February 25, 2025 4:27am Large for gestational age fetus affecting management of mother resolved February 25, 2025 4: 27am Obesity affecting resolved February 25, 2025 4:27am resolved February 25, 2025 4:27am Supervision of high risk , antepartum resolved February 25, 025 4:27am Status post section acute March 12, 2025 3:30pm Yeast dermatitis acute February 3:30pm [facility] Work Phone: [phone] 900-165901-17-2025 Evaluation note* Diagnosis Onset Date Resolution Status Admit Date Desires (vaginal after ) trial acute November 082024 8:45am History of gestational diabe jose luis mellitus (GDM) in prior , currentl acute October 8:45am Obesity affecting acute November 08, 2024 8:45am acute November 08, 2024 8:45am Previous section acute November 08, 2024 8:45am Supervision of high risk , antepartum acute November 082024 8:45am Desires (vaginal after ) trial acute November 232024 9:25am History of gestational diabe jose luis mellitus (GDM) in prior , currentl acute November 9:25am Obesity affecting acute December 05, 2024 9:25am acute December 05, 2024 9:25am Previous section acute December 05, 2024 9:25am Supervision of high risk , antepartum acute November 232024 9:25am Desires (vaginal after ) trial acute November 242024 9:01am History of gestational diabe jose luis mellitus (GDM) in prior , currentl acute November 9:01am Obesity affecting acute December 19, 2024 9:01am acute December 19, 2024 9:01am Previous section acute December 19, 2024 9:01am Supervision of high risk , antepartum acute November 242024 9:01am Desires (vaginal after ) trial acute December 9:36am History of gestational diabe jose luis mellitus (GDM) in prior , currentl acute January 03, 2025 9:36am Obesity affecting acute January 03, 2025 9:36am acute January 03 9:36am Previous section acute January 03, 2025 9:36am Supervision of high risk , antepartum acute December 9:36am Desires (vaginal after ) trial acute December 10:10am History of gestational diabe jose luis mellitus (GDM) in prior , currentl acute January 17, 2025 10:10am Large for gestational age fe tus affecting management of mother acute [facility] 2024 10:10am Obesity affecting acute January 17, 2025 10:10am acute January 17 10:10am Previous section acute January 17, 2025 10:10am Supervision of high risk , antepartum acute December 10:10am Desires (vaginal after ) trial acute January 28, 2025 9:02am History of gestational diabe jose luis mellitus (GDM) in prior , currentl acute January 28, 2 025 9:02am Large for gestational age fe tus affecting management of mother acute [facility]2024 9:02am Obesity affecting acute January 28, 2025 9:02am acute January 28 9:02am Previous section acute January 28, 2025 9:02am Supervision of high risk , antepartum acute January 28, 2025 9:02am Desires (vaginal after ) trial acute January 9:44am GBS (group B Streptococcus carrier), +RV culture, currently acute February 06, 2 025 9:44am History of gestational diabe jose luis mellitus (GDM) in prior , currentl acute February 06, 2025 9:44am Large for gestational age fe tus affecting management of mother acute A pril 2024 9:44am Obesity affecting acute February 06, 2025 9:44am acute February 06 9:44am Previous section acute February 06, 2025 9:44am Supervision of high risk , antepartum acute January 9:44am Desires (vaginal after ) trial acute January 9:04am GBS (group B Streptococcus carrier), +RV culture, currently acute February 11, 025 9:04am History of gestational diabe jose luis mellitus (GDM) in prior , currentl acute February 11, 2025 9:04am Large for gestational age fe tus affecting management of mother acute A pril 2024 9:04am Obesity affecting acute February 11, 2025 9:04am acute February 11 9:04am Previous section acute February 11, 2025 9:04am Supervision of high risk , antepartum acute January 9:04am Desires (vaginal after ) trial acute February 20, 025 1:04pm GBS (group B Streptococcus carrier), +RV culture, currently acute February 20, 2025 1:04pm History of gestational diabe jose luis mellitus (GDM) in prior , currentl acute February 20 1:04pm Large for gestational age fe tus affecting management of mother acute M 2024 1:04pm Obesity affecting acute February 20, 2025 1:04pm acute February 20, 2025 1:04pm Previous section acute February 20, 2025 1:04pm Supervision of high risk , antepartum acute February 20, 2 025 1:04pm Desires (vaginal after ) trial acute February 25, 2 025 4:27am GBS (group B Streptococcus carrier), +RV culture, currently acute February 25, 2025 4:27am History of gestational diabe jose luis mellitus (GDM) in prior , currentl acute February 25 4:27am Large for gestational age fe tus affecting management of mother acute M 2024 4:27am Obesity affecting acute February 25, 2025 4:27am acute February 25, 2025 4:27am Previous section acute February 25, 2025 4:27am Status post section acute February 25, 2025 4:27am Supervision of high risk , antepartum acute February 25, 2 025 4:27am [facility] Work Phone: [phone] 936-982512-18-2024 Evaluation note* Diagnosis Onset Date Resolution Status Admit Date Desires (vaginal after ) trial acute September 222023 8:25am History of gestational diabetes mellitus (GDM) in prior , currentl acute Decemb er 2023 8:25am Obesity affecting acute October 09, 2024 8:25am acute October 09, 2024 8:25am Previous section acute October 09, 2024 8:25am Supervision of high risk , antepartum acute September 222023 8:25am Desires (vaginal after ) trial acute November 082024 8:45am History of gestational diabetes mellitus (GDM) in prior , currentl acute 2024 8:45am Obesity affecting acute November 08, 2024 8:45am acute November 08, 2024 8:45am Previous section acute November 08, 2024 8:45am Supervision of high risk , antepartum acute November 082024 8:45am Desires (vaginal after ) trial acute November 232024 9:25am History of gestational diabetes mellitus (GDM) in prior , currentl acute Februa 2024 9:25am Obesity affecting acute December 05, 2024 9:25am acute December 05, 2024 9:25am Previous section acute December 05, 2024 9:25am Supervision of high risk , antepartum acute November 232024 9:25am Desires (vaginal after ) trial acute November 242024 9:01am History of gestational diabetes mellitus (GDM) in prior , currentl acute Februa 2024 9:01am Obesity affecting acute December 19, 2024 9:01am acute December 19, 2024 9:01am Previous section acute December 19, 2024 9:01am Supervision of high risk , antepartum acute November 242024 9:01am Desires (vaginal after ) trial acute December 9:36am History of gestational diabetes mellitus (GDM) in prior , currentl acute January 03, 2025 9:36am Obesity affecting acute January 03, 2025 9:36am acute January 03 9:36am Previous section acute January 03, 2025 9:36am Supervision of high risk , antepartum acute December 9:36am Desires (vaginal after ) trial acute December 10:10am History of gestational diabetes mellitus (GDM) in prior , currentl acute January 17, 2025 10:10am Large for gestational age fetus affecting management of mother acute January 17, 2025 10:10am Obesity affecting acute January 17, 2025 10:10am acute January 17 10:10am Previous section acute January 17, 2025 10:10am Supervision of high risk , antepartum acute December 10:10am Desires (vaginal after ) trial acute January 28, 2025 9:02am History of gestational diabetes mellitus (GDM) in prior , currentl acute January 28, 2025 9:02am Large for gestational age fetus affecting management of mother acute January 28, 2025 9:02am Obesity affecting acute January 28, 2025 9:02am acute January 28 9:02am Previous section acute January 28, 2025 9:02am Supervision of high risk , antepartum acute January 28, 2025 9:02am [facility] Work Phone: 1([phone]) 179-533711-21-2024 Evaluation note* Diagnosis Onset Date Resolution Status Admit Date Desires (vaginal after ) trial acute August 242023 10:18am History of gestational diabetes mellitus (GDM) in prior , currentl acute Novem4 10:18am Obesity affecting acute September 12, 2024 10:18am acute September 12, 2024 10:18am Previous section acute September 12, 2024 10:18am Supervision of high risk , antepartum acute August 242023 10:18am Elevated BP without diagnosi s of hypertension resolved September 12, 10:18am Desires (vaginal after ) trial acute September 222023 8:25am History of gestational diabetes mellitus (GDM) in prior , currentl acute Decemb er 2023 8:25am Obesity affecting acute October 09, 2024 8:25am acute October 09, 2024 8:25am Previous section acute October 09, 2024 8:25am Supervision of high risk , antepartum acute September 222023 8:25am Desires (vaginal after ) trial acute November 082024 8:45am History of gestational diabetes mellitus (GDM) in prior , currentl acute Octua2024 8:45am Obesity affecting acute November 08, 2024 8:45am acute November 08, 2024 8:45am Previous section acute November 08, 2024 8:45am Supervision of high risk , antepartum acute November 082024 8:45am Desires (vaginal after ) trial acute November 232024 9:25am History of gestational diabetes mellitus (GDM) in prior , currentl acute Februa 2024 9:25am Obesity affecting acute December 05, 2024 9:25am acute December 05, 2024 9:25am Previous section acute December 05, 2024 9:25am Supervision of high risk , antepartum acute November 232024 9:25am Desires (vaginal after ) trial acute November 242024 9:01am History of gestational diabetes mellitus (GDM) in prior , currentl acute Februa 2024 9:01am Obesity affecting acute December 19, 2024 9:01am acute December 19, 2024 9:01am Previous section acute February 27th, 2025 9:01am Supervision of high risk , antepartum acute November 242024 9:01am [facility] Work Phone: 1(373) 988-178606-16-[address] Torres [facility] April 07, 2023 7:43am Note Date/Time April 07, 2023 7:[address] [facility] Medical Records Department [address] [place] [address] Instructions for Home/Discharge Instructions 04/07/23 0742 MR#: [id number] Acct: [id number] Name: ESTEPHANIA WALLACE Rep #:[id number] : 2000 From: Emma Booth DO PCP: Dr. Lidia Gonzalez MD Status:ADM IN Discharge Instructions Diet Discharge Diet: No restrictions Activity Discharge Activity: May Not Drive (for 2 weeks or while taking narcotic pain medications.), May Shower and May Take a Tub Bath (in 7 days.) May resume sexual activity in: 4-6 weeks Weight Bearing Status: Full weight bearing Lifting Restrictions: 20 pounds Dressing / Incision Call your doctor if your incision/area has: Continuous Slow Oozing, Sudden Increased Bleeding, Increased Pain/ Swelling, Increased Redness and Foul Smelling Discharge Call your doctor if you observe: Fever of 101 or Higher and Using more than 1 pad per hour Suture Line Care: Avoid Pulling/Pushing and Avoid Pinching/Bending Cleanse incision/area with: Soap & Water and Keep Dressing Clean & Dry Follow Up Care Please Follow Up With: Emma Booth DO When: Call [phone] to make an appointment for an incision check in 1-2 weeks. Test Results: Test results from this visit will be discussed in further detail at your follow- up appointment, if applicable. Discharge Plan Admission Admit Date/Time: 04/05/23 04:55 Primary Reason for Your Visit: Attending Provider: Emma Booth Primary Care Provider: Lidia Gonzalez Discharge Orders/Prescriptions Prescriptions: New ibuprofen 800 mg tablet 800 mg PO Q8H PRN (Reason: pain) Qty: 30 0RF Continued PNV #[id number] acid-omega3 30 mg iron-10 mg iron-1 mg capsule 1 cap PO DAILY No Action (DME) blood-glucose meter Misc See Rx Instructions .MEDSUPPLY Qty: 1 0RF Rx Instructions: As directed- Test fasting and 2 hours after meals (DME) lancets Misc See Rx Instructions .MEDSUPPLY Qty: 100 12RF Rx Instructions: As directed Fasting and 2 HR after meals (DME) Blood Glucose Test Strip See Rx Instructions .Route Qty: 50 12RF Rx Instructions: As directed Fasting & 2 HR after meals Referrals / Follow Up: Lidia Gonzalez MD [Primary Care Provider] - Disposition Disposition (needs filled in before D/C Order can be placed): Home, Self Care 04/07/23 0743<Electronically signed by Emma Booth DO>Emma Booth DO CC: Dr. Lidia Gonzalez MD ~ Signed [facility] Work Phone: [phone] 817-395406-16-[address] Torres [facility] April 07, 2023 7:42am Note Date/Time April 07, 2023 7:[address] [facility] Medical Records Department [address] [place] [address] Discharge Summary 04/07/23 0740 MR#: [id number] Acct: [id number] Name: ESTEPHANIA WALLACE OLAYINKA Rep #:[id number] : 2000 23 From: Emma Booth DO PCP: Dr. Lidia Gonzalez MD Status:ADM IN Location: [place] [address] Providers Date of Admission: 04/05/23 Primary Care Physician: Dr. Lidia Gonzalez MD Reason For Visit: C SECTION Diagnosis Discharge Diagnosis (1) Status post section: Status: Acute Code(s): Z98.891 - History of uterine scar from previous surgery Plan: s/p LTCS PPD # 1 1. routine post care 2. breast feeding- support given 3. rh positive 4. rubella immune 5. plan for dc to home tomorrow Medications at Discharge Home Medications vitamin#30 30 mg iron-10 mg iron-folic acid 1 mg-omg3 capsule 1 cap PO DAILY 08/30/22 blood sugar diagnostic (Blood Glucose Test strips) #50 ea 01/17/23 blood-glucose meter #1 ea 01/17/23 lancets #100 ea 01/17/23 Hospital Course Operations None and section Summary of Care Provided Minutes Spent on Discharge: 30 Hospital Course: The patient was admitted for a primary scheduled section on 04/05/23 forsuspected weight of 9-10 pounds. There were no complications. On day #1 she was tolerating pain well and ambulating, on day#2 she was ready for discharge. Physical Exam HEENT normocephalic Resp normal respiratory effort and normal air movement GI soft to palpation, non-tender and non-distended Rectal Exam: other Other Details: Incision is clean, dry, and intact no CVA tenderness Extremity normal to inspection General Extremity: edema bilateral (trace ) Weight / BMI Weight Weight: 200 lb 9.6 oz Body Mass Index (BMI) 33.3 ABG / Lab / Microbiology Data Result Diagrams: 04/06/23 06:07 D/C Instructions Discharge Diet: No restrictions May resume sexual activity in: 4-6 weeks Weight Bearing Status: Full weight bearing Call your doctor if your incision/area has: Continuous Slow Oozing, Sudden Increased Bleeding, Increased Pain/ Swelling, Increased Redness and Foul Smelling Discharge Call your doctor if you observe: Fever of 101 or Higher and Using more than 1 pad per hour Suture Line Care: Avoid Pulling/Pushing and Avoid Pinching/Bending Cleanse incision/area with: Soap & Water and Keep Dressing Clean & Dry Please Follow Up With: Emma Booth DO When: Call [phone] to make an appointment for an incision check in 1-2 weeks. Meaningful Use Info Meaningful Use Diagnoses (Choose all that apply): None applicable Discharge Plan Admission Admit Date/Time: 04/05/23 04:55 Attending Provider: Emma Booth Primary Care Provider: Lidia Gonzalez Discharge Orders/Prescriptions Prescriptions: No Action PNV #58-iteg-wzhkd acid-omega3 30 mg iron-10 mg iron-1 mg capsule 1 cap PO DAILY (DME) blood-glucose meter Misc See Rx Instructions .MEDSUPPLY Qty: 1 0RF Rx Instructions: As directed- Test fasting and 2 hours after meals (DME) lancets Misc See Rx Instructions .MEDSUPPLY Qty: 100 12RF Rx Instructions: As directed Fasting and 2 HR after meals (DME) Blood Glucose Test Strip See Rx Instructions .Route Qty: 50 12RF Rx Instructions: As directed Fasting & 2 HR after meals Referrals / Follow Up: Lidia Gonzalez MD [Primary Care Provider] - Disposition Disposition (needs filled in before D/C Order can be placed): Home, Self Care 04/07/23 0742 <Electronically signed by Emma Booth DO> Cosigner Signature (if applicable): CC: Dr. Emma Booth DO; Dr. Lidia Gonzalez MD~ Signed [facility] Work Phone: 1(919) 157-980606-15-[address] Torres [facility] April 06, 2023 8:25am Note Date/Time April 06, 2023 8:[address] [facility] Medical Records Department [address] [place] [address] Progress Note - OBGYN 04/06/23 0824 MR#: [id number] Acct: [id number] Name: ESTEPHANIA WALLACE Rep #:[id number] : 2000 23 From: Emma Booth DO PCP: Dr. Lidia Gonzalez MD Status:ADM IN Location: [id number] Subjective Subjective Patient is laying in bed comfortably without complaints. She states that she slept on an off during the night. Lochia is mild and pain is minimal. She does not feel comfortable being discharged today Objective Data Objective Data Vital Signs: Vital Signs Temp Pulse Resp BP Pulse Ox O2 Del Method 97.0 F L 88 18 123/66 H 97 Room Air 04/06/23 03:10 04/06/23 03:10 04/06/23 03:10 04/06/23 03:10 04/06/23 03:10 04/06/23 03:10 Oxygen Delivery Method Room Air Weight: 200 lb 9.6 oz Body Mass Index (BMI) 33.3 Intake & Output: Intake and Output for Last 24 Hours 04/04/23 04/05/23 04/06/23 23:59 23:59 23:59 Intake Total 2845 / 2845 Output Total 1690 / 1690 Balance 1155 / 1155 Lab / Micro Data Result Diagrams: 04/06/23 06:07 Labs: Laboratory Results - last 24 hr 04/05/23 09:41: POC Glucose 70 L 04/06/23 05:54: POC Glucose 73 L 04/06/23 06:07: WBC 8.9, RBC 3.59 L, Hgb 11.0 L, Hct 33.3 L, MCV 92.8, MCH 30.6,MCHC 33.0, RDW Std Deviation 42.1, RDW Coeff of [place] 12.4, Plt Count 151, MPV 9.8 ROS Constitutional Constitutional: Reports systems reviewed and no addt'l complaints, except as documented Cardiovascular Cardiovascular: Denies chest pain, dizziness, dyspnea or irregular heart rhythm Respiratory/Chest Respiratory/Chest: Denies cough, pain on inspiration or shortness of breath at rest Gastrointestinal Gastrointestinal: Denies abdominal pain, nausea or vomiting Genitourinary Genitourinary: Denies burning urination Musculoskeletal Musculoskeletal: Denies muscle cramps, muscle spasms or muscle weakness Neurologic Neurologic: Denies confusion, dizziness, headache(s) or lack of coordination Psychiatric Psychiatric: Denies anxiety, behavioral changes or depression Physical Exam HEENT normocephalic Resp normal respiratory effort and normal air movement GI soft to palpation, non-tender and non-distended Rectal Exam: other Other Details: Incision is clean, dry, and intact no CVA tenderness Extremity normal to inspection General Extremity: edema bilateral (trace ) Assessment & Plan (1) Status post section: PLAN: s/p LTCS PPD # 1 1. routine post care 2. breast feeding- support given 3. rh positive 4. rubella immune 5. plan for dc to home tomorrow 04/06/23 0825 <Electronically signed by Emma Booth DO> Cosigner Signature (if applicable): CC: ~ Signed [facility] Work Phone: 1(348) 586-344206-14-2023 History and physical note Author Dr. Torres [facility] April 05, 2023 7:26am Note Date/Time April 05, 2023 7:[address] [facility] Medical Records Department [address] [place] [address] H&P Exam - [employer] EXAM[employer]ER 04/05/23723 MR#: [id number] Acct: [id number] Name: ESTEPHANIA WALLACE OLAYINKA Rep #:[id number] : 2000 23 From: Emma Booth DO PCP: Dr. Lidia Gonzalez MD Status:ADM IN Location: [id number] HPI - General General Date of Admission: 04/05/23 HPI Narrative ESTEPHANIA WALLACE, is a 23 y/o @ 39 weeks 3 days with LGA (>4500 grams) and gestation diabetes who presents to L&D for a primary cesarea section Maternal Data Information LAISHA Calculator Estimated Delivery Date Method Current WG Current Estimate 04/09/23 LMP (Certain) 39w 3d PFSH PFS Medical History (Updated 04/05/23 @ 05:43 by Aggie Parada) Gestational diabetes Influenza A macrosomia Home Medications vitamin#30 30 mg iron-10 mg iron-folic acid 1 mg-omg3 capsule 1 cap PO DAILY 08/30/22 [History Last Taken 03/30/23 22:00] blood sugar diagnostic (Blood Glucose Test strips) #50 ea 01/17/23 [Rx Last Taken Unknown] blood-glucose meter #1 ea 01/17/23 [Rx Last Taken Unknown] lancets #100 ea 01/17/23 [Rx Last Taken Unknown] Allergy/AdvReac Type Severity Reaction Status Date / Time No Known Allergies Allergy Verified 04/05/23 05:54 Surgical History (Updated 04/05/23 @ 05:43 by Aggie Parada) S/P foot surgery, left [place] teeth removed Social History adopted: No household members: spouse housing: house current occupational status: employed 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 current occupational exposures/hazards: No pets and animals: Yes pets and animals: dog(s) history of recent travel: Yes ([place] 08/19/22 [employer]) out of state: Yes out of country: Yes sexually active: Yes Smoking Status: Never smoker alcohol intake: former details: ocassional prior to substance use type: does not use well-balanced diet: daily or most days caffeine: Yes Type: coffee Number of servings: 1 eating out: rarely or never during the past year weight has: remained stable what type of physical activity do you participate in: none david/confucianist: Yazidi seatbelt use: always do you feel safe at home: Yes additional social history: Andreas 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 History 1 Elective abortions Hx Para 0 Spontaneous abortions Hx # Term Pregnancies Ectopic pregnancies Hx # Pregnancies Multiple births # of living children Visit Details Expected Delivery Route/Plan Labor Preferences- CB/BF classes: Discussed labor support person: Andreas labor intervention preferences: epidural if needed pain management options preferred: Discussed cut cord/dad catch: cord : yes PP control planned: discussed discussed possible routes of delivery and associated risks: [] special requests: [] Plans Covid status: declined Flu vaccine: discussed Tdap vaccine: Given Rhogam: na LARC form signed: yes Problem list reviewed and updated with the most current plan of care details and appropriate orders placed. Relevant counseling for the gestational age provided. Continue routine care and follow up unless otherwise noted in visit notes/problem list details OB Flowsheet Initial Weight: Not Recorded Date -?-?-?-?-?-?-?-?-?-?-?-?- EGA Weight BP Urine Prot -?-?-?-?-?-?-?-?-?-?-?-?- Glucose FHR FuHt Pres Dilation -?-?-?-?-?-?-?-?-?-?-?-?- Effaced St Visit Note 08/30/22 -?-?-?-?-?-?-?-?-?-?-?-?- 8w 2d 175 lb 112/82 -?-?-?-?-?-?-?-?-?-?-?-?- 168 -?-?-?-?-?-?-?-?-?-?-?-?- JV- CRL consiste nt with LMP. declines genetic testing. 09/28/22 -?-?-?-?-?-?-?-?-?-?-?-?- 12w 3d 179 lb 4 oz 131/82 Nega tive -?-?-?-?-?-?-?-?-?-?-?-?- Negative 157 -?-?-?-?-?-?-?-?-?-?-?-?- JV- no complaint s today. CRL consistent with GS still and pt doing overall well. she will go for labs today. 10/25/22 -?-?-?-?-?-?-?-?-?-?-?-?- 16w 2d 180 lb 127/80 Negative -?-?-?-?-?-?-?-?-?-?-?-?- Negative 150 -?-?-?-?-?-?-?-?-?-?-?-?- SM- no vb crampi ng. 11/21/22 -?-?-?-?-?-?-?-?-?-?-?-?- 20w 1d 182 lb 127/84 Negative -?-?-?-?-?-?-?-?-?-?-?-?- Negative 165 -?-?-?-?-?-?-?-?-?-?-?-?- SM- its a BOY! n o vb cramping 12/19/22 -?-?-?-?-?-?-?-?-?-?-?-?- 24w 1d 188 lb 8 oz 116/76 Nega tive -?-?-?-?-?-?-?-?-?-?-?-?- Negative 150 24 -?-?-?-?-?-?-?-?-?-?-?-?- SM- no vb lof go od fm no regular ctx 01/12/23 -?-?-?-?-?-?-?-?-?-?-?-?- 27w 4d 194 lb 6 oz 136/87 Nega tive -?-?-?-?-?-?-?-?-?-?-?-?- Negative 155 28 -?-?-?-?-?-?-?-?-?-?-?-?- KW no vb/lof/ctx . good FM. failed 1 hour GTT, 3 hour info given. 01/24/23 -?-?-?-?-?-?-?-?-?-?-?-?- 29w 2d 193 lb 8 oz 128/78 Nega tive -?-?-?-?-?-?-?-?-?-?-?-?- Negative 155 29 -?-?-?-?-?-?-?-?-?-?-?-?- KW-+FM. No LOF/V B/Ctx. BS reviewed-stable. Tdap given. 02/08/23 -?-?-?-?-?-?-?-?-?-?-?-?- 31w 3d 193 lb 124/79 Negative -?--?-?-?-?-?-?-?-?-?-?-?- Negative 141 32 -?-?-?-?-?-?-?-?-?-?-?-?- JV- larc signed today. no lof, vaginal bleeding, or dec fm. JV- larc signed today. no lo f, vaginal bleeding, or dec fm. Fasting levels 70's- 80's, 2 hr pp under 120 02/23/23 -?-?-?-?-?-?-?-?-?-?-?-?- 33w 4d 194 lb 2 oz 125/76 Nega tive -?-?-?-?-?-?-?-?-?-?-?-?- Negative 143 33 -?-?-?-?-?-?-?-?-?-?-?-?- JV-no lof, vagin al bleeding or dec fm. normal glucose levels 03/09/23 -?-?-?-?-?-?-?-?-?-?-?-?- 35w 4d 195 lb 6 oz 128/78 Nega tive -?-?-?-?-?-?-?-?-?-?-?-?- Negative 145 37 Cephalic -?-?-?-?-?-?-?-?-?-?-?-?- SM- no vb lof go od fm no regular ctx SM- no vb lof good fm no reg ular ctx ordered growth us BS controlled 03/15/23 -?-?-?-?-?-?-?-?-?-?-?-?- 36w 3d 197 lb 2 oz 122/83 Nega tive -?-?-?-?-?-?-?-?-?-?-?-?- Negative 150 37.5 Cephalic 1 -?-?-?-?-?-?-?-?-?-?-?-?- 0 -4 JV- growth scan shows baby is over 8 pounds already and 97th%. plan for 39 week delivery. and consider repeat scan prior to induction if baby still high. if over 4500 grams at 39 weeks consider primary section. (today is at 3700 and estimated to be 4400 grams by 39 weeks) 03/21/23 -?-?-?-?-?-?-?-?-?-?-?-?- 37w 2d 196 lb 4 oz 124/82 Nega tive -?-?-?-?-?-?-?-?-?-?-?-?- Negative 157 38 Cephalic 1 -?-?-?-?-?-?-?-?-?-?-?-?- -4 -No VB , LOF or reg CTX. Good FM. Growth US ordered. 03/31/23 -?-?-?-?-?-?-?-?-?-?-?-?- 38w 5d 200 lb 134/85 Trace -?-?-?-?-?-?-?-?-?-?-?-?- Negative 150 43 -?-?-?-?-?-?-?-?-?-?-?-?- JV-rpt bp is 146 /93. no lof, vaginal bleeding, or dec fm. no headaches. 99th% baby, planning a primary section. JV-rpt bp is 146/93. no lof, vaginal bleeding, or dec fm. no headaches. 99th% baby, planning a primary section. sending to L&D now prot/cr sent stat ROS Constitutional Constitutional: Denies change in weight, fatigue, fever(s), headache(s), poor appetite or weakness Eyes Eyes: Denies blurry vision, change in vision, seeing flashes or spots in vision ENT HEENT: Denies dizziness, headache(s), loss taste/smell or sore throat Cardiovascular Cardiovascular: Denies chest pain, dizziness, dyspnea, irregular heart rhythm, leg edema, palpitations, rapid heart rate or vomiting Respiratory/Chest Respiratory/Chest: Denies chest tightness, cough, dyspnea or breast pain Gastrointestinal Gastrointestinal: Denies abdominal pain, anorexia, constipation, cramping, diarrhea, hemorrhoids, vomiting or weight changes Genitourinary Genitourinary: Denies dysuria, flank pain, genital lesions, genital pain, urinary frequency or urinary urgency Musculoskeletal Musculoskeletal: Denies back pain, difficulty walking, joint pain, limited range of motion, muscle cramps or numbness Integumentary Integumentary: Denies lesions or unusual bruising Neurologic Neurologic: Denies abnormal movements, abnormal speech, dizziness, numbness, seizure-like activity or syncope Psychiatric Psychiatric: Denies anxiety, behavioral changes, change in appetite, change in libido, cognitive impairment, confusion, depression, difficulty concentrating, hallucinations or suicidal thoughts Endocrine Endocrinology: Denies excessive sweating, polydipsia or polyuria Hematologic/Lymphatic Hematologic/Lymphatic: Denies easy bleeding, easy bruising or lymphadenopathy Allergic/Immunologic Allergic/Immunologic: Denies itchy eyes, lip swelling, seasonal rhinorrhea, rhinitis, throat swelling, tongue swelling, eczemia, wheezing or asthma Vital Signs Vital Signs Vital Signs: 04/05/23 05:29 04/05/23 05:29 04/05/23 05:29 Temperature Temperature Source Pulse Rate 93 Respiratory Rate Blood Pressure 129/82 H Blood Pressure Mean BP Systolic 129 BP Diastolic 82 Blood Pressure Source Blood Pressure Position Blood Pressure Location Pulse Ox 96 Oxygen Delivery Method 04/05/23 05:30 04/05/23 05:30 04/05/23 05:30 Temperature 99.0 F 99.0 F Temperature Source Temporal Temporal Pulse Rate 93 Respiratory Rate 18 Blood Pressure 129/82 H Blood Pressure Mean 97 BP Systolic BP Diastolic Blood Pressure Source Monitor Blood Pressure Position Sitting Blood Pressure Location Left Arm Pulse Ox 96 Oxygen Delivery Method Room Air Weight Weight: 200 lb 9.6 oz Body Mass Index (BMI) 33.3 Physical Exam Const alert, oriented x3, no apparent distress and healthy appearing General Appearance: cooperative; Negative for anxious HEENT normocephalic Face and Sinus: normal facial exam Eyes EOMs intact bilaterally and no scleral icterus General Eye: normal appearance of both eyes Neck full ROM and supple Lymph Lymphatic: no lymphadenopathy noted Chest Chest: abnormal inspection of the chest Resp normal respiratory effort Effort and Inspection: able to speak in complete sentences Cardio regular rate GI soft to palpation and non-tender Inspection: gravid Palpation: soft; Negative for tender Back/Spine no CVA tenderness Extremity normal to inspection, full ROM and no clubbing, cyanosis or edema General Extremity: Negative for calf tenderness or edema Skin Lesions: no lesions Rashes: no rashes Psych mental status grossly normal Labs Labs Labs: Blood Type O POSITIVE Antibody Screen NEGATIVE Hct 40.7 % (37-47) Hgb 13.7 g/dL (12.0-15.0) Pap Smear Negative Obstetrics US Syphilis Total Ab Non-reactive Rubella IgG Antibody Reactive (Nonreactive) Hep Bs Antigen Non-Reactive (Nonreactive) Chlamydia DNA (ERICK) Negative (Negative) Neisseria gonorrhoeae DNA (ERICK) Negative (Negative) HIV 1&2 Antibody Non-Reactive (Nonreactive) Glucose 1 Hr 50 gm 163 mg/dL (70-140) H Assessment & Plan (1) : QUALIFIERS: Weeks of gestation: 38 weeks Qualified Code(s): Z3A.38 - 38 weeks gestation of COMMENT: Neg GBS. discussed genetic, ntd, and carrier testing and declines. nl anatomy (2) Supervision of normal first : COMMENT: PRR , LAISHA 04/09/23 boy [facility] (3) Gestational diabetes: COMMENT: 99% on 03/28. 4500grams by 39weeks. P C/S scheduled for 04/05 at 7am. BS well controlled with diet 36 week growth us ordered - LGA on growth scan at 36 weeks (97th%) - 8lbs at 36 weeks. deliver 39 weeks - consider growth scan repeat at 39 weeks. estimated to be 4400 grams at 39 weeks and may be candidate for primary section. (4) LGA (large for gestational age) fetus: COMMENT: rpt growth US at 38 wk, del at 39 wk, primary csection scheduled for 04/05 @ 7:10 (5) Elevated BP without diagnosis of hypertension: COMMENT: P:C 279. repeat BP in WP 107-122/62-78. PLAN: Plan After discussing the patient's diagnosis and treatment plan options, patient wishes to proceed with surgical management. I have discussed with the patient the risks, benefits, and alternatives of the procedure which include but are not limited to risks of anesthesia, bleeding, infection, possible damage to bowel, bladder, or surrounding vasculature which could lead to additional surgery to evaluate any complications. Patient agrees to procedure and wishes to proceed. ACOG/uptodate references given for additional information regarding procedure. plan for primary ERAS section 04/05/23 07 <Electronically signed by Emma Booth DO> Cosigner Signature (if applicable): CC: Dr. Emma Booth DO; Dr. Lidia Gonzalez MD~ Signed [facility] Work Phone: 1(356) 762-300906-14-2023 Procedure [facility] 08-30-2022 NotePap Smear Specimen AdequacyNov2021 4:06pmComment. Satisfactory for evaluation. No endocervical component is identified.An endocervical component is not commonly seen in the patient.[employer] INTERFACED A#[id number] Hospital Work Phone: Comment on above:Satisfactory for evaluation. No endocervical component is identified.An endocervical component is not commonly seen in the patient.08-30-2022 NotePap Smear Specimen AdequacyNov2021 4:06pmComment.Satisfactory for evaluation. No endocervical component is identified.An endocervical component is not commonly seen in the patient.[employer] INTERFACED A#[id number] Hospital Work Phone: Comnnjs on above:Satisfactory for evaluation. No endocervical component is identified.An endocervical component is not commonly seen in the patient.02-07-2022 History of Present illness Narrative* Estephania presents with left rib pain. * States a week ago was sleeping on left side, and had sudden pain in left neck down arm, down left ribs. Has had this before, had to move off of left side and resposition. Had pain in left shoulder left upper chest with movement for a few days and now has localized to left ribs in axillary line. Worse with movement, worse with laughing, sneezing, moving. Denies cough, denies fevers/chills. Denies shortness of breath. Denies leg pain or swelling. Denies rash or blisters. * No current medications, denies possibility of . -[facility] Work Phone: 1(722) 325-876905-05-2021 NoteADDENDUM Date of Procedure: 02/24/2021 Pathologist: OCTAVIO MUNSON MD Date Reported: 03/10/2021 Date Received: 02/25/2021 Submitting Physician: LESVIA MERCER, DO FINAL CYTOLOGICAL INTERPRETATION Squamous and/or Glandular Abnormality A. THINPREP PAP CERVICAL: Specimen adequacy: SATISFACTORY FOR EVALUATION. Quality Indicator: Endocervical/transformation zone component is present. General Categorization: EPITHELIAL CELL ABNORMALITY - SQUAMOUS CELL. See Interpretation. Descriptive Interpretation: ATYPICAL SQUAMOUS CELLS OF UNDETERMINED SIGNIFICANCE (ASC-US) - CERVIX. Ancillary Testing: An addendum report will follow pending the HPV - Including Genotype testing performed by the Molecular Diagnostics Laboratory at [facility]. Electronically Signed Out By OCTAVIO MUNSON MD/RAMON/JV By the signature on this report, the individual or group listed as making the Final Interpretation/Diagnosis certifies that they have reviewed this case. Educational Note: Cervical cytology is a screening procedure primarily for squamous cancers and precursors and has associated false-negative and false-positive results as evidenced by published data. Your patient?s test should be interpreted in this context, together with patient?s history and clinical findings. Regular sampling and follow-up of unexplained clinical signs and symptoms are recommended to minimize false negative results. Clinical History Date of Last Menstrual Period: 02/12/2021 Other Clinical Conditions: HPV Reflex for ASC-US only - Include HPV Genotype Annual Clinical Diagnosis History: Screening for cervical cancer - (Z12.4) Source of Specimen A: THINPREP PAP CERVICAL Addendum/Procedures: 1 HPV Addendum Date Ordered: 03/10/2021 Status: Signed Out Date Complete: 03/11/2021 Date Reported: 03/11/2021 Addendum Diagnosis HIGH RISK HPV TEST RESULT: HPV GENOTYPE 16 NEGATIVE HPV GENOTYPE 18 NEGATIVE HPV GENOTYPE OTHER NEGATIVE Reference Range: Negative Testing for high-risk (HR) type of human papilloma virus (HPV) is performed by the Aaron kay HPV Test. The kay HPV Test is a qualitative polymerase chain reaction that amplifies DNA of HPV16, HPV18 and 12 other high-risk HPV types (31, 33, 35, 39, 45, 51, 52, 56, 58, 59, 66, and 68) associated with cervical cancer and its precursor lesions. A positive result indicates the presence of HPV DNA due to one or more of the 14 genotypes: 16, 18, 31, 33, 35, 39, 45, 51, 52, 56, 58, 59, 66, and 68. Negative results indicate HPV DNA concentrations are undetectable or below the pre-set threshold for detection. False negative results may be associated with unoptimized sampling. A negative HR HPV result does not exclude the possibility of future cytologic HSIL or underlying CIN2-3 or cancer. This test is approved for cervical specimens by the US Food and Drug Administration. Results of this test should be interpreted in conjunction with the patient?s Pap test results. Please refer to ASCCP current guidelines for the use of HPV DNA testing, result interpretation, and patient management. The performance of this test was verified by the Molecular Diagnostic Laboratory at [facility]. The lab is certified under the Clinical Laboratory Amendments of 1988 (CLIA 88) as qualified to perform high complexity clinical laboratory testing. Electronically Signed Out By MIGUEL ANGEL WALKER MD/ADEBAYO By the signature on this report, the individual or group listed as making the Final Interpretation/Diagnosis certifies that they have reviewed this case. [facility] Department of Pathology [address] [place], [place] [address]Comment on above:Performed By: #### C #### [facility] Cytology [address] [place] [address] note* Diagnosis Onset Date Resolution Status acute Supervision of normal first [facility] Work Phone: Evaluation note* Diagnosis Onset Date Resolution Status acute Supervision of normal first acute acute Supervision of normal first [facility] Work Phone: Evaluation note* Diagnosis Onset Date Resolution Status acute Supervision of normal first acute acute Supervision of normal first acute acute Supervision of normal first acute acute Supervision of normal first acute Abnormal glucose affecting acute acute Supervision of normal first [facility] Work Phone: Evaluation note* Diagnosis Onset Date Resolution Status acute Supervision of normal first acute acute Supervision of normal first acute Abnormal glucose affecting resolved Gestational diabetes acute acute Supervision of normal first acute Abnormal glucose affecting resolved Gestational diabetes acute acute Supervision of normal first acute Abnormal glucose affecting resolved Gestational diabetes acute acute Supervision of normal first acute Abnormal glucose affecting resolved Gestational diabetes acute acute Supervision of normal first acute Gestational diabetes acute acute Supervision of normal first acute Gestational diabetes acute LGA (large for gestational age) fetus acute acute Supervision of normal first [facility] Work Phone: Evaluation note* Diagnosis Onset Date Resolution Status acute Supervision of normal first acute acute Supervision of normal first acute Abnormal glucose affecting resolved Gestational diabetes acute acute Supervision of normal first acute Abnormal glucose affecting resolved Gestational diabetes acute acute Supervision of normal first acute Abnormal glucose affecting resolved Gestational diabetes acute acute Supervision of normal first acute Abnormal glucose affecting resolved Gestational diabetes acute acute Supervision of normal first acute Gestational diabetes acute acute Supervision of normal first acute Gestational diabetes acute LGA (large for gestational age) fetus acute acute Supervision of normal first acute Gestational diabetes acute LGA (large for gestational age) fetus acute acute Supervision of normal first acute Elevated BP without diagnosis of hypertension acute Gestational diabetes acute LGA (large for gestational age) fetus acute acute Supervision of normal first acute Elevated BP without diagnosis of hypertension acute Gestational diabetes acute LGA (large for gestational age) fetus acute acute Status post section acute Supervision of normal first [facility] Work Phone: History of Present illness Narrative* New patient presents to establish care. 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 * Has a few issues she would like to discuss. * Nausea, intermittent for two years, sometimes eating makes it better, sometimes not. No abdominal pain. No weight changes, no vomiting, no change in bowels . Occasional gerd depending on what and when she eats. * Headaches, for two years intermittent, most notable when she is sitting at the computer prolonged. Has glasses, had eye exam in last 12 mos. Can rub upper neck and improve symptoms, putting on glasses at computer helps once headache has started. Not worst headache of life, does not * BMs, states frequently goes when she sits down to urinate, didn't have urge until she sat down. Reviewed that can be a normal variant, sort of mental conditioning if you will, but can check some labsfor thyroid, etc, and she is agreeable. -[facility] Work Phone: Progress note Author Vera Boles [facility] Note Date/Time December 26, 2024 9:[address] [facility] Medical Records Department [address] [place] [address] OB Triage Progress Note 12/26/242111 MR#: [id number] Acct: [id number] Name: ESTEPHANIA WALLACE Rep #:[id number] : 2000 From: Vera barbour MD PCP: Dr. Lidia Gonzalez MD Status:REG CLI Y DOS: Location: [place] [address] Progress Notes Date of Service: 12/26/24 Progress Note: Patient presents for triage evaluation secondary to uti symptoms, some cramping FHT: 140 - 145 Moderate variability reactive no decelerations category I tracing [place]: no Contractions Assessment and plan: uti 31 weeks Reactive NST, reassuring maternal and status patient discharged to home to follow-up as scheduled. See problem list details for additional plan information. Laboratory Studies: Laboratory Tests 12/26/24 Range/Units 20:45 Urine Color Yellow (Yellow) Urine Clarity Clear (Clear) Urine pH 6.0 (5.0 - 8.0) Ur Specific [place] 1.010 (1.002-1.030) Urine Protein 15 H (Negative) mg/dl Urine Glucose (UA) Normal (Normal) mg/dl Urine Ketones Negative (Negative) mg/dl Urine Occult Blood 25 H (Negative) /ul Urine Nitrite Negative (Negative) Urine Bilirubin Negative (Negative) mg/dL Urine Urobilinogen Normal (Normal) mg/dl Ur Leukocyte Esterase Negative (Negative) /ul Charges/Coding Procedures Urinary/Genital 52xxx-59xxx: 17900-71 non-stress test Interp 12/26/242113 <Electronically signed by Vera allred MD> Date _ [facility] Boles MD [facility] Signature (if applicable): Date CC: Dr. Lidia Gonzalez MD; Dr. Vera Boles MD ~ Signed [facility] Work Phone: Reason for referral (narrative)No reason for referral information availableMercy Hospital Work Phone: Summary Purpose Family History Unknown Family Member Name Dates Details Family history of malignant neoplasm: Grandfather(V16.9, Z80.9) Status:Active Family history of lung cance r: Grandparent(V16.1, Z80.1) Status:Active Family history of pancreatic cancer: Grandparent(V16.0, Z80.0) Status:Active Unknown Family Member Name Dates Details Family history of malignant neoplasm: Grandfather(V16.9, Z80.9) Status:Active Family history of lung cance r: Grandparent(V16.1, Z80.1) Status:Active Family history of pancreatic cancer: Grandparent(V16.0, Z80.0) Status:Active Unknown Family Member Name Dates Details Family history of malignant neoplasm: Grandfather(V16.9, Z80.9) Status:Active Family history of lung cance r: Grandparent(V16.1, Z80.1) Status:Active Family history of pancreatic cancer: Grandparent(V16.0, Z80.0) Status:Active Unknown Family Member Name Dates Details Family history of malignant neoplasm: Grandfather(V16.9, Z80.9) Status:Active Family history of lung cance r: Grandparent(V16.1, Z80.1) Status:Active Family history of pancreatic cancer: Grandparent(V16.0, Z80.0) Status:Active Unknown Family Member Name Dates Details Family history of malignant neoplasm: Grandfather(V16.9, Z80.9) Status:Active Family history of lung cance r: Grandparent(V16.1, Z80.1) Status:Active Family history of pancreatic cancer: Grandparent(V16.0, Z80.0) Status:Active Unknown Family Member Name Dates Details Family history of malignant neoplasm: Grandfather(V16.9, Z80.9) Status:Active Family history of lung cance r: Grandparent(V16.1, Z80.1) Status:Active Family history of pancreatic cancer: Grandparent(V16.0, Z80.0) Status:Active Relationship Condition Age at Onset Recorded Date/T sharlene grandfather Malignant neoplasm 55 grandfather Malignant neoplasm 60 Advance Directives Advance Directive Response Recorded Date/ Time Living Will No April 05, 2023 5:48am Power of News Reel Cameraman No April 05 5:48am Advance Directive Response Recorded Date/ Time Living Will No April 05, 2023 4:48am Power of News Reel Cameraman No April 05 4:48am Advance Directive Response Recorded Date/ Time Living Will No April 05, 2023 5:48am Do you have a Healthcare Power of News Reel Cameraman? No April 05, 2023 5:48am Advance Directive Response Recorded Date/ Time Living Will No April 05, 2023 5:48am Do you have a Healthcare Power of News Reel Cameraman? No April 05, 2023 5:48am Do you have a Healthcare Power of [employer] Camer[employer]? No February 25, 2025 5:04am Advance Directive Response Recorded Date/ Time Do you have a Healthcare Power of [employer] Cameraman? No February 25, 2025 5:04am Chief Complaint Chief Complaint: ESTEPHANIA SELLERS is here with a chief complaint of HERE TO ESTABLISH CARE; C/O DAILYHA'S OVER THE LAST YEAR; OTC MEDS DO HELP SOME; C/O NAUSEA X 1-2 YRS OFF AND ON; STATES SHE DOES HAVE SOME ACID REFLUX WELL.* Patient is here for Depo Inj. * Office Supply * [facility] - [phone] * Lot # -[id number] * Exp -12/14 * Site - right deltoid * Depo Provera 150 mg/mL IM * Return date - 06/30/2021 * Patient is here for Depo Inj * Office Supply * [facility]: [id number] * Lot# [id number] * Exp: 01/2022 * Site: Right Deltoid * Depo Provera 150mg/mL IM * Return Date: 09/24/2021 * Patient is here for Depo Inj * OFFICE Supply * [facility]:[] [phone] * Lot#[] [id number] * Exp:[] 05/13 * Site:[] RIGHT DELTOID * Depo Provera 150mg/mL IM * Return Date:[]12/17/2021 * PATIENT IS UNSURE IF SHE WILL CONTINUE WITH THE DEPO SHOTS. Chief Complaint: ESTEPHANIA SELLERS is here with a chief complaint of C/O LT RIB PAIN X 1WK; STATES HURTS TO TAKE A DEEP BREATH OR LAUGH. Chief Complaint and Reason for Visit Chief Complaint NOB LMP 07/03 Reason for Visit Supervision of normal first Chief Complaint NOB LMP 07/03 12 WK OB Reason for Visit Supervision of normal first Supervision of normal first Chief Complaint 12 WK OB 16 WK OB 20 WK OB 24 WK OB 28 WK OB ABNORMAL GLUCOSE COMPLICATING Reason for Visit Supervision of normal first Supervision of normal first Supervision of normal first Supervision of normal first Abnormal glucose affecting Supervision of normal first Chief Complaint 12 WK OB 16 WK OB 20 WK OB 24 WK OB 28 WK OB ABNORMAL GLUCOSE COMPLICATING GESTATIONAL DIABETES Reason for Visit Supervision of normal first Supervision of normal first Supervision of normal first Supervision of normal first Abnormal glucose affecting Supervision of normal first Chief Complaint 24 WK OB 28 WK OB ABNORMAL GLUCOSE COMPLICATING GESTATIONAL DIABETES 30 WK OB GESTATIONAL DIABETES 32 WK OB 34 WK OB 36 WK OB GESTATIONAL DIABETES EST OB 37WK EST OB 38WK Reason for Visit Supervision of normal first Supervision of normal first Abnormal glucose affecting Gestational diabetes Supervision of normal first Abnormal glucose affecting Gestational diabetes Supervision of normal first Abnormal glucose affecting Gestational diabetes Supervision of normal first Abnormal glucose affecting Gestational diabetes Supervision of normal first Gestational diabetes Supervision of normal first Gestational diabetes LGA (large for gestational age) fetus Supervision of normal first Chief Complaint 24 WK OB 28 WK OB ABNORMAL GLUCOSE COMPLICATING GESTATIONAL DIABETES 30 WK OB GESTATIONAL DIABETES 32 WK OB 34 WK OB 36 WK OB GESTATIONAL DIABETES EST OB 37WK EST OB 38WK GROWTH EST OB 39WK PRE E PRE E C SECTION C SECTION C SECTION C SECTION Reason for Visit Supervision of normal first Supervision of normal first Abnormal glucose affecting Gestational diabetes Supervision of normal first Abnormal glucose affecting Gestational diabetes Supervision of normal first Abnormal glucose affecting Gestational diabetes Supervision of normal first Abnormal glucose affecting Gestational diabetes Supervision of normal first Gestational diabetes Supervision of normal first Gestational diabetes LGA (large for gestational age) fetus Supervision of normal first Gestational diabetes LGA (large for gestational age) fetus Supervision of normal first Elevated BP without diagnosis of hypertension Gestational diabetes LGA (large for gestational age) fetus Supervision of normal first Elevated BP without diagnosis of hypertension Gestational diabetes LGA (large for gestational age) fetus Status post section Supervision of normal first Chief Complaint Admit Date 16 WK OB September 12, 2024 10:18am 20 WK OB October 09, 2024 8:25am 24 WK OB November 08, 2024 8 :45am ONE HOUR DRAW AT 9:20AM December 05, 2 025 9:05am 28 WK OB/GLUCOSE December 05, 2024 9:25am 30 wk ob December 19, 2024 9:01am R/O LABOR December 26, 2024 8:10 pm R/O LABOR December 26, 2024 9:12 pm Reason for Visit Admit Date Desires (vaginal after kim an) trial September 12, 2024 10:18am History of gestational diabe jose luis mellitus (GDM) in prior , currentl September 12, 2024 10:18am Obesity affecting August 10:18am September 12, 2024 10:18am Previous section September 12, 2024 10:18am Supervision of high risk , ante September 12, 2024 10:18am Elevated BP without diagnosis of hyperte nsion September 12, 2024 10:18am Desires (vaginal after kim an) trial October 09, 2024 8:25am History of gestational diabe jose luis mellitus (GDM) in prior , currentl October 09, 2024 8:25am Obesity affecting September 8:25am October 09, 2024 8:25am Previous section October 09, 2024 8:25am Supervision of high risk , ante October 09, 2024 8:25am Desires (vaginal after kim an) trial November 08, 2024 8:45am History of gestational diabe jose luis mellitus (GDM) in prior , currentl November 08, 2024 8:45am Obesity affecting October 8:45am November 08, 2024 8 :45am Previous section November 08, 2024 8:45am Supervision of high risk , ante November 08, 2024 8:45am Desires (vaginal after kim an) trial December 05, 2024 9:25am History of gestational diabe jose luis mellitus (GDM) in prior , currentl December 05, 2024 9:25am Obesity affecting November 9:25am December 05, 2024 9:25am Previous section December 05, 2024 9:25am Supervision of high risk , ante December 05, 2024 9:25am Desires (vaginal after kim an) trial December 19, 2024 9:01am History of gestational diabe jose luis mellitus (GDM) in prior , currentl December 19, 2024 9:01am Obesity affecting November 9:01am December 19, 2024 9:01am Previous section December 19, 2024 9:01am Supervision of high risk , ante December 19, 2024 9:01am Chief Complaint Admit Date 20 WK OB October 09, 2024 8:25am 24 WK OB November 08, 2024 8 :45am ONE HOUR DRAW AT 9:20AM December 05, 2 025 9:05am 28 WK OB/GLUCOSE December 05, 2024 9:25am 30 wk ob December 19, 2024 9:01am R/O LABOR December 26, 2024 8:10 pm R/O LABOR December 26, 2024 9:12 pm 32 wk ob (RS 5/6 APT) January 03, 2025 9 :36am 34 wk ob January 17, 2025 10: 10am OBESITY IN ,LARGE FOR GESTATION AL AGE January 27, 2025 12:08pm 36 wk ob January 28, 2025 9:02 am PAT WENT TO OFFICE TO HAVE E ORDER PUT I N January 30, 2025 9:50am Reason for Visit Admit Date Desires (vaginal after kim an) trial October 09, 2024 8:25am History of gestational diabe jose luis mellitus (GDM) in prior , currentl October 09, 2024 8:25am Obesity affecting September 8:25am October 09, 2024 8:25am Previous section October 09, 2024 8:25am Supervision of high risk , ante October 09, 2024 8:25am Desires (vaginal after kim an) trial November 08, 2024 8:45am History of gestational diabe jose luis mellitus (GDM) in prior , currentl November 08, 2024 8:45am Obesity affecting October 8:45am November 08, 2024 8 :45am Previous section November 08, 2024 8:45am Supervision of high risk , ante November 08, 2024 8:45am Desires (vaginal after kim an) trial December 05, 2024 9:25am History of gestational diabe jose luis mellitus (GDM) in prior , currentl December 05, 2024 9:25am Obesity affecting November 9:25am December 05, 2024 9:25am Previous section December 05, 2024 9:25am Supervision of high risk , ante December 05, 2024 9:25am Desires (vaginal after kim an) trial December 19, 2024 9:01am History of gestational diabe jose luis mellitus (GDM) in prior , currentl December 19, 2024 9:01am Obesity affecting November 9:01am December 19, 2024 9:01am Previous section December 19, 2024 9:01am Supervision of high risk , ante December 19, 2024 9:01am Desires (vaginal after kim an) trial January 03, 2025 9:36am History of gestational diabe jose luis mellitus (GDM) in prior , currentl January 03, 2025 9:36am Obesity affecting January 03, 2025 9:36am January 03, 2025 9:3 6am Previous section January 03 9:36am Supervision of high risk , ante January 03, 2025 9:36am Desires (vaginal after kim an) trial January 17, 2025 10:10am History of gestational diabe jose luis mellitus (GDM) in prior , currentl January 17, 2025 10:10am Large for gestational age fe tus affecting management of mother January 17, 2025 10:10am Obesity affecting January 17, 2025 10:10am January 17, 2025 10: 10am Previous section January 17 10:10am Supervision of high risk , ante January 17, 2025 10:10am Desires (vaginal after kim an) trial January 28, 2025 9:02am History of gestational diabe jose luis mellitus (GDM) in prior , currentl January 28, 2025 9:02am Large for gestational age fe tus affecting management of mother January 28, 2025 9:02am Obesity affecting January 28 9:02am January 28, 2025 9:02 am Previous section January 28 9:02am Supervision of high risk , ante January 28, 2025 9:02am Chief Complaint Admit Date 24 WK OB November 08, 2024 8 :45am ONE HOUR DRAW AT 9:20AM December 05, 025 9:05am 28 WK OB/GLUCOSE December 05, 2024 9:25am 30 wk ob December 19, 2024 9:01am R/O LABOR December 26, 2024 8:10 pm R/O LABOR December 26, 2024 9:12 pm 32 wk ob (RS 5/6 APT) January 03, 2025 9 :36am 34 wk ob January 17, 2025 10: 10am OBESITY IN ,LARGE FOR GESTATION AL AGE January 27, 2025 12:08pm 36 wk ob January 28, 2025 9:02 am PAT WENT TO OFFICE TO HAVE E ORDER PUT I N January 30, 2025 9:50am 37 wk ob February 06, 2025 9:4 4am 38 wk ob February 11, 2025 9:0 4am 39 wk ob February 20, 2025 1:04pm REPEAT C SECTION February 25, 2025 4:27am C SECTION February 25, 2025 7:10am REPEAT C SECTION February 26, 2025 8:16am Reason for Visit Admit Date Desires (vaginal after kim an) trial November 08, 2024 8:45am History of gestational diabe jose luis mellitus (GDM) in prior , currentl November 08, 2024 8:45am Obesity affecting October 8:45am November 08, 2024 8 :45am Previous section November 08, 2024 8:45am Supervision of high risk , ante November 08, 2024 8:45am Desires (vaginal after kim an) trial December 05, 2024 9:25am History of gestational diabe jose luis mellitus (GDM) in prior , currentl December 05, 2024 9:25am Obesity affecting November 9:25am December 05, 2024 9:25am Previous section December 05, 2024 9:25am Supervision of high risk , ante December 05, 2024 9:25am Desires (vaginal after kim an) trial December 19, 2024 9:01am History of gestational diabe jose luis mellitus (GDM) in prior , currentl December 19, 2024 9:01am Obesity affecting November 9:01am December 19, 2024 9:01am Previous section December 19, 2024 9:01am Supervision of high risk , ante December 19, 2024 9:01am Desires (vaginal after kim an) trial January 03, 2025 9:36am History of gestational diabe jose luis mellitus (GDM) in prior , currentl January 03, 2025 9:36am Obesity affecting January 03, 2025 9:36am January 03, 2025 9:3 6am Previous section January 03 9:36am Supervision of high risk , ante January 03, 2025 9:36am Desires (vaginal after kim an) trial January 17, 2025 10:10am History of gestational diabe jose luis mellitus (GDM) in prior , currentl January 17, 2025 10:10am Large for gestational age fe tus affecting management of mother January 17, 2025 10:10am Obesity affecting January 17, 2025 10:10am January 17, 2025 10: 10am Previous section January 17 10:10am Supervision of high risk , ante January 17, 2025 10:10am Desires (vaginal after kim an) trial January 28, 2025 9:02am History of gestational diabe jose luis mellitus (GDM) in prior , currentl January 28, 2025 9:02am Large for gestational age fe tus affecting management of mother January 28, 2025 9:02am Obesity affecting January 28 9:02am January 28, 2025 9:02 am Previous section January 28 9:02am Supervision of high risk , ante January 28, 2025 9:02am Desires (vaginal after kim an) trial February 06, 2025 9:44am GBS (group B Streptococcus c arrier), +RV culture, currently February 06, 2025 9:44am History of gestational diabe jose luis mellitus (GDM) in prior , currentl February 06, 2025 9:44am Large for gestational age fe tus affecting management of mother February 06, 2025 9:44am Obesity affecting February 06, 2025 9:44am February 06, 2025 9:4 4am Previous section February 06 9:44am Supervision of high risk , ante February 06, 2025 9:44am Desires (vaginal after kim an) trial February 11, 2025 9:04am GBS (group B Streptococcus c arrier), +RV culture, currently February 11, 2025 9:04am History of gestational diabe jose luis mellitus (GDM) in prior , currentl February 11, 2025 9:04am Large for gestational age fe tus affecting management of mother February 11, 2025 9:04am Obesity affecting February 11, 2025 9:04am February 11, 2025 9:0 4am Previous section February 11 9:04am Supervision of high risk , ante February 11, 2025 9:04am Desires (vaginal after kim an) trial February 20, 2025 1:04pm GBS (group B Streptococcus c arrier), +RV culture, currently February 20, 2025 1:04pm History of gestational diabe jose luis mellitus (GDM) in prior , currentl February 20, 2025 1:04pm Large for gestational age fe tus affecting management of mother February 20, 2025 1:04pm Obesity affecting February 20 1:04pm February 20, 2025 1:04pm Previous section February 20, 2025 1:04pm Supervision of high risk , ante February 20, 2025 1:04pm Desires (vaginal after kim an) trial February 25, 2025 4:27am GBS (group B Streptococcus c arrier), +RV culture, currently February 25, 2025 4:27am History of gestational diabe jose luis mellitus (GDM) in prior , currentl February 25, 2025 4:27am Large for gestational age fe tus affecting management of mother February 25, 2025 4:27am Obesity affecting February 25 4:27am February 25, 2025 4:27am Previous section February 25, 2025 4:27am Status post section February 25 4:27am Supervision of high risk , ante February 25, 2025 4:27am Chief Complaint Admit Date ONE HOUR DRAW AT 9:20AM December 05, 2 025 9:05am 28 WK OB/GLUCOSE December 05, 2024 9:25am 30 wk ob December 19, 2024 9:01am R/O LABOR December 26, 2024 8:10 pm R/O LABOR December 26, 2024 9:12 pm 32 wk ob (RS 5/6 APT) January 03, 2025 9 :36am 34 wk ob January 17, 2025 10: 10am OBESITY IN ,LARGE FOR GESTATION AL AGE January 27, 2025 12:08pm 36 wk ob January 28, 2025 9:02 am PAT WENT TO OFFICE TO HAVE E ORDER PUT I N January 30, 2025 9:50am 37 wk ob February 06, 2025 9:4 4am 38 wk ob February 11, 2025 9:0 4am 39 wk ob February 20, 2025 1:04pm REPEAT C SECTION February 25, 2025 4:27am C SECTION February 25, 2025 7:10am REPEAT C SECTION February 26, 2025 8:16am 2 wk RLTCS March 12, 2025 3:30p m Reason for Visit Admit Date History of gestational diabe jose luis mellitus (GDM) in prior , currentl December 05, 2024 9:25am Previous section December 05, 2024 9:25am Desires (vaginal after kim an) trial December 05, 2024 9:25am Obesity affecting November 9:25am December 05, 2024 9:25am Supervision of high risk , ante December 05, 2024 9:25am History of gestational diabe jose luis mellitus (GDM) in prior , currentl December 19, 2024 9:01am Previous section December 19, 2024 9:01am Desires (vaginal after kim an) trial December 19, 2024 9:01am Obesity affecting November 9:01am December 19, 2024 9:01am Supervision of high risk , ante December 19, 2024 9:01am History of gestational diabe jose luis mellitus (GDM) in prior , currentl January 03, 2025 9:36am Previous section January 03 9:36am Desires (vaginal after kim an) trial January 03, 2025 9:36am Obesity affecting January 03, 2025 9:36am January 03, 2025 9:3 6am Supervision of high risk , ante January 03, 2025 9:36am History of gestational diabe jose luis mellitus (GDM) in prior , currentl January 17, 2025 10:10am Previous section January 17 10:10am Desires (vaginal after kim an) trial January 17, 2025 10:10am Large for gestational age fe tus affecting management of mother January 17, 2025 10:10am Obesity affecting January 17, 2025 10:10am January 17, 2025 10: 10am Supervision of high risk , ante January 17, 2025 10:10am History of gestational diabe jose luis mellitus (GDM) in prior , currentl January 28, 2025 9:02am Previous section January 28 9:02am Desires (vaginal after kim an) trial January 28, 2025 9:02am Large for gestational age fe tus affecting management of mother January 28, 2025 9:02am Obesity affecting January 28 025 9:02am January 28, 2025 9:02 am Supervision of high risk , ante January 28, 2025 9:02am History of gestational diabe jose luis mellitus (GDM) in prior , currentl February 06, 2025 9:44am Previous section February 06 9:44am Desires (vaginal after kim an) trial February 06, 2025 9:44am GBS (group B Streptococcus c arrier), +RV culture, currently February 06, 2025 9:44am Large for gestational age fe tus affecting management of mother February 06, 2025 9:44am Obesity affecting February 06, 2025 9:44am February 06, 2025 9:4 4am Supervision of high risk , ante February 06, 2025 9:44am History of gestational diabe jose luis mellitus (GDM) in prior , currentl February 11, 2025 9:04am Previous section February 11 9:04am Desires (vaginal after kim an) trial February 11, 2025 9:04am GBS (group B Streptococcus c arrier), +RV culture, currently February 11, 2025 9:04am Large for gestational age fe tus affecting management of mother February 11, 2025 9:04am Obesity affecting February 11, 2025 9:04am February 11, 2025 9:0 4am Supervision of high risk , ante February 11, 2025 9:04am History of gestational diabe jose luis mellitus (GDM) in prior , currentl February 20, 2025 1:04pm Previous section February 20, 2025 1:04pm Desires (vaginal after kim an) trial February 20, 2025 1:04pm GBS (group B Streptococcus c arrier), +RV culture, currently February 20, 2025 1:04pm Large for gestational age fe tus affecting management of mother February 20, 2025 1:04pm Obesity affecting February 20 1:04pm February 20, 2025 1:04pm Supervision of high risk , ante February 20, 2025 1:04pm History of gestational diabe jose luis mellitus (GDM) in prior , currentl February 25, 2025 4:27am Previous section February 25, 2025 4:27am Status post section February 25 4:27am Desires (vaginal after kim an) trial February 25, 2025 4:27am GBS (group B Streptococcus c arrier), +RV culture, currently February 25, 2025 4:27am Large for gestational age fe tus affecting management of mother February 25, 2025 4:27am Obesity affecting February 25 4:27am February 25, 2025 4:27am Supervision of high risk , ante February 25, 2025 4:27am Status post section March 12, 2 025 3:30pm Yeast dermatitis March 12, 2025 3:30p m Chief Complaint Admit Date 30 wk ob December 19, 2024 9:01am R/O LABOR December 26, 2024 8:10 pm R/O LABOR December 26, 2024 9:12 pm 32 wk ob (RS 5/6 APT) January 03, 2025 9 :36am 34 wk ob January 17, 2025 10: 10am OBESITY IN ,LARGE FOR GESTATION AL AGE January 27, 2025 12:08pm 36 wk ob January 28, 2025 9:02 am PAT WENT TO OFFICE TO HAVE E ORDER PUT I N January 30, 2025 9:50am 37 wk ob February 06, 2025 9:4 4am 38 wk ob February 11, 2025 9:0 4am 39 wk ob February 20, 2025 1:04pm REPEAT C SECTION February 25, 2025 4:27am C SECTION February 25, 2025 7:10am REPEAT C SECTION February 26, 2025 8:16am 2 wk RLTCS March 12, 2025 3:30p m visit (obstetrics) April 10, 2025 3:18pm Reason for Visit Admit Date History of gestational diabe jose luis mellitus (GDM) in prior , currentl December 19, 2024 9:01am Desires (vaginal after kim an) trial December 19, 2024 9:01am Obesity affecting November 9:01am December 19, 2024 9:01am Supervision of high risk , ante December 19, 2024 9:01am Previous section December 19, 2024 9:01am History of gestational diabe jose luis mellitus (GDM) in prior , currentl January 03, 2025 9:36am Desires (vaginal after kim an) trial January 03, 2025 9:36am Obesity affecting January 03, 2025 9:36am January 03, 2025 9:3 6am Supervision of high risk , ante January 03, 2025 9:36am Previous section January 03 9:36am History of gestational diabe jose luis mellitus (GDM) in prior , currentl January 17, 2025 10:10am Desires (vaginal after kim an) trial January 17, 2025 10:10am Large for gestational age fe tus affecting management of mother January 17, 2025 10:10am Obesity affecting January 17, 2025 10:10am January 17, 2025 10: 10am Supervision of high risk , ante January 17, 2025 10:10am Previous section January 17 10:10am History of gestational diabe jose luis mellitus (GDM) in prior , currentl January 28, 2025 9:02am Desires (vaginal after kim an) trial January 28, 2025 9:02am Large for gestational age fe tus affecting management of mother January 28, 2025 9:02am Obesity affecting January 28, 025 9:02am January 28, 2025 9:02 am Supervision of high risk , ante January 28, 2025 9:02am Previous section January 28 9:02am History of gestational diabe jose luis mellitus (GDM) in prior , currentl February 06, 2025 9:44am Desires (vaginal after kim an) trial February 06, 2025 9:44am GBS (group B Streptococcus c arrier), +RV culture, currently February 06, 2025 9:44am Large for gestational age fe tus affecting management of mother February 06, 2025 9:44am Obesity affecting February 06, 2025 9:44am February 06, 2025 9:4 4am Supervision of high risk , ante February 06, 2025 9:44am Previous section February 06 9:44am History of gestational diabe jose luis mellitus (GDM) in prior , currentl February 11, 2025 9:04am Desires (vaginal after kim an) trial February 11, 2025 9:04am GBS (group B Streptococcus c arrier), +RV culture, currently February 11, 2025 9:04am Large for gestational age fe tus affecting management of mother February 11, 2025 9:04am Obesity affecting February 11, 2025 9:04am February 11, 2025 9:0 4am Supervision of high risk , ante February 11, 2025 9:04am Previous section February 11 9:04am History of gestational diabe jose luis mellitus (GDM) in prior , currentl February 20, 2025 1:04pm Desires (vaginal after kim an) trial February 20, 2025 1:04pm GBS (group B Streptococcus c arrier), +RV culture, currently February 20, 2025 1:04pm Large for gestational age fe tus affecting management of mother February 20, 2025 1:04pm Obesity affecting February 20 1:04pm February 20, 2025 1:04pm Supervision of high risk , ante February 20, 2025 1:04pm Previous section February 20, 2025 1:04pm History of gestational diabe jose luis mellitus (GDM) in prior , currentl February 25, 2025 4:27am Status post section February 25 4:27am Desires (vaginal after kim an) trial February 25, 2025 4:27am GBS (group B Streptococcus c arrier), +RV culture, currently February 25, 2025 4:27am Large for gestational age fe tus affecting management of mother February 25, 2025 4:27am Obesity affecting February 25 4:27am February 25, 2025 4:27am Supervision of high risk , ante February 25, 2025 4:27am Previous section February 25, 2025 4:27am Status post section March 12, 2 025 3:30pm Yeast dermatitis March 12, 2025 3:30p m Routine Follow-Up April 10, 2025 3:18pm Additional Source Comments INFORMATION SOURCE (unrecogn ized section and content) DATE CREATED AUTHOR 04/18/2018 [facility] DATE CREATED AUTHOR AUTHOR'S ORGANIZ ATION 02/16/2022 [facility] DATE CREATED AUTHOR AUTHOR'S ORGANIZ ATION 02/16/2022 [employer] DATE CREATED AUTHOR AUTHOR'S ORGANIZ ATION 02/22/2022 [facility] DATE CREATED AUTHOR AUTHOR'S ORGANIZ ATION 10/06/2024 [facility] DATE CREATED AUTHOR AUTHOR'S ORGANIZ ATION 03/22/2025 [facility] Goals (unrecognized section and content) Goals may be documented in a n alternate sectionGoals may be documented in an alternate sectionGoals may be documented in an alternate sectionGoals may be documented in an alternate sectionGoals may be documented in an alternate sectionGoals may be documented in an alternate sectionGoals may be documented in an alternate sectionGoals may be documented in an alternate sectionGoals may be documented in an alternate sectionGoals may be documented in an alternate section Care Teams (unrecognized sec tion and content) Team Status: Active Member Role Status Dates Dr. Lidia Gonzalez MD Primary Care Provider Active Team Status: Inactive Member Role Status Dates Dr. Lidia Gonzalez MD Primary Care Provider, Referrin g Provider Active Dr. Emma Booth DO Attending Provider Activ e Team Status: Inactive Member Role Status Dates Dr. Lidia Gonzalez MD Primary Care Provider, Referrin g Provider Active Dr. Vera Boles MD Attending Provider Active Team Status: Inactive Member Role Status Dates Dr. Lidia Gonzalez MD Primary Care Provider, Referrin g Provider Active Susanna Moulton CNM Attending Provider Active Team Status: Inactive Member Role Status Dates Dr. Lidia Gonzalez MD Primary Care Provider Active Dr. Emma Booth DO Attending Provider, Refe rring Provider Active Team Status: Inactive Member Role Status Dates Dr. Lidia Gonzalez MD Primary Care Provider Active Dr. Vera Boles MD Attending Provider, Referr ing Provider Active Team Status: Active Member Role Status Dates Dr. Lidia Gonzalez MD Primary Care Provider Active Dr. Emma Booth DO Attending Provider, Refe rring Provider Active Team Status: Inactive Member Role Status Dates Dr. Lidia Gonzalez MD Primary Care Provider Active Susanna Moulton CNM Attending Provider, Referring Pro vider Active Team Status: Inactive Member Role Status Dates Dr. Lidia Gonzalez MD Primary Care Provider, Referrin g Provider Active Radha Soler HEMATOLOGY SPECIALIST, HEMATOLOGY SPECIALIST-C Attending Provider Active Team Status: Active Member Role Status Dates Dr. Lidia Gonzalez MD Primary Care Provider Active Dr. Emma Booth DO Other Provider Active Matilde Terrell CNM Attending Provider , Referring Provider, Other Provider Active Team Status: Active Member Role Status Dates Dr. Lidia Gonzalez MD Primary Care Provider Active Dr. Emma Booth DO Admit Prov ider, Attending Provider, Other Provider Active Team Status: Inactive Member Role Status Dates Dr. Lidia Gonzalez MD Primary Care Provider Active Dr. Emma Booth DO Admit Provider, Attendin g Provider Active Team Status: Inactive Member Role Status Dates Dr. Lidia Gonzalez MD Primary Care Provider Active Dr. Emma Booth DO Other Provider Active Matilde Terrell CNM Attending Provider, Referring Pr ovider Active Team Status: Inactive Member Role Status Dates Dr. Lidia Gonzalez MD Primary Care Provider Active Start: September 12, 2024 End: September 12, 2024 Dr. Lidia Gonzalez MD Referring Provider Active Start: September 12, 2024 End: September 12, 2024 Susanna Moulton CNM Attending Provider Active S tart: September 12, 2024 End: September 12, 2024 Team Status: Inactive Member Role Status Dates Dr. Lidia Gonzalez MD Primary Care Provider Active Start: October 09, 2024 End: October 09, 2024 Dr. Lidia Gonzalez MD Referring Provider Active Start: October 09, 2024 End: October 09, 2024 Dr. Vera Boles MD Attending Provider Active Start: October 09, 2024 End: October 09, 2024 Team Status: Inactive Member Role Status Dates Dr. Lidia Gonzalez MD Primary Care Provider Active Start: November 08, 2024 End: November 08, 2024 Dr. Lidia Gonzalez MD Referring Provider Active Start: November 08, 2024 End: November 08, 2024 Dr. Emma Booth DO Attending Provider Activ e Start: November 08, 2024 End: November 08, 2024 Team Status: Inactive Member Role Status Dates Dr. Lidia Gonzalez MD Primary Care Provider Active Start: December 05, 2024 End: December 05, 2024 Dr. Emma Booth DO Attending Provider Activ e Start: December 05, 2024 End: December 05, 2024 Dr. Emma Booth DO Referring Provider Activ e Start: December 05, 2024 End: December 05, 2024 Team Status: Inactive Member Role Status Dates Dr. Lidia Gonzalez MD Primary Care Provider Active Start: December 05, 2024 End: December 05, 2024 Dr. Lidia Gonzalez MD Referring Provider Active Start: December 05, 2024 End: December 05, 2024 Radha Soler NP, HEMATOLOGY SPECIALIST-C Attending Provider Active Start: December 05, 2024 End: December 05, 2024 Team Status: Inactive Member Role Status Dates Dr. Lidia Gonzalez MD Primary Care Provider Active Start: December 19, 2024 End: December 19, 2024 Dr. Lidia Gonzalez MD Referring Provider Active Start: December 19, 2024 End: December 19, 2024 Dr. Emma Booth DO Attending Provider Activ e Start: December 19, 2024 End: December 19, 2024 Team Status: Inactive Member Role Status Dates Dr. Lidia Gonzalez MD Primary Care Provider Active Start: December 26, 2024 End: December 26, 2024 Dr. Vera Boles MD Attending Provider Active Start: December 26, 2024 End: December 26, 2024 Team Status: Active Member Role Status Dates Dr. Lidia Gonzalez MD Primary Care Provider Active Start: December 26, 2024 Dr. Vera Boles MD Attending Provider Active Start: December 26, 2024 Dr. Vera Boles MD Other Provider Active Start: December 26, 2024 Team Status: Inactive Member Role Status Dates Dr. Lidia Gonzalez MD Primary Care Provider Active Start: December 26, 2024 End: December 26, 2024 Dr. Vera Boles MD Attending Provider Active Start: December 26, 2024 End: December 26, 2024 Dr. Vera Boles MD Referring Provider Active Start: December 26, 2024 End: December 26, 2024 Team Status: Inactive Member Role Status Dates Dr. Lidia Gonzaelz MD Primary Care Provider Active Start: January 03, 2025 End: January 03, 2025 Dr. Lidia Gonzalez MD Referring Provider Active Start: January 03, 2025 End: January 03, 2025 Dr. Vera Boles MD Attending Provider Active Start: January 03, 2025 End: January 03, 2025 Team Status: Inactive Member Role Status Dates Dr. Lidia Gonzalez MD Primary Care Provider Active Start: January 17, 2025 End: January 17, 2025 Dr. Lidia Gonzalez MD Referring Provider Active Start: January 17, 2025 End: January 17, 2025 Dr. Emma Booth DO Attending Provider Activ e Start: January 17, 2025 End: January 17, 2025 Team Status: Inactive Member Role Status Dates Dr. Lidia Gonzalez MD Primary Care Provider Active Start: January 27, 2025 End: January 27, 2025 Dr. Emma Booth DO Attending Provider Activ e Start: January 27, 2025 End: January 27, 2025 Dr. Emma Booth DO Referring Provider Activ e Start: January 27, 2025 End: January 27, 2025 Team Status: Inactive Member Role Status Dates Dr. Lidia Gonzalez MD Primary Care Provider Active Start: January 28, 2025 End: January 28, 2025 Dr. Lidia Gonzalez MD Referring Provider Active Start: January 28, 2025 End: January 28, 2025 Dr. Vera Boles MD Attending Provider Active Start: January 28, 2025 End: January 28, 2025 Team Status: Active Member Role Status Dates Dr. Lidia Gonzalez MD Primary Care Provider Active Start: January 28, 2025 Dr. Vera Boles MD Attending Provider Active Start: January 28, 2025 Dr. Vera Boles MD Referring Provider Active Start: January 28, 2025 Team Status: Active Member Role Status Dates Dr. Lidia Gonzalez MD Primary Care Provider Active Start: January 30, 2025 Dr. Vera Boles MD Attending Provider Active Start: January 30, 2025 Dr. Vera Boles MD Referring Provider Active Start: January 30, 2025 Team Status: Inactive Member Role Status Dates Dr. Lidia Gonzalez MD Primary Care Provider Active Start: January 30, 2025 End: January 30, 2025 Dr. Vera Boles MD Attending Provider Active Start: January 30, 2025 End: January 30, 2025 Dr. Vera Boles MD Referring Provider Active Start: January 30, 2025 End: January 30, 2025 Team Status: Inactive Member Role Status Dates Dr. Lidia Gonzalez MD Primary Care Provider Active Start: January 28, 2025 End: January 28, 2025 Dr. Vera Boles MD Attending Provider Active Start: January 28, 2025 End: January 28, 2025 Dr. Vera Boles MD Referring Provider Active Start: January 28, 2025 End: January 28, 2025 Team Status: Inactive Member Role Status Dates Dr. Lidia Gonzalez MD Primary Care Provider Active Start: February 06, 2025 End: February 06, 2025 Dr. Lidia Gonzalez MD Referring Provider Active Start: February 06, 2025 End: February 06, 2025 Dr. Emma Booth DO Attending Provider Activ e Start: February 06, 2025 End: February 06, 2025 Team Status: Inactive Member Role Status Dates Dr. Lidia Gonzalez MD Primary Care Provider Active Start: February 11, 2025 End: February 11, 2025 Dr. Lidia Gonzalez MD Referring Provider Active Start: February 11, 2025 End: February 11, 2025 Dr. Vera Boles MD Attending Provider Active Start: February 11, 2025 End: February 11, 2025 Team Status: Inactive Member Role Status Dates Dr. Lidia Gonzalez MD Primary Care Provider Active Start: February 20, 2025 End: February 20, 2025 Dr. Lidia Gonzalez MD Referring Provider Active Start: February 20, 2025 End: February 20, 2025 Dr. Vera Boles MD Attending Provider Active Start: February 20, 2025 End: February 20, 2025 Team Status: Inactive Member Role Status Dates Dr. Lidia Gonzalez MD Primary Care Provider Active Start: February 25, 2025 End: February 26, 2025 Dr. Emma Booth , DO Admit Provider Active Start: February 25, 2025 End: February 26, 2025 Dr. Emma Booth DO Attending Provider Activ e Start: February 25, 2025 End: February 26, 2025 Dr. Emma Booth DO Referring Provider Activ e Start: February 25, 2025 End: February 26, 2025 Team Status: Active Member Role Status Dates Dr. Lidia Gonzalez MD Primary Care Provider Active Start: February 25, 2025 Dr. Emma Booth DO Admit Provider Active Start: February 25, 2025 Dr. Emma Booth DO Attending Provider Activ e Start: February 25, 2025 Dr. Emma Booth DO Referring Provider Activ e Start: February 25, 2025 Dr. Emma Booth DO Other Provider Active Start: February 25, 2025 Team Status: Active Member Role Status Dates Dr. Lidia Gonzalez MD Primary Care Provider Active Start: February 26, 2025 Dr. Emma Booth DO Admit Provider Active Start: February 26, 2025 Dr. Emma Booth DO Referring Provider Activ e Start: February 26, 2025 Dr. Emma Booth DO Other Provider Active Start: February 26, 2025 Dr. Vera Boles MD Attending Provider Active Start: February 26, 2025 Team Status: Inactive Member Role Status Dates Dr. Lidia Gonzalez MD Primary Care Provider Active Start: March 12, 2025 End: March 12, 2025 Dr. Lidia Gonzalez MD Referring Provider Active Start: March 12, 2025 End: March 12, 2025 Susanna Moulton CNM Attending Provider Active S tart: March 12, 2025 End: March 12, 2025 Team Status: Inactive Member Role Status Dates Dr. Lidia Gonzalez MD Primary Care Provider Active Start: April 10, 2025 End: April 10, 2025 Dr. Liida Gonzalez MD Referring Provider Active Start: April 10, 2025 End: April 10, 2025 Dr. Emma Booth DO Attending Provider Activ e Start: April 10, 2025 End: April 10, 2025 FOR RECORDS PERTAINING TO PATIENTS WHO ARE OR HAVE BEEN ENROLLED IN A CHEMICAL DEPENDENCY/SUBSTANCEABUSE PROGRAM, SOME INFORMATION MAY BE OMITTED. This clinical summary was aggregated from multiple sources. Caution should be exercised in using it in the provision of clinical care. This summary normalizes information from multiple sources, and as a consequence, information in this document may materially change the coding, format and clinical context of patient data. In addition, data may be omitted in some cases. CLINICAL DECISIONS SHOULD BE BASED ON THE PRIMARY CLINICAL RECORDS. [facility]. provides no warranty or guarantee of the accuracy or completeness of information in this document.
== END | disposition home or self-care (01) ==
LOC: LABSPEC 16:37
PROVIDERS: PCP Family Medicine; Referring Provider Obstetrics & Gynecology; Visit Provider Obstetrics & Gynecology
DX: Z12.4 Encounter for screening for malignant neoplasm of cervix (principal)
CPT/HCPCS: 88175; G0145